=== PATIENT | female | born 1975 | race Caucasian/White ===

== ENCOUNTER 2017-10-16 12:17 | Emergency (ER) | payer OTHER, MEDICAID, SELFPAY ==
[2017-10-16 12:18] VITALS: BP 134/90; PULSE 79; RESP 18; TEMP 36.4; O2SAT 100; BMI 24.5
--- NOTE | 2017-10-16 12:29 | RAD_ITS ---
STUDY: X-RAY - RIGHT WRIST REASON FOR EXAM: Swelling and bruising, box fell on wrist today. TECHNIQUE: 3 view(s) of the wrist were obtained. COMPARISON: None. FINDINGS: Normal visualized distal radius and ulna. Normal radiocarpal articulation. Normal distal radioulnar articulation. Normal carpal bones. Normal carpal articulations. Normal carpometacarpal articulation of the thumb. Normal second through fifth carpometacarpal articulations. Normal visualized metacarpal bones. The soft tissue structures are unremarkable. RAD/Wrist min 3 Views IMPRESSION: Unremarkable x-ray examination of the right wrist without demonstrated fracture. Electronically Signed: Jim Coley MD at 13:24 EDT Tel , Service support ,
--- NOTE | 2017-10-16 12:56 | ED.VISSUMM ---
- ER Visit Summary Date of Service: 10/16/17 Chief Complaint: [Injury right wrist] History of Present Illness: The patient is a 42 F [presents the emergency department with an injury to the right wrist that occurred prior to arrival emergency department. Patient states that she try to bring down a box weighing about 90 pounds and lost control of it. The box trapped her right wrist between the wall and the box weighing about 90 pounds. Patient complaining of pain in the ulnar aspect of the right wrist. Patient is right-hand dominant. Patient denies any other injuries.] Physical Examination: [Right wrist-patient has tenderness over the ulnar aspect with minimal soft tissue swelling noted. There is no ecchymosis or bruising. No obvious deformity. She is neurovascular intact distally.] Test Results: [X-rays of the right wrist obtained showed no fractures or dislocations.] Emergency Department Course and Treatment: [Patient was given a wrist splint] Treatment Plan: [Patient will be given work restrictions and a wrist splint. Patient will be given a prescription for Naprosyn.] Disposition: [Discharged home in stable condition. Patient advised to follow-up with [employer] care within next 3-5 days.] Impression: [Contusion/sprain right wrist This note was generated with [employer] dictation software. It may contain incorrect words, spelling, and punctuation that were not noted in review of the chart prior to signing ED Disposition - Plan for ED Patient: Chief Complaint: Upper Extremity Injury Referrals: Issac Connors MD [Primary Care Provider] -
--- NOTE | 2017-10-16 12:58 | ED.RN ---
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 Inquired whether she would like a drug test due to Workman's Compensation claim and she does NOT want drug test at this time.
--- NOTE | 2017-10-16 12:59 | ED.DCSUM_ITS ---
- ER Visit Summary Date of Service: 10/16/17 Chief Complaint: [Injury right wrist] History of Present Illness: The patient is a 42 F [presents the emergency department with an injury to the right wrist that occurred prior to arrival emergency department. Patient states that she try to bring down a box weighing about 90 pounds and lost control of it. The box trapped her right wrist between the wall and the box weighing about 90 pounds. Patient complaining of pain in the ulnar aspect of the right wrist. Patient is right-hand dominant. Patient denies any other injuries.] Physical Examination: [Right wrist-patient has tenderness over the ulnar aspect with minimal soft tissue swelling noted. There is no ecchymosis or bruising. No obvious deformity. She is neurovascular intact distally.] Test Results: [X-rays of the right wrist obtained showed no fractures or dislocations.] Emergency Department Course and Treatment: [Patient was given a wrist splint] Treatment Plan: [Patient will be given work restrictions and a wrist splint. Patient will be given a prescription for Naprosyn.] Disposition: [Discharged home in stable condition. Patient advised to follow- up with corporate care within next 3-5 days.] Impression: [Contusion/sprain right wrist This note was generated with [employer] dictation software. It may contain incorrect words, spelling, and punctuation that were not noted in review of the chart prior to signing ED Disposition - Plan for ED Patient: Chief Complaint: Upper Extremity Injury Referrals: Issac Connors MD [Primary Care Provider] -
--- NOTE | 2017-10-16 13:01 | DCINST.ED_ITS ---
ED Disposition - Plan for ED Patient: Chief Complaint: Upper Extremity Injury Instructions: ED Sprain Wrist, ED Contusion Upper Ext Prescriptions: Naproxen [Naprosyn] 500 mg PO BID PRN #20 tab Referrals: Issac Connors MD [Primary Care Provider] - [facility] [facility] [GROUP OF PHYSICIANS] - 3-5 Days
--- NOTE | 2017-10-16 13:18 | ED.RN ---
Verbal and written d/c instructions given. All questions answered. Gait steady out of department.
--- NOTE | 2017-10-16 15:56 | ED.RN ---
pt's employer called in- number gave for them to followup with [employer].
== END 2017-10-16 13:15 | disposition home or self-care (01) ==
PROVIDERS: Emergency Provider Emergency Medicine; Family Provider Internal Medicine; PCP Internal Medicine
DX: S63.501A Unspecified sprain of right wrist, initial encounter (principal); S60.211A Contusion of right wrist, initial encounter; W23.0XXA Caught, crushed, jammed, or pinched between moving objects, initial encounter; Y93.89 Activity, other specified; Y92.9 Unspecified place or not applicable; Z79.899 Other long term (current) drug therapy
CPT/HCPCS: 73110; 99283

== ENCOUNTER 2018-08-24 17:06 | Emergency (ER) | payer MEDICAID, SELFPAY ==
[2018-08-24 17:07] VITALS: BP 134/79; PULSE 68; RESP 16; TEMP 36.3; O2SAT 98; BMI 22.1
[2018-08-24] MEDS: Ketorolac 60 MG/2 ML Vial IM (18:01)
[2018-08-24] MEDS: Orphenadrine 60 MG/2 ML Ampul IM (18:01)
--- NOTE | 2018-08-24 18:19 | RAD_ITS ---
STUDY: X-RAY - LUMBAR SPINE REASON FOR EXAM: Female, 43 years old. Weakness TECHNIQUE: 3 view(s) of the lumbar spine were obtained. COMPARISON: None FINDINGS: Normal lumbar lordosis. There is no substantial scoliosis. There is a normal alignment of the vertebrae. There is multilevel endplate spondylosis of the lumbar vertebrae. Mild loss of disc space at L4-L5 and L5-S1. There is no demonstrated fracture. Surgical clips project over the lower abdomen and pelvis. RAD/Lumbar Spine 2 or 3 Views IMPRESSION: No compression fracture. Mild degenerative changes. Electronically Signed: Christo Benson MD at 19:02 EST , Service support ,
--- NOTE | 2018-08-24 20:53 | ED.VISSUMM ---
- ER Visit Summary Date of Service: 08/24/18 Chief Complaint: Leg issues History of Present Illness: The patient is a 43 F with chronic back pain and leg pain. The patient takes gabapentin. Yesterday she had pain that radiated down her legs bilaterally. She said that she could not walk or stand and her legs felt numb. She tried kupu-gni-kuvonnd medicine as well as heat. This morning she felt a little better but was still having more pain than usual. She denies any recent accidents or injuries. No incontinence. No fevers or other associated symptoms. Physical Examination: Afebrile and vital signs unremarkable. Abdomen soft and nontender. Back was nontender. Straight leg raise negative. Good strength and sensation, symmetric. Normal reflexes. Pulses strong and equal. Test Results: X-ray showed no fracture she does have mild degenerative changes. Emergency Department Course and Treatment: Patient was treated with Norflex and Toradol. On reevaluation, she was able to ambulate. She had good strength and sensation. Her symptoms yesterday were concerning. MRI is not available emergently. I do not believe there is indication for admission or emergency transfer, but I do believe she needs close follow-up. I spoke with Dr. Reddy who was on-call for her PCP. He will relay the message. Patient will be treated with a short course of pain medicine. Follow-up with her doctor. Return right away for any new or worsening issues. Treatment Plan: As above Disposition: Discharge Impression: 1. Low back pain with bilateral sciatica This note was generated with [employer] dictation software. It may contain incorrect words, spelling, and punctuation that were not noted in review of the chart prior to signing ED Disposition - Plan for ED Patient: Referrals: Marisa Chew MD [Primary Care Provider] -
--- NOTE | 2018-08-24 20:55 | ED.DEP ---
ED Disposition - Plan for ED Patient: Instructions: Relieving Back Pain Prescriptions: Hydrocodone Bitart/Apap 5-325 [Buckhorn 5MG-325MG] 1 tab PO Q6H PRN PRN 3 Days #10 tab PRN Reason: Pain Referrals: Marisa Chew MD [Primary Care Provider] -
[2018-08-24 21:13] VITALS: BP 118/82; PULSE 66; RESP 16; O2SAT 98
== END 2018-08-24 21:14 | disposition home or self-care (01) ==
PROVIDERS: Emergency Provider Emergency Medicine; Family Provider Internal Medicine; PCP Internal Medicine
DX: M54.42 Lumbago with sciatica, left side (principal); M54.41 Lumbago with sciatica, right side
CPT/HCPCS: 72100; 96372; 99282

== ENCOUNTER 2020-08-11 20:13 | Emergency (ER) | payer OTHER, MEDICAID, SELFPAY ==
[2020-08-11 20:14] VITALS: BP 130/89; PULSE 110; RESP 15; TEMP 36.2; O2SAT 99; BMI 24.7
--- NOTE | 2020-08-11 21:16 | ED.VIS.GEN ---
History of Present Illness Chief Complaint: Mental Health Informant: Patient Narrative: 45-year-old female states that tonight she got an argument with her and daughter. She made the comment she wanted to end it all and by that she means the marriage and relationship with the daughter. She states that she is not suicidal or homicidal. She tells me that she wanted to be left alone to collect her thoughts in her room but they took the door handle off and came into the room. She wanted to leave and go for a walk and eventually was able to do so. The family called the police and they told her she needed to come to the hospital and speak with someone. Patient is currently on antidepressants. She needs antidepressants and has been on her new one for about a week. She has a follow-up appointment with her doctor on Sunday (in 2 days). Patient states that she wants to go stay at her mother's house and her mother is here in the parking lot if she is discharged. She denies any prior suicidal attempts. Past Medical History - Allergies and Home Meds Allergies/Adverse Reactions: Allergies morphine Allergy (Verified 08/11/20 20:17) Nausea/Vom/Diarrhea Penicillins Allergy (Verified 08/11/20 20:17) Hives tomato Allergy (Verified 08/11/20 20:17) Hives ORAL CONTRAST Allergy (Uncoded 08/11/20 20:17) Nausea/Vom/Diarrhea Primary Care Physician: Marisa Chew MD [Primary Care Provider] - Keep Mago appointment Past Medical History: - - History of depression Surgical History: noncontributory Lives: Spouse/ Significant Other, With Family Smoking Status: Current every day smoker Drugs: None Review of Systems General: Denies: Chills, Fever, Sweats Eyes: Denies: Visual changes - bilaterally, Diplopia ENT: Denies: Rhinorrhea, Sore throat Cardiovascular: Denies: Chest pain, Palpitations Respiratory: Denies: Dyspnea, Cough, Dyspnea on exertion Gastrointestinal: Denies: Abdominal pain, Nausea, Vomiting, Diarrhea, Melena, Hematochezia Genitourinary: Denies: Dysuria, Hematuria, Frequency Musculoskeletal: Denies: Back pain, Extremity Pain Skin: Denies: Rash, Wounds Neurological: Denies: Headache, Weakness, Numbness Psych: Reports: Depression. Denies: Suicidal thoughts, Suicidal ideations Physical Exam Vital Signs/Narrative: Vital Signs Temp Pulse Resp BP Pulse Ox 08/11/20 20:14 97.1 F L 110 H 15 130/89 H 99 Inital Vital Signs reviewed: Yes General: Well nourished, Well developed, No Acute Distress Head: Normocephalic, Atraumatic Eyes: Perrl, EOMI ENT: Moist mucous membranes, No rhinorrhea Neck: Supple, Nontender Cardiovascular: Regular rate, Regular rhythm, No murmurs Respiratory: No distress, CTA bilaterally, Chest nontender Abdomen: Soft, Nontender, Nondistended, Normal bowel sounds Back: Nontender, Normal Inspection Extremities: Nontender, No edema Skin: Normal color, No rash Neurological: Alert, Oriented x3, Cranial nerves II-XII grossly intact, Normal Strength, Normal Sensation Psychological: Normal affect, Normal Mood, - - Patient makes eye contact with me. She denies suicidal homicidal ideation. She answers appropriately. No pressured speech or internal stimulation noted. Diagnostic/Tx/Re-eval - Medical Decision Making Patient is not suicidal homicidal. She has a plan to stay with her mother josé antonio. This appears to be a stressful situation that perhaps got out of hand. She has early follow-up with her doctor on Sunday. I do not think she needs to be hospitalized at this time. ED Disposition - Plan for ED Patient: Disposition: Home or Assisted Living Diagnosis: Stress reaction Instructions: ED Anxiety Reaction Referrals: Marisa Chew MD [Primary Care Provider] - Keep Mago appointment
== END 2020-08-11 21:58 | disposition home or self-care (01) ==
LOC: ED 21:39
PROVIDERS: Emergency Provider Emergency Medicine; PCP Internal Medicine
DX: F43.9 Reaction to severe stress, unspecified (principal); F32.9 Major depressive disorder, single episode, unspecified; F17.200 Nicotine dependence, unspecified, uncomplicated
CPT/HCPCS: 99282

== ENCOUNTER 2021-09-04 10:43 | Emergency (ER) | payer MEDICAID, SELFPAY ==
[2021-09-04 10:44] VITALS: BP 127/82; PULSE 89; RESP 16; TEMP 35.4; O2SAT 100; BMI 23.3
--- NOTE | 2021-09-04 10:45 | RAD_ITS ---
STUDY: X-RAY - LEFT ELBOW REASON FOR EXAM: Female, 46 years old. FALL TECHNIQUE: 3 view(s) of the elbow. COMPARISON: None. FINDINGS: Normal visualized humerus, radius and ulna. Normal radiocapitellar and ulnotrochlear articulations. The soft tissue structures are unremarkable. RAD/Elbow min 3 Views IMPRESSION: Normal x-ray examination of the elbow. Electronically Signed: Ignacia Correa MD at 11:07 EST ,
--- NOTE | 2021-09-04 11:17 | EX.ED.UPPERE ---
HPI History of Present Illness Chief Complaint: Upper Extremity Injury Informant: patient Occured/Mechanism Mechanism/Context: Yes fall Onset/Context/Timing Onset: Yesterday Current Severity: Moderate Maximum Severity: Moderate Narrative Narrative: Patient presents with injury to the left elbow. Patient states that she tripped over her cat last evening falling backwards and striking her elbow against a table. Injuries to the left arm. She is right-hand dominant. Patient does report pain around the left elbow and down into the forearm. She reports intermittent tingling in her hand. She denies any pain at her neck or shoulder. No other injury from the fall. PFSH PFSH Home Medications diphenoxylate-atropine 1 tab PO 4X/DAY PRN 10/16/15 [History Last Taken 08/24/18] ropinirole [Requip] 0.25 mg PO DAILY 10/16/15 [History Last Taken 08/24/18] ascorbic acid (vitamin C) [Vitamin C] 1 tab PO DAILY 10/16/17 [History Last Taken 08/24/18] ferrous gluconate 1 tab PO DAILY 10/16/17 [History Last Taken 08/24/18] gabapentin [Neurontin] 300 mg PO BID 10/16/17 [History Last Taken 08/24/18] naproxen 500 mg PO BID PRN #20 tab 10/16/17 [Rx Last Taken 08/24/18] cholecalciferol (vitamin D3) 50,000 unit PO QWEEK 08/24/18 [History Last Taken 08/24/18] magnesium 250 mg PO DAILY 08/24/18 [History Last Taken 08/24/18] naproxen [Naprosyn] 500 mg PO BID PRN #20 tab 09/04/21 [Rx Last Taken Unknown] Allergy/AdvReac Type Severity Reaction Status Date / Time morphine Allergy Nausea/Vom/ Verified 09/04/21 10:46 Diarrhea Penicillins Allergy Hives Verified 09/04/21 10:46 tomato Allergy Hives Verified 09/04/21 10:46 ORAL CONTRAST Allergy Nausea/Vom/ Uncoded 09/04/21 10:46 Diarrhea Social History Smoking Status: Former smoker ROS ROS ED Constitutional Constitutional ED: Denies chills or fever(s) Eyes Eyes: Denies change in vision ENT ENT ED: Denies sore throat Cardiovascular Cardiovascular: Denies chest pain Respiratory/Chest Respiratory/Chest: Denies cough or dyspnea Gastrointestinal Gastrointestinal: Denies abdominal pain, nausea or vomiting Musculoskeletal Musculoskeletal: Reports other Details: Left elbow pain ; Denies back pain or neck pain Integumentary Denies rash Neurologic Neurologic: Reports paresthesias and weakness; Denies headache(s) EXAM Physical Exam Const Vital Signs: 09/04/21 10:44 Temperature 95.8 F L Temperature Source Temporal Pulse Rate 89 Respiratory Rate 16 Blood Pressure 127/82 H Blood Pressure Mean 97 Pulse Ox 100 Oxygen Delivery Method Room Air Positive well nourished and well developed General Appearance ED: well developed HEENT Reports moist mucous membranes Eyes PERRL and EOMs intact bilaterally Neck supple Neck Narrative: No C-spine tenderness. Chest Wall inspection of chest normal and palpation of chest normal Resp normal respiratory effort and clear to auscultation bilaterally Cardio regular rate and regular rhythm GI non-tender Palpation: soft Back/Spine Cervical Spine: Negative for cervical spine tenderness Extremity Extremity Narrative: Tenderness to palpation of the extensor surface of the left elbow. Small area of bruising noted. Pain with range of motion but full range of motion is noted. Strong distal pulses with strong hand grasp. No tenderness at the shoulder. Neuro oriented x3 Sensorium / Orientation: alert Psych mental status grossly normal MDM MDM MDM Narrative Medical decision making narrative: Left elbow x-rays obtained per nursing protocol. Radiography Diagnostic Testing: Clinical Impression(s) from Imaging Studies Elbow X-Ray 09/04/21 10:45 IMPRESSION: Normal x-ray examination of the elbow. Electronically Signed: Ignacia Correa MD at 11:07 [facility] , Treatment and Re-Evaluation Comments:: Elbow x-rays per my interpretation reveal no acute fracture. Radiology to rotation is reviewed and agrees. Test results discussed with the patient. She be placed in a sling but instructed to come out of the sling several times a day to work on range of motion. She will written for anti-inflammatories. Discharge Plan Triage Chief Complaint: Upper Extremity Injury ED Provider: Verónica Oliveira Dx/Rx/DC Orders Clinical Impression: Contusion of elbow, left Instructions: ED Contusion, Elbow Prescriptions: New naproxen [Naprosyn] 500 mg tablet 500 mg PO BID PRN (Reason: pain) Qty: 20 RF: 0 No Action diphenoxylate-atropine 1 TABLET tablet 1 tab PO 4X/DAY PRN (Reason: Diarrhea) RF: 0 ropinirole [Requip] 0.25 MG tablet 0.25 mg PO DAILY RF: 0 ascorbic acid (vitamin C) [Vitamin C] 1,000 MG tablet 1 tab PO DAILY RF: 0 gabapentin [Neurontin] 300 MG capsule 300 mg PO BID RF: 0 ferrous gluconate 236 MG tablet 1 tab PO DAILY RF: 0 naproxen 500 MG tablet 500 mg PO BID PRN Qty: 20 RF: 0 magnesium 250 MG tablet 250 mg PO DAILY RF: 0 cholecalciferol (vitamin D3) 50,000 UNIT capsule 50,000 unit PO QWEEK RF: 0 Primary Care Provider: Marisa Chew Referrals: Marisa Chew MD [Primary Care Provider] - 10-14 Days if not better Disposition Disposition: Home, Self Care
== END 2021-09-04 11:57 | disposition home or self-care (01) ==
PROVIDERS: Emergency Provider Emergency Medicine; PCP Internal Medicine; Visit Provider Emergency Medicine
DX: S50.02XA Contusion of left elbow, initial encounter (principal); W01.0XXA Fall on same level from slipping, tripping and stumbling without subsequent striking against object, initial encounter; Z87.891 Personal history of nicotine dependence
CPT/HCPCS: 73080; 99283

== ENCOUNTER 2024-05-06 10:46 | Inpatient (IN) | payer BC, SELFPAY ==
[2024-05-06] VITALS (14 sets, daily range): BP systolic 81–120; BP diastolic 48–91; PULSE 70–104; RESP 13–24; TEMP 35.8–36.5; O2SAT 98–100; BMI 25.4; BMI 24.5
--- NOTE | 2024-05-06 | IMM_PTH ---
PATHOLOGY RESULTS PATIENT: CHATO ALFARO LOC: MS3 U#:[id number] AGE/SX: 48/F ROOM: [facility] [place] RE05/06/[address]: Dr. Ziggy Valle MD : 1975 BED: 1 DIS: 05/13/2024 SPEC #: [id number] RECD: 05/09/24 13:58 STATUS: RODOLFO REQ #: [id number] SHANA: 05/06/24 00:[address]: Ziggy Valle DEPT: IMMUNOHISTOCHEMISTRY RECD BY: Niall Noriega ENTERED: 05/09/24 13:59 SP TYPE: IMMUNO OTHR DR: Dr. Marisa Chew MD Tissues: Rectosigmoid junction Procedures: MSH2 (add) MLH-1 (add) MSH6 (add) Anti-PMS2 (add) CK20 (add) CK5-6 (add) CK7 (add) CK8 (add) KI-67 (add) P53 (add) Pankeratin (add) P40 (add) CDX2 (add) MOC-31 (add) HER-2-JENNA (initial) PHYSICIAN & [address] [address] SPECIMEN INFORMATION: Tissue Source: B- Sigmoid rectal colon Clinical Info: Pneumoperitoneum Specimen Number: [id number] CPT code: 83966,03438z22 METHODOLOGY: Deparaffinized sections of prefer/formalin-fixed tissue or PAP/DQ stained slides are incubated with monoclonal/polyclonal antibodies/oligonucleotide probes. Localization is made via biotin free immunoperoxidase method. Appropriate controls are performed and reacted as expected. Results on target cell population are indicated in the following table: RESULTS: ANTIBODY / CLONE RESULT Block B4 Her-2neu (CB11) negative(0) AE1-3 (AE1/AE3/PCK26) positive CK7 (OV-TL12/30) negative CK8 (65mqlwW64) positive CK20 (KS20.8) positive, focal CDX2 ([id number]) positive MOC-31 (4561) negative CK5-6 (D5 & 1684) negative P40 (BC28) negative MLH-1 (M1) positive MSH2 (25D12) positive MSH6 (44) positive PMS2 (MOS2322) positive Ki-67 (30-9) positive, high P53 (DO-7) positive, indeterminate pattern Testing for Her2 by IHC if equivocal, recommend testing for Her2 by FISH(remove/not needed) These tests were developed and their performance characteristics determined by [facility]. They may not have been cleared or approved by the U.S. Food and Drug Administration. The FDA has determined that such clearance or approval is not necessary. The above immunohistochemical/dualISH markers are ordered and reviewed by the Pathologist. INTERPRETATION: B. Sigmoid rectal colon, colectomy: Invasive adenocarcinoma. Result of Microsatellite Instability Study: Negative (no loss of mismatch protein; no microsatellite instability detected). LELIA. 05/12/2024
--- NOTE | 2024-05-06 | IMM_PTH ---
PATHOLOGY RESULTS PATIENT: CHATO ALFARO LOC: MS3 U#:[id number] AGE/SX: 48/F ROOM: [facility] [place] [place] RE05/06/[address]: Dr. Ziggy Valle MD : 1975 BED: 1 DIS: 05/13/2024 SPEC #: [id number] RECD: 05/08/24 10:50 STATUS: RODOLFO REQ #: [id number] SHANA: 05/06/24 00:[address]: Ziggy Valle DEPT: IMMUNOHISTOCHEMISTRY RECD BY: Niall Noriega ENTERED: 05/08/24 10:51 SP TYPE: IMMUNO OTHR DR: Dr. Marisa Chew MD Tissues: Peritoneal fluid Procedures: Asher Ret (add) CK20 (add) CK7 (add) P53 (add) Vimentin (add) Pankeratin (initial) CDX2 (add) CD68 (ADD) PHYSICIAN & INSTITUTION [place] [address] SPECIMEN INFORMATION: Tissue Source: Peritoneal fluid Clinical Info: Possible [place] patch Specimen Number: [id number] CPT code: 14102,16390b2 METHODOLOGY: Deparaffinized sections of prefer/formalin-fixed tissue or PAP/DQ stained slides are incubated with monoclonal/polyclonal antibodies/oligonucleotide probes. Localization is made via biotin free immunoperoxidase method. Appropriate controls are performed and reacted as expected. Results on target cell population are indicated in the following table: RESULTS: ANTIBODY / CLONE RESULT AE1-3 (AE1/AE3/PCK26) positive, rare cells CALRET (polyclonal) positive, rare cells CK20 (KS20.8) negative CDX2 (IJF2941X) negative P53 (DO-7) negative, null pattern CK7 (OV-TL12/30) positive, rare cells CD68 (KP-1) positive Vimentin (V9) positive These tests were developed and their performance characteristics determined by [facility]. They may not have been cleared or approved by the U.S. Food and Drug Administration. The FDA has determined that such clearance or approval is not necessary. The above immunohistochemical/dualISH markers are ordered and reviewed by the Pathologist. INTERPRETATION: Peritoneal fluid for cytology : No evidence of malignancy. 05/12/2024
[2024-05-06 11:28] LABS: Hematocrit 36.9 % (37-47); Hemoglobin 11.6 g/dL (12.0-15.0); Mean Corp Hgb Conc 31.4 g/dL (32-36); Mean Corpuscular Hgb 24.5 pg (27.0-32.0); Mean Platelet Vol. 9.6 fl (6.2-12.0); NRBC Flagged by Analyzer 0 % (0-5); POSITIVE DIFFERENTIAL YES; POSITIVE MORPHOLOGY YES; Platelet Count 653 K/mm3 (150-450); RBC Distribution Width CV 14.4 % (11.6-14.6); RBC Distribution Width SD 40.8 fl (35.1-43.9); Red Blood Count 4.73 M/mm3 (4.2-5.4); White Blood Count 25.5 K/mm3 (4.4-11.0)
--- NOTE | 2024-05-06 11:28 | EX.ED.DYSGE1 ---
HPI History of Present Illness Chief Complaint: Abd Pain PFSH PFS Home Medications ?Medication ?Instructions ?Recorded ?Last Taken ?Type diphenoxylate-atropine 2.5 1 tab PO 4X/DAY PRN Diarrhea 10/16/15 08/24/18 History mg-0.025 mg tablet ropinirole 0.25 mg tablet (Requip) 0.25 mg PO DAILY 10/16/15 08/24/18 History ascorbic acid (vitamin C) 1,000 mg 1 tab PO DAILY 10/16/17 08/24/18 History tablet (Vitamin C) ferrous gluconate 236 mg (27 mg 1 tab PO DAILY 10/16/17 08/24/18 History iron) tablet gabapentin 300 mg capsule 300 mg PO BID 10/16/17 08/24/18 History (Neurontin) naproxen 500 mg tablet 500 mg PO BID PRN #20 tabs 10/16/17 08/24/18 Rx cholecalciferol (vitamin D3) 1,250 50,000 unit PO QWEEK 08/24/18 08/24/18 History mcg (50,000 unit) capsule magnesium 250 mg tablet 250 mg PO DAILY 08/24/18 08/24/18 History naproxen 500 mg tablet (Naprosyn) 500 mg PO BID PRN pain #20 tabs 09/04/21 Unknown Rx Allergy/AdvReac Type Severity Reaction Status Date / Time morphine Allergy Intermediate Hives Verified 05/06/24 13:21 Penicillins Allergy Hives Verified 05/06/24 10:47 tomato Allergy Hives Verified 05/06/24 10:47 Surgical History (Updated 05/06/24 @ 14:[address] Mendoza Montaño MD) History of left nephrectomy S/P cholecystectomy History of laparoscopic appendectomy H/O: hysterectomy Social History Smoking Status: Never smoker EXAM Physical Exam Const Vital Signs: 05/06/24 10:47 05/06/24 11:49 05/06/24 12:00 Temperature 96.5 F L Temperature Source Temporal Pulse Rate 104 H 92 92 Respiratory Rate 18 20 H 20 H Blood Pressure 81/70 L 112/91 H 112/91 H Blood Pressure Mean 73 98 98 Pulse Ox 100 99 99 Oxygen Delivery Method Room Air Room Air 05/06/24 13:00 05/06/24 13:15 05/06/24 14:41 Temperature 96.5 F L Temperature Source Pulse Rate 85 86 86 Respiratory Rate 20 H 24 H 24 H Blood Pressure 106/48 L 91/60 91/60 Blood Pressure Mean 67 71 Pulse Ox 99 99 Oxygen Delivery Method Room Air Room Air [facility] Narrative Medical decision making narrative: HISTORY OF PRESENT ILLNESS: 48-year-old Notes sharp stabbing pain from left hip across lower abdomen up to rib cage. Notes she has had a gallbladder surgery and appendix surgery in the past. Notes history of total hysterectomy bilateral salpingo-oophorectomy 20 years ago REVIEW OF SYSTEMS: Pertinent positives: Abdominal pain Pertinent negatives: Nausea vomiting PHYSICAL EXAM: Nursing triage notes reviewed, Vital signs reviewed Constitutional: please see mdm HENT: MMM Eyes: Pupils equal round and reactive to light, Extraocular muscles intact Neck: No stridor, no JVD, full neck ROM Lungs: Clear to auscultation, No wheezing or rales. No increased work of breathing, no conversational dyspnea, no accessory muscle use, no nasal flaring. No respiratory distress noted Heart: Regular rate and rhythm, No murmurs, No rubs and No gallops, 2+ distal pulses (radial, femoral, posterior tibial) in all extremities Abdomen: Soft, there is no tenderness, rigidity, rebound or guarding, no obvious peritoneal signs, no palpable pulsatile abdominal masses, no auscultated abdominal bruit : No CVAT Extremities: No edema Neuro: No focal neurological deficits, cranial nerves II through XII intact, 5/5 strength in all extremities. Intact sensation to light touch in all extremities, 2+ reflexes bilateral patella tendons. Normal gait. No ataxia. Skin: No rash or lesions noted MEDICAL DECISION MAKING: Chief Complaint: Abdominal pain External records reviewed: Prior vital signs reviewed. Prior imaging studies reviewed. Consults: General Surgery (Dr. Valle) who evaluated the with the patient and recommended admission to the OR for concern for abdominal perforation [facility] Narrative: 48-year-old female presents with severe abdominal pain. Initially was hypotensive and tachycardic requiring IV fluid resuscitation and multiple doses of bedside ultrasound showed no evidence of free fluid in the abdomen. IV narcotic pain medication. Obtained a stat CT scan of the abdomen pelvis which showed evidence of a the perforation per general surgery read and partial small bowel obstruction per radiology read. I gave empiric cefepime consulted surgery who recommended admission to the OR. Patient was admitted to the OR in stable but guarded condition Concern for possible dental tumor or other cancerous etiology given positive beta-hCG in a patient had a hysterectomy and bilateral salpingo-oophorectomy. The patient and/or family, caregivers express understanding. The patient and/or family, caregivers agrees with the plan. Shared decision making: I will have a discussion with the patient and or visitors regarding risk/benefits of further testing or admission. They will be made aware of of the risk/benefits inherent in this decision they will be given the opportunity to voice understanding. Total critical care time today provided was at least 60 minutes. This excludes separately billable procedures. Critical care time (if documented) is secondary to the patient having high probability of clinically significant/life threatening deterioration in the patient's condition which required my urgent intervention. Impression: 1. Hypotension 2. Elevated white blood cell count 3. Abdominal perforation 4. Positive hCG 5. History of total hysterectomy 6. History of bilateral salpingo-oophorectomy Dispo: Admit to operating This note was generated with [employer] dictation software. It may contain incorrect words, spelling, and punctuation that were not noted in review of the chart prior to signing. Lab Data Labs: Laboratory Results - last 24 hr 05/06/24 05/06/24 05/06/24 11:15 11:40 12:30 WBC 25.5 H RBC 4.73 Hgb 11.6 L Hct 36.9 L MCV 78.0 L MCH 24.5 L MCHC 31.4 L RDW Std Deviation 40.8 RDW Coeff of Nikole 14.4 Plt Count 653 H MPV 9.6 Immature Gran % (Auto) WET PAN MIXER Neut % (Auto) WET PAN MIXER Lymph % (Auto) WET PAN MIXER [place] % (Auto) WET PAN MIXER Eos % (Auto) WET PAN MIXER Baso % (Auto) WET PAN MIXER Absolute Neuts (auto) 25.0 H Absolute Lymphs (auto) 0.26 L Total Counted 100 Neutrophils % (Manual) 56 Band Neutrophils % 42 H Lymphocytes % (Manual) 1 L Monocytes % (Manual) 1 Nucleated RBC % 0 Platelet Estimate MKD DEC RBC Morphology NORM C+C Sodium 134 L Potassium 3.7 Chloride 96 L Carbon Dioxide 25.0 Anion Gap 13 BUN 24 H Creatinine 1.29 H Estim Creat Clear Calc 49.46 Est GFR (MDRD) Af Amer 57 L Est GFR (MDRD) Non-Af 47 L BUN/Creatinine Ratio 18.6 Glucose 105 Lactic Acid 2.3 H* Calcium 8.9 Total Bilirubin 2.30 H AST 35 ALT 35 Alkaline Phosphatase 271 H Troponin I High Sens 10 Total Protein 7.4 Albumin 2.2 L Globulin 5.2 H Albumin/Globulin Ratio 0.4 L Lipase 21 HCG, Quant 8 H Serum , Qual POSITIVE Urine Color Urine Clarity Urine pH Ur Specific [place] Urine Protein Urine Glucose (UA) Urine Ketones Urine Occult Blood Urine Nitrite Urine Bilirubin Urine Urobilinogen Ur Leukocyte Esterase Urine RBC Urine WBC Ur Squamous Epith Cells Urine Bacteria Urine Mucus Blood Type A POSITIVE Antibody Screen NEGATIVE 05/06/24 13:30 WBC RBC Hgb Hct MCV MCH MCHC RDW Std Deviation RDW Coeff of Nikole Plt Count MPV Immature Gran % (Auto) Neut % (Auto) Lymph % (Auto) [place] % (Auto) Eos % (Auto) Baso % (Auto) Absolute Neuts (auto) Absolute Lymphs (auto) Total Counted Neutrophils % (Manual) Band Neutrophils % Lymphocytes % (Manual) Monocytes % (Manual) Nucleated RBC % Platelet Estimate RBC Morphology Sodium Potassium Chloride Carbon Dioxide Anion Gap BUN Creatinine Estim Creat Clear Calc Est GFR (MDRD) Af Amer Est GFR (MDRD) Non-Af BUN/Creatinine Ratio Glucose Lactic Acid Calcium Total Bilirubin AST ALT Alkaline Phosphatase Troponin I High Sens Total Protein Albumin Globulin Albumin/Globulin Ratio Lipase HCG, Quant Serum , Qual Urine Color Yellow Urine Clarity Clear Urine pH 5.0 Ur Specific [place] 1.015 Urine Protein 30 H Urine Glucose (UA) Normal Urine Ketones 5 H Urine Occult Blood 150 H Urine Nitrite Negative Urine Bilirubin 1 H Urine Urobilinogen 4 H Ur Leukocyte Esterase 25 H Urine RBC 0-5 SEEN Urine WBC 0-5 SEEN Ur Squamous Epith Cells 0-5 SEEN Urine Bacteria 1+ Urine Mucus 1+ Blood Type Antibody Screen Radiography Diagnostic Testing: Clinical Impression(s) from Imaging Studies Abdomen/Pelvis CT 05/06/24 11:31 IMPRESSION: 1. Fluid-filled patient with air-fluid levels in the small bowel loops worrisome for partial distal small bowel obstruction. 2. Suspicious irregular intramural thickening of the sigmoid colon. This is a new finding. Colonoscopy will be very helpful for further evaluation. 3. Small ascites around the right lower hepatic lobe surface, overlying the sigmoid colon and overlying the empty urinary bladder. Etiology is unknown. 4. No other additional findings or changes. Electronically Signed: Refugio Schroeder MD at 12:41 EDT , Brain CT 05/06/24 11:46 IMPRESSION: 1. Normal head/brain CT without intravenous contrast. 2. No CT evidence of suspicious pituitary mass. Electronically Signed: Refugio Schroeder MD at 12:31 EDT , Chest X-Ray 05/06/24 12:10 IMPRESSION: No radiographic evidence of acute cardiopulmonary disease and unchanged. Electronically Signed: Refugio Schroeder MD at 12:51 EDT , Discharge Plan Disposition Disposition: Acute Care Hospital [facility] Discharge Date/Time: 05/06/24 14:06
[2024-05-06 11:29] LABS: Differential Indicated SCAN CRITERIA MET
--- NOTE | 2024-05-06 11:31 | CT_ITS ---
EXAM: CT ABDOMEN AND PELVIS WITH INTRAVENOUS CONTRAST CLINICAL INDICATION: Abdominal pain. TECHNIQUE: Helically acquired images were obtained of the abdomen and pelvis with intravenous contrast. This CT exam was performed using one or more of the following dose reduction techniques: automated exposure control, adjustment of the mA and/or kV according to patient size, and/or use of iterative reconstruction technique. CONTRAST: IV 75mL [id number] RADIATION DOSE: CTDIvol = 9.97 mGy, DLP = 492.95 mGy-cm COMPARISON: CT abdomen and pelvis with contrast 06/18/2011. FINDINGS: LOWER THORAX: Unremarkable. Lung bases are clear. No cardiomegaly. No significant pericardial effusion. ABDOMEN: LIVER: Unremarkable. Homogeneous. No focal mass. GALLBLADDER AND BILE DUCTS: Unremarkable. No visible gallbladder presumably from laparoscopic cholecystectomy. No intrahepatic or extrahepatic biliary ductal dilatation. PANCREAS: Unremarkable. No focal cystic or solid mass. SPLEEN: Unremarkable. Normal size without focal cystic or solid mass. ADRENALS: Unremarkable. No nodules. KIDNEYS AND URETERS: Unremarkable. Normal renal size and position. Normal right kidney. No stones or hydronephrosis. Postsurgical absence of the left kidney. STOMACH AND BOWEL: Fluid-filled dilatation of the small bowel loops worrisome for partial distal small bowel obstruction. Suspicious irregular intramural thickening of the sigmoid colon. PELVIS: APPENDIX: The appendix is not visualized. BLADDER: Unremarkable. No suspicious mass or stones inside the empty urinary bladder. REPRODUCTIVE: Unremarkable as visualized. No mass. ABDOMEN and PELVIS: INTRAPERITONEAL SPACE: Small ascites overlying the sigmoid colon around the right lower hepatic lobe surface and overlying the empty urinary bladder. No free air. BONES/JOINTS: Unremarkable. No suspicious lytic or blastic abnormality. SOFT TISSUES: Unremarkable. No discrete abdominal or pelvic wall hernia. VASCULATURE: Unremarkable. Abdominal aorta is non-dilated. LYMPH NODES: Unremarkable. No enlarged lymph nodes. CT/Abdomen/Pelvis W IV Cont ONLY IMPRESSION: 1. Fluid-filled patient with air-fluid levels in the small bowel loops worrisome for partial distal small bowel obstruction. 2. Suspicious irregular intramural thickening of the sigmoid colon. This is a new finding. Colonoscopy will be very helpful for further evaluation. 3. Small ascites around the right lower hepatic lobe surface, overlying the sigmoid colon and overlying the empty urinary bladder. Etiology is unknown. 4. No other additional findings or changes. Electronically Signed: Refugio Schroeder MD at 12:41 EDT ,
[2024-05-06 11:38] LABS: Internal QC Validated? YES +Cl - CLEAR BKGD
[2024-05-06 11:40] LABS: Pregnancy, Serum, hCG Quali. POSITIVE Negative
--- NOTE | 2024-05-06 11:44 | EKG12_ITS ---
Test Reason : CP Blood Pressure : / mmHG Vent. Rate : 080 BPM Atrial Rate : 080 BPM P-R Int : 108 ms QRS Dur : 066 ms QT Int : 378 ms P-R-T Axes : 046 046 025 degrees QTc Int : 435 ms Sinus rhythm with short AL Otherwise normal ECG Confirmed by Ziggy Cummings ([id number]), editor continuity and script BRE SINGH ([id number]) on 05/07/2024 9:22:44 AM Referred By: Confirmed By:Ziggy Cummings
[2024-05-06 11:46] LABS: ALB/GLOB Ratio 0.4 RATIO (0.9-2.4); AST(SGOT) 35 U/L (15-37); Alanine Aminotransfer ALT/SGPT 35 U/L (13-56); Albumin, Serum 2.2 g/dL (3.2-5.0); Alkaline Phosphatase 271 U/L (45-117); Anion Gap 13 (5-15); BUN 24 mg/dL (7-18); BUN/Creat Ratio 18.6 RATIO (10-20); Calcium,Total 8.9 mg/dL (8.5-10.1); Chloride 96 mmol/L (98-107); Creatinine, Serum 1.29 mg/dL (0.55-1.02); EST Glomerular Filtration Rate 47 mL/min (>60); Est Glom Filt Rate - Afr Amer 57 mL/min (>60); Estimated Creatinine Clearance 49.46 ml/min; Globulin 5.2 g/dL (2.2-4.2); Glucose 105 mg/dL (74-106); Potassium 3.7 mmol/L (3.5-5.1); Protein, Total 7.4 g/dL (6.4-8.2); Sodium Level 134 mmol/L (136-145)
--- NOTE | 2024-05-06 11:46 | CT_ITS ---
EXAM: CT HEAD WITHOUT INTRAVENOUS CONTRAST CLINICAL INDICATION: +HCG r/o pituitary mass TECHNIQUE: Multiple axial images were obtained of the head without intravenous contrast. This CT exam was performed using one or more of the following dose reduction techniques: automated exposure control, adjustment of the mA and/or kV according to patient size, and/or use of iterative reconstruction technique. RADIATION DOSE: CTDIvol = 44.99 mGy, DLP = 762.36 mGy-cm COMPARISON: No relevant prior studies available. FINDINGS: BRAIN AND EXTRA-AXIAL SPACES: Unremarkable. No intra- or extra-axial hemorrhage. No evidence of acute infarct. No intracranial mass or mass effect. There is preservation of the talbot/white matter interface. Posterior fossa structures are unremarkable. Ventricles are appropriate for age. No hydrocephalus. Basal cisterns are patent. BONES/JOINTS: Unremarkable. No discrete lytic or blastic abnormalities. SINUSES: Unremarkable as visualized. Clear. MASTOID AIR CELLS: Unremarkable. Clear. ORBITS: Visualized globes, extraocular muscles, optic nerves and retrobulbar fat appear unremarkable. CT/Brain/Head without Contrast IMPRESSION: 1. Normal head/brain CT without intravenous contrast. 2. No CT evidence of suspicious pituitary mass. Electronically Signed: Refugio Schroeder MD at 12:31 EDT ,
[2024-05-06 11:49] LABS: Scan Smear per Review Criteria MANUAL DIFF
[2024-05-06 11:51] LABS: Lymphocyte 1 % (19-41); Monocyte 1 % (0-10); Neutrophil-Band 42 % (0-5); Neutrophil-Segmented 56 % (47-70); Total Cells Counted 100 (MANUAL DIFF)
[2024-05-06 11:52] LABS: Platelet Estimate MKD DEC (ADEQ); Red Cell Morphology NORM C+C NORMAL (NORM C&C)
[2024-05-06] MEDS: Ondansetron 4 MG/2 ML Vial IV (11:52)
[2024-05-06] MEDS: fentaNYL 100 MCG/2 ML Ampul 25 MCG IV (11:52)
[2024-05-06 11:53] LABS: Absolute Lymphocyte Count 0.26 X10^3/uL (0.83-4.51)
--- NOTE | 2024-05-06 11:53 | ED.RN ---
NO OLD EKGS
[2024-05-06] MEDS: 0.9% Normal Saline (1000mL) 1,000 ML 999 ML IV (11:54)
--- NOTE | 2024-05-06 12:10 | RAD_ITS ---
EXAM: XR CHEST, 1 VIEW CLINICAL INDICATION: chest pain TECHNIQUE: Frontal view of the chest. COMPARISON: 09/12/2004. FINDINGS: LUNGS AND PLEURAL SPACES: Unremarkable. No consolidation or edema. No pneumothorax. No effusion. HEART: Unremarkable. Cardiac silhouette not enlarged. MEDIASTINUM: Central airways and mediastinal contour are unremarkable. BONES/JOINTS: Unremarkable. No acute fracture. SOFT TISSUES: Unremarkable. RAD/Chest 1 View (Portable) IMPRESSION: No radiographic evidence of acute cardiopulmonary disease and unchanged. Electronically Signed: Refugio Schroeder MD at 12:51 EDT ,
--- OUTSIDE RECORDS SUMMARY | 2024-05-06 12:32 | XMS RPT_ITS | CCD ---
Author Organization [facility] Care Team Providers Care Pie Icer Machine Name Role Phone Naina KIRK, Vicente Primary Care Provider [phone] GANTA, VICENTE Primary Care Unavailable ADRIANNA HUSAIN Referring Unavailable GANTA, VICENTE Primary Care Unavailable GANTA, VICENTE Primary Care Unavailable GANTA, VICENTE Primary Care Unavailable MATT WEEKS Referring Unavailable GANTA, VICENTE Primary Care Unavailable GANTA, VICENTE Primary Care Unavailable KENDRA CARABALLO Referring Unavailable Vicente Cuevas MD Primary Care Provider Allergies Allergy Classification Reported Allergen(s) Allergy Type Date of Onset Reaction(s) Facility (20 sources) Morphine; Translations: [MORPHINE] Drug Allergy 7 [facility] Work Phone: (5 sources) Penicillins; Translations: [PENICILLINS] Propensity to adverse reactions 7 [facility] Work Phone: (20 sources) ct contrast [Other] Propensity to adverse reactions 7 Vomiting [facility] Work Phone: (20 sources) Tomatoes; Translations: [TOMATOES] Propensity to adverse reactions 7 [facility] Work Phone: (20 sources) Penicillins Propensity to adverse reactions 7 [facility] Work Phone: (1 source) OTHER; Translations: [OTHER] Propensity to adverse reactions (disorder) 7 [facility] Medications Current Medications Medication Drug Class(es) Dates Sig (Normalized) Sig (Original) atropine sulfate 0.025 mg / diphenoxylate hydrochloride 2.5 mg oral tablet (20 sources) Anticholinergic, Cholinergic Muscarinic Antagonist, Antidiarrheal Start: 06-05-2018 take 1 tablet by mouth four times daily as needed for diarrhea diphenoxylate-atropi ne (LOMOTIL) 2.5-0.025 mg per tablet Indications: Irritable bowel syndrome with diarrhea Take 1 tablet by mouth four times daily as needed for Diarrhea for up to 90 days. 45 tablet 3 06/05/2018 Active Comment on above: Take 1 tablet by dede four times daily as needed for Diarrhea for up to 90 days. cholecalciferol 1.25 mg oral capsule (20 sources) Vitamin D Start: 04-09-2019 take 1 capsule by mouth every week cholecalciferol, Vitamin D3, (VITAMIN D3) 50,000 unit cap capsule Take 1 capsule by mouth one time a week. 12 capsule 3 04/09/2019 Active Comment on above: Take 1 capsule by mo [facility] one time a week. cyclobenzaprine hydrochloride 10 mg oral tablet (17 sources) Muscle Relaxant Start: 11-20-2022 take 1 tablet by mouth every eight hours as needed cyclobenzaprine (FLEXERIL) 10 mg tablet Take 1 tablet by mouth three times daily as needed for muscle spasm. 15 tablet 11/20/2022 Active Comment on above: Take 1 tablet by dede three times daily as needed for muscle spasm. diclofenac sodium 75 mg delayed release oral tablet (4 sources) Nonsteroidal Anti-inflammatory Drug Start: 02-26-2023 End: 05-27-2023 take 1 tablet by mouth twice daily for pain diclofenac, EC, (VOLTAREN) 75 mg EC tablet Indications: Acute pain of right shoulder Take 1 tablet by mouth twice daily. FOR PAIN 60 tablet 2 02/26/2023 05/27/2023 Active Comment on above: Take 1 tablet by dede twice daily. FOR PAIN doxycycline monohydrate 100 mg oral tablet (2 sources) Tetracycline-class Drug Start: 02-21-2023 End: 02-28-2023 take 1 tablet by mouth twice daily doxycycline monohydrate 100 mg tablet Indications: Community acquired pneumonia of right lower lobe of lung Take 1 tablet by mouth twice daily for 7 days. 14 tablet 0 02/21/2023 02/28/2023 Active Comment on above: Take 1 tablet by dede twice daily for 7 days. gabapentin 300 mg oral capsule (20 sources) Anti-epileptic Agent Start: 06-02-2020 End: 10-18-2022 take 1 capsule by mouth once daily at bedtime gabapentin (NEURONTIN) 300 mg capsule Indications: RLS (restless legs syndrome) Take 1 capsule by mouth daily at bedtime. 30 capsule 11 10/18/2021 Active Comment on above: Take 1 capsule by [facility] daily at bedtime. predniSONE 10 mg oral tablet (12 sources) Start: 02-26-2023 predniSONE (DELTASONE) 10 mg tablet Indications: Acute pain of right shoulder 6 tabs po day 1 and 2, then 5 tabs day 3 and 4, 4 tabs day 5 and 6, 3 tabs day 7 and 8, 2 tabs day 9 and 10, 1 tab day 11 and 12. 42 tablet 02/26/2023 Active Start: 11-20-2022 End: 11-25-2022 take 2 tablets by mouth once daily predniSONE (DELTASONE) 20 mg tablet Take 2 tablets by mouth once daily for 5 days. 10 tablet 11/20/2022 11/25/2022 Comment on above: Take 2 tablets by [facility] once daily for 5 days. 6 tabs po day 1 and 2, then 5 tabs day 3 and 4, 4 tabs day 5 and 6, 3 tabs day 7 and 8, 2 tabs day 9 and 10, 1 tab day 11 and 12. rizatriptan 10 mg oral tablet (20 sources) Serotonin-1b and Serotonin-1d Receptor Agonist Start: 08-15-2023 take 1 tablet by mouth every two hours as needed rizatriptan (MAXALT) 10 mg tablet Take 1 tablet (10 mg) by mouth as needed. May repeat in 2 hours if needed 10 tablet 1 08/15/2023 Active Start: 02-12-2023 take 1 tablet by dede every two hours as needed rizatriptan (MAXALT) 10 mg tablet Take 1 tablet by mouth as needed. May repeat in 2 hours if needed 10 tablet 1 02/12/2023 Active Start: 03-15-2022 End: 02-09-2023 take 1 tablet by mouth every two hours as needed rizatriptan (MAXALT) 10 mg tablet Take 1 tablet by mouth as needed. May repeat in 2 hours if needed 10 tablet 1 10/02/2022 02/09/2023 Discontinued Start: 11-11-2021 take 1 tablet by dede th every two hours as needed rizatriptan (MAXALT) 10 mg tablet Take 1 tablet by mouth as needed. May repeat in 2 hours if needed 10 tablet 1 11/11/2021 Active Comment on above: Take 1 tablet by dede th as needed. May repeat in 2 hours if needed topiramate 25 mg oral tablet (20 sources) Start: 03-15-2022 take 1 tablet by mouth once daily at bedtime topiramate (TOPAMAX) 25 mg tablet Take 1 tablet by mouth daily at bedtime. 30 tablet 1 03/15/2022 Active Comment on above: Take 1 tablet by dede th daily at bedtime. Completed/Discontinued Medications Medication Drug Class(es) Dates Sig (Normalized) Sig (Original) [id number] 200 actuat albuterol 0.09 mg/actuat metered dose inhaler (20 sources) beta2-Adrenergic Agonist Start: 02-10-2020 End: 02-21-2023 take 1-2 puff(s) by inhalation four times daily as needed for wheezing albuterol HFA (PROAIR HFA) 90 mcg/actuation inhaler Inhale 1-2 Puffs as instructed four times daily as needed for Wheezing/Shortness of Breath. 1 Inhaler 02/10/2020 02/21/2023 Discontinued Comment on above: Inhale 1-2 Puffs as instructed four times daily as needed for Wheezing/Shortness of Breath. estradiol 0.01 mg vaginal insert (5 sources) Estrogen Start: 03-14-2017 Estradiol (YUVAFEM) 10 mcg tab vaginal tablet Use 1 tablet vaginally as directed. qhs twice weekly 8 tablet 12 03/14/2017 Active Comment on above: Use 1 tablet vaginal ly as directed. qhs twice weekly ferrous gluconate 324 mg oral tablet (5 sources) Start: 12-27-2016 take 1 tablet by mouth twice daily at mealtime Ferrous Gluconate 324 mg (36 mg iron) tab Take 1 tablet by mouth twice daily with meals. 60 tablet 5 12/27/2016 Active Comment on above: Take 1 tablet by dede th twice daily with meals. 1 ml ketorolac tromethamine 30 mg/ml injection (1 source) Nonsteroidal Anti-inflammatory Drug, Cyclooxygenase Inhibitor Start: 09-29-2022 End: 09-29-2022 keTORolac 30 mg injection (TORADOL) naproxen 500 mg oral tablet (3 sources) Nonsteroidal Anti-inflammatory Drug Start: 12-11-2022 End: 02-26-2023 take 1 tablet by mouth every twelve hours as needed naproxen (NAPROSYN) 500 mg tablet Take 1 tablet by mouth twice daily as needed (for pain/inflammation). Take with food. 30 tablet 1 12/11/2022 02/26/2023 Discontinued Comment on above: Take 1 tablet by dede th twice daily as needed (for pain/inflammation). Take with food. ondansetron 4 mg disintegrating oral tablet (20 sources) Serotonin-3 Receptor Antagonist Start: 03-15-2022 End: 08-15-2023 take 1 tablet by mouth every eight hours as needed ondansetron orally disintegrating (ZOFRAN ODT) 4 mg disintegrating tablet Take 1 tablet by mouth every 8 hours as needed for nausea/vomiting. 10 tablet 1 03/15/2022 08/15/2023 Discontinued Comment on above: Take 1 tablet by dede th every 8 hours as needed for nausea/vomiting. rOPINIRole 0.5 mg oral tablet (20 sources) Nonergot Dopamine Agonist Start: 12-30-2020 End: 10-30-2022 rOPINIRole (REQUIP) 0.5 mg tablet Indications: RLS (restless legs syndrome) Take 0.5 mg (1 tab) 2 hours prior to bed. May take 0.5 mg (1 tab) at bedtime if needed. 60 tablet 5 10/18/2021 10/30/2022 Discontinued Comment on above: Take 0.5 mg (1 tab) 2 hours prior to bed. May take 0.5 mg (1 tab) at bedtime if needed. 24 hr venlafaxine 37.5 mg extended release oral capsule (20 sources) Serotonin and Norepinephrine Reuptake Inhibitor Start: 03-15-2022 End: 10-30-2022 take 1 capsule by mouth once daily venlafaxine ER (EFFEXOR XR) 37.5 mg 24 hr capsule Indications: Depression with anxiety Take 1 capsule by mouth once daily. 30 capsule 1 03/15/2022 10/30/2022 Discontinued Start: 02-15-2021 End: 12-09-2021 take 1 capsule by mouth once daily venlafaxine ER (EFFEXOR XR) 75 mg 24 hr capsule Indications: Depression with anxiety , Conjugal maladjustment involving divorce Take 1 capsule by mouth once daily. 30 capsule 5 12/09/2021 Active Comment on above: Take 1 capsule by mo [facility] once daily. Problems Active Problems Problem Classification Problem Date Documented Da te Episodic/Chronic Administrative/social admission (2 sources) Family disruption due to divorce; Translations: [Disruption of family by separation and divorce] Episodic Anxiety disorders (20 sources) Mixed anxiety and depressive disorder; Translations: [Other specified anxiety disorders] Onset: 7 Chronic Conditions associated with dizziness or vertigo (1 source) Lightheadedness; Translations: [Dizziness and giddiness] Episodic Esophageal disorders (20 sources) Gastroesophageal reflux disease; Translations: [Gastro-esophageal reflux disease without esophagitis] Onset: 6 02-10-2016 Chronic Genitourinary congenital anomalies (20 sources) Congenital anomaly of the kidney; Translations: [Other specified congenital malformations of kidney] 12-26-2016 Chronic Genitourinary symptoms and ill-defined conditions (20 sources) Incontinence; Translations: [Mixed incontinence] Onset: 5 12-26-2016 Chronic Headache; including migraine (1 source) Thunderclap headache; Translations: [Primary thunderclap headache] Episodic Malaise and fatigue (1 source) Fatigue; Translations: [Other fatigue] Episodic Nutritional deficiencies (1 source) Vitamin D deficiency; Translations: [Vitamin D deficiency, unspecified] Chronic Nutritional deficiencies (2 sources) Iron deficiency; Translations: [Iron deficiency] Episodic Other connective tissue disease (2 sources) Tendonitis of left wrist; Translations: [Other enthesopathies, not elsewhere classified] Episodic Other connective tissue disease (3 sources) Impingement syndrome of right shoulder region; Translations: [Impingement syndrome of right shoulder] 02-26-2023 Episodic Other ear and sense organ disorders (1 source) Otalgia, left ear; Translations: [Otalgia, unspecified] Episodic Other gastrointestinal disorders (20 sources) Irritable bowel syndrome; Translations: [Irritable bowel syndrome without diarrhea] Onset: 5 12-26-2016 Chronic Other gastrointestinal disorders (2 sources) Acute constipation; Translations: [Constipation, unspecified] 03-17-2024 Episodic Other gastrointestinal disorders (1 source) Constipation, unspecified; Translations: [Acute constipation] Onset: 4 Episodic Other hereditary and degenerative nervous system conditions (20 sources) Restless legs; Translations: [Restless legs syndrome] Onset: 6 Chronic Other injuries and conditions due to external causes (1 source) Injury of right foot; Translations: [Unspecified injury of right foot, subsequent encounter] 07-13-2023 Episodic Other lower respiratory disease (1 source) Cough; Translations: [Acute cough] 02-21-2023 Episodic Other lower respiratory disease (1 source) H/O: asthma; Translations: [Personal history of other diseases of the respiratory system] 02-21-2023 Episodic Other non-traumatic joint disorders (4 sources) Pain in right shoulder; Translations: [Pain in joint, shoulder region] 02-26-2023 Episodic Other non-traumatic joint disorders (1 source) Acute ankle pain; Translations: [Pain in right ankle and joints of right foot] 07-11-2023 Episodic Other nutritional; endocrine; and metabolic disorders (20 sources) Disorders of bilirubin excretion; Translations: [Other disorders of bilirubin metabolism] Onset: 8 02-16-2016 Chronic Other nutritional; endocrine; and metabolic disorders (20 sources) Obese class I; Translations: [Obesity, unspecified] Onset: 7 12-26-2016 Chronic Other skin disorders (1 source) Dry skin; Translations: [Xerosis cutis] Episodic Pneumonia (except that caused by tuberculosis or sexually transmitted disease) (1 source) Community acquired pneumonia; Translations: [Pneumonia, unspecified organism] 02-21-2023 Episodic Sprains and strains (2 sources) Strain of thoracic region; Translations: [Strain of muscle and tendon of back wall of thorax, initial encounter] Episodic Viral infection (1 source) Viral disease; Translations: [Viral infection, unspecified] Episodic Past or Other Problems Problem Classification Problem Date Documented Da te Episodic/Chronic Asthma (9 sources) Unspecified asthma, uncomplicated; Translations: [Asthma, unspecified type, unspecified] Resolved: 12-21-2014 12-21-2014 Chronic Cancer of cervix (9 sources) Malignant tumor of cervix; Translations: [Malignant neoplasm of cervix uteri, unspecified] Onset: 07-23-2004 Resolved: 12-26-2016 07-18-2021 Chronic Other connective tissue disease (20 sources) Fibromyalgia; Translations: [Fibromyalgia] Onset: 02-16-2016 12-26-2016 Episodic Other injuries and conditions due to external causes (1 source) Unspecified injury of right foot, subsequent encounter; Translations: [Right foot injury, subsequent encounter] Onset: 07-13-2023 Episodic Other liver diseases (9 sources) Jaundice; Translations: [Unspecified jaundice] Onset: 2006 Resolved: 10-24-2007 10-24-2007 Episodic Other non-traumatic joint disorders (20 sources) Joint pain; Translations: [Pain in unspecified joint] Onset: 10-28-2014 10-28-2014 Episodic Other non-traumatic joint disorders (1 source) Pain in right ankle and joints of right foot; Translations: [Acute right ankle pain] Onset: 07-11-2023 Episodic Spondylosis; intervertebral disc disorders; other back problems (20 sources) Neck pain; Translations: [Cervicalgia] Onset: 04-20-2021 04-20-2021 Episodic Results Test Name Value Interpretation Reference Range Facility [facility] 03-17-2024 CN Office Visit (UCWSTR ) CHEL SANCHEZ ([id number]) 1975 F Date Time Provider Department 03/17/24 8:30 AM MATT WEEKS [facility] During your visit today, we recorded the following information about you: Temperature Pulse Respiration Blood pressure 97.4 degrees 68/minute 18/minute 102/64 Weight 60.3 kg Matt Weeks APRN.CNP 03/17/2024 9:29 AM Signed Subjective Patient came in with complaints of possible constipation. Patient says she has not had a good bowel movement in about 4 weeks. Patient says she is able to get some small balls out. Patient says there is mucus that comes out sometimes with farts or sometimes on its own. Patient denies any abdominal pain, bloated, or nausea. Has never had this happen before. Constipation Review of Systems Gastrointestinal: Positive for constipation. Objective Physical Exam Constitutional: Appearance: Normal appearance. Pulmonary: Effort: Pulmonary effort is normal. Abdominal: General: Abdomen is flat. Palpations: Abdomen is soft. Comments: Purple area holley normal bowel sounds blue area holley slightly decreased bowel sounds Neurological: Mental Status: She is alert. 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, removed 2004 No date: Restless leg No date: Unspecified asthma(493.90) Comment: had PFT's in approx Aug 2006 PAST SURGICAL HISTORY 2000: APPENDECTOMY 02/22/16: LAPS SURG CHOLECYSTECTOMY W/CHOLANGIOGRAPHY Comment: normal IOC 2004: PAST SURGICAL HISTORY OF Comment: removal of left kidney; due to complications from the [facility] 2005: SALPINGO-OOPHORECTOMY COMPL/PRTL UNI/BI SPX Comment: Salpingo-oophorectomy- bilat 07/2003: TOTAL ABDOMINAL HYSTERECT W/WO RMVL TUBE OVARY Comment: rad hyst w/ lymph node disection ALLERGIES Ct Contrast [Other], Morphine, Penicillins, and Tomatoes MEDICATIONS rizatriptan (MAXALT) 10 mg tablet Take 1 tablet (10 mg) by mouth as needed. May repeat in 2 hours if needed albuterol HFA (PROAIR HFA) 90 mcg/actuation inhaler Inhale 1-2 Puffs as instructed four times daily as needed for wheezing/shortness of breath. ondansetron orally disintegrating (ZOFRAN ODT) 4 mg disintegrating tablet Take 1 tablet by mouth every 8 hours as needed for nausea/vomiting. (Patient not taking: Reported on 03/17/2024) predniSONE (DELTASONE) 10 mg tablet 6 tabs po day 1 and 2, then 5 tabs day 3 and 4, 4 tabs day 5 and 6, 3 tabs day 7 and 8, 2 tabs day 9 and 10, 1 tab day 11 and 12. (Patient not taking: Reported on 07/11/2023) cyclobenzaprine (FLEXERIL) 10 mg tablet Take 1 tablet by mouth three times daily as needed for muscle spasm. (Patient not taking: Reported on 07/11/2023) venlafaxine ER (EFFEXOR XR) 37.5 mg 24 hr capsule Take 1 capsule by mouth once daily. (Patient not taking: Reported on 03/17/2024) rOPINIRole (REQUIP) 0.5 mg tablet Take 0.5 mg (1 tab) 2 hours prior to bed. May take 0.5 mg (1 tab) at bedtime if needed. (Patient not taking: Reported on 03/17/2024) topiramate (TOPAMAX) 25 mg tablet Take 1 tablet by mouth daily at bedtime. gabapentin (NEURONTIN) 300 mg capsule Take 1 capsule by mouth daily at bedtime. cholecalciferol, Vitamin D3, (VITAMIN D3) 50,000 unit cap capsule Take 1 capsule by mouth one time a week. (Patient not taking: Reported on 03/17/2024) diphenoxylate-atropine (LOMOTIL) 2.5-0.025 mg per tablet Take 1 tablet by mouth four times daily as needed for Diarrhea for up to 90 days. (Patient not taking: Reported on 07/11/2023) FAMILY HISTORY Problem Relation Age of Onset Breast Cancer Mother dx approx early 40's Hypertension Father Heart Father silent SC - age 50's Stroke Father other (parkinson) Father other (hypercholesteremia) Brother Asthma Son Asthma Son Asthma Daughter other (hypoglycemia) Daughter other (hypoglycemia) Son Social History Tobacco Use Smoking status: Never Smokeless tobacco: Never Vaping Use Vaping status: Never Used Substance Use Topics Alcohol use: No Drug use: No ASSESSMENT/PLAN: 1. Acute constipation - ICD9: 564.00, ICD10: K59.00 - XR ABDOMEN 1V SUPINE * * * * Physician Interpretation * * * * Indication: Constipation Comparison: None 2 x-rays of the abdomen are obtained. There is a non-obstructed bowel gas pattern. Large amount fecal material in the colon. There is no hepatomegaly or splenomegaly. No abnormal calcifications are visualized. There are no acute osseous abnormalities. IMPRESSION IMPRESSION: NO ACUTE ABDOMINAL PATHOLOGY VISUALIZED Tra (more content not included)... Normal [facility] XR ABDOMEN 1V SUPINEon 03-17 XR ABDOMEN 1V SUPINE * * *Final Report* * * DATE OF EXAM: Mar 17 2024 8:59AM WOX [id number] - XR ABDOMEN 1V SUPINE / PROCEDURE REASON: Acute constipation * * * * Physician Interpretation * * * * Indication: Constipation Comparison: None 2 x-rays of the abdomen are obtained. There is a non-obstructed bowel gas pattern. Large amount fecal material in the colon. There is no hepatomegaly or splenomegaly. No abnormal calcifications are visualized. There are no acute osseous abnormalities. IMPRESSION: NO ACUTE ABDOMINAL PATHOLOGY VISUALIZED Mattress Filler: [facility] Transcribe Date/Time: Mar 17 2024 9:06A Dictated by : HERBERT MEZA MD This examination was interpreted and the report reviewed and electronically signed by: HERBERT MEZA MD on Mar 17 2024 9:07AM EST [id number] Normal [facility] XR Abdomen Supine and Uprigh ton 03-17-2024 IMPRESSION: NO ACUTE ABDOMINAL PATHOLOGY VISUALIZED Mattress Filler: [facility] Transcribe Date/Time: Mar 17 2024 9:06A Dictated by : HERBERT MEZA MD This examination was interpreted and the report reviewed and electronically signed by: HERBERT MEZA MD on Mar 17 2024 9:07AM EST DIVISION OF RADIOLOGY * * *Final Report* * * DATE OF EXAM: Mar 17 2024 8:59AM WOX [id number] - XR ABDOMEN 1V SUPINE / PROCEDURE REASON: Acute constipation * * * * Physician Interpretation * * * * Indication: Constipation Comparison: None 2 x-rays of the abdomen are obtained. There is a non-obstructed bowel gas pattern. Large amount fecal material in the colon. There is no hepatomegaly or splenomegaly. No abnormal calcifications are visualized. There are no acute osseous abnormalities. DIVISION OF RADIOLOGY Provider, Shikha Jhony [facility] - 03/17/2024 * * *Final Report* * * DATE OF EXAM: Mar 17 2024 8:59AM WOX [id number] - XR ABDOMEN 1V SUPINE / PROCEDURE REASON: Acute constipation * * * * Physician Interpretation * * * * Indication: Constipation Comparison: None 2 x-rays of the abdomen are obtained. There is a non-obstructed bowel gas pattern. Large amount fecal material in the colon. There is no hepatomegaly or splenomegaly. No abnormal calcifications are visualized. There are no acute osseous abnormalities. IMPRESSION IMPRESSION: NO ACUTE ABDOMINAL PATHOLOGY VISUALIZED Mattress Filler: NANCY Transcribe Date/Time: Mar 17 2024 9:06A Dictated by : HERBERT MEZA MD This examination was interpreted and the report reviewed and electronically signed by: HERBERT MEZA MD on Mar 17 2024 9:07AM EST [facility] Radiology Study observation (narrative) [facility] XR Abdomen Supine and Uprigh tOrdered By: [facility] Provider on 03-17-2024 [facility] CNOVon 07-13-2023 CNOV Office Visit (UCWSTR ) CHEL SANCHEZ ([id number]) 1975 F Date Time Provider Department 07/13/23 8:15 AM KENDRA CARABALLO [facility] During your visit today, we recorded the following information about you: Temperature Pulse Respiration Blood pressure 97.3 degrees 59/minute 16/minute 112/78 Weight 65.5 kg Kendra Caraballo APRN.[facility] 07/13/2023 9:54 AM Signed Subjective HPI Chel Sanchez is a 48 year old female who presents with right foot pain. She was seen here 2 days ago for ankle injury. She twisted her ankle walking out of her mother's house. She has been using SHY wrap, ice, elevating it and using crutches, taking ibuprofen. States pain is worse-could not sleep due to pain. Notes pain is more in the lateral foot than the ankle now. Review of Systems Constitutional: Negative for chills and fever. Musculoskeletal: Positive for joint pain. Negative for falls. See HPI Skin: Negative. BP 112/78 Pulse (!) 59 Temp 36.3 ?C (97.3 ?F) (Tympanic) Resp 16 Wt 65.5 kg (144 lb 6.4 oz) SpO2 97% BMI 26.41 kg/m? PAST MEDICAL HISTORY Diagnosis Date Biliary colic 02/10/2016 Fibromyalgia GERD (gastroesophageal reflux disease) Gilbert's syndrome Irritable bowel syndrome Lactose intolerance in adult Malignant neoplasm of cervix uteri, unspecified site 2003 s/p hysterectomy Other specified congenital anomaly of kidney 2003 left kidney ischemic as complication of hysterectomy, removed 2004 Restless leg Unspecified asthma(493.90) had PFT's in approx Aug 2006 PAST SURGICAL HISTORY Procedure Laterality Date APPENDECTOMY 2000 LAPS SURG CHOLECYSTECTOMY W/CHOLANGIOGRAPHY 02/22/16 normal IOC PAST SURGICAL HISTORY OF 2004 removal of left kidney; due to complications from the [facility] SALPINGO-OOPHORECTOMY COMPL/PRTL UNI/BI SPX 2004 Salpingo-oophorectomy- bilat TOTAL ABDOMINAL HYSTERECT W/WO RMVL TUBE OVARY 07/2003 rad hyst w/ lymph node disection ALLERGIES Ct Contrast [Other], Morphine, Penicillins, and Tomatoes MEDICATIONS albuterol HFA (PROAIR HFA) 90 mcg/actuation inhaler Inhale 1-2 Puffs as instructed four times daily as needed for wheezing/shortness of breath. rizatriptan (MAXALT) 10 mg tablet Take 1 tablet by mouth as needed. May repeat in 2 hours if needed venlafaxine ER (EFFEXOR XR) 37.5 mg 24 hr capsule Take 1 capsule by mouth once daily. rOPINIRole (REQUIP) 0.5 mg tablet Take 0.5 mg (1 tab) 2 hours prior to bed. May take 0.5 mg (1 tab) at bedtime if needed. ondansetron orally disintegrating (ZOFRAN ODT) 4 mg disintegrating tablet Take 1 tablet by mouth every 8 hours as needed for nausea/vomiting. gabapentin (NEURONTIN) 300 mg capsule Take 1 capsule by mouth daily at bedtime. cholecalciferol, Vitamin D3, (VITAMIN D3) 50,000 unit cap capsule Take 1 capsule by mouth one time a week. predniSONE (DELTASONE) 10 mg tablet 6 tabs po day 1 and 2, then 5 tabs day 3 and 4, 4 tabs day 5 and 6, 3 tabs day 7 and 8, 2 tabs day 9 and 10, 1 tab day 11 and 12. (Patient not taking: Reported on 07/11/2023) cyclobenzaprine (FLEXERIL) 10 mg tablet Take 1 tablet by mouth three times daily as needed for muscle spasm. (Patient not taking: Reported on 07/11/2023) topiramate (TOPAMAX) 25 mg tablet Take 1 tablet by mouth daily at bedtime. diphenoxylate-atropine (LOMOTIL) 2.5-0.025 mg per tablet Take 1 tablet by mouth four times daily as needed for Diarrhea for up to 90 days. (Patient not taking: Reported on 07/11/2023) FAMILY HISTORY Problem Relation Age of Onset Breast Cancer Mother dx approx early 40's Hypertension Father Heart Father silent [place] - age 50's Stroke Father other (parkinson) Father other (hypercholesteremia) Brother Asthma Son Asthma Son Asthma Daughter other (hypoglycemia) Daughter other (hypoglycemia) Son Social History Tobacco Use Smoking status: Never Smokeless tobacco: Never Vaping Use Vaping Use: Never used Substance Use Topics Alcohol use: No Drug use: No Objective Physical Exam Vitals and nursing note reviewed. Constitutional: Appearance: Normal appearance. Musculoskeletal: General: Tenderness and signs of injury present. No swelling or deformity. Right foot: Normal range of motion and normal capillary refill. Tenderness present. No swelling or crepitus. Normal pulse. Skin: General: Skin is warm and dry. Findings: No bruising, erythema or rash. Neurological: Mental Status: She is alert. ASSESSMENT/PLAN: 1. Right foot injury, subsequent encounter - ICD9: V58.89, 959.7, ICD10: S99.921D - XR FOOT GENERAL 3V AP/LAT/OBL RIGHT RESULT: Findings: No fracture or dislocation is evident. IMPRESSION: No acute bony finding. Mattress Filler: NANCY Transcribe Date/Time: Jul 13 2023 9:35A Dictated by : GREGORIO NIXON MD -continue to ice, elevate, use crutches. -walking boot placed on right foot. Patient states th (more content not included)... Normal [facility] XR FOOT 3V AP/LAT/OBL RTon 1 09-13-2022 XR FOOT 3V AP/LAT/OBL RT * * *Final Report* * * DATE OF EXAM: Jul 13 2023 9:21AM WOX [id number] - XR FOOT 3V AP/LAT/OBL RT / PROCEDURE REASON: Right foot injury, subsequent encounter * * * * Physician Interpretation * * * * Right foot HISTORY: 48 years old Clinical information: Right foot injury, subsequent encounter Right foot pain after injury 4 days ago. Pain is on dorsal to medial side of foot along 4th and 5th metatarsals. TECHNIQUE: Images: XR FOOT 3V AP/LAT/OBL RT Comparison: None. RESULT: Findings: No fracture or dislocation is evident. IMPRESSION: No acute bony finding. Mattress Filler: PSCB Transcribe Date/Time: Jul 13 2023 9:35A Dictated by : GREGORIO NIXON MD This examination was interpreted and the report reviewed and electronically signed by: GREGORIO NIXON MD on Jul 13 2023 9:36AM EST [id number] Normal [facility] XR Foot - right AP and Later al and obliqueon 07-13-2023 IMPRESSION: No acute bony finding. Mattress Filler: [employer] Transcribe Date/Time: Jul 13 2023 9:35A Dictated by : GREGORIO NIXON MD This examination was interpreted and the report reviewed and electronically signed by: GREGORIO NIXON MD on Jul 13 2023 9:36AM EST DIVISION OF RADIOLOGY * * *Final Report* * * DATE OF EXAM: Jul 13 2023 9:21AM WOX 5337 - XR FOOT 3V AP/LAT/OBL RT / PROCEDURE REASON: Right foot injury, subsequent encounter * * * * Physician Interpretation * * * * Right foot HISTORY: 48 years old Clinical information: Right foot injury, subsequent encounter Right foot pain after injury 4 days ago. Pain is on dorsal to medial side of foot along 4th and 5th metatarsals. TECHNIQUE: Images: XR FOOT 3V AP/LAT/OBL RT Comparison: None. RESULT: Findings: No fracture or dislocation is evident. DIVISION OF RADIOLOGY Provider, [facility] - 07/13/2023 * * *Final Report* * * DATE OF EXAM: Jul 13 2023 9:21AM WOX 5337 - XR FOOT 3V AP/LAT/OBL RT / PROCEDURE REASON: Right foot injury, subsequent encounter * * * * Physician Interpretation * * * * Right foot HISTORY: 48 years old Clinical information: Right foot injury, subsequent encounter Right foot pain after injury 4 days ago. Pain is on dorsal to medial side of foot along 4th and 5th metatarsals. TECHNIQUE: Images: XR FOOT 3V AP/LAT/OBL RT Comparison: None. RESULT: Findings: No fracture or dislocation is evident. IMPRESSION IMPRESSION: No acute bony finding. Mattress Filler: NANCY Transcribe Date/Time: Jul 13 2023 9:35A Dictated by : GREGORIO NIXON MD This examination was interpreted and the report reviewed and electronically signed by: GREGORIO NIXON MD on Jul 13 2023 9:36AM EST [facility] Radiology Study observation (narrative) [facility] XR Foot - right AP and Later al and obliqueOrdered By: [facility]cf Provider on 07-13-2023 [facility] CNOVon 07-11-2023 CNOV Office Visit (UCWSTR ) EMYCHEL LAMAS ([id number]) 1975 F Date Time Provider Department 07/11/23 10:15 AM ADRIANNA HUSAIN [facility] During your visit today, we recorded the following information about you: Temperature Pulse Respiration Blood pressure 96.8 degrees 74/minute 16/minute 122/80 Weight 65.8 kg Adrianna Husain APRN.CNP 07/11/2023 12:43 PM Signed Subjective HPI Chel presents with injury to right ankle x two days ago. She states she twisted it walking out of her mothers house She has been walking on it but the pain and swelling seems to be worsening. She has been elevating, icing and taking motrin which is helpful. She has no complaint with circulation. PAST MEDICAL HISTORY Diagnosis Date Biliary colic 02/10/2016 Fibromyalgia GERD (gastroesophageal reflux disease) Gilbert's syndrome Irritable bowel syndrome Lactose intolerance in adult Malignant neoplasm of cervix uteri, unspecified site 2003 s/p hysterectomy Other specified congenital anomaly of kidney 2003 left kidney ischemic as complication of hysterectomy, removed 2004 Restless leg Unspecified asthma(493.90) had PFT's in approx Aug 2006 PAST SURGICAL HISTORY Procedure Laterality Date APPENDECTOMY 2000 LAPS SURG CHOLECYSTECTOMY W/CHOLANGIOGRAPHY 02/22/16 normal IOC PAST SURGICAL HISTORY OF 2004 removal of left kidney; due to complications from the MARIUSZ SALPINGO-OOPHORECTOMY COMPL/PRTL UNI/BI SPX 2004 Salpingo-oophorectomy- bilat TOTAL ABDOMINAL HYSTERECT W/WO RMVL TUBE OVARY 07/2003 rad hyst w/ lymph node disection ALLERGIES Ct Contrast [Other], Morphine, Penicillins, and Tomatoes MEDICATIONS albuterol HFA (PROAIR HFA) 90 mcg/actuation inhaler Inhale 1-2 Puffs as instructed four times daily as needed for wheezing/shortness of breath. rizatriptan (MAXALT) 10 mg tablet Take 1 tablet by mouth as needed. May repeat in 2 hours if needed venlafaxine ER (EFFEXOR XR) 37.5 mg 24 hr capsule Take 1 capsule by mouth once daily. rOPINIRole (REQUIP) 0.5 mg tablet Take 0.5 mg (1 tab) 2 hours prior to bed. May take 0.5 mg (1 tab) at bedtime if needed. ondansetron orally disintegrating (ZOFRAN ODT) 4 mg disintegrating tablet Take 1 tablet by mouth every 8 hours as needed for nausea/vomiting. gabapentin (NEURONTIN) 300 mg capsule Take 1 capsule by mouth daily at bedtime. cholecalciferol, Vitamin D3, (VITAMIN D3) 50,000 unit cap capsule Take 1 capsule by mouth one time a week. predniSONE (DELTASONE) 10 mg tablet 6 tabs po day 1 and 2, then 5 tabs day 3 and 4, 4 tabs day 5 and 6, 3 tabs day 7 and 8, 2 tabs day 9 and 10, 1 tab day 11 and 12. (Patient not taking: Reported on 07/11/2023) cyclobenzaprine (FLEXERIL) 10 mg tablet Take 1 tablet by mouth three times daily as needed for muscle spasm. (Patient not taking: Reported on 07/11/2023) topiramate (TOPAMAX) 25 mg tablet Take 1 tablet by mouth daily at bedtime. diphenoxylate-atropine (LOMOTIL) 2.5-0.025 mg per tablet Take 1 tablet by mouth four times daily as needed for Diarrhea for up to 90 days. (Patient not taking: Reported on 07/11/2023) FAMILY HISTORY Problem Relation Age of Onset Breast Cancer Mother dx approx early 40's Hypertension Father Heart Father silent [place] - age 50's Stroke Father other (parkinson) Father other (hypercholesteremia) Brother Asthma Son Asthma Son Asthma Daughter other (hypoglycemia) Daughter other (hypoglycemia) Son Social History Tobacco Use Smoking status: Never Smokeless tobacco: Never Vaping Use Vaping Use: Never used Substance Use Topics Alcohol use: No Drug use: No Review of Systems Musculoskeletal: Ankle pain and edema right Objective Physical Exam Vitals and nursing note reviewed. Constitutional: Appearance: Normal appearance. HENT: Head: Normocephalic and atraumatic. Nose: Nose normal. Eyes: Extraocular Movements: Extraocular movements intact. Pupils: Pupils are equal, round, and reactive to light. Cardiovascular: Rate and Rhythm: Normal rate and regular rhythm. Pulses: Normal pulses. Heart sounds: Normal heart sounds. Pulmonary: Effort: Pulmonary effort is normal. Abdominal: General: Abdomen is flat. Palpations: Abdomen is soft. Musculoskeletal: Cervical back: Normal range of motion. Right lower leg: Edema present. Skin: General: Skin is warm. Capillary Refill: Capillary refill takes less than 2 seconds. Neurological: Mental Status: She is alert. Psychiatric: Mood and Affect: Mood normal. Behavior: Behavior normal. ASSESSMENT/PLAN: 1. Acute right ankle pain - ICD9: 719.47, 338.19, ICD10: M25.571 Xray negative Shy wrap applied ( crutches provided and instructed Ice Elevate Rest Motrin prn q6 as needed If not improving she is to make barber to orthopedic dept - XR ANKLE GENERAL 3V AP/LAT/OBL RIGHT - XR ANKLE GENERAL 3V AP/LAT/OBL RIGHT Adrianna James (more content not included)... Normal [facility] XR ANKLE 3V AP/LAT/OBL RTon 07-11-2023 XR ANKLE 3V AP/LAT/OBL RT * * *Final Report* * * DATE OF EXAM: Jul 11 2023 10:57AM WOX 5297 - XR ANKLE 3V AP/LAT/OBL RT / PROCEDURE REASON: Acute right ankle pain * * * * Physician Interpretation * * * * History: Acute right ankle pain. FINDINGS: AP, lateral, and oblique views of the right ankle have been obtained. The bones are well-mineralized without evidence of fracture or dislocation. Joint spaces are maintained. No gross soft tissue abnormality is seen. IMPRESSION: No acute process is seen. Mattress Filler: NANCY Transcribe Date/Time: Jul 11 2023 11:09A Dictated by : RIZWAN CASTELLANOS MD This examination was interpreted and the report reviewed and electronically signed by: RIZWAN CASTELLANOS MD on Jul 11 2023 11:09AM EST [id number] Normal [facility] XR Ankle - right AP and Late ral and obliqueon 07-11-2023 IMPRESSION: No acute process is seen. Mattress Filler: [facility] Transcribe Date/Time: Jul 11 2023 11:09A Dictated by : RIZWAN CASTELLANOS MD This examination was interpreted and the report reviewed and electronically signed by: RIZWAN CASTELLANOS MD on Jul 11 2023 11:09AM EST DIVISION OF RADIOLOGY * * *Final Report* * * DATE OF EXAM: Jul 11 2023 10:57AM WOX 5297 - XR ANKLE 3V AP/LAT/OBL RT / PROCEDURE REASON: Acute right ankle pain * * * * Physician Interpretation * * * * History: Acute right ankle pain. FINDINGS: AP, lateral, and oblique views of the right ankle have been obtained. The bones are well-mineralized without evidence of fracture or dislocation. Joint spaces are maintained. No gross soft tissue abnormality is seen. DIVISION OF RADIOLOGY Provider, [facility] - 07/11/2023 * * *Final Report* * * DATE OF EXAM: Jul 11 2023 10:57AM WOX 5297 - XR ANKLE 3V AP/LAT/OBL RT / PROCEDURE REASON: Acute right ankle pain * * * * Physician Interpretation * * * * History: Acute right ankle pain. FINDINGS: AP, lateral, and oblique views of the right ankle have been obtained. The bones are well-mineralized without evidence of fracture or dislocation. Joint spaces are maintained. No gross soft tissue abnormality is seen. IMPRESSION IMPRESSION: No acute process is seen. Mattress Filler: [facility] Transcribe Date/Time: Jul 11 2023 11:09A Dictated by : RIZWAN CASTELLANOS MD This examination was interpreted and the report reviewed and electronically signed by: RIZWAN CASTELLANOS MD on Jul 11 2023 11:09AM EST [facility] Radiology Study observation (narrative) [facility] XR Ankle - right AP and Late ral and obliqueOrdered By: [facility]cf Provider on 07-11-2023 [facility] XR CHEST 2V FRONTAL/LATon [facility] XR Chest PA and Lateralon IMPRESSION: Mild hazy opacity at the right lateral base, atelectasis versus pneumonia in the appropriate clinical setting. Mattress Filler: P[facility] Transcribe Date/Time: Feb 21 2023 1:44P Dictated by : NOELLE SEGOVIA MD This examination was interpreted and the report reviewed and electronically signed by: NOELLE SEGOVIA MD on Feb 21 2023 1:45PM EST DIVISION OF RADIOLOGY * * *Final Report* * * DATE OF EXAM: Feb 21 2023 1:43PM WOX 5291 - XR CHEST 2V FRONTAL/LAT / PROCEDURE REASON: Acute cough * * * * Physician Interpretation * * * * EXAMINATION: CHEST RADIOGRAPH (2 VIEW FRONTAL & LATERAL) CLINICAL HISTORY: Acute cough MQ: XC2_6 EXAM DATE/TIME: 02/21/2023 1:43 PM COMPARISON: Chest x-ray dated July 31, 2007 RESULT: Lines, tubes, and devices: None. Lungs and pleura: Mild hazy opacity at the right lateral base.. No pleural effusion. No pneumothorax. Cardiomediastinal silhouette: Normal cardiomediastinal silhouette. Bones and soft tissues: Surgical clips are present in the upper abdomen. DIVISION OF RADIOLOGY Provider, Zena Booker [facility] - 02/21/2023 * * *Final Report* * * DATE OF EXAM: Feb 21 2023 1:43PM WOX 5291 - XR CHEST 2V FRONTAL/LAT / PROCEDURE REASON: Acute cough * * * * Physician Interpretation * * * * EXAMINATION: CHEST RADIOGRAPH (2 VIEW FRONTAL & LATERAL) CLINICAL HISTORY: Acute cough MQ: XC2_6 EXAM DATE/TIME: 02/21/2023 1:43 PM COMPARISON: Chest x-ray dated July 31, 2007 RESULT: Lines, tubes, and devices: None. Lungs and pleura: Mild hazy opacity at the right lateral base.. No pleural effusion. No pneumothorax. Cardiomediastinal silhouette: Normal cardiomediastinal silhouette. Bones and soft tissues: Surgical clips are present in the upper abdomen. IMPRESSION IMPRESSION: Mild hazy opacity at the right lateral base, atelectasis versus pneumonia in the appropriate clinical setting. Mattress Filler: NANCY Transcribe Date/Time: Feb 21 2023 1:44P Dictated by : NOELLE SEGOVIA MD This examination was interpreted and the report reviewed and electronically signed by: NOELLE SEGOVIA MD on Feb 21 2023 1:45PM EST [facility] Radiology Study observation (narrative) [facility] XR Chest PA and LateralOrder ed By: [facility]cf Provider on 02-21-2023 [facility] XR Shoulder - right 3 Viewso n 11-30-2022 IMPRESSION: NO ACUTE BONY Mattress Filler: NANCY Transcribe Date/Time: Nov 30 2022 3:48P Dictated by : JOHANNY BARROW MD This examination was interpreted and the report reviewed and electronically signed by: JOHANNY BARROW MD on Nov 30 2022 3:51PM EST DIVISION OF RADIOLOGY * * *Final Report* * * DATE OF EXAM: Nov 28 2022 3:25PM WOX 5253 - XR SHLDR >/=3V AP/CHEYENNE AP/OTHR RT / PROCEDURE REASON: Acute pain of right shoulder * * * * Physician Interpretation * * * * HISTORY: 47-YEAR-OLD FEMALE WITH Acute pain of right shoulder . injured at work a week ago lifting, pain is in right right posterior shoulder/scapular area TECHNIQUE: XR SHLDR >/=3V AP/CHEYENNE AP/OTHR RT Laterality: RIGHT Number of different views (projections): 3 COMPARISON: None RESULT: Right shoulder: Clinical humeral joint space is maintained. Acromiohumeral interval is maintained. Minimal asymmetry of the acromion and clavicular alignment of less than 2 mm. No fracture or dislocation. [facility] * * *Final Report* * * DATE OF EXAM: Nov 28 2022 3:25PM WOX 5253 - XR SHLDR >/=3V AP/CHEYENNE AP/OTHR RT / PROCEDURE REASON: Acute pain of right shoulder * * * * Physician Interpretation * * * * HISTORY: 47-YEAR-OLD FEMALE WITH Acute pain of right shoulder . injured at work a week ago lifting, pain is in right right posterior shoulder/scapular area TECHNIQUE: XR SHLDR >/=3V AP/CHEYENNE AP/OTHR RT Laterality: RIGHT Number of different views (projections): 3 COMPARISON: None RESULT: Right shoulder: Clinical humeral joint space is maintained. Acromiohumeral interval is maintained. Minimal asymmetry of the acromion and clavicular alignment of less than 2 mm. No fracture or dislocation. IMPRESSION IMPRESSION: NO ACUTE BONY Mattress Filler: [facility] Transcribe Date/Time: Nov 30 2022 3:48P Dictated by : JOHANNY BARROW MD This examination was interpreted and the report reviewed and electronically signed by: JOHANNY BARROW MD on Nov 30 2022 3:51PM EST [facility] XR Shoulder - right 3 ViewsO rdered By: [facility]cf Provider on 11-30-2022 [facility] XR Shoulder - right 3 Viewso n 11-28-2022 Radiology Study observation (narrative) [facility] XR THORACIC GENERAL 3V AP/LA T/SWIMMERSon 11-20-2022 [facility] XR Thoracic spine AP and Lat eral and Swimmerson 11-20-2022 IMPRESSION: Negative thoracic spine X-ray. Mattress Filler[facility] Transcribe Date/Time: Nov 20 2022 2:20P Dictated by : EDMUNDO VELARDE MD This examination was interpreted and the report reviewed and electronically signed by: EDMUNDO VELARDE MD on Nov 20 2022 2:21PM [facility] DIVISION OF RADIOLOGY * * *Final Report* * * DATE OF EXAM: Nov 20 2022 1:55PM WOX 5261 - XR THORACIC 3V AP/LAT/SWIMMERS / PROCEDURE REASON: Strain of thoracic back region * * * * Physician Interpretation * * * * EXAM TITLE: XR THORACIC 3V AP/LAT/SWIMMERS EXAM DATE/TIME: 11/20/2022 1:55 PM COMPARISON: None. CLINICAL INDICATION/HISTORY: Back pain TECHNIQUE: AP, swimmer's and lateral views of the thoracic spine are presented FINDINGS: No fractures or subluxations are noted. The disc spaces are maintained, without obvious osteophyte formation. There is no paraspinal mass or bony destructive process. Others: Degenerative change seen in the cervical spine. DIVISION OF RADIOLOGY Provider, Zena Ridley - 11/20/2022 * * *Final Report* * * DATE OF EXAM: Nov 20 2022 1:55PM WOX 5261 - XR THORACIC 3V AP/LAT/SWIMMERS / PROCEDURE REASON: Strain of thoracic back region * * * * Physician Interpretation * * * * EXAM TITLE: XR THORACIC 3V AP/LAT/SWIMMERS EXAM DATE/TIME: 11/20/2022 1:55 PM COMPARISON: None. CLINICAL INDICATION/HISTORY: Back pain TECHNIQUE: AP, swimmer's and lateral views of the thoracic spine are presented FINDINGS: No fractures or subluxations are noted. The disc spaces are maintained, without obvious osteophyte formation. There is no paraspinal mass or bony destructive process. Others: Degenerative change seen in the cervical spine. IMPRESSION IMPRESSION: Negative thoracic spine X-ray. Mattress Filler: NANCY Transcribe Date/Time: Nov 20 2022 2:20P Dictated by : EDMUNDO VELARDE MD This examination was interpreted and the report reviewed and electronically signed by: EDMUNDO VELARDE MD on Nov 20 2022 2:21PM EST [facility] Radiology Study observation (narrative) [facility] XR Thoracic spine AP and Lat eral and SwimmersOrdered By: Ccf Provider on 11-20-[address] [facility] [address] BRAIN WO IVCONon 09-30-19 [facility] XR WRIST INJURY 4V PA/LAT/OB L/SCAPH LEFTon 05-19-2022 [facility] XR Wrist - left 4 Viewson IMPRESSION: No acute radiographic abnormalities seen in the left wrist. Mattress Filler: [facility] Transcribe Date/Time: May 19 2022 2:00P Dictated by : EDMUNDO VELARDE MD This examination was interpreted and the report reviewed and electronically signed by: EDMUNDO VELARDE MD on May 19 2022 2:06PM EST DIVISION OF RADIOLOGY * * *Final Report* * * DATE OF EXAM: May 19 2022 1:58PM WOX 5272 - XR WRIST 4V PA/LAT/OBL/SCAPH LT / PROCEDURE REASON: Left wrist tendonitis * * * * Physician Interpretation * * * * EXAM TITLE: XR WRIST 4V PA/LAT/OBL/SCAPH LT EXAM DATE/TIME: 05/19/2022 1:58 PM COMPARISON: None. CLINICAL INDICATION/HISTORY: Left wrist tendinitis. TECHNIQUE: PA, lateral, oblique and scaphoid views of the left wrist are presented. FINDINGS: No acute fractures or subluxations are noted. No bony erosions are seen. The joint spaces are well preserved. The mineralization of the bones is normal. There is no significant soft tissue swelling. DIVISION OF RADIOLOGY Provider, [facility] - 05/19/2022 * * *Final Report* * * DATE OF EXAM: May 19 2022 1:58PM WOX 5272 - XR WRIST 4V PA/LAT/OBL/SCAPH LT / PROCEDURE REASON: Left wrist tendonitis * * * * Physician Interpretation * * * * EXAM TITLE: XR WRIST 4V PA/LAT/OBL/SCAPH LT EXAM DATE/TIME: 05/19/2022 1:58 PM COMPARISON: None. CLINICAL INDICATION/HISTORY: Left wrist tendinitis. TECHNIQUE: PA, lateral, oblique and scaphoid views of the left wrist are presented. FINDINGS: No acute fractures or subluxations are noted. No bony erosions are seen. The joint spaces are well preserved. The mineralization of the bones is normal. There is no significant soft tissue swelling. IMPRESSION IMPRESSION: No acute radiographic abnormalities seen in the left wrist. Mattress Filler: [facility] Transcribe Date/Time: May 19 2022 2:00P Dictated by : EDMUNDO VELARDE MD This examination was interpreted and the report reviewed and electronically signed by: EDMUNDO VELARDE MD on May 19 2022 2:06PM EST [facility] Radiology Study observation (narrative) [facility] XR Wrist - left 4 ViewsOrder ed By: [facility] Provider on 05-19-2022 [facility] Vital Signs Date Time Vital Sign Value Performing Clinician Hayley solis 03-17-2024 08:39-0400 Body mass index (BMI) [Ratio] 24.31 kg/m2 Matt Weeks APRN.SHOER Work Phone: [facility] 08-26-2024 08:39-0400 Body temperature 97.39 [degF] Matt Hadley MELT SUPERINTENDANT.SHOER Work Phone: [facility] 03-17-2024 08:39-0400 Body weight 60.3 kg Mattjolanta Weeks APRN.SHOER Work Phone: [facility] 03-17-2024 08:39-0400 Diastolic blood pressure 64 mm[Hg] Mattheidi Weeks MELT SUPERINTENDANT.SHOER Work Phone: [facility] 03-17-2024 08:39-0400 Heart rate 68 /min Matt Weeks APRN.SHOER Work Phone: [facility] 03-17-2024 08:39-0400 Respiratory rate 18 /min Mattheidi Weeks MELT SUPERINTENDANT.SHOER Work Phone: [facility] 03-17-2024 08:39-0400 SaO2% (BldA) [Mass fraction] 98 % Matt Weeks APRN.SHOER Work Phone: [facility] 03-17-2024 08:39-0400 Systolic blood pressure 102 mm[Hg] Matt Hadley MELT SUPERINTENDANT.SHOER Work Phone: [facility] 02-21-2023 13:18-0400 Body temperature 97.59 [degF] Dwayne Simmons MELT SUPERINTENDANT.SHOER Work Phone: [facility] 02-21-2023 13:18-0400 Body weight 64.59 kg Dwayne Simmons MELT SUPERINTENDANT.SHOER Work Phone: [facility] 02-21-2023 13:18-0400 Diastolic blood pressure 80 mm[Hg] Dwayne Simmons MELT SUPERINTENDANT.SHOER Work Phone: [facility] 02-21-2023 13:18-0400 Heart rate 71 /min Dwayne Simmons MELT SUPERINTENDANT.SHOER Work Phone: [facility] 02-21-2023 13:18-0400 Respiratory rate 20 /min Dwayne Simmons MELT SUPERINTENDANT.SHOER Work Phone: [facility] 02-21-2023 13:18-0400 SaO2% (BldA) [Mass fraction] 93 % Dwayne Simmons MELT SUPERINTENDANT.SHOER Work Phone: [facility] 02-21-2023 13:18-0400 Systolic blood pressure 118 mm[Hg] Dwayne Simmons MELT SUPERINTENDANT.SHOER Work Phone: [facility] 11-20-2022 13:29-0400 Body temperature 97.11 [degF] Jasmin Athy PA-C Work Phone: [facility] 11-20-2022 13:29-0400 Body weight 64.86 kg Jasmin Athy PA-C Work Phone: [facility] 11-20-2022 13:29-0400 Diastolic blood pressure 64 mm[Hg] Jasmin Athy PA-C Work Phone: [facility] 11-20-2022 13:29-0400 Heart rate 72 /min Jasmin Athy PA-C Work Phone: [facility] 11-20-2022 13:29-0400 Respiratory rate 16 /min Jasmin Athy PA-C Work Phone: [facility] 11-20-2022 13:29-0400 SaO2% (BldA) [Mass fraction] 99 % Jasmin Athy PA-C Work Phone: [facility] 11-20-2022 13:29-0400 Systolic blood pressure 102 mm[Hg] Jasmin Athy PA-C Work Phone: [facility] 09-29-2022 11:06-0500 Body height 157.5 cm Vicente Cuevas MD Work Phone: [facility] 09-29-2022 11:06-0500 Body temperature 98.8 [degF] Vicente Cuevas MD Work Phone: [facility] 09-29-2022 11:06-0500 Body weight 65.32 kg Vicente Cuevas MD Work Phone: [facility] 09-29-2022 11:06-0500 Diastolic blood pressure 58 mm[Hg] Vicente Cuevas MD Work Phone: [facility] 09-29-2022 11:06-0500 Heart rate 59 /min Vicente Cuevas MD Work Phone: [facility] 09-29-2022 11:06-0500 Respiratory rate 12 /min Vicente Cuevas MD Work Phone: [facility] 09-29-2022 11:06-0500 SaO2% (BldA) [Mass fraction] 100 % Vicente Cuevas MD Work Phone: [facility] 09-29-2022 11:06-0500 Systolic blood pressure 106 mm[Hg] Vicente Cuevas MD Work Phone: [facility] 05-19-2022 13:30-0400 Body temperature 97.9 [degF] Jasmin Athy PA-C Work Phone: [facility] 05-19-2022 13:30-0400 Body weight 64.59 kg Jasmin Athy PA-C Work Phone: [facility] 05-19-2022 13:30-0400 Diastolic blood pressure 82 mm[Hg] Jasmin Athy PA-C Work Phone: [facility] 05-19-2022 13:30-0400 Heart rate 67 /min Jasmin Athy PA-C Work Phone: [facility] 05-19-2022 13:30-0400 Respiratory rate 18 /min Jasmin Athy PA-C Work Phone: [facility] 05-19-2022 13:30-0400 SaO2% (BldA) [Mass fraction] 98 % Jasmin Athy PA-C Work Phone: [facility] 05-19-2022 13:30-0400 Systolic blood pressure 128 mm[Hg] Jasmin Athy PA-C Work Phone: [facility] 04-14-2022 14:59-0400 Body height 157.5 cm Vicente Cuevas MD Work Phone: [facility] 04-14-2022 14:59-0400 Body temperature 99 [degF] Vicente Cuevas MD Work Phone: [facility] 04-14-2022 14:59-0400 Body weight 62.6 kg Vicente Cuevas MD Work Phone: [facility] 04-14-2022 14:59-0400 Diastolic blood pressure 60 mm[Hg] Vicente Cuevas MD Work Phone: [facility] 04-14-2022 14:59-0400 Heart rate 68 /min Vicente Cuevas MD Work Phone: [facility] 04-14-2022 14:59-0400 Respiratory rate 12 /min Vicente Cuevas MD Work Phone: [facility] 04-14-2022 14:59-0400 SaO2% (BldA) [Mass fraction] 99 % Vicente Cuevas MD Work Phone: [facility] 04-14-2022 14:59-0400 Systolic blood pressure 114 mm[Hg] Vicente Cuevas MD Work Phone: [facility] 10-18-2021 14:08-0400 Body height 157.5 cm Vicente Cuevas MD Work Phone: [facility] 10-18-2021 14:08-0400 Body temperature 98.01 [degF] Vicente Cuevas MD Work Phone: [facility] 10-18-2021 14:08-0400 Body weight 61.24 kg Vicente Cuevas MD Work Phone: [facility] 10-18-2021 14:08-0400 Diastolic blood pressure 70 mm[Hg] Vicente Cuevas MD Work Phone: [facility] 10-18-2021 14:08-0400 Heart rate 63 /min Vicente Cuevas MD Work Phone: [facility] 10-18-2021 14:08-0400 Respiratory rate 14 /min Vicente Cuevas MD Work Phone: [facility] 10-18-2021 14:08-0400 SaO2% (BldA) [Mass fraction] 100 % Vicente Cuevas MD Work Phone: [facility] 10-18-2021 14:08040 Systolic blood pressure 128 mm[Hg] Vicente Cuevas MD Work Phone: [facility] Encounters Encounter Date Encounter Type Care Provider Facility Start: 03-17-2024 End: 03-17-2024 Subsequent hospital visit by physician Xr [facility] Work Phone: Radiology Comment on above: Acute constipation [ K59.00] Start: 03-17-2024 End: 03-17-2024 ambulatory [facility] Facility:[facility] Start: 03-17-2024 End: 03-17-2024 Patient encounter procedure Matt Weeks APRN.CNP Work Phone: [facility] Comment on above: Acute constipation ( Primary Dx) Start: 12-05-2023 ambulatory Vicente Gaviria Work Phone: Internal Medicine [facility] Start: 07-13-2023 End: 07-13-2023 Subsequent hospital visit by physician Xr [facility] Work Phone: Radiology Comment on above: Right foot injury, s ubsequent encounter [S59.925T] Start: 07-13-2023 End: 07-13-2023 [facility] Facility:[facility] Start: 07-11-2023 End: 07-11-2023 Subsequent hospital visit by physician Xr [facility] Work Phone: Radiology Comment on above: Acute right ankle pa in [M25.571] Start: 07-11-2023 End: 07-11-2023 [facility] Facility:[facility] Start: 03-23-2023 ambulatory Gladys Vetovit z PA-C Work Phone: Orthopaedics Comment on above: Note Start: 03-10-2023 ambulatory Gladys Vetovit z PA-C Work Phone: Orthopaedics Comment on above: Shoulder pain Start: 02-27-2023 ambulatory Gladys Vetovit z PA-C Work Phone: Orthopaedics Comment on above: Note Start: 02-26-2023 End: 02-26-2023 Patient encounter procedure Gladys Chris PA-C Work Phone: Orthopaedics Comment on above: Impingement syndrome of right shoulder (Primary Dx); Acute pain of right shoulder Start: 02-21-2023 End: 02-21-2023 Subsequent hospital visit by physician Xr [facility] Work Phone: Radiology Comment on above: Acute cough [R05.1] Start: 02-21-2023 End: 02-21-2023 Patient encounter procedure Dwayne Simmons APRN.SHOER Work Phone: [facility] Comment on above: 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 Start: 11-28-2022 End: 11-28-2022 Subsequent hospital visit by physician Xr [facility] Work Phone: Radiology Comment on above: Acute pain of right shoulder [M25.511] Start: 11-20-2022 Telephone encounter Jasmin mccall PA-C Work Phone: [facility] Comment on above: Results Start: 11-20-2022 End: 11-20-2022 Subsequent hospital visit by physician Xr [facility] Work Phone: Radiology Comment on above: Strain of thoracic b ack region [S29.012A] Start: 11-20-2022 End: 11-20-2022 Patient encounter procedure Jasmin HUBBARDC Work Phone: [facility] Comment on above: Strain of thoracic b ack region (Primary Dx) Start: 10-30-2022 Refill Vicente Gaviria Work Phone: Internal Medicine [facility] Comment on above: Refill Request Start: 09-29-2022 End: 09-29-2022 Patient encounter procedure Vicente Cuevas MD Work Phone: [facility] Comment on above: Thunderclap headache (Primary Dx); Light headed; Left ear pain Start: 09-27-2022 ambulatory Vicente Gaviria Work Phone: [facility] Comment on above: Headache Start: 05-19-2022 End: 05-19-2022 Subsequent hospital visit by physician Kyra [facility] Work Phone: Radiology Comment on above: Left wrist tendoniti s [M77.8] Start: 05-19-2022 End: 05-19-2022 Patient encounter procedure Jasmin Blue PA-C Work Phone: [facility] Comment on above: Left wrist tendoniti s (Primary Dx) Start: 04-14-2022 End: 04-14-2022 Patient encounter procedure Vicente Cuevas MD Work Phone: [facility] Comment on above: Viral syndrome (Prim yuridia Dx) Start: 01-31-2022 ambulatory Vicente Gaviria Work Phone: [facility] Comment on above: Work note Start: 12-09-2021 Refill Vicente Gaviria Work Phone: [facility] Comment on above: Refill Request Start: 11-11-2021 ambulatory Vicente Gaviria Work Phone: [facility] Comment on above: Migraine Start: 10-26-2021 Telephone encounter Vicente mcdonnell MD Work Phone: [facility] Comment on above: Results Start: 10-18-2021 End: 10-18-2021 Patient encounter procedure Vicente Cuevas MD Work Phone: [facility] Comment on above: Dry skin (Primary Dx ); Depression with anxiety; Conjugal maladjustment involving divorce; RLS (restless legs syndrome); Other fatigue; Iron deficiency; Vitamin B12 deficiency; Vitamin D deficiency Procedures Date Procedure Procedure Detail Performing Clinician Start: 03-17-2024 Radiologic exam abdo men 1 view Matt Weeks MELT SUPERINTENDANT.SHOER Work Phone: Start: 07-13-2023 Radex foot complete minimum 3 views Kendraangelika Caraballo MELT SUPERINTENDANT.SHOER Work Phone: Start: 07-11-2023 Radex ankle complete minimum 3 views Adrianna Husain MELT SUPERINTENDANT.SHOER Work Phone: Start: 02-21-2023 Radiologic exam ches t 2 views Dwayne Troy MELT SUPERINTENDANT.SHOER Work Phone: Start: 11-28-2022 Radex shoulder compl ete minimum 2 views Vicente Cuevas MD Work Phone: Start: 11-20-2022 Radex spine thoracic 3 views Jasmin Blue PA-C Work Phone: Start: 10-26-2022 Mammography Candace Older MELT SUPERINTENDANT.SHOER Work Phone: Start: 09-12-2022 Lipid 1996 panel - S jared or Plasma Gladys Chris PA-C Work Phone: Start: 05-19-2022 Radex wrist complete minimum 3 views Jasmin Blue PA-C Work Phone: Start: 08-23-2021 Mammography Vicente mcdonnell MD Work Phone: Plan of Treatment Date Care Activity Detail Author Start: 09-12-2027 Lipid 1996 panel - S jared or Plasma Lipid Screening [facility] Start: 09-12-2027 Lipid panel Lipid Screening [facility] Start: 09-12-2027 LIPID SCREEN LIPID SCREEN [facility] Start: 09-12-2025 DIABETES SCREEN [facility]ES [facility]CREEN [facility] Start: 09-12-2025 Diabetes Screening Diabetes Screenin g [facility] Start: 10-28-2024 Urine microalbumin profile [facility] Start: 03-23-2024 Covid-19 Vaccine () Covid-19 Vaccine () [facility] Start: 03-23-2024 Covid-19 Vaccine () Covid-19 Vaccine () [facility] Start: 03-23-2024 Influenza vaccination C [facility] Start: 12-12-2023 End: 12-12-2023 Patient encounter procedure 12/12/2023 8:50 AM EDT Appointment Mammogram [address] [place] [address] Mammogram Start: 10-27-2023 Mammography [facility] Start: 10-27-2023 Screening for malign ant neoplasm of breast Mammogram Screening [facility] Start: 03-23-2023 Covid-19 Vaccine ( season) Covid-19 Vaccine () [facility] Start: 03-23-2023 Influenza vaccination C [facility] Start: 08-23-2022 Mammography MAMMOGRAM [facility] Start: 2022 COLOGUARD (FIT-DNA) COLOGUARD (FIT-D NA) [facility] Start: 2022 Colonoscopy COLONOSCOPY [facility] Start: 2022 COLORECTAL CANCER SCREENING COLORECTAL CANCER SCREENING [facility] Start: [address] COLONOGRAPHY [facility] Start: 2022 FECAL OCCULT BLOOD FECAL OCCULT BLOO D [facility] Start: 2022 Screening for malign ant neoplasm of colon [facility] Start: 2022 SIGMOIDOSCOPY SIGMOIDOSCOPY [facility] Start: 03-23-2022 Influenza vaccination INFLUENZA (#1) [facility] Start: 10-18-2021 End: 12-18-2021 FERRITIN BLD [facility] Work Phone: Comment on above: Expected: 10/18/2021 , Expires: 12/18/2021 Start: 10-18-2021 End: 12-18-2021 IRON + TIBC [facility] Work Phone: Comment on above: Expected: 10/18/2021 , Expires: 12/18/2021 Start: 10-18-2021 End: 12-18-2021 Thyrotropin [Units/volume] in Serum or Plasma [facility] Work Phone: Comment on above: Expected: 10/18/2021 , Expires: 12/18/2021 Start: 10-18-2021 End: 12-18-2021 VITAMIN B12 BLOOD [facility] Work Phone: Comment on above: Expected: 10/18/2021 , Expires: 12/18/2021 Start: 10-18-2021 End: 12-18-2021 VITAMIN D 25 HYDROXY [facility] Work Phone: Comment on above: Expected: 10/18/2021 , Expires: 12/18/2021 Start: 10-17-2021 COVID-19 VACCINE (4 - Booster for Pfizer series) COVID-19 VACCINE (4 - Booster for Pfizer series) [facility] Start: 10-17-2021 COVID-19 VACCINE (4 - Pfizer series) COVID-19 VACCINE (4 - Pfizer series) [facility] Start: 1996 Hepatitis B Vaccine (1 of 3 - 19+ 3-dose series) Hepatitis B Vaccine (1 of 3 - 19+ 3-dose series) [facility] Start: 1977 HEPATITIS B (1 of 3 - 3-dose series) HEPATITIS B (1 of 3 - 3-dose series) [facility] Start: 1977 Hepatitis B Vaccine (1 of 3 - 3-dose series) Hepatitis B Vaccine (1 of 3 - 3-dose series) [facility] End: 01-03-2025 DBT Breast - bilateral screening DARIO SCREENING W ANGELA Radiology Routine 1 Occurrences starting 12/05/2023 until 01/03/2025 [facility] Work Phone: Comment on above: 1 Occurrences starti ng 12/05/2023 until 01/03/2025 Influenza virus A an d B RNA and SARS-CoV-2 (COVID-19) N gene panel - Respiratory specimen by AUDREY with probe detection COVID WITH FLUA+B, ROUTINE Microbiology Routine Viral syndrome Ordered: 04/14/2022 [facility] Work Phone: Comment on above: Ordered: 04/14/2022 End: 03-27-2024 US SHOULDER RIGHT US SHOULDER RIGHT Radiology Routine Acute pain of right shoulder Impingement syndrome of right shoulder 1 Occurrences starting 02/26/2023 until 03/27/2024 [facility] Work Phone: Comment on above: 1 Occurrences starti ng 02/26/2023 until 03/27/2024 [facility] Immunizations Immunization Date Immunization Notes Care Provider Trena keyonawenceslao 04-19-2021 influenza, injectabl e, quadrivalent, contains preservative Vicente Cuevas MD Work Phone: [facility] Work Phone: 04-19-2021 influenza virus vaccine, unspecified formulation Gladys Chris PA-C Work Phone: [facility] 01-02-2021 COVID-19 vaccine, ag e 12+ yr (PFIZER-BIONTECH - PURPLE TOP) Vicente Cuevas MD Work Phone: [facility] 12-11-2020 COVID-19 vaccine, ag e 12+ yr (PFIZER-BIONTECH - PURPLE TOP) Vicente Cuevas MD Work Phone: [facility] 08-12-2019 influenza, injectabl e, quadrivalent, contains preservative Vicente Cuevas MD Work Phone: [facility] 05-04-2016 influenza, injectabl e, quadrivalent, contains preservative Vicente Cuevas MD Work Phone: [facility] 05-28-2015 influenza, injectabl e, quadrivalent, contains preservative Vicente Cuevas MD Work Phone: [facility] 10-28-2014 tetanus toxoid, reduced diphtheria toxoid, and acellular pertussis vaccine, adsorbed Vicente Cuevas MD Work Phone: [facility] NEGATED: Highlighted row has not occurred!09-01-2022 COVID-19 booster vaccine, age 12+ yr, bivalent (PFIZER-BIONTECH) Vicente Cuevas MD Work Phone: [facility] Work Phone: Comment on above: Deferred: OTHER Payers Date Payer Category Payer Medicaid [id number] 2022 Unknown [id number] 2022 Unknown [id number] 2016 Medicaid [facility] [employer] MEDICAID [id number] 2016-Present [phone] [address] [place] [address] Medicaid [id number] 2016 Medicaid [id number] Social History Date Type Detail Facility Start: 03-15-2022 Tobacco smoking stat [facility] Never smoked tobacco [facility] Work Phone: Start: 10-18-2021 End: 05-19-2022 Alcohol intake Current non-drinker of alcohol (finding) [facility] Start: 10-18-2021 End: 08-25-2022 History SDOH Alcohol Frequency 1 [facility] Start: 10-18-2021 End: 08-25-2022 History SDOH Alcohol Std Drinks 98 [facility] Start: 10-18-2021 End: 08-25-2022 History SDOH Social Connections Phone 5 [facility] Start: 10-18-2021 End: 08-25-2022 History SDOH Social Connections Get Together 3 [facility] Start: 10-18-2021 End: 08-25-2022 History SDOH Social Connections Membership 2 [facility] Start: 02-10-2020 Education 16 [facility] Start: 1975 Sex Assigned At Not on file C [facility] Start: 10-08-2021 End: 05-19-2022 Exposure to SARS-CoV-2 (event) Not sure [facility] Work Phone: Start: 03-15-2022 Tobacco use and exposure Smoke less tobacco non-user [facility] Start: 08-25-2022 History SDOH Social Connections Living 8 [facility] Start: 08-25-2022 History SDOH Physica l Activity MPS 15 [facility] Start: 1975 Sex Assigned At Female C [facility] Start: 06-28-2020 End: 08-25-2022 History of Social function [facility] Start: 06-28-2020 End: 08-25-2022 Social connection and isolation panel [facility] How often do you att end restorationist or gnosticist services? Patient refused [facility] Do you belong to any clubs or organizations such as restorationist groups, unions, fraternal or athletic groups, or school groups? No [facility] Are you now , , , , never or living with a partner? Living with partner [facility] How often to you hav e a drink containing alcohol? Monthly or less [facility] How many standard dr inks containing alcohol do you have on a typical day? 1 or 2 [facility] How often do you hav e 6 or more drinks on 1 occasion? Never [facility] Do you feel stress - tense, restless, nervous, or anxious, or unable to sleep at night because your mind is troubled all the time - these days [OSQ] Not at all [facility] (I/We) worried wheth er (my/our) food would run out before (I/we) got money to buy more. Never true [facility] Start: 09-28-2022 Gender identity Identifies as female gender (finding) [facility] Are you now , , , , never or living with a partner? [facility] Do you feel stress - tense, restless, nervous, or anxious, or unable to sleep at night because your mind is troubled all the time - these days [OSQ] Only a little [facility] Clinical Notes 2006 to 03-17-2024 Mychal Fernandez, RT(R) - 03/17/2024 8:50 AM Matt Workman APRN.SHOER - 03/17/2024 8:46 AM Leeanna Nixon, RT(R) - 07/11/2023 10:30 AM Gladys Zhong PA-C - 02/26/2023 10:59 AM EDT Note Date & Type Note Facility 03-17-2024 History of Presen t illness Narrative Radiology Service Progress Note PATIENT NAME: Chel Sanchez DATE OF SERVICE: March 17, 2024 TIME: 8:53 AM PATIENT IDENTITY VERIFICATION COMPLETED USING TWO (2) IDENTIFIERS: Name and Date of confirmed by patient verbally. FALL SCREENING: Has the patient had 2 falls in the last year or 1 fall with injury or currently using an Ambulatory Assistive Device (Walker, Cane, Wheelchair, Crutches, etc.)? No PATIENT GENDER DATA: Female. status: : No status: NO. PATIENT RELEVANT IMPLANT DATA REVIEWED: Not Applicable PATIENT PRESENTS WITH AN IMPLANTABLE OR ATTACHED CERAMIC MAKER DEMONSTRATOR: No RADIOLOGY DEPARTMENT: General X-ray: Exam(s) Completed: Abdomen X-Ray: Abdomen PERIPHERAL IV DATA: Not applicable SIGNED BY: RT Luz(Sebastián) March 17, 2024 8:53 AM documented in this encounter [facility] 03-17-2024 Note HNO ID: [id number] Author: MYCHAL FERNANDEZ RT(R) Service: ? Author Type: Technologist Type: Progress Notes Filed: 03/17/2024 09:00 Note Text: Radiology Service Progress Note PATIENT NAME: Chel Sanchez DATE OF SERVICE: March 17, 2024 TIME: 8:53 AM PATIENT IDENTITY VERIFICATION COMPLETED USING TWO (2) IDENTIFIERS: Name and Date of confirmed by patient verbally. FALL SCREENING: Has the patient had 2 falls in the last year or 1 fall with injury or currently using an Ambulatory Assistive Device (Walker, Cane, Wheelchair, Crutches, etc.)? No PATIENT GENDER DATA: Female. status: : No status: NO. PATIENT RELEVANT IMPLANT DATA REVIEWED: Not Applicable PATIENT PRESENTS WITH AN IMPLANTABLE OR ATTACHED CERAMIC MAKER DEMONSTRATOR: No RADIOLOGY DEPARTMENT: General X-ray: Exam(s) Completed: Abdomen X-Ray: Abdomen PERIPHERAL IV DATA: Not applicable SIGNED BY: RT Luz(Sebastián) March 17, 2024 8:53 AM [facility] 03-17-2024 Note HNO ID: [id number] Author: MATT WEEKS APRN.SHOER Service: ? Author Type: Nurse Practitioner Type: Progress Notes Filed: 03/17/2024 09:29 Note Text: Subjective Patient came in with complaints of possible constipation. Patient says she has not had a good bowel movement in about 4 weeks. Patient says she is able to get some small balls out. Patient says there is mucus that comes out sometimes with farts or sometimes on its own. Patient denies any abdominal pain, bloated, or nausea. Has never had this happen before. Constipation Review of Systems Gastrointestinal: Positive for constipation. Objective Physical Exam Constitutional: Appearance: Normal appearance. Pulmonary: Effort: Pulmonary effort is normal. Abdominal: General: Abdomen is flat. Palpations: Abdomen is soft. Comments: Purple area holley normal bowel sounds blue area holley slightly decreased bowel sounds Neurological: Mental Status: She is alert. 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, removed 2004 No date: Restless leg No date: Unspecified asthma(493.90) Comment: had PFT's in approx Aug 2006 PAST SURGICAL HISTORY 2000: APPENDECTOMY 02/22/16: LAPS SURG CHOLECYSTECTOMY W/CHOLANGIOGRAPHY Comment: normal IOC 2004: PAST SURGICAL HISTORY OF Comment: removal of left kidney; due to complications from the [facility] 2005: SALPINGO-OOPHORECTOMY COMPL/PRTL UNI/BI SPX Comment: Salpingo-oophorectomy- bilat 07/2003: TOTAL ABDOMINAL HYSTERECT W/WO RMVL TUBE OVARY Comment: rad hyst w/ lymph node disection ALLERGIES Ct Contrast [Other], Morphine, Penicillins, and Tomatoes MEDICATIONS rizatriptan (MAXALT) 10 mg tablet Take 1 tablet (10 mg) by mouth as needed. May repeat in 2 hours if needed albuterol HFA (PROAIR HFA) 90 mcg/actuation inhaler Inhale 1-2 Puffs as instructed four times daily as needed for wheezing/shortness of breath. ondansetron orally disintegrating (ZOFRAN ODT) 4 mg disintegrating tablet Take 1 tablet by mouth every 8 hours as needed for nausea/vomiting. (Patient not taking: Reported on 03/17/2024) predniSONE (DELTASONE) 10 mg tablet 6 tabs po day 1 and 2, then 5 tabs day 3 and 4, 4 tabs day 5 and 6, 3 tabs day 7 and 8, 2 tabs day 9 and 10, 1 tab day 11 and 12. (Patient not taking: Reported on 07/11/2023) cyclobenzaprine (FLEXERIL) 10 mg tablet Take 1 tablet by mouth three times daily as needed for muscle spasm. (Patient not taking: Reported on 07/11/2023) venlafaxine ER (EFFEXOR XR) 37.5 mg 24 hr capsule Take 1 capsule by mouth once daily. (Patient not taking: Reported on 03/17/2024) rOPINIRole (REQUIP) 0.5 mg tablet Take 0.5 mg (1 tab) 2 hours prior to bed. May take 0.5 mg (1 tab) at bedtime if needed. (Patient not taking: Reported on 03/17/2024) topiramate (TOPAMAX) 25 mg tablet Take 1 tablet by mouth daily at bedtime. gabapentin (NEURONTIN) 300 mg capsule Take 1 capsule by mouth daily at bedtime. cholecalciferol, Vitamin D3, (VITAMIN D3) 50,000 unit cap capsule Take 1 capsule by mouth one time a week. (Patient not taking: Reported on 03/17/2024) diphenoxylate-atropine (LOMOTIL) 2.5-0.025 mg per tablet Take 1 tablet by mouth four times daily as needed for Diarrhea for up to 90 days. (Patient not taking: Reported on 07/11/2023) FAMILY HISTORY Problem Relation Age of Onset Breast Cancer Mother dx approx early 40's Hypertension Father Heart Father silent [place] - age 50's Stroke Father other (parkinson) Father other (hypercholesteremia) Brother Asthma Son Asthma Son Asthma Daughter other (hypoglycemia) Daughter other (hypoglycemia) Son Social History Tobacco Use Smoking status: Never Smokeless tobacco: Never Vaping Use Vaping status: Never Used Substance Use Topics Alcohol use: No Drug use: No ASSESSMENT/PLAN: 1. Acute constipation - ICD9: 564.00, ICD10: K59.00 - XR ABDOMEN 1V SUPINE * * * * Physician Interpretation * * * * Indication: Constipation Comparison: None 2 x-rays of the abdomen are obtained. There is a non-obstructed bowel gas pattern. Large amount fecal material in the colon. There is no hepatomegaly or splenomegaly. No abnormal calcifications are visualized. There are no acute osseous abnormalities. IMPRESSION IMPRESSION: NO ACUTE ABDOMINAL PATHOLOGY VISUALIZED Mattress Filler: NANCY Transcribe Date/Time: Mar 17 2024 9:06A Dictated by : HERBERT MEZA MD Patient was given the constipation MiraLAX chart and instructed to take it twice a day until cleared out. Patient was instructed to increase her water intake. Patient was okay with this care (more content not included)... [facility] 03-17-2024 History of Presen t illness Narrative Images from the original note were not included. Subjective Patient came in with complaints of possible constipation. Patient says she has not had a good bowel movement in about 4 weeks. Patient says she is able to get some small balls out. Patient says there is mucus that comes out sometimes with farts or sometimes on its own. Patient denies any abdominal pain, bloated, or nausea. Has never had this happen before. Constipation Review of Systems Gastrointestinal: Positive for constipation. Objective Physical Exam Constitutional: Appearance: Normal appearance. Pulmonary: Effort: Pulmonary effort is normal. Abdominal: General: Abdomen is flat. Palpations: Abdomen is soft. Comments: Purple area holley normal bowel sounds blue area holley slightly decreased bowel sounds Neurological: Mental Status: She is alert. 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, removed 2004 No date: Restless leg No date: Unspecified asthma(493.90) Comment: had PFT's in approx Aug 2006 PAST SURGICAL HISTORY 2001: APPENDECTOMY 02/22/16: LAPS SURG CHOLECYSTECTOMY W/CHOLANGIOGRAPHY Comment: normal IOC 2005: PAST SURGICAL HISTORY OF Comment: removal of left kidney; due to complications from the [facility] 2005: SALPINGO-OOPHORECTOMY COMPL/PRTL UNI/BI SPX Comment: Salpingo-oophorectomy- bilat 07/2003: TOTAL ABDOMINAL HYSTERECT W/WO RMVL TUBE OVARY Comment: rad hyst w/ lymph node disection ALLERGIES Ct Contrast [Other], Morphine, Penicillins, and Tomatoes MEDICATIONS rizatriptan (MAXALT) 10 mg tablet Take 1 tablet (10 mg) by mouth as needed. May repeat in 2 hours if needed albuterol HFA (PROAIR HFA) 90 mcg/actuation inhaler Inhale 1-2 Puffs as instructed four times daily as needed for wheezing/shortness of breath. ondansetron orally disintegrating (ZOFRAN ODT) 4 mg disintegrating tablet Take 1 tablet by mouth every 8 hours as needed for nausea/vomiting. (Patient not taking: Reported on 03/17/2024) predniSONE (DELTASONE) 10 mg tablet 6 tabs po day 1 and 2, then 5 tabs day 3 and 4, 4 tabs day 5 and 6, 3 tabs day 7 and 8, 2 tabs day 9 and 10, 1 tab day 11 and 12. (Patient not taking: Reported on 07/11/2023) cyclobenzaprine (FLEXERIL) 10 mg tablet Take 1 tablet by mouth three times daily as needed for muscle spasm. (Patient not taking: Reported on 07/11/2023) venlafaxine ER (EFFEXOR XR) 37.5 mg 24 hr capsule Take 1 capsule by mouth once daily. (Patient not taking: Reported on 03/17/2024) rOPINIRole (REQUIP) 0.5 mg tablet Take 0.5 mg (1 tab) 2 hours prior to bed. May take 0.5 mg (1 tab) at bedtime if needed. (Patient not taking: Reported on 03/17/2024) topiramate (TOPAMAX) 25 mg tablet Take 1 tablet by mouth daily at bedtime. gabapentin (NEURONTIN) 300 mg capsule Take 1 capsule by mouth daily at bedtime. cholecalciferol, Vitamin D3, (VITAMIN D3) 50,000 unit cap capsule Take 1 capsule by mouth one time a week. (Patient not taking: Reported on 03/17/2024) diphenoxylate-atropine (LOMOTIL) 2.5-0.025 mg per tablet Take 1 tablet by mouth four times daily as needed for Diarrhea for up to 90 days. (Patient not taking: Reported on 07/11/2023) FAMILY HISTORY Problem Relation Age of Onset Breast Cancer Mother dx approx early 40's Hypertension Father Heart Father silent [place] - age 50's Stroke Father other (parkinson) Father other (hypercholesteremia) Brother Asthma Son Asthma Son Asthma Daughter other (hypoglycemia) Daughter other (hypoglycemia) Son Social History Tobacco Use Smoking status: Never Smokeless tobacco: Never Vaping Use Vaping status: Never Used Substance Use Topics Alcohol use: No Drug use: No ASSESSMENT/PLAN: 1. Acute constipation - ICD9: 564.00, ICD10: K59.00 - XR ABDOMEN 1V SUPINE * * * * Physician Interpretation * * * * Indication: Constipation Comparison: None 2 x-rays of the abdomen are obtained. There is a non-obstructed bowel gas pattern. Large amount fecal material in the colon. There is no hepatomegaly or splenomegaly. No abnormal calcifications are visualized. There are no acute osseous abnormalities. IMPRESSION IMPRESSION: NO ACUTE ABDOMINAL PATHOLOGY VISUALIZED Mattress Filler: NANCY Transcribe Date/Time: Mar 17 2024 9:06A Dictated by : HERBERT MEZA MD Patient was given the constipation MiraLAX chart and instructed to take it twice a day until cleared out. Patient was instructed to increase her water intake. Patient was okay with this care plan. Patient was instructed about red flag symptoms and if any of these occur she will follow-up. Matt Weeks APRN.SHOER documented in this encounter [facility] 12-05-2023 Note Patient Outreach (IN [facility]) CHEL SANCHEZ ([id number]) 1975 F Date Time Provider Department 12/05/23 VICENTE CUEVAS During your visit today, we recorded the following information about you: Allergies As of Date: 12/05/[address] contrast [Other] 07/18/2007 11 - Vomiting Comments: vomited oral contrast, no reactions to IV contrast MORPHINE 07/18/2007 11 - Vomiting PENICILLINS 07/18/2007 4 - Hives TOMATOES 07/18/2007 4 - Hives Date Reviewed: 07/13/2023 Reviewed by: Denise Casillas LPN - Fully Assessed Order(s):DARIO Topete ANGELA [[id number]] Order #: [id number] FUTURE Prescriptions as of 12/10/2023 - ondansetron orally disintegrating (ZOFRAN ODT) 4 mg disintegrating tablet Take 1 tablet by mouth every 8 hours as needed for nausea/vomiting. - rizatriptan (MAXALT) 10 mg tablet Take 1 tablet (10 mg) by mouth as needed. May repeat in 2 hours if needed - predniSONE (DELTASONE) 10 mg tablet 6 tabs po day 1 and 2, then 5 tabs day 3 and 4, 4 tabs day 5 and 6, 3 tabs day 7 and 8, 2 tabs day 9 and 10, 1 tab day 11 and 12. - albuterol HFA (PROAIR HFA) 90 mcg/actuation inhaler Inhale 1-2 Puffs as instructed four times daily as needed for wheezing/shortness of breath. - cyclobenzaprine (FLEXERIL) 10 mg tablet Take 1 tablet by mouth three times daily as needed for muscle spasm. - venlafaxine ER (EFFEXOR XR) 37.5 mg 24 hr capsule Take 1 capsule by mouth once daily. - rOPINIRole (REQUIP) 0.5 mg tablet Take 0.5 mg (1 tab) 2 hours prior to bed. May take 0.5 mg (1 tab) at bedtime if needed. - topiramate (TOPAMAX) 25 mg tablet Take 1 tablet by mouth daily at bedtime. - gabapentin (NEURONTIN) 300 mg capsule Take 1 capsule by mouth daily at bedtime. - cholecalciferol, Vitamin D3, (VITAMIN D3) 50,000 unit cap capsule Take 1 capsule by mouth one time a week. - diphenoxylate-atropine (LOMOTIL) 2.5-0.025 mg per tablet Take 1 tablet by mouth four times daily as needed for Diarrhea for up to 90 days. 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 Author Type: Slate Trimmer Type: Progress Notes Filed: 07/13/2023 9:19 AM Note Text: Radiology Service Progress Note PATIENT NAME: Chel Sanchez DATE OF SERVICE: July 13, 2023 TIME: 9:09 AM PATIENT IDENTITY VERIFICATION COMPLETED USING TWO (2) IDENTIFIERS: Name and Date of confirmed by patient verbally. FALL SCREENING: Has the patient had 2 falls in the last year or 1 fall with injury or currently using an Ambulatory Assistive Device (Walker, Cane, Wheelchair, Crutches, etc.)? No PATIENT GENDER DATA: Female. status: : No status: NO. PATIENT RELEVANT IMPLANT DATA REVIEWED: Yes RADIOLOGY DEPARTMENT: General X-ray: Exam(s) Completed: Lower Extremity X-Ray(s): Foot, Right PERIPHERAL IV DATA: Not applicable SIGNED BY: RT Luisa(R) July 13, 2023 9:09 AM [facility] 12-22-2023 Note HNO ID: [id number] Author: Kendra Caraballo APRN.SHOER Service: ? Author Type: Nurse Practitioner Type: Progress Notes Filed: 07/13/2023 9:54 AM Note Text: Subjective HPI Chel Sanchez is a 48 year old female who presents with right foot pain. She was seen here 2 days ago for ankle injury. She twisted her ankle walking out of her mother's house. She has been using SHY wrap, ice, elevating it and using crutches, taking ibuprofen. States pain is worse-could not sleep due to pain. Notes pain is more in the lateral foot than the ankle now. Review of Systems Constitutional: Negative for chills and fever. Musculoskeletal: Positive for joint pain. Negative for falls. See HPI Skin: Negative. BP 112/78 Pulse (!) 59 Temp 36.3 ?C (97.3 ?F) (Tympanic) Resp 16 Wt 65.5 kg (144 lb 6.4 oz) SpO2 97% BMI 26.41 kg/m? PAST MEDICAL HISTORY Diagnosis Date Biliary colic 02/10/2016 Fibromyalgia GERD (gastroesophageal reflux disease) Gilbert's syndrome Irritable bowel syndrome Lactose intolerance in adult Malignant neoplasm of cervix uteri, unspecified site 2003 s/p hysterectomy Other specified congenital anomaly of kidney 2003 left kidney ischemic as complication of hysterectomy, removed 2004 Restless leg Unspecified asthma(493.90) had PFT's in approx Aug 2006 PAST SURGICAL HISTORY Procedure Laterality Date APPENDECTOMY 2000 LAPS SURG CHOLECYSTECTOMY W/CHOLANGIOGRAPHY 02/22/16 normal IOC PAST SURGICAL HISTORY OF 2004 removal of left kidney; due to complications from the [facility] SALPINGO-OOPHORECTOMY COMPL/PRTL UNI/BI SPX 2004 Salpingo-oophorectomy- bilat TOTAL ABDOMINAL HYSTERECT W/WO RMVL TUBE OVARY 07/2003 rad hyst w/ lymph node disection ALLERGIES Ct Contrast [Other], Morphine, Penicillins, and Tomatoes MEDICATIONS albuterol HFA (PROAIR HFA) 90 mcg/actuation inhaler Inhale 1-2 Puffs as instructed four times daily as needed for wheezing/shortness of breath. rizatriptan (MAXALT) 10 mg tablet Take 1 tablet by mouth as needed. May repeat in 2 hours if needed venlafaxine ER (EFFEXOR XR) 37.5 mg 24 hr capsule Take 1 capsule by mouth once daily. rOPINIRole (REQUIP) 0.5 mg tablet Take 0.5 mg (1 tab) 2 hours prior to bed. May take 0.5 mg (1 tab) at bedtime if needed. ondansetron orally disintegrating (ZOFRAN ODT) 4 mg disintegrating tablet Take 1 tablet by mouth every 8 hours as needed for nausea/vomiting. gabapentin (NEURONTIN) 300 mg capsule Take 1 capsule by mouth daily at bedtime. cholecalciferol, Vitamin D3, (VITAMIN D3) 50,000 unit cap capsule Take 1 capsule by mouth one time a week. predniSONE (DELTASONE) 10 mg tablet 6 tabs po day 1 and 2, then 5 tabs day 3 and 4, 4 tabs day 5 and 6, 3 tabs day 7 and 8, 2 tabs day 9 and 10, 1 tab day 11 and 12. (Patient not taking: Reported on 07/11/2023) cyclobenzaprine (FLEXERIL) 10 mg tablet Take 1 tablet by mouth three times daily as needed for muscle spasm. (Patient not taking: Reported on 07/11/2023) topiramate (TOPAMAX) 25 mg tablet Take 1 tablet by mouth daily at bedtime. diphenoxylate-atropine (LOMOTIL) 2.5-0.025 mg per tablet Take 1 tablet by mouth four times daily as needed for Diarrhea for up to 90 days. (Patient not taking: Reported on 07/11/2023) FAMILY HISTORY Problem Relation Age of Onset Breast Cancer Mother dx approx early 40's Hypertension Father Heart Father silent [place] - age 50's Stroke Father other (parkinson) Father other (hypercholesteremia) Brother Asthma Son Asthma Son Asthma Daughter other (hypoglycemia) Daughter other (hypoglycemia) Son Social History Tobacco Use Smoking status: Never Smokeless tobacco: Never Vaping Use Vaping Use: Never used Substance Use Topics Alcohol use: No Drug use: No Objective Physical Exam Vitals and nursing note reviewed. Constitutional: Appearance: Normal appearance. Musculoskeletal: General: Tenderness and signs of injury present. No swelling or deformity. Right foot: Normal range of motion and normal capillary refill. Tenderness present. No swelling or crepitus. Normal pulse. Skin: General: Skin is warm and dry. Findings: No bruising, erythema or rash. Neurological: Mental Status: She is alert. ASSESSMENT/PLAN: 1. Right foot injury, subsequent encounter - ICD9: V58.89, 959.7, ICD10: S99.921D - XR FOOT GENERAL 3V AP/LAT/OBL RIGHT RESULT: Findings: No fracture or dislocation is evident. IMPRESSION: No acute bony finding. Mattress Filler: NANCY Transcribe Date/Time: Jul 13 2023 9:35A Dictated by : GREGORIO NIXON MD -continue to ice, elevate, use crutches. -walking boot placed on right foot. Patient states this is comfortable after placement. - Follow-up with ORTHOPEDICS in 3-5 days if symptoms have not improved or sooner if symptoms worsen - Discussed red flags and need for immediate medical evaluation if any occur. - Discussed supportive care treatment with fluids, rest and an (more content not included)... [facility] 07-11-2023 Note HNO ID: [id number] Author: Adrianna Husain APRN.SHOER Service: ? Author Type: Nurse Practitioner Type: Progress Notes Filed: 07/11/2023 12:43 PM Note Text: Subjective HPI Chel presents with injury to right ankle x two days ago. She states she twisted it walking out of her mothers house She has been walking on it but the pain and swelling seems to be worsening. She has been elevating, icing and taking motrin which is helpful. She has no complaint with circulation. PAST MEDICAL HISTORY Diagnosis Date Biliary colic 02/10/2016 Fibromyalgia GERD (gastroesophageal reflux disease) Gilbert's syndrome Irritable bowel syndrome Lactose intolerance in adult Malignant neoplasm of cervix uteri, unspecified site 2003 s/p hysterectomy Other specified congenital anomaly of kidney 2003 left kidney ischemic as complication of hysterectomy, removed 2004 Restless leg Unspecified asthma(493.90) had PFT's in approx Aug 2006 PAST SURGICAL HISTORY Procedure Laterality Date APPENDECTOMY 2000 LAPS SURG CHOLECYSTECTOMY W/CHOLANGIOGRAPHY 02/22/16 normal IOC PAST SURGICAL HISTORY OF 2004 removal of left kidney; due to complications from the [facility] SALPINGO-OOPHORECTOMY COMPL/PRTL UNI/BI SPX 2004 Salpingo-oophorectomy- bilat TOTAL ABDOMINAL HYSTERECT W/WO RMVL TUBE OVARY 07/2003 rad hyst w/ lymph node disection ALLERGIES Ct Contrast [Other], Morphine, Penicillins, and Tomatoes MEDICATIONS albuterol HFA (PROAIR HFA) 90 mcg/actuation inhaler Inhale 1-2 Puffs as instructed four times daily as needed for wheezing/shortness of breath. rizatriptan (MAXALT) 10 mg tablet Take 1 tablet by mouth as needed. May repeat in 2 hours if needed venlafaxine ER (EFFEXOR XR) 37.5 mg 24 hr capsule Take 1 capsule by mouth once daily. rOPINIRole (REQUIP) 0.5 mg tablet Take 0.5 mg (1 tab) 2 hours prior to bed. May take 0.5 mg (1 tab) at bedtime if needed. ondansetron orally disintegrating (ZOFRAN ODT) 4 mg disintegrating tablet Take 1 tablet by mouth every 8 hours as needed for nausea/vomiting. gabapentin (NEURONTIN) 300 mg capsule Take 1 capsule by mouth daily at bedtime. cholecalciferol, Vitamin D3, (VITAMIN D3) 50,000 unit cap capsule Take 1 capsule by mouth one time a week. predniSONE (DELTASONE) 10 mg tablet 6 tabs po day 1 and 2, then 5 tabs day 3 and 4, 4 tabs day 5 and 6, 3 tabs day 7 and 8, 2 tabs day 9 and 10, 1 tab day 11 and 12. (Patient not taking: Reported on 07/11/2023) cyclobenzaprine (FLEXERIL) 10 mg tablet Take 1 tablet by mouth three times daily as needed for muscle spasm. (Patient not taking: Reported on 07/11/2023) topiramate (TOPAMAX) 25 mg tablet Take 1 tablet by mouth daily at bedtime. diphenoxylate-atropine (LOMOTIL) 2.5-0.025 mg per tablet Take 1 tablet by mouth four times daily as needed for Diarrhea for up to 90 days. (Patient not taking: Reported on 07/11/2023) FAMILY HISTORY Problem Relation Age of Onset Breast Cancer Mother dx approx early 40's Hypertension Father Heart Father silent [place] - age 50's Stroke Father other (parkinson) Father other (hypercholesteremia) Brother Asthma Son Asthma Son Asthma Daughter other (hypoglycemia) Daughter other (hypoglycemia) Son Social History Tobacco Use Smoking status: Never Smokeless tobacco: Never Vaping Use Vaping Use: Never used Substance Use Topics Alcohol use: No Drug use: No Review of Systems Musculoskeletal: Ankle pain and edema right Objective Physical Exam Vitals and nursing note reviewed. Constitutional: Appearance: Normal appearance. HENT: Head: Normocephalic and atraumatic. Nose: Nose normal. Eyes: Extraocular Movements: Extraocular movements intact. Pupils: Pupils are equal, round, and reactive to light. Cardiovascular: Rate and Rhythm: Normal rate and regular rhythm. Pulses: Normal pulses. Heart sounds: Normal heart sounds. Pulmonary: Effort: Pulmonary effort is normal. Abdominal: General: Abdomen is flat. Palpations: Abdomen is soft. Musculoskeletal: Cervical back: Normal range of motion. Right lower leg: Edema present. Skin: General: Skin is warm. Capillary Refill: Capillary refill takes less than 2 seconds. Neurological: Mental Status: She is alert. Psychiatric: Mood and Affect: Mood normal. Behavior: Behavior normal. ASSESSMENT/PLAN: 1. Acute right ankle pain - ICD9: 719.47, 338.19, ICD10: M25.571 Xray negative Shy wrap applied ( crutches provided and instructed Ice Elevate Rest Motrin prn q6 as needed If not improving she is to make barber to orthopedic dept - XR ANKLE GENERAL 3V AP/LAT/OBL RIGHT - XR ANKLE GENERAL 3V AP/LAT/OBL RIGHT Adrianna Husain APRN.[facility] 07-11-2023 History of Presen t illness Narrative Radiology Service Progress Note PATIENT NAME: Chel Sanchez DATE OF SERVICE: July 11, 2023 TIME: 10:51 AM PATIENT IDENTITY VERIFICATION COMPLETED USING TWO (2) IDENTIFIERS: Name and Date of confirmed by patient verbally. FALL SCREENING: Has the patient had 2 falls in the last year or 1 fall with injury or currently using an Ambulatory Assistive Device (Walker, Cane, Wheelchair, Crutches, etc.)? No PATIENT GENDER DATA: Female. status: : No status: NO. PATIENT RELEVANT IMPLANT DATA REVIEWED: Yes RADIOLOGY DEPARTMENT: General X-ray: Exam(s) Completed: Lower Extremity X-Ray(s): Ankle, Right PERIPHERAL IV DATA: Not applicable SIGNED BY: RT Alissa(R) July 11, 2023 10:51 AM documented in this encounter [facility] 07-11-2023 Note HNO ID: [id number] Author: Leeanna Irby RT(R) Service: Radiology Author Type: Technologist Type: Progress Notes Filed: 07/11/2023 10:57 AM Note Text: Radiology Service Progress Note PATIENT NAME: Chel Sanchez DATE OF SERVICE: July 11, 2023 TIME: 10:51 AM PATIENT IDENTITY VERIFICATION COMPLETED USING TWO (2) IDENTIFIERS: Name and Date of confirmed by patient verbally. FALL SCREENING: Has the patient had 2 falls in the last year or 1 fall with injury or currently using an Ambulatory Assistive Device (Walker, Cane, Wheelchair, Crutches, etc.)? No PATIENT GENDER DATA: Female. status: : No status: NO. PATIENT RELEVANT IMPLANT DATA REVIEWED: Yes RADIOLOGY DEPARTMENT: General X-ray: Exam(s) Completed: Lower Extremity X-Ray(s): Ankle, Right PERIPHERAL IV DATA: Not applicable SIGNED BY: OLEG Maxwell) July 11, 2023 10:51 AM [facility] 04-17-2023 Miscellaneous Notes Any updates for this patient? Any updates on an approval for PT and Ultrasound? Signed Paperwork was scanned into the patient chart on 03/09/2023. Please advise. Any updates on an approval for PT and Ultrasound? documented in this encounter [facility] 02-26-2023 Miscellaneous Notes Addended by: GLADYS CHRIS on: 02/26/2023 12:17 PM Modules accepted: Orders documented in this encounter [facility] 02-26-2023 History of Presen t illness Narrative Gladys Chris PA-C Department of Orthopaedics [facility] [address] [place] [address] Dept: [phone] Dept February 26, [address] Vicente Cuevas for an opinion regarding right shoulder pain. My final recommendations will be communicated back to the requesting physician by way of shared Medical record or letter to requesting physician via [place] mail. CHIEF COMPLAINT: New and Pain of the Right Shoulder ( WC pain while lifting heavy buckets.Referred by Vicente Cuevas MD. Xrays 11/28/22) Ms. Chel Sanchez is a 47 year old female who presents with pain in her right shoulder after doing some extensive cleaning at work and this past October. Patient works in the [employer] at [employer], she reports that she did 2 days of extensive cleaning at the [employer], after the 2 days of work she started having posterior lateral right shoulder pain that is worse when lifting her arm or doing any type of movement involving the right shoulder. She has tried multiple oral anti-inflammatories including naproxen and ibuprofen with little to no relief in her symptoms. She also tried a muscle relaxer ice and heat. She is right-hand dominant denies any previous right shoulder injuries. She did have a remote neck injury. This is [facility]. ASSESSMENT: M75.41 Impingement syndrome of right shoulder (primary encounter diagnosis) M25.511 Acute pain of right shoulder PLAN: She certainly has some positive impingement signs. We discussed trying an oral steroid. With a different anti-inflammatory in the meantime. We will put in a request with Worker's [employer]. for a subacromial corticosteroid injection for the shoulder. I would also like to get her into some physical therapy. We discussed getting an ultrasound of the shoulder for further evaluation of the rotator cuff as well. Ms. Chel Sanchez was advised as to contrast therapies and/or to take analgesics/anti-inflammatories as needed and all contraindications were reviewed. OBJECTIVE: Ms. Chel Sanchez is a pleasant 47 year old in no apparent distress. Gen:There were no vitals taken for this visit. nl development, non obese, no deformities ENT: Normocephalic, normal hearing, moist mucosa CV: Pulses:Radial= 2+ and symmetric, capillary refill < 2 secs, no peripheral edema/varicosities Skin: no rash, bruising or lesions. Good turgor. Psych: cooperative and appropriate, alert and oriented x 3, good mood and affect. Musculoskeletal: Supple range of motion of the cervical spine without pain. Spurling signs are negative. No atrophy of the deltoid and shoulder musculature. right shoulder is nontender to palpation over the SC joint, clavicle and AC joint. Mild tenderness to palpation over the posterior shoulder, nontender at the anterior lateral corner of the shoulder and greater tuberosity. Nontender at the bicipital groove and coracoid. Active range of motion is 140 degrees of forward elevation, 65 degrees external rotation, and internal rotation to the low lumbar spine. Passive range of motion is 155 degrees, 65 degrees, respectively. No laxity with anterior and posterior stress. Negative Neer and positive Villagomez impingement signs. 4+/5 strength with supraspinatus, infraspinatus and 5/5 strength testing with subscapularis. Sensation is intact in the axillary, radial, median and ulnar nerve distribution Imaging: IMPRESSION: NO ACUTE BONY Mattress Filler: PSCB Transcribe Date/Time: Nov 30 2022 3:48P Dictated by : JOHANNY BARROW MD This examination was interpreted and the report reviewed and electronically signed by: JOHANNY BARROW MD on Nov 30 2022 3:51PM EST Results-Findings * * *Final Report* * * DATE OF EXAM: Nov 28 2022 3:25PM WOX [id number] - XR SHLDR >/=3V AP/CHEYENNE AP/OTHR RT / PROCEDURE REASON: Acute pain of right shoulder * * * * Physician Interpretation * * * * HISTORY: 47-YEAR-OLD FEMALE WITH Acute pain of right shoulder . injured at work a week ago lifting, pain is in right right posterior shoulder/scapular area TECHNIQUE: XR SHLDR >/=3V AP/CHEYENNE AP/OTHR RT Laterality: RIGHT Number of different views (projections): 3 COMPARISON: None RESULT: Right shoulder: Clinical humeral joint space is maintained. Acromiohumeral interval is maintained. Minimal asymmetry of the acromion and clavicular alignment of less than 2 mm. No fracture or dislocation. Supporting Subjective Information Below: Past Surgical History: PAST SURGICAL HISTORY Procedure Laterality Date APPENDECTOMY 2000 LAPS SURG CHOLECYSTECTOMY W/CHOLANGIOGRAPHY 02/22/16 normal IOC PAST SURGICAL HISTORY OF 2004 removal of left kidney; due to complications from the [facility] SALPINGO-OOPHORECTOMY COMPL/PRTL UNI/BI SPX 2004 Salpingo-oophorectomy- bilat TOTAL ABDOMINAL HYSTERECT W/WO RMVL TUBE OVARY 07/2003 rad hyst w/ lymph node disection Medications: Current Outpatient Medications Medication Sig doxycycline monohydrate 100 mg tablet Take 1 tablet by mouth twice daily for 7 days. albuterol HFA (PROAIR HFA) 90 mcg/actuation inhaler Inhale 1-2 Puffs as instructed four times daily as needed for wheezing/shortness of breath. rizatriptan (MAXALT) 10 mg tablet Take 1 tablet by mouth as needed. May repeat in 2 hours if needed cyclobenzaprine (FLEXERIL) 10 mg tablet Take 1 tablet by mouth three times daily as needed for muscle spasm. venlafaxine ER (EFFEXOR XR) 37.5 mg 24 hr capsule Take 1 capsule by mouth once daily. rOPINIRole (REQUIP) 0.5 mg tablet Take 0.5 mg (1 tab) 2 hours prior to bed. May take 0.5 mg (1 tab) at bedtime if needed. ondansetron orally disintegrating (ZOFRAN ODT) 4 mg disintegrating tablet Take 1 tablet by mouth every 8 hours as needed for nausea/vomiting. cholecalciferol, Vitamin D3, (VITAMIN D3) 50,000 unit cap capsule Take 1 capsule by mouth one time a week. predniSONE (DELTASONE) 10 mg tablet 6 tabs po day 1 and 2, then 5 tabs day 3 and 4, 4 tabs day 5 and 6, 3 tabs day 7 and 8, 2 tabs day 9 and 10, 1 tab day 11 and 12. diclofenac, EC, (VOLTAREN) 75 mg EC tablet Take 1 tablet by mouth twice daily. FOR PAIN topiramate (TOPAMAX) 25 mg tablet Take 1 tablet by mouth daily at bedtime. gabapentin (NEURONTIN) 300 mg capsule Take 1 capsule by mouth daily at bedtime. diphenoxylate-atropine (LOMOTIL) 2.5-0.025 mg per tablet Take 1 tablet by mouth four times daily as needed for Diarrhea for up to 90 days. No current facility-administered medications for this visit. Allergies: Ct Contrast [Other], Morphine, Penicillins, and Tomatoes ROS: General (negative for fatigue, malaise, weight loss/gain) HEENT (negative for headache, earache, recent vision changes, sinus pain, sore throat) Respiratory (no recent shortness of breath, hemoptysis) CV (negative for chest tightness, palpitations) Musculoskeletal (see HPI) Psych (no depression, anxiety) This note was partially generated using [employer] voice recognition system, and there may be some incorrect words, spellings, and punctuation that were not noted in checking the note before saving. Gladys Chris PA-C Patient presents with: Right Shoulder - New, Pain: WC pain while lifting heavy buckets.Referred by Vicente Cuevas MD. Xrays 11/28/22 Patient reports constant pain that radiates around the shoulder. She takes naproxen for pain. AMB ROOMING INTAKE FLOWSHEET DATA Pain Pain Level: 8 Pain Location: Shoulder-Right Description: Radiating, Sharp, Throbbing Duration Amount of Time: 3 Duration Units: Months Frequency: Continuous Intervention/Comfort measure: Medication, Cold, Heat documented in this encounter [facility] 02-21-2023 Instructions Dwayne Simmons APRN.[facility] - 02/21/2023 1:58 PM EDT GENERAL INFORMATION: Pneumonia is a lung infection caused by bacteria, viruses, or bacteria-like germs. It usually cannot be spread to other people. INSTRUCTIONS: 1. If you are given a prescription for antibiotics, take them as ordered by your doctor until they are all gone. 2. Use a cool-mist humidifier or vaporizer to increase air moisture. This will make it easier for you to breathe. Do not use hot steam. 3. Rest in until your temperature is normal (98.6 F or 37 C) and your chest pain and shortness of breath are gone. 4. Slowly restart your normal activities. You may feel weak and tired for up to six weeks. 5. Drink at least one glass of water or other liquid every hour. This will help thin sputum and make it easier to cough up. 6. If you have chest pain, applying a heating pad or warm compresses for 10 to 20 minutes several times a day to the painful area may lessen the pain. 7. Take several deep breaths and then cough frequently during the day. This will help get rid of the infection. 8. You may take medicines that you can buy without a prescription to treat pain and fever. Use cough medicine only if absolutely necessary as coughing helps clear the infection. CONTACT YOUR DOCTOR IF: 1. Your temperature is over 102 F (39 C). 2. Your chest pain, fever or chills do not get better with medicine in 2-3 days. 3. You develop nausea, vomiting or diarrhea. 4. You are coughing up large amounts of bloody sputum. 5. You have any problems that may be related to the medicine that you are taking (such as rash, itching, swelling, or stomach pain). RETURN TO THE EMERGENCY DEPARTMENT IF: 1. You have a lot of trouble breathing or you have dark or bluish fingernails, toenails, or skin. 2. You have a severe headache, neck stiffness, or feel confused. documented in this encounter [facility] 02-21-2023 History of Presen t illness Narrative Subjective HPI HPI Chel Sanchez is a 47 year old female who presents today for CC of cough, sob, wheeze, congestion. This started 2 weeks ago. Has tried otc medication for relief. Symptoms are worsened by nothing. Risk factors hx of asthma, sick exposures at home. .Patient presents with: Cough: X 2 weeks PAST MEDICAL HISTORY Diagnosis Date Biliary colic 02/10/2016 Fibromyalgia GERD (gastroesophageal reflux disease) Gilbert's syndrome Irritable bowel syndrome Lactose intolerance in adult Malignant neoplasm of cervix uteri, unspecified site 2003 s/p hysterectomy Other specified congenital anomaly of kidney 2003 left kidney ischemic as complication of hysterectomy, removed 2004 Restless leg Unspecified asthma(493.90) had PFT's in approx Aug 2006 PAST SURGICAL HISTORY Procedure Laterality Date APPENDECTOMY 2000 LAPS SURG CHOLECYSTECTOMY W/CHOLANGIOGRAPHY 02/22/16 normal IOC PAST SURGICAL HISTORY OF 2004 removal of left kidney; due to complications from the [facility] SALPINGO-OOPHORECTOMY COMPL/PRTL UNI/BI SPX 2004 Salpingo-oophorectomy- bilat TOTAL ABDOMINAL HYSTERECT W/WO RMVL TUBE OVARY 07/2003 rad hyst w/ lymph node disection ALLERGIES Ct Contrast [Other], Morphine, Penicillins, and Tomatoes MEDICATIONS rizatriptan (MAXALT) 10 mg tablet Take 1 tablet by mouth as needed. May repeat in 2 hours if needed naproxen (NAPROSYN) 500 mg tablet Take 1 tablet by mouth twice daily as needed (for pain/inflammation). Take with food. cyclobenzaprine (FLEXERIL) 10 mg tablet Take 1 tablet by mouth three times daily as needed for muscle spasm. venlafaxine ER (EFFEXOR XR) 37.5 mg 24 hr capsule Take 1 capsule by mouth once daily. rOPINIRole (REQUIP) 0.5 mg tablet Take 0.5 mg (1 tab) 2 hours prior to bed. May take 0.5 mg (1 tab) at bedtime if needed. ondansetron orally disintegrating (ZOFRAN ODT) 4 mg disintegrating tablet Take 1 tablet by mouth every 8 hours as needed for nausea/vomiting. albuterol HFA (PROAIR HFA) 90 mcg/actuation inhaler Inhale 1-2 Puffs as instructed four times daily as needed for Wheezing/Shortness of Breath. cholecalciferol, Vitamin D3, (VITAMIN D3) 50,000 unit cap capsule Take 1 capsule by mouth one time a week. topiramate (TOPAMAX) 25 mg tablet Take 1 tablet by mouth daily at bedtime. gabapentin (NEURONTIN) 300 mg capsule Take 1 capsule by mouth daily at bedtime. diphenoxylate-atropine (LOMOTIL) 2.5-0.025 mg per tablet Take 1 tablet by mouth four times daily as needed for Diarrhea for up to 90 days. FAMILY HISTORY Problem Relation Age of Onset Breast Cancer Mother dx approx early 40's Hypertension Father Heart Father silent SC - age 50's Stroke Father other (parkinson) Father other (hypercholesteremia) Brother Asthma Son Asthma Son Asthma Daughter other (hypoglycemia) Daughter other (hypoglycemia) Son Social History Tobacco Use Smoking status: Never Smokeless tobacco: Never Substance Use Topics Alcohol use: No Drug use: No Review of Systems Constitutional: Negative for fever. HENT: Positive for congestion and ear pain. Negative for ear discharge, nosebleeds and sore throat. Respiratory: Positive for cough, shortness of breath and wheezing. Cardiovascular: Negative for chest pain. Musculoskeletal: Negative for neck pain. Objective Blood pressure 118/80, pulse 71, temperature 36.4 C (97.6 F), resp. rate 20, weight 64.6 kg (142 lb 6.4 oz), SpO2 93 %. Physical Exam Constitutional: General: She is not in acute distress. Appearance: She is not toxic-appearing or diaphoretic. HENT: Head: Normocephalic and atraumatic. Right Ear: Hearing, tympanic membrane, ear canal and external ear normal. Left Ear: Hearing, tympanic membrane, ear canal and external ear normal. Nose: Nose normal. Mouth/Throat: Pharynx: Uvula midline. No pharyngeal swelling, oropharyngeal exudate, posterior oropharyngeal erythema or uvula swelling. Eyes: General: Lids are normal. No scleral icterus. Right eye: No discharge. Left eye: No discharge. Conjunctiva/sclera: Conjunctivae normal. Pupils: Pupils are equal, round, and reactive to light. Neck: Trachea: Trachea normal. Cardiovascular: Rate and Rhythm: Normal rate and regular rhythm. Heart sounds: Normal heart sounds. Pulmonary: Effort: Pulmonary effort is normal. Breath sounds: Examination of the right-lower field reveals decreased breath sounds. Examination of the left-lower field reveals decreased breath sounds. Decreased breath sounds present. No wheezing, rhonchi or rales. Musculoskeletal: Cervical back: Normal range of motion and neck supple. Lymphadenopathy: Cervical: No cervical adenopathy. Right cervical: No superficial cervical adenopathy. Left cervical: No superficial cervical adenopathy. Skin: Findings: No rash. Neurological: Mental Status: She is alert and oriented to person, place, and time. ASSESSMENT/PLAN: 1. Community acquired pneumonia of right lower lobe of lung - ICD9: 486, ICD10: J18.9 (primary diagnosis) - Discussed supportive care - Limit exposure to smoke and other inhaled irritants - Discussed possible red flags and when to seek medical attention - Follow up in 3-5 days or sooner if no better or worse -If you experience chest pain/shortness of breath go to ER - DOXYCYCLINE MONOHYDRATE 100 MG TABLET 2. Acute cough - ICD9: 786.2, ICD10: R05.1 - XR CHEST 2V FRONTAL/LAT IMPRESSION: Mild hazy opacity at the right lateral base, atelectasis versus pneumonia in the appropriate clinical setting. Dictated by : NOELLE SEGOVIA MD 3. History of asthma - ICD9: V12.69, ICD10: Z87.09 Inhaler refilled - ALBUTEROL SULFATE HFA 90 MCG/ACTUATION AEROSOL INHALER Dwayne Simmons APRN.[facility] documented in this encounter [facility] 02-12-2023 Miscellaneous Notes Patient has been identified by name and date of : No Patient phones for refill(s): Requested Prescriptions Pending Prescriptions Disp Refills rizatriptan (MAXALT) 10 mg tablet 10 tablet 1 Sig: Take 1 tablet by mouth as needed. May repeat in 2 hours if needed Date of last office visit in primary care: 11/28/22 Last 2 Encounter Wt Readings: Date: Wt: 11/28/2022 64.9 kg (143 lb) 11/20/2022 64.9 kg (143 lb) Previous labs/tests for medication: Not applicable Please advise. Thank you. Steph Lala LPN documented in this encounter [facility] 11-29-2022 History of Presen t illness Narrative POPULATION HEALTH NAVIGATION OUTREACH Action/FYI Left vm Patient Identified by Name and : NO Outreach Outcome/Action Unable to reach patient: Left message MyChart message sent Did you use a PCP flex slot to schedule this appointment? No Reason for Outreach Care Gap or Scheduling/Wellness visits Payer: Payor: [facility] MEDICAID / Plan: [facility] [employer] MEDICAID OF [place] / Product Type: Medicaid / Care Gap Reviewed:: Specialty Scheduling Reminder: Reminder note to check Health Maintenance for items below Health Maintenance items due: HEPATITIS B(1 of 3 - 3-dose series) Never done COVID-19 VACCINE(4 - Booster for Pfizer series) due on 10/17/2021 COLORECTAL CANCER SCREENING Never done Navigation Signature: Nataliia David November 29, 2022 1:25 PM documented in this encounter [facility] 11-28-2022 History of Presen t illness Narrative Radiology Service Progress Note PATIENT NAME: Chel Sanchez DATE OF SERVICE: November 28, 2022 TIME: 3:04 PM PATIENT IDENTITY VERIFICATION COMPLETED USING TWO (2) IDENTIFIERS: Name and Date of confirmed by patient verbally. FALL SCREENING: Has the patient had 2 falls in the last year or 1 fall with injury or currently using an Ambulatory Assistive Device (Walker, Cane, Wheelchair, Crutches, etc.)? No PATIENT GENDER DATA: Female. status: : No status: NO. PATIENT RELEVANT IMPLANT DATA REVIEWED: Not Applicable RADIOLOGY DEPARTMENT: General X-ray: Exam(s) Completed: Upper Extremity X-Ray(s): Shoulder, AP / TRUE AP / AXILLARY right PERIPHERAL IV DATA: Not applicable SIGNED BY: RT Francisco(R) November 28, 2022 3:04 PM documented in this encounter [facility] 11-20-2022 History of Presen t illness Narrative Images from the original note were not included. This note was created using [employer]. Subjective Chel Sanchez is a 47 year old female. HPI Presents with right shoulder blade and back pain over the past 4 days. Painful when she moves her arm or twists her back. She states she has been doing a lot of cleaning and twisting at work. She states her boyfriend had looked at her back and thought her muscle was swollen. No rash. No fever or chills. She has been trying ibuprofen [id number]. Review of Systems Constitutional: Negative. HENT: Negative. Eyes: Negative. Respiratory: Negative. Cardiovascular: Negative. Gastrointestinal: Negative. Genitourinary: Negative. Musculoskeletal: Positive for back pain. All other systems reviewed and are negative. PAST MEDICAL HISTORY Diagnosis Date Biliary colic 02/10/2016 Fibromyalgia GERD (gastroesophageal reflux disease) Gilbert's syndrome Irritable bowel syndrome Lactose intolerance in adult Malignant neoplasm of cervix uteri, unspecified site 2003 s/p hysterectomy Other specified congenital anomaly of kidney 2003 left kidney ischemic as complication of hysterectomy, removed 2004 Restless leg Unspecified asthma(493.90) had PFT's in approx Aug 2006 Current Outpatient Medications Medication Sig Dispense Refill venlafaxine ER (EFFEXOR XR) 37.5 mg 24 hr capsule Take 1 capsule by mouth once daily. 30 capsule 1 rOPINIRole (REQUIP) 0.5 mg tablet Take 0.5 mg (1 tab) 2 hours prior to bed. May take 0.5 mg (1 tab) at bedtime if needed. 60 tablet 5 rizatriptan (MAXALT) 10 mg tablet Take 1 tablet by mouth as needed. May repeat in 2 hours if needed 10 tablet 1 ondansetron orally disintegrating (ZOFRAN ODT) 4 mg disintegrating tablet Take 1 tablet by mouth every 8 hours as needed for nausea/vomiting. 10 tablet 1 topiramate (TOPAMAX) 25 mg tablet Take 1 tablet by mouth daily at bedtime. 30 tablet 1 gabapentin (NEURONTIN) 300 mg capsule Take 1 capsule by mouth daily at bedtime. 30 capsule 11 albuterol HFA (PROAIR HFA) 90 mcg/actuation inhaler Inhale 1-2 Puffs as instructed four times daily as needed for Wheezing/Shortness of Breath. 1 Inhaler 0 cholecalciferol, Vitamin D3, (VITAMIN D3) 50,000 unit cap capsule Take 1 capsule by mouth one time a week. 12 capsule 3 diphenoxylate-atropine (LOMOTIL) 2.5-0.025 mg per tablet Take 1 tablet by mouth four times daily as needed for Diarrhea for up to 90 days. 45 tablet 3 predniSONE (DELTASONE) 20 mg tablet Take 2 tablets by mouth once daily for 5 days. 10 tablet 0 cyclobenzaprine (FLEXERIL) 10 mg tablet Take 1 tablet by mouth three times daily as needed for muscle spasm. 15 tablet 0 No current facility-administered medications for this visit. PAST SURGICAL HISTORY Procedure Laterality Date APPENDECTOMY 2000 LAPS SURG CHOLECYSTECTOMY W/CHOLANGIOGRAPHY 02/22/16 normal IOC PAST SURGICAL HISTORY OF 2004 removal of left kidney; due to complications from the [facility] SALPINGO-OOPHORECTOMY COMPL/PRTL UNI/BI SPX 2004 Salpingo-oophorectomy- bilat TOTAL ABDOMINAL HYSTERECT W/WO RMVL TUBE OVARY 07/2003 rad hyst w/ lymph node disection FAMILY HISTORY Problem Relation Age of Onset Breast Cancer Mother dx approx early 40's Hypertension Father Heart Father silent SC - age 50's Stroke Father other (parkinson) Father other (hypercholesteremia) Brother Asthma Son Asthma Son Asthma Daughter other (hypoglycemia) Daughter other (hypoglycemia) Son Social History Tobacco Use Smoking status: Never Smokeless tobacco: Never Substance Use Topics Alcohol use: No Drug use: No Objective BP 102/64 Pulse 72 Temp 36.2 C (97.1 F) Resp 16 Wt 64.9 kg (143 lb) SpO2 99% BMI 26.16 kg/m Physical Exam Vitals reviewed. Constitutional: Appearance: Normal appearance. HENT: Head: Normocephalic and atraumatic. Musculoskeletal: Arms: Comments: Patient tender diffusely along the right thoracic paraspinal and scapular area of the back. No rash. No bruising or swelling. No erythema. Increased pain with twisting and with range of motion of the shoulder. Normal strength and sensation in upper extremities. Able to ambulate normally. Skin: General: Skin is warm and dry. Neurological: Mental Status: She is alert. Assessment and Plan ASSESSMENT/PLAN: 1. Strain of thoracic back region - ICD9: 847.1, ICD10: S29.012A Likely muscle strain. X-rays are unremarkable. Given Flexeril and prednisone. Discussed not taking NSAIDs with the prednisone. Recommended ice, rest, given work note for light duty for a week. Patient agreeable with plan. - XR THORACIC GENERAL 3V AP/LAT/SWIMMERS Jasmin Blue PA-C documented in this encounter [facility] 11-20-2022 Miscellaneous Notes Pt was notified of the results. Pt verbalized understanding. Bianca Baker MA Please let patient know her thoracic back x-rays were normal. Continue medications and plan of care as discussed at visit. documented in this encounter [facility] 11-20-2022 History of Presen t illness Narrative Radiology Service Progress Note PATIENT NAME: Chel Sanchez DATE OF SERVICE: November 20, 2022 TIME: 1:47 PM PATIENT IDENTITY VERIFICATION COMPLETED USING TWO (2) IDENTIFIERS: Name and Date of confirmed by patient verbally. FALL SCREENING: Has the patient had 2 falls in the last year or 1 fall with injury or currently using an Ambulatory Assistive Device (Walker, Cane, Wheelchair, Crutches, etc.)? No PATIENT GENDER DATA: Female. status: : No status: NO. PATIENT RELEVANT IMPLANT DATA REVIEWED: Not Applicable RADIOLOGY DEPARTMENT: General X-ray: Exam(s) Completed: Spine X-Ray(s): Thoracic PERIPHERAL IV DATA: Not applicable SIGNED BY: RT Francisco(R) November 20, 2022 1:47 PM documented in this encounter [facility] 10-30-2022 Miscellaneous Notes Patient has been identified by name and date of : No Patient phones for refill(s): Requested Prescriptions Pending Prescriptions Disp Refills venlafaxine ER (EFFEXOR XR) 37.5 mg 24 hr capsule 30 capsule 1 Sig: Take 1 capsule by mouth once daily. Date of last office visit in primary care: 09/29/22 Last 2 Encounter Wt Readings: Date: Wt: 09/29/2022 65.3 kg (144 lb) 09/01/2022 65.8 kg (145 lb) Previous labs/tests for medication: Not applicable Please advise. Thank you. Steph Lala LPN documented in this encounter [facility] 10-30-2022 Miscellaneous Notes Patient has been identified by name and date of : No Patient phones for refill(s): Requested Prescriptions Pending Prescriptions Disp Refills rOPINIRole (REQUIP) 0.5 mg tablet 60 tablet 5 Sig: Take 0.5 mg (1 tab) 2 hours prior to bed. May take 0.5 mg (1 tab) at bedtime if needed. Date of last office visit in primary care: 09/29/22 Last 2 Encounter Wt Readings: Date: Wt: 09/29/2022 65.3 kg (144 lb) 09/01/2022 65.8 kg (145 lb) Previous labs/tests for medication: Not applicable Please advise. Thank you. Steph Lala LPN documented in this encounter [facility] 09-29-2022 History of Presen t illness Narrative Reason for Visit Patient presents with: Same Day Appointment: x 1 week Chel Sanchez is a 47 year old female who presents here today for Above Complaints.. Health Maintenance HEPATITIS B(1 of 3 - 3-dose series) COVID-19 VACCINE(4 - Booster for Pfizer series) INFLUENZA(1) COLORECTAL CANCER SCREENING MAMMOGRAM HPI Has a h/o migraines, patient she started with a headaches a week ago in the back of her head. No triggers she knows of except that she is a lot in the freezer and thinks that it could be one of the reasons she has it. Not much visual changes. It is just in the back of the head and moves to the left ear, and the ear starts throbbing and hurting her. 7/10 pain which is constant. She goes to bed with it and wakes up with it. No injuries or falls. This is not the place she gets her migraines. Feels a little imbalance but tolerant to light and sound . Headhache went she wakes up and when she goes to bed, milder when she wakes up than when she tries to go to bed. This is the worst headache of her life No problem-specific Assessment & Plan notes found for this encounter. PAST MEDICAL HISTORY Diagnosis Date Biliary colic 02/10/2016 Fibromyalgia GERD (gastroesophageal reflux disease) Gilbert's syndrome Irritable bowel syndrome Lactose intolerance in adult Malignant neoplasm of cervix uteri, unspecified site 2003 s/p hysterectomy Other specified congenital anomaly of kidney 2003 left kidney ischemic as complication of hysterectomy, removed 2004 Restless leg Unspecified asthma(493.90) had PFT's in approx Aug 2006 PAST SURGICAL HISTORY Procedure Laterality Date APPENDECTOMY 2000 LAPS SURG CHOLECYSTECTOMY W/CHOLANGIOGRAPHY 02/22/16 normal IOC PAST SURGICAL HISTORY OF 2004 removal of left kidney; due to complications from the [facility] SALPINGO-OOPHORECTOMY COMPL/PRTL UNI/BI SPX 2004 Salpingo-oophorectomy- bilat TOTAL ABDOMINAL HYSTERECT W/WO RMVL TUBE OVARY 07/2003 rad hyst w/ lymph node disection FAMILY HISTORY Problem Relation Age of Onset Breast Cancer Mother dx approx early 40's Hypertension Father Heart Father silent SC - age 50's Stroke Father other (parkinson) Father other (hypercholesteremia) Brother Asthma Son Asthma Son Asthma Daughter other (hypoglycemia) Daughter other (hypoglycemia) Son Social History Tobacco Use Smoking status: Never Smokeless tobacco: Never Substance Use Topics Alcohol use: No Drug use: No Past medical history, appointments, medications, allergies reviewed. Pertinent Lab/Diagnostic Studies are reviewed and discussed today Current Outpatient Medications: rizatriptan (MAXALT) 10 mg tablet ondansetron orally disintegrating (ZOFRAN ODT) 4 mg disintegrating tablet topiramate (TOPAMAX) 25 mg tablet venlafaxine ER (EFFEXOR XR) 37.5 mg 24 hr capsule rOPINIRole (REQUIP) 0.5 mg tablet gabapentin (NEURONTIN) 300 mg capsule albuterol HFA (PROAIR HFA) 90 mcg/actuation inhaler cholecalciferol, Vitamin D3, (VITAMIN D3) 50,000 unit cap capsule diphenoxylate-atropine (LOMOTIL) 2.5-0.025 mg per tablet Review of Systems CONSTITUTIONAL: No fevers, chills night sweats, unintended weight loss CARDIOVASCULAR: No chest pain, dyspnea, palpitations, orthopnea, PND, ankle edema. PULM: No dyspnea, unexplained cough. GI: No dysphagia/odynophagia, problematic reflux, constipation, diarrhea, changes in stool habits, hematochezia, melena. : No new urinary complaints, including dysuria, gross hematuria or pyuria. NEURO: No new balance problems, peripheral weakness/paresthesias or numbness of concern. Physical Exam BP 106/58 (BP Site: Left Arm, BP Position: Sitting, BP Cuff Size: Large Adult) Pulse (!) 59 Temp 37.1 C (98.8 F) Resp 12 Ht 157.5 cm (5' 2 ) Wt 65.3 kg (144 lb) SpO2 100% BMI 26.34 kg/m General appearance: Well appearing, alert, in no acute distress, well nourished. Skin: Skin color, texture, turgor normal, no suspicious rashes or lesions Head: Normocephalic, no masses, lesions, tenderness or abnormalities Eyes: Anicteric sclera. Pupils are equally round and reactive to light. Extraocular movements are intact. Lungs: Lungs clear to auscultation. No wheezing, rhonchi, rales Heart: RRR without murmur, gallop, or rubs. ASSESSMENT/PLAN: 1. [place] headache - ICD9: 784.0, ICD10: G44.53 (primary diagnosis) We ordered toradol for the patient - CT BRAIN WO IVCON 2. Light headed - ICD9: 780.4, ICD10: R42 - CT BRAIN WO IVCON 3. Left ear pain - ICD9: 388.70, ICD10: H92.02 - CT BRAIN WO IVCON Vicente Cuevas MD documented in this encounter [facility] 05-19-2022 History of Presen t illness Narrative This note was created using [employer]. Subjective Chel Sanchez is a 46 year old female. HPI Patient presents with left wrist pain. She states yesterday she was lifting boxes and afterwards her wrist started to hurt. She denies any trauma to the wrist. Denies any problems with it previously. She is right-handed. She did take ibuprofen [id number]. No numbness. Pain radiating into the left thumb. Review of Systems Constitutional: Negative. HENT: Negative. Respiratory: Negative. Cardiovascular: Negative. Gastrointestinal: Negative. Musculoskeletal: Left wrist pain All other systems reviewed and are negative. PAST MEDICAL HISTORY Diagnosis Date Biliary colic 02/10/2016 Fibromyalgia GERD (gastroesophageal reflux disease) Gilbert's syndrome Irritable bowel syndrome Lactose intolerance in adult Malignant neoplasm of cervix uteri, unspecified site 2003 s/p hysterectomy Other specified congenital anomaly of kidney 2003 left kidney ischemic as complication of hysterectomy, removed 2004 Restless leg Unspecified asthma(493.90) had PFT's in approx Aug 2006 Current Outpatient Medications Medication Sig Dispense Refill rizatriptan (MAXALT) 10 mg tablet Take 1 tablet by mouth as needed. May repeat in 2 hours if needed 10 tablet 1 ondansetron orally disintegrating (ZOFRAN ODT) 4 mg disintegrating tablet Take 1 tablet by mouth every 8 hours as needed for nausea/vomiting. 10 tablet 1 topiramate (TOPAMAX) 25 mg tablet Take 1 tablet by mouth daily at bedtime. 30 tablet 1 venlafaxine ER (EFFEXOR XR) 37.5 mg 24 hr capsule Take 1 capsule by mouth once daily. 30 capsule 1 rOPINIRole (REQUIP) 0.5 mg tablet Take 0.5 mg (1 tab) 2 hours prior to bed. May take 0.5 mg (1 tab) at bedtime if needed. 60 tablet 5 gabapentin (NEURONTIN) 300 mg capsule Take 1 capsule by mouth daily at bedtime. 30 capsule 11 albuterol HFA (PROAIR HFA) 90 mcg/actuation inhaler Inhale 1-2 Puffs as instructed four times daily as needed for Wheezing/Shortness of Breath. 1 Inhaler 0 cholecalciferol, Vitamin D3, (VITAMIN D3) 50,000 unit cap capsule Take 1 capsule by mouth one time a week. 12 capsule 3 diphenoxylate-atropine (LOMOTIL) 2.5-0.025 mg per tablet Take 1 tablet by mouth four times daily as needed for Diarrhea for up to 90 days. 45 tablet 3 No current facility-administered medications for this visit. PAST SURGICAL HISTORY Procedure Laterality Date APPENDECTOMY 2000 LAPS SURG CHOLECYSTECTOMY W/CHOLANGIOGRAPHY 02/22/16 normal IOC PAST SURGICAL HISTORY OF 2004 removal of left kidney; due to complications from the [facility] SALPINGO-OOPHORECTOMY COMPL/PRTL UNI/BI SPX 2004 Salpingo-oophorectomy- bilat TOTAL ABDOMINAL HYSTERECT W/WO RMVL TUBE OVARY 07/2003 rad hyst w/ lymph node disection FAMILY HISTORY Problem Relation Age of Onset Breast Cancer Mother dx approx early 40's Hypertension Father Heart Father silent [place] - age 50's Stroke Father other (parkinson) Father other (hypercholesteremia) Brother Asthma Son Asthma Son Asthma Daughter other (hypoglycemia) Daughter other (hypoglycemia) Son Social History Tobacco Use Smoking status: Never Smokeless tobacco: Never Substance Use Topics Alcohol use: No Drug use: No Objective BP 128/82 Pulse 67 Temp 36.6 C (97.9 F) (Tympanic) Resp 18 Wt 64.6 kg (142 lb 6.4 oz) SpO2 98% BMI 26.05 kg/m Physical Exam Vitals reviewed. Constitutional: Appearance: Normal appearance. HENT: Head: Normocephalic and atraumatic. Musculoskeletal: Comments: Patient tender along the radial aspect of the distal wrist. Some pain with flexion and extension. No pain with pronation and supination. Some pain with range of motion of the thumb at the base of the thumb. Skin: General: Skin is warm and dry. Neurological: Mental Status: She is alert. Assessment and Plan ASSESSMENT/PLAN: 1. Left wrist tendonitis - ICD9: 727.05, ICD10: M77.8 Strays are negative for fracture. I feel she does have tendinitis. Placed in a thumb spica wrist splint from [employer] stock. Recommended rest, ice, patient will continue Tylenol and ibuprofen. If not improving will follow-up with PCP. - XR WRIST INJURY 4V PA/LAT/OBL/SCAPH LEFT Jasmin Blue PA-C documented in this encounter [facility] 05-19-2022 History of Presen t illness Narrative Radiology Service Progress Note PATIENT NAME: Chel Sanchez DATE OF SERVICE: May 19, 2022 TIME: 1:51 PM PATIENT IDENTITY VERIFICATION COMPLETED USING TWO (2) IDENTIFIERS: Name and Date of confirmed by patient verbally. FALL SCREENING: Has the patient had 2 falls in the last year or 1 fall with injury or currently using an Ambulatory Assistive Device (Walker, Cane, Wheelchair, Crutches, etc.)? No PATIENT GENDER DATA: Female. status: : No status: NO. PATIENT RELEVANT IMPLANT DATA REVIEWED: Not Applicable RADIOLOGY DEPARTMENT: General X-ray: Exam(s) Completed: Upper Extremity X-Ray(s): Wrist, left PERIPHERAL IV DATA: Not applicable SIGNED BY: RT Francisco(R) May 19, 2022 1:51 PM documented in this encounter [facility] 04-14-2022 History of Presen t illness Narrative Reason for Visit Patient presents with: Recheck: sinus issues: sneezing,nasal drainage,ear pain Chel Sanchez is a 46 year old female who presents here today for Above Complaints.. Health Maintenance HEPATITIS B(1 of 3 - 3-dose series) COVID-19 VACCINE(4 - Booster for Pfizer series) INFLUENZA(1) HPI Patient is here will acute illness , for the past 5 days, every one in the family Is ill. On Sunday started with Vomiting and light headedness, along with that she had diarrhea. She also has a sore throat and has drainage, she has a headache, and her ears are hurts. Did a home covid test yesterday and it was negative . No problem-specific Assessment & Plan notes found for this encounter. PAST MEDICAL HISTORY Diagnosis Date Biliary colic 02/10/2016 Fibromyalgia GERD (gastroesophageal reflux disease) Gilbert's syndrome Irritable bowel syndrome Lactose intolerance in adult Malignant neoplasm of cervix uteri, unspecified site 2003 s/p hysterectomy Other specified congenital anomaly of kidney 2003 left kidney ischemic as complication of hysterectomy, removed 2004 Restless leg Unspecified asthma(493.90) had PFT's in approx Aug 2006 PAST SURGICAL HISTORY Procedure Laterality Date APPENDECTOMY 2000 LAPS SURG CHOLECYSTECTOMY W/CHOLANGIOGRAPHY 02/22/16 normal IOC PAST SURGICAL HISTORY OF 2004 removal of left kidney; due to complications from the [facility] SALPINGO-OOPHORECTOMY COMPL/PRTL UNI/BI SPX 2004 Salpingo-oophorectomy- bilat TOTAL ABDOMINAL HYSTERECT W/WO RMVL TUBE OVARY 07/2003 rad hyst w/ lymph node disection FAMILY HISTORY Problem Relation Age of Onset Breast Cancer Mother dx approx early 40's Hypertension Father Heart Father silent SC - age 50's Stroke Father other (parkinson) Father other (hypercholesteremia) Brother Asthma Son Asthma Son Asthma Daughter other (hypoglycemia) Daughter other (hypoglycemia) Son Social History Tobacco Use Smoking status: Never Smokeless tobacco: Never Substance Use Topics Alcohol use: No Drug use: No Past medical history, appointments, medications, allergies reviewed. Pertinent Lab/Diagnostic Studies are reviewed and discussed today Current Outpatient Medications: rizatriptan (MAXALT) 10 mg tablet ondansetron orally disintegrating (ZOFRAN ODT) 4 mg disintegrating tablet topiramate (TOPAMAX) 25 mg tablet venlafaxine ER (EFFEXOR XR) 37.5 mg 24 hr capsule rOPINIRole (REQUIP) 0.5 mg tablet gabapentin (NEURONTIN) 300 mg capsule albuterol HFA (PROAIR HFA) 90 mcg/actuation inhaler cholecalciferol, Vitamin D3, (VITAMIN D3) 50,000 unit cap capsule diphenoxylate-atropine (LOMOTIL) 2.5-0.025 mg per tablet Review of Systems CONSTITUTIONAL: No fevers, chills night sweats, unintended weight loss CARDIOVASCULAR: No chest pain, dyspnea, palpitations, orthopnea, PND, ankle edema. PULM: No dyspnea, unexplained cough. GI: No dysphagia/odynophagia, problematic reflux, constipation, diarrhea, changes in stool habits, hematochezia, melena. : No new urinary complaints, including dysuria, gross hematuria or pyuria. NEURO: No new balance problems, peripheral weakness/paresthesias or numbness of concern. Physical Exam BP 114/60 (BP Site: Left Arm, BP Position: Sitting, BP Cuff Size: Regular Adult) Pulse 68 Temp 37.2 C (99 F) Resp 12 Ht 157.5 cm (5' 2 ) Wt 62.6 kg (138 lb) SpO2 99% BMI 25.24 kg/m General appearance: Well appearing, alert, in no acute distress, well nourished. Skin: Skin color, texture, turgor normal, no suspicious rashes or lesions Head: Normocephalic, no masses, lesions, tenderness or abnormalities Ears: R TM - clear with good landmarks, nl light reflex, L TM - clear with good landmarks, nl light reflex Lungs: Lungs clear to auscultation. No wheezing, rhonchi, rales Heart: RRR without murmur, gallop, or rubs. Extremities: No deformities, edema, skin discoloration, clubbing or cyanosis. Good capillary refill. ASSESSMENT/PLAN: 1. Viral syndrome - ICD9: 079.99, ICD10: B34.9 - Discussed viral etiology and rationale for treatment. - Symptomatic treatment with prn analgesia - Supportive care with fluids and rest - COVID WITH FLUA+B, ROUTINE She needs a letter to for sick leave Covid test performed Went over the side effect profile for the drug with the patient, mentioned every one of it , discussed appropriate concerns , alternatives and benefits of the drug, Vicente Cuevas MD documented in this encounter [facility] 02-03-2022 Miscellaneous Notes sent to medical records to be picked up documented in this encounter [facility] 12-09-2021 Miscellaneous Notes Patient has been identified by name and date of : Yes Patient phones for refill(s): Pending Prescriptions Disp Refills VENLAFAXINE ER 75 MG CAPSULE,EXTENDED RELEASE 24 HR 30 capsule 5 Sig: Take 1 capsule by mouth once daily. BHAVANA: No Date of last office visit in primary care: 10/18/2021 Last 2 Encounter Wt Readings: Date: Wt: 10/18/2021 61.2 kg (135 lb) 04/19/2021 63 kg (139 lb) Previous labs/tests for medication: Not applicable Please advise. Thank you. Steph Lala LPN documented in this encounter [facility] 11-14-2021 Miscellaneous Notes Letter ready for picking supervisor in Medical Record. documented in this encounter [facility] 10-26-2021 Miscellaneous Notes Patient notified of results and provider's instructions. Patient verbalizes understanding. Christiana Jimenez RN Images from the original note were not included. Left a message for pt to call the office and ask to speak to a nurse for results below. Vicente Cuevas MD [facility] Vit d levels are mildly low Please take OT vit d3 5000 IU daily with food. Patricia Addison LPN documented in this encounter [facility] 10-18-2021 History of Presen t illness Narrative Reason for Visit Patient presents with: Established Patient: 6 month follow up -meds Chel Sanchez is a 46 year old female who presents here today for Above Complaints. Health Maintenance There are no preventive care reminders to display for this patient. HPI Patient notes, for the past couple weeks no matter how may hours of sleep she gets she is tired. She is exercising by walking And does sit ups and push ups at home. Her emotional health is good with the effexor, her symptoms are mostly well controlled. She is dating a new person, bought a house. The neurontin helps her with the rest less legs along with the requip No problem-specific Assessment & Plan notes found for this encounter. PAST MEDICAL HISTORY Diagnosis Date Biliary colic 02/10/2016 Fibromyalgia GERD (gastroesophageal reflux disease) Gilbert's syndrome Irritable bowel syndrome Lactose intolerance in adult Malignant neoplasm of cervix uteri, unspecified site 2003 s/p hysterectomy Other specified congenital anomaly of kidney 2003 left kidney ischemic as complication of hysterectomy, removed 2004 Restless leg Unspecified asthma(493.90) had PFT's in approx Aug 2006 PAST SURGICAL HISTORY Procedure Laterality Date APPENDECTOMY 2000 LAPS SURG CHOLECYSTECTOMY W/CHOLANGIOGRAPHY 02/22/16 normal IOC PAST SURGICAL HISTORY OF 2004 removal of left kidney; due to complications from the [facility] SALPINGO-OOPHORECTOMY COMPL/PRTL UNI/BI SPX 2004 Salpingo-oophorectomy- bilat TOTAL ABDOMINAL HYSTERECT W/WO RMVL TUBE OVARY 07/2003 rad hyst w/ lymph node disection FAMILY HISTORY Problem Relation Age of Onset Breast Cancer Mother dx approx early 40's Hypertension Father Heart Father silent [place] - age 50's Stroke Father other (parkinson) Father other (hypercholesteremia) Brother Asthma Son Asthma Son Asthma Daughter other (hypoglycemia) Daughter other (hypoglycemia) Son Social History Tobacco Use Smoking status: Never Smoker Smokeless tobacco: Never Used Substance Use Topics Alcohol use: No Drug use: No Past medical history, appointments, medications, allergies reviewed. Pertinent Lab/Diagnostic Studies are reviewed and discussed today Current Outpatient Medications: venlafaxine ER (EFFEXOR XR) 75 mg 24 hr capsule rOPINIRole (REQUIP) 0.5 mg tablet gabapentin (NEURONTIN) 300 mg capsule albuterol HFA (PROAIR HFA) 90 mcg/actuation inhaler cholecalciferol, Vitamin D3, (VITAMIN D3) 50,000 unit cap capsule diphenoxylate-atropine (LOMOTIL) 2.5-0.025 mg per tablet Estradiol (YUVAFEM) 10 mcg tab vaginal tablet Ferrous Gluconate 324 mg (36 mg iron) tab Review of Systems CONSTITUTIONAL: No fevers, chills night sweats, unintended weight loss CARDIOVASCULAR: No chest pain, dyspnea, palpitations, orthopnea, PND, ankle edema. PULM: No dyspnea, unexplained cough. GI: No dysphagia/odynophagia, problematic reflux, constipation, diarrhea, changes in stool habits, hematochezia, melena. : No new urinary complaints, including dysuria, gross hematuria or pyuria. NEURO: No new balance problems, peripheral weakness/paresthesias or numbness of concern. Physical Exam BP 128/70 (BP Site: Left Arm, BP Position: Sitting, BP Cuff Size: Large Adult) Pulse 63 Temp 36.7 C (98 F) Resp 14 Ht 157.5 cm (5' 2 ) Wt 61.2 kg (135 lb) SpO2 100% BMI 24.69 kg/m General appearance: Well appearing, alert, in no acute distress, well nourished. Skin: Skin color, texture, turgor normal, no suspicious rashes or lesions Head: Normocephalic, no masses, lesions, tenderness or abnormalities Eyes: Anicteric sclera. Pupils are equally round and reactive to light. Extraocular movements are intact. Lungs: Lungs clear to auscultation. No wheezing, rhonchi, rales Heart: RRR without murmur, gallop, or rubs. Extremities: No deformities, edema, skin discoloration, clubbing or cyanosis. Good capillary refill. ASSESSMENT/PLAN: 1. Dry skin - ICD9: 701.1, ICD10: L85.3 (primary diagnosis) - TSH BLD 2. Depression with anxiety - ICD9: 300.4, ICD10: F41.8 - VENLAFAXINE ER 75 MG CAPSULE,EXTENDED RELEASE 24 HR 3. 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 RLS (restless legs syndrome) - ICD9: 333.94, ICD10: G25.81 - ROPINIROLE 0.5 MG TABLET - GABAPENTIN 300 MG CAPSULE 5. Other fatigue - ICD9: 780.79, ICD10: R53.83 - TSH BLD 6. Iron deficiency - ICD9: 280.9, ICD10: E61.1 - IRON + TIBC - FERRITIN BLD 7. Vitamin B12 deficiency - ICD9: 266.2, ICD10: E53.8 - VITAMIN B12 BLOOD 8. Vitamin D deficiency - ICD9: 268.9, ICD10: E55.9 - VITAMIN D 25 HYDROXY Vicente Cuevas MD documented in this encounter [facility] 2006 History of Past i llness Narrative Problem Noted Date Resolved Date Increased total bili 2006 10/24/2007 Overview: total bili 1.94, direct normal (06/27) - repeat similar, past CBC same - dx = Gilbert's CERVICAL CANCER, s/p hysterectomy 07/23/2004 12/26/2016 Overview: [place] [employer] recommends annual pap smears x 10 yrs after hysterectomy for cancer, and until the most recent 3 pap smears are all normal. (these guidelines as of December 2007) May 02, 2016 My office has made 2 attempts to get records from previous surgery at [facility] in 2003, had radical hyst w/ plevic lymph node dissection in 07/2003. No op report or path report available. Got consult note and H&P done after the surgery that don't mention stage. Karen Mckee MD Unspecified asthma(493.90) 12/21 Overview: had PFT's in approx Aug 2006 documented as of this encounter (statuses as of 10/18/2021) [facility] History of Past illness Narrative* Problem Noted Date Resolved Date Increased total bili 2006 10/24/2007 Overview: total bili 1.94, direct normal (06/27) - repeat similar, past CBC same - dx = Gilbert's CERVICAL CANCER, s/p hysterectomy 07/23/2004 12/26/2016 Overview: [place] [employer] recommends annual pap smears x 10 yrs after hysterectomy for cancer, and until the most recent 3 pap smears are all normal. (these guidelines as of December 2007) May 02, 2016 My office has made 2 attempts to get records from previous surgery at [facility] in 2003, had radical hyst w/ plevic lymph node dissection in 07/2003. No op report or path report available. Got consult note and H&P done after the surgery that don't mention stage. Karen Mckee MD Unspecified asthma(493.90) 12/21 Overview: had PFT's in approx Aug 2006 documented as of this encounter (statuses as of 10/26/2021) [facility] History of Past illness Narrative* Problem Noted Date Resolved Date Increased total bili 2006 10/24/2007 Overview: total bili 1.94, direct normal (06/27) - repeat similar, past CBC same - dx = Gilbert's CERVICAL CANCER, s/p hysterectomy 07/23/2004 12/26/2016 Overview: [place] [employer] recommends annual pap smears x 10 yrs after hysterectomy for cancer, and until the most recent 3 pap smears are all normal. (these guidelines as of December 2007) May 02, 2016 My office has made 2 attempts to get records from previous surgery at [facility] in 2003, had radical hyst w/ plevic lymph node dissection in 07/2003. No op report or path report available. Got consult note and H&P done after the surgery that don't mention stage. Karen Mckee MD Unspecified asthma(493.90) 12/21 Overview: had PFT's in approx Aug 2006 documented as of this encounter (statuses as of 11/14/2021) [facility] History of Past illness Narrative* Problem Noted Date Resolved Date Increased total bili 2006 10/24/2007 Overview: total bili 1.94, direct normal (06/27) - repeat similar, past CBC same - dx = Gilbert's CERVICAL CANCER, s/p hysterectomy 07/23/2004 12/26/2016 Overview: [place] [employer] recommends annual pap smears x 10 yrs after hysterectomy for cancer, and until the most recent 3 pap smears are all normal. (these guidelines as of December 2007) May 02, 2016 My office has made 2 attempts to get records from previous surgery at [facility] in 2003, had radical hyst w/ plevic lymph node dissection in 07/2003. No op report or path report available. Got consult note and H&P done after the surgery that don't mention stage. Karen Mckee MD Unspecified asthma(493.90) 12/21 Overview: had PFT's in approx Aug 2006 documented as of this encounter (statuses as of 12/09/2021) [facility] History of Past illness Narrative* Problem Noted Date Resolved Date Increased total bili 2006 10/24/2007 Overview: total bili 1.94, direct normal (06/27) - repeat similar, past CBC same - dx = Gilbert's CERVICAL CANCER, s/p hysterectomy 07/23/2004 12/26/2016 Overview: [place] [employer] recommends annual pap smears x 10 yrs after hysterectomy for cancer, and until the most recent 3 pap smears are all normal. (these guidelines as of December 2007) May 02, 2016 My office has made 2 attempts to get records from previous surgery at [facility] in 2003, had radical hyst w/ plevic lymph node dissection in 07/2003. No op report or path report available. Got consult note and H&P done after the surgery that don't mention stage. Karen Mckee MD Unspecified asthma(493.90) 12/21 Overview: had PFT's in approx Aug 2006 documented as of this encounter (statuses as of 02/03/2022) [facility] History of Past illness Narrative* Problem Noted Date Resolved Date Increased total bili 2006 10/24/2007 Overview: total bili 1.94, direct normal (06/27) - repeat similar, past CBC same - dx = Gilbert's CERVICAL CANCER, s/p hysterectomy 07/23/2004 12/26/2016 Overview: [place] [employer] recommends annual pap smears x 10 yrs after hysterectomy for cancer, and until the most recent 3 pap smears are all normal. (these guidelines as of December 2007) May 02, 2016 My office has made 2 attempts to get records from previous surgery at [facility] in 2003, had radical hyst w/ plevic lymph node dissection in 07/2003. No op report or path report available. Got consult note and H&P done after the surgery that don't mention stage. Karen Mckee MD Unspecified asthma(493.90) 12/21 Overview: had PFT's in approx Aug 2006 documented as of this encounter (statuses as of 04/14/2022) [facility]12-08-2006 History of Past illness Narrative* Problem Noted Date Resolved Date Increased total bili 2006 10/24/2007 Overview: total bili 1.94, direct normal (06/27) - repeat similar, past CBC same - dx = Gilbert's CERVICAL CANCER, s/p hysterectomy 07/23/2004 12/26/2016 Overview: [place] [employer] recommends annual pap smears x 10 yrs after hysterectomy for cancer, and until the most recent 3 pap smears are all normal. (these guidelines as of December 2007) May 02, 2016 My office has made 2 attempts to get records from previous surgery at [facility] in 2003, had radical hyst w/ plevic lymph node dissection in 07/2003. No op report or path report available. Got consult note and H&P done after the surgery that don't mention stage. Karen Mckee MD Unspecified asthma(493.90) 12/21 Overview: had PFT's in approx Aug 2006 documented as of this encounter (statuses as of 05/19/2022) [facility]12-08-2006 History of Past illness Narrative* Problem Noted Date Resolved Date Increased total bili 2006 10/24/2007 Overview: total bili 1.94, direct normal (06/27) - repeat similar, past CBC same - dx = Gilbert's CERVICAL CANCER, s/p hysterectomy 07/23/2004 12/26/2016 Overview: [place] [employer] recommends annual pap smears x 10 yrs after hysterectomy for cancer, and until the most recent 3 pap smears are all normal. (these guidelines as of December 2007) May 02, 2016 My office has made 2 attempts to get records from previous surgery at [facility] in 2003, had radical hyst w/ plevic lymph node dissection in 07/2003. No op report or path report available. Got consult note and H&P done after the surgery that don't mention stage. Karen Mckee MD Unspecified asthma(493.90) 12/21 Overview: had PFT's in approx Aug 2006 documented as of this encounter (statuses as of 09/27/2022) [facility]12-08-2006 History of Past illness Narrative* Problem Noted Date Resolved Date Increased total bili 2006 10/24/2007 Overview: total bili 1.94, direct normal (06/27) - repeat similar, past CBC same - dx = Gilbert's CERVICAL CANCER, s/p hysterectomy 07/23/2004 12/26/2016 Overview: [place] [employer] recommends annual pap smears x 10 yrs after hysterectomy for cancer, and until the most recent 3 pap smears are all normal. (these guidelines as of December 2007) May 02, 2016 My office has made 2 attempts to get records from previous surgery at [facility] in 2003, had radical hyst w/ plevic lymph node dissection in 07/2003. No op report or path report available. Got consult note and H&P done after the surgery that don't mention stage. Karen Mckee MD Unspecified asthma(493.90) 12/21 Overview: had PFT's in approx Aug 2006 documented as of this encounter (statuses as of 09/29/2022) [facility]12-08-2006 History of Past illness Narrative* Problem Noted Date Resolved Date Increased total bili 2006 10/24/2007 Overview: total bili 1.94, direct normal (06/27) - repeat similar, past CBC same - dx = Gilbert's CERVICAL CANCER, s/p hysterectomy 07/23/2004 12/26/2016 Overview: [place] [employer] recommends annual pap smears x 10 yrs after hysterectomy for cancer, and until the most recent 3 pap smears are all normal. (these guidelines as of December 2007) May 02, 2016 My office has made 2 attempts to get records from previous surgery at [facility] in 2003, had radical hyst w/ plevic lymph node dissection in 07/2003. No op report or path report available. Got consult note and H&P done after the surgery that don't mention stage. Karne Mckee MD Unspecified asthma(493.90) 12/21 Overview: had PFT's in approx Aug 2006 documented as of this encounter (statuses as of 10/31/2022) [facility]12[facility]2006 History of Past illness Narrative* Problem Noted Date Resolved Date Increased total bili 2006 10/24/2007 Overview: total bili 1.94, direct normal (06/27) - repeat similar, past CBC same - dx = Gilbert's CERVICAL CANCER, s/p hysterectomy 07/23/2004 12/26/2016 Overview: [place] [employer] recommends annual pap smears x 10 yrs after hysterectomy for cancer, and until the most recent 3 pap smears are all normal. (these guidelines as of December 2007) May 02, 2016 My office has made 2 attempts to get records from previous surgery at [facility] in 2003, had radical hyst w/ plevic lymph node dissection in 07/2003. No op report or path report available. Got consult note and H&P done after the surgery that don't mention stage. Karen Mckee MD Unspecified asthma(493.90) 12/21 Overview: had PFT's in approx Aug 2006 documented as of this encounter (statuses as of 10/31/2022) [facility]12[facility]2006 History of Past illness Narrative* Problem Noted Date Resolved Date Increased total bili 2006 10/24/2007 Overview: total bili 1.94, direct normal (06/27) - repeat similar, past CBC same - dx = Gilbert's CERVICAL CANCER, s/p hysterectomy 07/23/2004 12/26/2016 Overview: [place] [employer] recommends annual pap smears x 10 yrs after hysterectomy for cancer, and until the most recent 3 pap smears are all normal. (these guidelines as of December 2007) May 02, 2016 My office has made 2 attempts to get records from previous surgery at [facility] in 2003, had radical hyst w/ plevic lymph node dissection in 07/2003. No op report or path report available. Got consult note and H&P done after the surgery that don't mention stage. Karen Mckee MD Unspecified asthma(493.90) 12/21 Overview: had PFT's in approx Aug 2006 documented as of this encounter (statuses as of 11/21/2022) [facility]12-[facility]-2006 History of Past illness Narrative* Problem Noted Date Resolved Date Increased total bili 2006 10/24/2007 Overview: total bili 1.94, direct normal (06/27) - repeat similar, past CBC same - dx = Gilbert's CERVICAL CANCER, s/p hysterectomy 07/23/2004 12/26/2016 Overview: [place] [employer] recommends annual pap smears x 10 yrs after hysterectomy for cancer, and until the most recent 3 pap smears are all normal. (these guidelines as of December 2007) May 02, 2016 My office has made 2 attempts to get records from previous surgery at [facility] in 2003, had radical hyst w/ plevic lymph node dissection in 07/2003. No op report or path report available. Got consult note and H&P done after the surgery that don't mention stage. Karen Mckee MD Unspecified asthma(493.90) 12/21 Overview: had PFT's in approx Aug 2006 documented as of this encounter (statuses as of 11/21/2022) [facility]12-[facility]-2006 History of Past illness Narrative* Problem Noted Date Resolved Date Increased total bili 2006 10/24/2007 Overview: total bili 1.94, direct normal (06/27) - repeat similar, past CBC same - dx = Gilbert's CERVICAL CANCER, s/p hysterectomy 07/23/2004 12/26/2016 Overview: [place] [employer] recommends annual pap smears x 10 yrs after hysterectomy for cancer, and until the most recent 3 pap smears are all normal. (these guidelines as of December 2007) May 02, 2016 My office has made 2 attempts to get records from previous surgery at [facility] in 2003, had radical hyst w/ plevic lymph node dissection in 07/2003. No op report or path report available. Got consult note and H&P done after the surgery that don't mention stage. Karen Mckee MD Unspecified asthma(493.90) 12/21 Overview: had PFT's in approx Aug 2006 documented as of this encounter (statuses as of 11/29/2022) [facility]12-08-2006 History of Past illness Narrative* Problem Noted Date Diagnosed Date Resolved Date Increased total bili 2006 008 Overview: total bili 1.94, direct normal (06/27) - repeat similar, past CBC same - dx = Gilbert's CERVICAL CANCER, s/p hysterectomy 07/23/2004 12/26/2016 Overview: [place] [employer] recommends annual pap smears x 10 yrs after hysterectomy for cancer, and until the most recent 3 pap smears are all normal. (these guidelines as of December 2007) May 02, 2016 My office has made 2 attempts to get records from previous surgery at [facility] in 2003, had radical hyst w/ plevic lymph node dissection in 07/2003. No op report or path report available. Got consult note and H&P done after the surgery that don't mention stage. Karen Mckee MD Unspecified asthma(493.90) 0 12/21/2014 Overview: had PFT's in approx Aug 2006 documented as of this encounter (statuses as of 02/12/2023) [facility]12-[facility]-2006 History of Past illness Narrative* Problem Noted Date Diagnosed Date Resolved Date Increased total bili 2006 008 Overview: total bili 1.94, direct normal (06/27) - repeat similar, past CBC same - dx = Gilbert's CERVICAL CANCER, s/p hysterectomy 07/23/2004 12/26/2016 Overview: [place] [employer] recommends annual pap smears x 10 yrs after hysterectomy for cancer, and until the most recent 3 pap smears are all normal. (these guidelines as of December 2007) May 02, 2016 My office has made 2 attempts to get records from previous surgery at [facility] in 2003, had radical hyst w/ plevic lymph node dissection in 07/2003. No op report or path report available. Got consult note and H&P done after the surgery that don't mention stage. Karen Mckee MD Unspecified asthma(493.90) 0 12/21/2014 Overview: had PFT's in approx Aug 2006 documented as of this encounter (statuses as of 02/21/2023) [facility]12-[facility]-2006 History of Past illness Narrative* Problem Noted Date Diagnosed Date Resolved Date Increased total bili 2006 008 Overview: total bili 1.94, direct normal (06/27) - repeat similar, past CBC same - dx = Gilbert's CERVICAL CANCER, s/p hysterectomy 07/23/2004 12/26/2016 Overview: [place] [employer] recommends annual pap smears x 10 yrs after hysterectomy for cancer, and until the most recent 3 pap smears are all normal. (these guidelines as of December 2007) May 02, 2016 My office has made 2 attempts to get records from previous surgery at [facility] in 2003, had radical hyst w/ plevic lymph node dissection in 07/2003. No op report or path report available. Got consult note and H&P done after the surgery that don't mention stage. Karen Mckee MD Unspecified asthma(493.90) 0 12/21/2014 Overview: had PFT's in approx Aug 2006 documented as of this encounter (statuses as of 02/26/2023) [facility]12-08-2006 History of Past illness Narrative* Problem Noted Date Diagnosed Date Resolved Date Increased total bili 2006 008 Overview: total bili 1.94, direct normal (06/27) - repeat similar, past CBC same - dx = Gilbert's CERVICAL CANCER, s/p hysterectomy 07/23/2004 12/26/2016 Overview: [place] [employer] recommends annual pap smears x 10 yrs after hysterectomy for cancer, and until the most recent 3 pap smears are all normal. (these guidelines as of December 2007) May 02, 2016 My office has made 2 attempts to get records from previous surgery at [facility] in 2003, had radical hyst w/ plevic lymph node dissection in 07/2003. No op report or path report available. Got consult note and H&P done after the surgery that don't mention stage. Karen Mckee MD Unspecified asthma(493.90) 0 12/21/2014 Overview: had PFT's in approx Aug 2006 documented as of this encounter (statuses as of 03/01/2023) [facility]12-08-2006 History of Past illness Narrative* Problem Noted Date Diagnosed Date Resolved Date Increased total bili 2006 008 Overview: total bili 1.94, direct normal (06/27) - repeat similar, past CBC same - dx = Gilbert's CERVICAL CANCER, s/p hysterectomy 07/23/2004 12/26/2016 Overview: [place] [employer] recommends annual pap smears x 10 yrs after hysterectomy for cancer, and until the most recent 3 pap smears are all normal. (these guidelines as of December 2007) May 02, 2016 My office has made 2 attempts to get records from previous surgery at [facility] in 2003, had radical hyst w/ plevic lymph node dissection in 07/2003. No op report or path report available. Got consult note and H&P done after the surgery that don't mention stage. Karen Mckee MD Unspecified asthma(493.90) 0 12/21/2014 Overview: had PFT's in approx Aug 2006 documented as of this encounter (statuses as of 03/14/2023) [facility]12-[facility]-2006 History of Past illness Narrative* Problem Noted Date Diagnosed Date Resolved Date Increased total bili 2006 008 Overview: total bili 1.94, direct normal (06/27) - repeat similar, past CBC same - dx = Gilabbi's CERVICAL CANCER, s/p hysterectomy 07/23/2004 12/26/2016 Overview: [place] [employer] recommends annual pap smears x 10 yrs after hysterectomy for cancer, and until the most recent 3 pap smears are all normal. (these guidelines as of December 2007) May 02, 2016 My office has made 2 attempts to get records from previous surgery at [facility] in 2003, had radical hyst w/ plevic lymph node dissection in 07/2003. No op report or path report available. Got consult note and H&P done after the surgery that don't mention stage. Karen Mckee MD Unspecified asthma(493.90) 0 12/21/2014 Overview: had PFT's in approx Aug 2006 documented as of this encounter (statuses as of 05/14/2023) [facility] Dry skin- Primary Other specified disease of sebaceous glands Depression with anxiety Dysthymic disorder Conjugal maladjustment involving divorce Family disruption due to divorce or legal separation RLS (restless legs syndrome) Restless legs syndrome (RLS) Other fatigue Iron deficiency Iron deficiency anemia, unspecified Vitamin B12 deficiency Other B-complex deficiencies Vitamin D deficiency Unspecified vitamin D deficiency [facility] Depression with anxiety Dysthymic disorder Conjugal maladjustment involving divorce Family disruption due to divorce or legal separation [facility] Diagnosis Viral syndrome- Primary Unspecified viral infection, in conditions classified elsewhere and of unspecified site [facility] Diagnosis [facility]itis- [facility] Diagnosis [place] headache- Primary Headache Light headed Dizziness and giddiness Left ear pain Otalgia, unspecified [facility] Diagnosis RLS (restless legs syndrome) Restless legs syndrome (RLS) [facility] Diagnosis Depression with anxiety Dysthymic disorder [facility] Diagnosis Strain of thoracic back region- Primary [facility] Diagnosis Community acquired pneumonia of right lower lobe of lung- Primary Acute cough History of asthma Personal history of other diseases of respiratory system [facility] Diagnosis Impingement syndrome of right shoulder- Primary Other affections of shoulder region, not elsewhere classified Acute pain of right shoulder [facility] Diagnosis Acute pain of right shoulder- Primary Impingement syndrome of right shoulder Other affections of shoulder region, not elsewhere classified [facility] Diagnosis Acute pain of right shoulder- Primary Impingement syndrome of right shoulder Other affections of shoulder region, not elsewhere classified [facility] Diagnosis Irritable bowel syndrome with diarrhea- Primary Irritable bowel syndrome RLS (restless legs syndrome) Restless legs syndrome (RLS) Fibromyalgia Mylagia and myositis, unspecified 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0-34.9) Obesity, unspecified Mixed incontinence Mixed incontinence urge and stress (male)(female) Depression with anxiety Dysthymic disorder Acute constipation Unspecified constipation [facility] Diagnosis Irritable bowel syndrome with diarrhea- Primary Irritable bowel syndrome RLS (restless legs syndrome) Restless legs syndrome (RLS) Fibromyalgia Mylagia and myositis, unspecified 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 Obesity (BMI 30.0-34.9) Obesity, unspecified Mixed incontinence Mixed incontinence urge and stress (male)(female) Depression with anxiety Dysthymic disorder Right foot injury, subsequent encounter [facility] Diagnosis Irritable bowel syndrome with diarrhea- Primary Irritable bowel syndrome RLS (restless legs syndrome) Restless legs syndrome (RLS) Fibromyalgia Mylagia and myositis, unspecified 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 Obesity (BMI 30.0-34.9) Obesity, unspecified Mixed incontinence Mixed incontinence urge and stress (male)(female) Depression with anxiety Dysthymic disorder Acute right ankle pain [facility] Diagnosis Irritable bowel syndrome with diarrhea- Primary Irritable bowel syndrome RLS (restless legs syndrome) Restless legs syndrome (RLS) Fibromyalgia Mylagia and myositis, unspecified 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 Obesity (BMI 30.0-34.9) Obesity, unspecified Mixed incontinence Mixed incontinence urge and stress (male)(female) Depression with anxiety Dysthymic disorder Strain of thoracic back region [facility] Diagnosis Irritable bowel syndrome with diarrhea- Primary Irritable bowel syndrome RLS (restless legs syndrome) Restless legs syndrome (RLS) Fibromyalgia Mylagia and myositis, unspecified 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 Obesity (BMI 30.0-34.9) Obesity, unspecified Mixed incontinence Mixed incontinence urge and stress (male)(female) Depression with anxiety Dysthymic disorder Acute pain of right shoulder [facility] Diagnosis Irritable bowel syndrome with diarrhea- Primary Irritable bowel syndrome RLS (restless legs syndrome) Restless legs syndrome (RLS) Fibromyalgia Mylagia and myositis, unspecified 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 Obesity (BMI 30.0-34.9) Obesity, unspecified Mixed incontinence Mixed incontinence urge and stress (male)(female) Depression with anxiety Dysthymic disorder Left wrist tendonitis documented in this encounter [facility] for referral (narrative)* Diagnostic Procedure Only (Urgent) - Closed Specialty Diagnoses / Procedures Referred By Jordan mills Referred To Contact XR IMAGING Diagnoses Left wrist tendonitis Procedures XR WRIST INJURY 4V PA/LAT/OBL/SCAPH LEFT RADEX WRIST COMPLETE MINIMUM 3 VIEWS Jasmin Blue PA-C [address] [place] [address] Xr Imaging Referral ID Status Reason Start Date Expiration Date V isits Requested Visits Authorized [id number] Closed Auto-Generate d Referral 05/19/2022 06/18/2023 1 1 [facility] for referral (narrative)* Diagnostic Procedure Only (Urgent) - Closed Specialty Diagnoses / Procedures Referred By Contac t Referred To Contact XR IMAGING Diagnoses Strain of thoracic back region Procedures XR THORACIC GENERAL 3V AP/LAT/SWIMMERS RADEX SPINE THORACIC 3 VIEWS Jasmin Blue PA-C [address] [place] [address] Xr Imaging Referral ID Status Reason Start Date Expiration Date V isits Requested Visits Authorized [id number] Closed Auto-Generate d Referral 11/20/2022 12/20/2023 1 1 [facility] for referral (narrative)* Diagnostic Procedure Only (Routine) - Pending Review Specialty Diagnoses / Procedures Referred By Contac t Referred To Contact US IMAGING Diagnoses Acute pain of right shoulder Impingement syndrome of right shoulder Procedures US SHOULDER RIGHT US COMPL JOINT R-T W/IMAGE DOCUMENTATION Gladys Chris PA-C [address] [place] [address] Us Imaging Referral ID Status Reason Start Date Expiration Date Visits Requested Visits Authorized [id number] Pending Review Auto-Generat ed Referral 02/26/2023 03/27/2024 1 1 * - Pending Review Specialty Diagnoses / Procedures Referred By Contac t Referred To Contact Physical Therapy Diagnoses Acute pain of right shoulder Impingement syndrome of right shoulder Procedures CONSULT TO PHYSICAL THERAPY Gladys Chris PA-C [address] [place] [address] Referral ID Status Reason Start Date Expiration Date V isits Requested Visits Authorized [id number] Pending Review 02/26/2023 05/27/2023 1 1 [facility] for referral (narrative)* Diagnostic Procedure Only (Routine) - Authorized Specialty Diagnoses / Procedures Referred By Contac t Referred To Contact BR IMAGING Procedures DARIO SCREENING W ANGELA SCREENING DIGITAL BREAST TOMOSYNTHESIS BI SCREENING MAMMOGRAPHY BI 2-VIEW BREAST INC Vicente Corley MD [address] [place] [address] Br Imaging [address] [place] [address] Referral ID Status Reason Start Date Expiration Date Visits Requested Visits Authorized [id number] Authorized Auto-Generat ed Referral 12/05/2023 01/03/2025 1 1 [facility] for referral (narrative)* Diagnostic Procedure Only (Urgent) - Closed Specialty Diagnoses / Procedures Referred By Contac t Referred To Contact XR IMAGING Diagnoses Acute constipation Procedures XR ABDOMEN 1V SUPINE RADIOLOGIC EXAM ABDOMEN 1 VIEW Matt Weeks APRN.SHOER [address] [place] [address] [place] [id number] Referral ID Status Reason Start Date Expiration Date V isits Requested Visits Authorized [id number] Closed Auto-Generate d Referral 03/17/2024 04/16/2025 1 1 [facility] for referral (narrative)* Diagnostic Procedure Only (Urgent) - Closed Specialty Diagnoses / Procedures Referred By Contac t Referred To Contact XR IMAGING Diagnoses Acute constipation Procedures XR ABDOMEN 1V SUPINE RADIOLOGIC EXAM ABDOMEN 1 VIEW Matt Weeks APRN.CNP [address] [place] [address] [place] [address] Referral ID Status Reason Start Date Expiration Date V isits Requested Visits Authorized [id number] Closed Auto-Generate d Referral 03/17/2024 04/16/2025 1 1 [facility] for referral (narrative)* Diagnostic Procedure Only (Urgent) - Closed Specialty Diagnoses / Procedures Referred By Contac t Referred To Contact XR IMAGING Diagnoses Right foot injury, subsequent encounter Procedures XR FOOT GENERAL 3V AP/LAT/OBL RIGHT RADEX FOOT COMPLETE MINIMUM 3 VIEWS Kendra Caraballo, MELT SUPERINTENDANT.SHOER [address] [place] [address] [place] [address] Referral ID Status Reason Start Date Expiration Date V isits Requested Visits Authorized [id number] Closed Auto-Generate d Referral 07/13/2023 08/11/2024 1 1 [facility] for referral (narrative)* Diagnostic Procedure Only (Urgent) - Closed Specialty Diagnoses / Procedures Referred By Contac t Referred To Contact XR IMAGING Diagnoses Acute right ankle pain Procedures XR ANKLE GENERAL 3V AP/LAT/OBL RIGHT RADEX ANKLE COMPLETE MINIMUM 3 VIEWS Adrianna Husain APRN.SHOER [address] [place] [address] [place] [address] Referral ID Status Reason Start Date Expiration Date V isits Requested Visits Authorized [id number] Closed Auto-Generate d Referral 07/11/2023 08/09/2024 1 1 [facility] for referral (narrative)* Diagnostic Procedure Only (Urgent) - Closed Specialty Diagnoses / Procedures Referred By Contac t Referred To Contact XR IMAGING Diagnoses Strain of thoracic back region Procedures XR THORACIC GENERAL 3V AP/LAT/SWIMMERS RADEX SPINE THORACIC 3 VIEWS Jasmin Blue PA-C [address] [place] [address] [place] [address] Referral ID Status Reason Start Date Expiration Date V isits Requested Visits Authorized [id number] Closed Auto-Generate d Referral 11/20/2022 12/20/2023 1 1 [facility] for referral (narrative)* Diagnostic Procedure Only (Routine) - Closed Specialty Diagnoses / Procedures Referred By Contac t Referred To Contact XR IMAGING Diagnoses Acute pain of right shoulder Procedures XR SHOULDER GENERAL 3V OR MORE AP/TRUE AP/OTHER RIGHT RADEX SHOULDER COMPLETE MINIMUM 2 VIEWS Vicente Cuevas MD [address] [place] [address] [place] [address] Referral ID Status Reason Start Date Expiration Date V isits Requested Visits Authorized [id number] Closed Auto-Generate d Referral 11/28/2022 12/28/2023 1 1 [facility] for referral (narrative)* Diagnostic Procedure Only (Urgent) - Closed Specialty Diagnoses / Procedures Referred By Contac t Referred To Contact XR IMAGING Diagnoses Left wrist tendonitis Procedures XR WRIST INJURY 4V PA/LAT/OBL/SCAPH LEFT RADEX WRIST COMPLETE MINIMUM 3 VIEWS Jasmin Blue PA-C [address] [place] [address] [place] [address] Referral ID Status Reason Start Date Expiration Date V isits Requested Visits Authorized [id number] Closed Auto-Generate d Referral 05/19/2022 06/18/2023 1 1 [facility] for visit Narrative* Diagnostic Procedure Only (Urgent) - Closed Specialty Diagnoses / Procedures Referred By Contac t Referred To Contact XR IMAGING Diagnoses Acute constipation Procedures XR ABDOMEN 1V SUPINE RADIOLOGIC EXAM ABDOMEN 1 VIEW Matt Weeks APRN.SHOER [address] [place] [address] [place] [address] Referral ID Status Reason Start Date Expiration Date V isits Requested Visits Authorized [id number] Closed Auto-Generate d Referral 03/17/2024 04/16/2025 1 1 [facility] for visit Narrative* Diagnostic Procedure Only (Urgent) - Closed Specialty Diagnoses / Procedures Referred By Contac t Referred To Contact XR IMAGING Diagnoses Right foot injury, subsequent encounter Procedures XR FOOT GENERAL 3V AP/LAT/OBL RIGHT RADEX FOOT COMPLETE MINIMUM 3 VIEWS Kendra Caraballo APRN.SHOER [address] [place] [address] [place] [address] Referral ID Status Reason Start Date Expiration Date V isits Requested Visits Authorized [id number] Closed Auto-Generate d Referral 07/13/2023 08/11/2024 1 1 [facility] for visit Narrative* Diagnostic Procedure Only (Urgent) - Closed Specialty Diagnoses / Procedures Referred By Contac t Referred To Contact XR IMAGING Diagnoses Acute right ankle pain Procedures XR ANKLE GENERAL 3V AP/LAT/OBL RIGHT RADEX ANKLE COMPLETE MINIMUM 3 VIEWS Adrianna Husain APRN.SHOER [address] [place] [address] [place] [address] Referral ID Status Reason Start Date Expiration Date V isits Requested Visits Authorized [id number] Closed Auto-Generate d Referral 07/11/2023 08/09/2024 1 1 [facility] for visit Narrative* Diagnostic Procedure Only (Urgent) - Closed Specialty Diagnoses / Procedures Referred By Contac t Referred To Contact XR IMAGING Diagnoses Strain of thoracic back region Procedures XR THORACIC GENERAL 3V AP/LAT/SWIMMERS RADEX SPINE THORACIC 3 VIEWS Jasmin Blue PA-C [address] [place] [address] [place] [address] Referral ID Status Reason Start Date Expiration Date V isits Requested Visits Authorized [id number] Closed Auto-Generate d Referral 11/20/2022 12/20/2023 1 1 [facility] for visit Narrative* Diagnostic Procedure Only (Routine) - Closed Specialty Diagnoses / Procedures Referred By Contac t Referred To Contact XR IMAGING Diagnoses Acute pain of right shoulder Procedures XR SHOULDER GENERAL 3V OR MORE AP/TRUE AP/OTHER RIGHT RADEX SHOULDER COMPLETE MINIMUM 2 VIEWS Vicente Cuevas MD [address] [place] [address] [place] [address] Referral ID Status Reason Start Date Expiration Date V isits Requested Visits Authorized [id number] Closed Auto-Generate d Referral 11/28/2022 12/28/2023 1 1 [facility] for visit Narrative* Diagnostic Procedure Only (Urgent) - Closed Specialty Diagnoses / Procedures Referred By Contac t Referred To Contact XR IMAGING Diagnoses Left wrist tendonitis Procedures XR WRIST INJURY 4V PA/LAT/OBL/SCAPH LEFT RADEX WRIST COMPLETE MINIMUM 3 VIEWS Jasmin Blue, PAShayC [address] [place] [address] [place] [address] Referral ID Status Reason Start Date Expiration Date V isits Requested Visits Authorized [id number] Closed Auto-Generate d Referral 05/19/2022 06/18/2023 1 1 [facility] Advance Directives Documents on File Type Date Recorded Patient [employer] Expl anation Advance Directive(s) 02/22/2016 9:08 AM Reason for Referral Specialty Diagnoses / Procedures Referred By Contac t Referred To Contact CT IMAGING Diagnoses Thunderclap headache Light headed Left ear pain Procedures CT BRAIN WO IVCON CT HEAD/BRAIN W/O CONTRAST MATERIAL Vicente Cuevas MD [address] [place] [address] Ct Imaging Referral ID Status Reason Start Date Expiration Date V isits Requested Visits Authorized [id number] Closed Auto-Generate d Referral 09/29/2022 10/29/2023 1 1 Medications Administered Section Inactive Administered Medications - up to 3 most recent administrations Medication Order MAR Action Action Date Dose Rate Site keTORolac 30 mg injection (TORADOL) 30 mg, INTRAMUSCULAR, ONCE, 1 dose, On Sun09/29/22 at 1200, Ketorolac (Toradol) is indicated for the short-term (up to 5 days) management of moderately severe acute pain. Continuation of ketorolac (Toradol) beyond 5 days increases the risk of developing serious adverse events. Please verify the duration of therapy for ketorolac (Toradol), If ordered PRN for pain, patient/guardian may elect to receive this medication for higher pain levels INSTEAD of the opioid, if preferred: Yes Given 09/29/2022 12:27 PM EST 30 mg Arm, Right Summary Purpose Family History No Family History Records Found Additional Source Comments Source Comments (unrecognize d section and content) In the event this informatio n is protected by the Federal Confidentiality of Alcohol and Drug Abuse Patient Records regulations: The Federal rules restrict any use of the information to criminally investigate or prosecute any alcohol or drug abuse patient.[facility] the event this information is protected by the Federal Confidentiality of Alcohol and Drug Abuse Patient Records regulations: The Federal rules restrict any use of the information to criminally investigate or prosecute any alcohol or drug abuse patient.[facility] the event this information is protected by the Federal Confidentiality of Alcohol and Drug Abuse Patient Records regulations: The Federal rules restrict any use of the information to criminally investigate or prosecute any alcohol or drug abuse patient.[facility] the event this information is protected by the Federal Confidentiality of Alcohol and Drug Abuse Patient Records regulations: The Federal rules restrict any use of the information to criminally investigate or prosecute any alcohol or drug abuse patient.[facility] the event this information is protected by the Federal Confidentiality of Alcohol and Drug Abuse Patient Records regulations: The Federal rules restrict any use of the information to criminally investigate or prosecute any alcohol or drug abuse patient.[facility] the event this information is protected by the Federal Confidentiality of Alcohol and Drug Abuse Patient Records regulations: The Federal rules restrict any use of the information to criminally investigate or prosecute any alcohol or drug abuse patient.[facility] Center[facility] the event this information is protected by the Federal Confidentiality of Alcohol and Drug Abuse Patient Records regulations: The Federal rules restrict any use of the information to criminally investigate or prosecute any alcohol or drug abuse patient.[facility] Center[facility] the event this information is protected by the Federal Confidentiality of Alcohol and Drug Abuse Patient Records regulations: The Federal rules restrict any use of the information to criminally investigate or prosecute any alcohol or drug abuse patient.[facility] Center[facility] the event this information is protected by the Federal Confidentiality of Alcohol and Drug Abuse Patient Records regulations: The Federal rules restrict any use of the information to criminally investigate or prosecute any alcohol or drug abuse patient.[facility] Center[facility] the event this information is protected by the Federal Confidentiality of Alcohol and Drug Abuse Patient Records regulations: The Federal rules restrict any use of the information to criminally investigate or prosecute any alcohol or drug abuse patient.[facility] Center[facility] the event this information is protected by the Federal Confidentiality of Alcohol and Drug Abuse Patient Records regulations: The Federal rules restrict any use of the information to criminally investigate or prosecute any alcohol or drug abuse patient.[facility] Center[facility] the event this information is protected by the Federal Confidentiality of Alcohol and Drug Abuse Patient Records regulations: The Federal rules restrict any use of the information to criminally investigate or prosecute any alcohol or drug abuse patient.[facility] CenterIn the event this information is protected by the Federal Confidentiality of Alcohol and Drug Abuse Patient Records regulations: The Federal rules restrict any use of the information to criminally investigate or prosecute any alcohol or drug abuse patient.[facility] Center[facility] the event this information is protected by the Federal Confidentiality of Alcohol and Drug Abuse Patient Records regulations: The Federal rules restrict any use of the information to criminally investigate or prosecute any alcohol or drug abuse patient.[facility] Center[facility] the event this information is protected by the Federal Confidentiality of Alcohol and Drug Abuse Patient Records regulations: The Federal rules restrict any use of the information to criminally investigate or prosecute any alcohol or drug abuse patient.[facility] Center[facility] the event this information is protected by the Federal Confidentiality of Alcohol and Drug Abuse Patient Records regulations: The Federal rules restrict any use of the information to criminally investigate or prosecute any alcohol or drug abuse patient.[facility] CenterIn the event this information is protected by the Federal Confidentiality of Alcohol and Drug Abuse Patient Records regulations: The Federal rules restrict any use of the information to criminally investigate or prosecute any alcohol or drug abuse patient.[facility] CenterIn the event this information is protected by the Federal Confidentiality of Alcohol and Drug Abuse Patient Records regulations: The Federal rules restrict any use of the information to criminally investigate or prosecute any alcohol or drug abuse patient.[facility] CenterIn the event this information is protected by the Federal Confidentiality of Alcohol and Drug Abuse Patient Records regulations: The Federal rules restrict any use of the information to criminally investigate or prosecute any alcohol or drug abuse patient.[facility] CenterIn the event this information is protected by the Federal Confidentiality of Alcohol and Drug Abuse Patient Records regulations: The Federal rules restrict any use of the information to criminally investigate or prosecute any alcohol or drug abuse patient.[facility] CenterIn the event this information is protected by the Federal Confidentiality of Alcohol and Drug Abuse Patient Records regulations: The Federal rules restrict any use of the information to criminally investigate or prosecute any alcohol or drug abuse patient.[facility] CenterIn the event this information is protected by the Federal Confidentiality of Alcohol and Drug Abuse Patient Records regulations: The Federal rules restrict any use of the information to criminally investigate or prosecute any alcohol or drug abuse patient.[facility] CenterIn the event this information is protected by the Federal Confidentiality of Alcohol and Drug Abuse Patient Records regulations: The Federal rules restrict any use of the information to criminally investigate or prosecute any alcohol or drug abuse patient.[facility] CenterIn the event this information is protected by the Federal Confidentiality of Alcohol and Drug Abuse Patient Records regulations: The Federal rules restrict any use of the information to criminally investigate or prosecute any alcohol or drug abuse patient.[facility] CenterIn the event this information is protected by the Federal Confidentiality of Alcohol and Drug Abuse Patient Records regulations: The Federal rules restrict any use of the information to criminally investigate or prosecute any alcohol or drug abuse patient.[facility] CenterIn the event this information is protected by the Federal Confidentiality of Alcohol and Drug Abuse Patient Records regulations: The Federal rules restrict any use of the information to criminally investigate or prosecute any alcohol or drug abuse patient.[facility] CenterIn the event this information is protected by the Federal Confidentiality of Alcohol and Drug Abuse Patient Records regulations: The Federal rules restrict any use of the information to criminally investigate or prosecute any alcohol or drug abuse patient.[facility] CenterIn the event this information is protected by the Federal Confidentiality of Alcohol and Drug Abuse Patient Records regulations: The Federal rules restrict any use of the information to criminally investigate or prosecute any alcohol or drug abuse patient.[facility] CenterIn the event this information is protected by the Federal Confidentiality of Alcohol and Drug Abuse Patient Records regulations: The Federal rules restrict any use of the information to criminally investigate or prosecute any alcohol or drug abuse patient.[facility] Reason for Visit (unrecogniz ed section and content) Reason Comments Established Patient 6 month follow up - eds Reason Comments Results Reason Onset Date Comments Refill Request 12/09/2021 Reason Comments Recheck sinus issues: sneezi ng,nasal drainage,ear pain Reason Comments left hand pain Started hurting yest erday after lifting boxes Reason Comments Same Day Appointment x 1 week Reason Onset Date Comments Refill Request 10/30/2022 Reason Comments Pain (Shoulder Pain) right shoulder blad e pain migrating into spine x 4 days Reason Onset Date Comments Refill Request 02/09/2023 Reason Comments Cough X 2 weeks Reason Comments New WC pain while liftin g heavy buckets.Referred by Vicente Cuevas MD. Xrays 11/28/22 Pain WC pain while liftin g heavy buckets.Referred by Vicente Cuevas MD. Xrays 11/28/22 Specialty Diagnoses / Procedures Referred By Contact Referred To Contact Orthopedics / ORTHOPAEDIC SURGERY Diagnoses WC/rt shoulder Procedures REFERRAL TO [facility] TAVO GUO/Vicente Parra MD [address] [place] [address] Gladys Chris PA-C [address] [place] [address] Referral ID Status Reason Start Date Expiration Date Visits Re quested Visits Authorized [id number] Closed 02/26/2023 02/26/2023 1 1 Reason Comments Constipation X 4 weeks Care Teams (unrecognized sec tion and content) [employer] Machine Relationship Specialty Start Date End Date Vicente Cuevas MD [address] [facility] [address] PCP - General Internal Medicine 12/26/16 Pie Icer Machine Relationship Specialty Start Date End Date Vicente Cuevas MD [address] [facility] [place] [address] PCP - General Internal Medicine 12/26/16 Pie Icer Machine Relationship Specialty Start Date End Date Vicente Cuevas MD [address] [facility] [address] PCP - General Internal Medicine 12/26/16 Pie Icer Machine Relationship Specialty Start Date End Date Vicente Cuevas MD [address] [facility] [address] PCP - General Internal Medicine 12/26/16 Pie Icer Machine Relationship Specialty Start Date End Date Vicente Cuevas MD [address] [place] [address] PCP - General Internal Medicine 12/26/16 Pie Icer Machine Relationship Specialty Start Date End Date Vicente Cuevas MD [address] [place] [address] PCP - General Internal Medicine 12/26/16 Pie Icer Machine Relationship Specialty Start Date End Date Vicente Cuevas MD [address] [facility] [address] PCP - General Internal Medicine 12/26/16 Pie Icer Machine Relationship Specialty Start Date End Date Vicente Cuevas MD [address] [place] [address] PCP - General Internal Medicine 12/26/16 Pie Icer Machine Relationship Specialty Start Date End Date Vicente Cuevas MD [address] [place] [address] PCP - General Internal Medicine 12/26/16 Pie Icer Machine Relationship Specialty Start Date End Date Vicente Cuevas MD [address] [place] [address] PCP - General Internal Medicine 12/26/16 Pie Icer Machine Relationship Specialty Start Date End Date Vicente Cuevas MD [address] [place] [address] PCP - General Internal Medicine 12/26/16 Pie Icer Machine Relationship Specialty Start Date End Date Vicente Cuevas MD [address] [facility] [place] [address] PCP - General Internal Medicine 12/26/16 Pie Icer Machine Relationship Specialty Start Date End Date Vicente Cuevas MD [address] [place] [address] PCP - General Internal Medicine 12/26/16 Pie Icer Machine Relationship Specialty Start Date End Date Vicente Cuevas MD [address] [place] [address] PCP - General Internal Medicine 12/26/16 Pie Icer Machine Relationship Specialty Start Date End Date Vicente Cuevas MD [address] [place] [address] PCP - General Internal Medicine 12/26/16 Pie Icer Machine Relationship Specialty Start Date End Date Vicente Cuevas MD [address] [place] [address] PCP - General Internal Medicine 12/26/16 Pie Icer Machine Relationship Specialty Start Date End Date Vicente Cuevas MD [address] [facility] [place] [address] PCP - General Internal Medicine 12/26/16 Pie Icer Machine Relationship Specialty Start Date End Date Vicente Cuevas MD [address] [facility] [place] [place] [address] PCP - General Internal Medicine 12/26/16 Pie Icer Machine Relationship Specialty Start Date End Date Vicente Cuevas MD [address] [facility] [place] [place] [address] PCP - General Internal Medicine 12/26/16 Pie Icer Machine Relationship Specialty Start Date End Date Vicente Cuevas MD [address] [facility] [place] [place] [address] PCP - General Internal Medicine 12/26/16 Pie Icer Machine Relationship Specialty Start Date End Date Vicente Cuevas MD [address] [facility] [place] [place] [address] PCP - General Internal Medicine 12/26/16 Pie Icer Machine Relationship Specialty Start Date End Date Vicente Cuevas MD [address] [facility] [place] [place] [address] PCP - General Internal Medicine 12/26/16 Pie Icer Machine Relationship Specialty Start Date End Date Vicente Cuevas MD [address] [place] [address] PCP - General Internal Medicine 12/26/16 INFORMATION SOURCE (unrecogn ized section and content) DATE CREATED AUTHOR 03/18/2024 [facility] FOR RECORDS PERTAINING TO PATIENTS WHO ARE OR HAVE BEEN ENROLLED IN A CHEMICAL DEPENDENCY/SUBSTANCEABUSE PROGRAM, SOME INFORMATION MAY BE OMITTED. This clinical summary was aggregated from multiple sources. Caution should be exercised in using it in the provision of clinical care. This summary normalizes information from multiple sources, and as a consequence, information in this document may materially change the coding, format and clinical context of patient data. In addition, data may be omitted in some cases. CLINICAL DECISIONS SHOULD BE BASED ON THE PRIMARY CLINICAL RECORDS. [employer] [facility]. provides no warranty or guarantee of the accuracy or completeness of information in this document.
[2024-05-06 12:55] LABS: hCG Titer Quant., Serum 8 mIU/mL (1-3)
[2024-05-06 12:55] LABS: Lactic Acid 2.3 mmol/L (0.4-1.9)
[2024-05-06 12:59] LABS: Lipase 21 U/L (13-75); Troponin-I HS 10 pg/mL (3.0-54.0)
[2024-05-06 13:43] LABS: Color, Urine Yellow (Yellow); Glucose, Dipstick Normal (Normal); Ketone-Dipstick 5 mg/dl (Negative); Leukocyte Esterase-Dipstick 25 /ul (Negative); Nitrite-Dipstick Negative (Negative); Occult Blood-Urine 150 /ul (Negative); Protein-Dipstick 30 mg/dl (Negative); Specific Gravity, Urine 1.015 (1.002-1.030); Urine Clarity Clear (Clear); Urine Urobilinogen 4 mg/dl (Normal)
[2024-05-06] MEDS: Ketorolac 15 MG/ML Vial IV (13:46)
[2024-05-06] MEDS: fentaNYL 100 MCG/2 ML Ampul 50 MCG IV (13:47)
[2024-05-06 13:54] LABS: Red Blood Cells-Urine 0-5 SEEN /hpf (0-5); Squamous Epithelial Cells - UA 0-5 SEEN /hpf (5-10); Urine Bilirubin Dipstick 1 mg/dL (Negative); White Blood Cells 0-5 SEEN /hpf (0-5)
[2024-05-06 13:55] LABS: Bacteria 1+ /hpf (None Seen); Mucous, Urine 1+ /hpf (<or=2+)
--- NOTE | 2024-05-06 13:57 | HP.PCM_ITS ---
HPI - General General Date of Admission: 05/06/24 Date of Service: 05/06/24 Chief Complaint: Acute onset abdominal pain HPI Narrative CHATO ALFARO, is a 48 F who presents to [facility] with complaints of acute onset abdominal pain beginning between 11 and 1130 yesterday evening. She notes that the pain began in her left hip region and radiated across to her right chest. She states that the pain persisted all night despite trying to get comfortable through positioning and taking [id number] medications. She notes that the pain worsens with any coughing or sneezing. She denies any recent nausea or vomiting. Mrs. Alfaro adds that she has recently been feeling unwell and states that she was sick last week with some watery diarrhea but this has been better the last couple of days. She is prescribed Naprosyn but rarely uses medication. She does note that she was taking around 6 to 800 mg of ibuprofen to help with her abdominal discomfort last week. Patient's ED workup is notable for some initial hypotension that was fluid responsive. CBC shows significant leukocytosis of greater than 25,000 with strong left shift and some thrombocytosis. Patient's also has a mildly elevated lactate and creatinine. Lastly, biochemically?speaking, patient had a positive and positive hCG test of unknown significance. CT imaging of the abdomen pelvis was read by radiology as concerning for partial small bowel obstruction as well as irregular thickening of the sigmoid colon. There is no history of tobacco use. There is no history of ulcer disease. Patient has a remote history of hysterectomy (and simultaneous left nephrectomy) in 2003 for a diagnosis of cervical cancer. Additionally she had a history of laparoscopic appendectomy and cholecystectomy. [facility] Home Medications ?Medication ?Instructions ?Recorded ?Last Taken ?Type diphenoxylate-atropine 2.5 1 tab PO 4X/DAY PRN Diarrhea 10/16/15 08/24/18 History mg-0.025 mg tablet ropinirole 0.25 mg tablet (Requip) 0.25 mg PO DAILY 10/16/15 08/24/18 History ascorbic acid (vitamin C) 1,000 mg 1 tab PO DAILY 10/16/17 08/24/18 History tablet (Vitamin C) ferrous gluconate 236 mg (27 mg 1 tab PO DAILY 10/16/17 08/24/18 History iron) tablet gabapentin 300 mg capsule 300 mg PO BID 10/16/17 08/24/18 History (Neurontin) naproxen 500 mg tablet 500 mg PO BID PRN #20 tabs 10/16/17 08/24/18 Rx cholecalciferol (vitamin D3) 1,250 50,000 unit PO QWEEK 08/24/18 08/24/18 History mcg (50,000 unit) capsule magnesium 250 mg tablet 250 mg PO DAILY 08/24/18 08/24/18 History naproxen 500 mg tablet (Naprosyn) 500 mg PO BID PRN pain #20 tabs 09/04/21 Unknown Rx Allergy/AdvReac Type Severity Reaction Status Date / Time morphine Allergy Intermediate Hives Verified 05/06/24 13:21 Penicillins Allergy Hives Verified 05/06/24 10:47 tomato Allergy Hives Verified 05/06/24 10:47 Surgical History (Updated 05/06/24 @ 14:08 by Bethany Michele) History of laparoscopic appendectomy H/O: hysterectomy Social History Smoking Status: Never smoker Vital Signs Vital Signs Vital Signs: 05/06/24 10:47 05/06/24 11:49 05/06/24 12:00 Temperature 96.5 F L Temperature Source Temporal Pulse Rate 104 H 92 92 Respiratory Rate 18 20 H 20 H Blood Pressure 81/70 L 112/91 H 112/91 H Blood Pressure Mean 73 98 98 Pulse Ox 100 99 99 Oxygen Delivery Method Room Air Room Air 05/06/24 13:00 Temperature Temperature Source Pulse Rate 85 Respiratory Rate 20 H Blood Pressure 106/48 L Blood Pressure Mean 67 Pulse Ox 99 Oxygen Delivery Method Room Air Weight Weight: 143 lb 9.6 oz Body Mass Index (BMI) 25.4 Physical Exam Const alert and oriented x3 Constitutional Narrative: Patient is significantly agitated and in mild distress with pain General Appearance: cooperative Resp normal respiratory effort GI GI Narrative: Well-healed lower midline incision with several well-healed port site incisions. Largely nondistended, soft, exquisitely tender to palpation of all 4 quadrants?patient declaring that the intensity is greatest in the lower abdominal quadrants Results Lab / Micro Data 05/06/24 11:15 05/06/24 11:15 Labs: Laboratory Results - last 24 hr 05/06/24 11:15: WBC 25.5 H, RBC 4.73, Hgb 11.6 L, Hct 36.9 L, MCV 78.0 L, MCH 24.5 L, MCHC 31.4 L, RDW Std Deviation 40.8, RDW Coeff of Nikole 14.4, Plt Count 653 H, MPV 9.6, Immature Gran % (Auto) [employer]ACTITIONER, Neut % (Auto) [employer] PRACTITIONER, Lymph % (Auto) [employer]KS[employer]NESS PRACTITIONER, [place] % (Auto) [employer]KS[employer] WE[employer]NESS PRACTITIONER, Eos % (Auto) [employer]KS[employer] WE[employer]NESS PRACTITIONER, Baso % (Auto) [employer]KS[employer] WE[employer]NESS PRACTITIONER, Absolute Neuts (auto) 25.0 H, Absolute Lymphs (auto) 0.26 L, Total Counted 100, Neutrophils % (Manual) 56, Band Neutrophils % 42 H, Lymphocytes % (Manual) 1 L, Monocytes % (Manual) 1, Nucleated RBC % 0, Platelet Estimate MKD DEC, RBC Morphology NORM C+C, Sodium 134 L, Potassium 3.7, Chloride 96 L, Carbon Dioxide 25.0, Anion Gap 13, BUN 24 H , Creatinine 1.29 H, Estim Creat Clear Calc 49.46, Est GFR (MDRD) Af Amer 57 L, Est GFR (MDRD) Non-Af 47 L, BUN/Creatinine Ratio 18.6, Glucose 105, Calcium 8.9, Total Bilirubin 2.30 H, AST 35, ALT 35, Alkaline Phosphatase 271 H, Troponin I High Sens 10, Total Protein 7.4, Albumin 2.2 L, Globulin 5.2 H, Albumin/Globulin Ratio 0.4 L, Lipase 21, HCG, Quant 8 H, Serum , Qual POSITIVE 05/06/24 11:40: Lactic Acid 2.3 H* 05/06/24 12:30: Blood Type A POSITIVE, Antibody Screen NEGATIVE 05/06/24 13:30: Urine Color Yellow, Urine Clarity Clear, Urine pH 5.0, Ur Specific [place] 1.015, Urine Protein 30 H, Urine Glucose (UA) Normal, Urine Ketones 5 H, Urine Occult Blood 150 H, Urine Nitrite Negative, Urine Bilirubin 1 H, Urine Urobilinogen 4 H, Ur Leukocyte Esterase 25 H, Urine RBC 0-5 SEEN, Urine WBC 0-5 SEEN, Ur Squamous Epith Cells 0-5 SEEN, Urine Bacteria 1+, Urine Mucus 1+ Imaging Radiology Impression Abdomen/Pelvis CT 05/06/24 11:31 IMPRESSION: 1. Fluid-filled patient with air-fluid levels in the small bowel loops worrisome for partial distal small bowel obstruction. 2. Suspicious irregular intramural thickening of the sigmoid colon. This is a new finding. Colonoscopy will be very helpful for further evaluation. 3. Small ascites around the right lower hepatic lobe surface, overlying the sigmoid colon and overlying the empty urinary bladder. Etiology is unknown. 4. No other additional findings or changes. Electronically Signed: Refugio Schroeder MD at 12:41 EDT , Brain CT 05/06/24 11:46 IMPRESSION: 1. Normal head/brain CT without intravenous contrast. 2. No CT evidence of suspicious pituitary mass. Electronically Signed: Refugio Schroeder MD at 12:31 EDT , Chest X-Ray 05/06/24 12:10 IMPRESSION: No radiographic evidence of acute cardiopulmonary disease and unchanged. Electronically Signed: Refugio Schroeder MD at 12:51 EDT , Assessment & Plan Assessment/Plan (1) Pneumoperitoneum: PLAN: Patient 48-year-old female who presents just 12 hours after developing acute onset diffuse abdominal pain that has been unremitting despite conservative measures. Workup shows significant elevation of infectious/inflammatory markers but CT imaging was read by radiology is concerning for possible partial small bowel obstruction. However, in my independent review of patient's imaging I believe that patient displays evidence of pneumoperitoneum with several flecks of free air over the right lobe of the liver, just to the right of the gallbladder, and more prevalent in the lesser sac. This is more consistent with a perforated gastric ulcer and better explains her significant white count as well as the evidence of ascites in the pelvis. With this observation I have recommended proceeding emergently to the operating room for diagnostic laparoscopy versus exploratory laparotomy with Cleveland patch repair and all other procedures as indicated. Additionally, I briefly highlighted the patient's positive test and hCG positivity and its uncertain significance. Emergency medicine has been asked to dose patient empirically with IV antibiotics and with a bolus of IV pantoprazole. We will have to be extra cautious against any hypotension/hypovolemia given patient's single kidney status. Ziggy Valle MD General Surgery Endocrine Surgery Pager: [facility] [address] [place] [address], [facility], [address] [place] [address] Office: [phone] Charges/Coding Visit Charges Inpatient E&M: 48396 Init Hosp L3
--- NOTE | 2024-05-06 14:30 | COL_PTH ---
PATHOLOGY RESULTS PATIENT: CHATO ALFARO LOC: MS3 U#:[id number] AGE/SX: 48/F ROOM: AR312 RE05/06/[address]: Dr. Ziggy Valle MD : 1975 BED: 1 DIS: 05/13/2024 SPEC #: [id number] RECD: 05/07/24 10:51 STATUS: RODOLFO WESTFALL #: [id number] SHANA: 05/06/24 14:[address]: Ziggy Valle DEPT: SURGICAL PATHOLOGY RECD BY: Felecia Pineda ENTERED: 05/07/24 12:30 SP TYPE: COLON OTHR DR: Dr. Marisa Chew MD Tissues: Ileum, NOS Rectosigmoid junction Procedures: Surgery Specimen Level V HEADER OPERATION: Diagnostic laparoscopy to exploratory laparotomy PRE-OP DIAGNOSIS: Pneumoperitoneum TISSUE SUBMITTED: A- Terminal ileum and cecum, B- Sigmoid rectal colon MICROSCOPIC DIAGNOSIS A. Terminal ileum and cecum, right hemicolectomy: Moderate to marked serosal acute inflammation with fibrinopurulent exudation. Mesenteric and pericolonic adipose tissue with acute and chronic inflammation and granulation tissue reaction. Four out of four lymph nodes, negative for metastatic carcinoma. B. Rectal sigmoid colon, colectomy: Moderately differentiated invasive adenocarcinoma. See cancer summary in the comment section. 05/09/2024 COMMENT B. COLON CANCER SUMMARY: Specimen - sigmoid colon and proximal rectum Procedure - Low anterior resection rectum with sigmoid colectomy Specimen length - 11.5 cm Tumor site - Sigmoid colon/ rectum Tumor location - Not specified Tumor size - 5.0 x 4.0 x 1.0cm Macroscopic tumor perforation - Present Histologic type - Adenocarcinoma Histologic grade - Grade 2, moderately differentiated Microscopic tumor extension - Tumor involves visceral peritoneum Margins: Axial resection margins are free of carcinoma. Tumor is 3.0cm away from the one resection margin. Treatment effect - No known presurgical therapy Lymphvascular invasion - Not identified Perineural invasion - Not identified Tumor deposits - Present Number of tumor deposits- 2 Type of polyp in which invasive carcinoma arose - Not identified Lymph nodes: Number of lymph nodes examined - 8 (specimen A & B) Number of lymph nodes involved - 1 Size of largest metastatic deposit- 0.5cm, extranodal extension is not seen Additional pathologic findings - - Extensive serosal acute inflammation and fibrinopurulent exudation. - Pericolonic adipose tissue with extensive acute and chronic inflammation and granulation tissue reaction. Ancillary studies: See microsatellite instability study by IHC ([id number]) will be reported sepereatly for complete details. Negative (no loss of mismatch protein; no microsatellite instability detected). PATHOLOGIC STAGE: pT4a pN1a pMx The above summary is in compliance with [employer] [place] [employer] (CAP) Cancer Protocols Checklist and [place] Joint Committee on Cancer (AJCC), Staging Manual, 8th Ed. Please make reference to previous specimen [id number] cervix, 12 and 1o'clock with diagnosis of severe keratinizing dysplasia (VICK III). Case has been reviewed in consultation with Dr. Lynch who concurs with the above diagnosis. IDC:AM MICROSCOPIC DESCRIPTION Slides are reviewed. GROSS DESCRIPTION A. Received in fixative is one container labeled with the patient's name and designated Terminal ileum and cecum. The specimen consists of a segment of small intestine, cecum and portion of ascending colon. The segment of small intestine measures 23.0cm in length and is focally markedly narrow and measures 1.5cm in diameter. The rest of the small intestine measures up to 2.5cm in diameter. Cecum with ascending colon measures 10.5cm in length. Both resection margins are stapled. Serosal surface of small intestine, cecum and ascending colon are covered with talbot purulent exudate. Lumen is filled with fecal material. Appendix is not identified in the specimen. Mucosa is congested and edematous. No mucosal lesion is identified. More dictation will follow after fixation. SJ.mr 05/07/2024 Pericolonic and mesenteric adipose tissue also show focal area of talbot purulent exudate. Section of pericolonic/perirectal adipose tissue reveal multiple lymph nodes. Largest lymph node measures 0.5cm in greatest dimension. Telegraph Repeater Technician sections are submitted in ten cassettes. 1- Proximal distal resection margins, 2- ileocecal valve, 3-&4- large bowel, 5- small bowel, 6-mesenteric tissue, 7- pericolonic adipose tissue and lymph nodes, 8-10- each cassette containing one lymph node. SJ.mr 05/08/2024 B. Received in fixative is one container labeled with the patient's name and designated Rectal sigmoid colon. The specimen consists of a segment of colon/proximal rectum measuring 11.5cm in length, both resection margins are stapled. 4cm away from one resection margin there is an area of defect measuring 4.0cm in greatest dimension. (As per surgeon, the defect happened during surgery, as surgeon was trying to biopsy, the site of adhesion to the pelvic side wall to colon/rectum). Serosal surface adjacent to the area of defect shows congestion and talbot purulent exudate. Lumen contains fecal material. 3cm away from one resection margin adjacent to the area of defect there is a circumferential cauliflower like tumor mass measuring 5.0 x 4.0 x 1.0cm. This mass appears to be involved full thickness of the bowel wall. Serosal surface corresponding to the mass is inked black. Minimal amount of pericolonic/ perirectal adipose tissue is noted in the specimen. Telegraph Repeater Technician sections are submitted in ten cassettes. 1- Proximal and distal resection margins, 2-7- tumor, 8-one bisected lymph node, 9- multiple lymph nodes, 10- pericolonic/perirectal adipose tissue LELIA.mr 05/08/2024 TC:0 CPT:60659, 30812
--- NOTE | 2024-05-06 14:33 | PCM.PRE.AN2 ---
ASA Classification* ASA Classification ASA Classification: 2 and E Assessment & Plan Anesthesia* Anesthesia Assessment Anesthesia Assessment: Discussed sedation and/or anesthesia options, risks, benefits, and alternatives with patient/parents/legal guardian/POA. Questions invited. The patient/parents/legal guardian/POA seems to understand and agrees to proceed with anesthesia plan. Reviewed the physical assessment, medical history, allergy history and patient home medications list prior to surgery/procedure/anesthetic and documented any changes. Performed airway and anesthesia risk assessments. Anesthesia Type Anesthesia Type: General History Source History Obtained from:: Patient and Chart Anesthesia Focused Assessment* Temperature: 96.5 F Pulse Rate: 86 Blood Pressure: 91/60 Respiratory Rate: 24 Pulse Ox: 99 Oxygen Delivery Method: Room Air Airway Assessment Mouth opens: >3 cm Mallampati Score: II Teeth Condition: Intact Neck Range of motion (ROM): Full ROM Pertinent Findings EKG Pertinent Findings:: May 06, 2024. Sinus rhythm with short [place]. Focused Labs Anesthesia Preop lab: CBC WBC 25.5 K/mm3 (4.4-11.0) H 05/06/24 11:15 RBC 4.73 M/mm3 (4.2-5.4) 05/06/24 11:15 Hgb 11.6 g/dL (12.0-15.0) L 05/06/24 11:15 Hct 36.9 % (37-47) L 05/06/24 11:15 Plt Count 653 K/mm3 (150-450) H 05/06/24 11:15 CHEMISTRY Potassium 3.7 mmol/L (3.5-5.1) 05/06/24 11:15 Sodium 134 mmol/L (136-145) L 05/06/24 11:15 BUN 24 mg/dL (7-18) H 05/06/24 11:15 Creatinine 1.29 mg/dL (0.55-1.02) H 05/06/24 11:15 Glucose 105 mg/dL (74-106) 05/06/24 11:15 COAG HCG, Quant 8 mIU/mL (1-3) H 05/06/24 11:15 Pre-Assessment Diagnosis/Proposed Procedure Planned Operative Procedure(s): Diagnostic laparoscopy versus exploratory laparotomy. Possible Cleveland patch Anesthesia History Anesthesia History - senior graduate advisor: Anesthesia History - senior graduate advisor Hx Hospitalization Yes: 08/24/18 17:46 Any Problems With Anesthesia Cholinesterase deficiency You/Your Family Experience fever (hyperthermia) with Relationship Recent Exposure to Contagious Disease Does patient have nerve stimulator Patient instructed to have device shut off --Does patient have Pacemaker or ICD? When Was Last Pacemaker Check QUESTION #4 FULL TEXT: You/Your Family Experience fever (hyperthermia) with Anesthesia Last Oral Intake Last Oral intake: Last Oral Intake NPO since Meds taken in AM with sips of water? Meds patient instructed to take am of surgery Any additional information?: Yes NPO since: 00:00 PONV PONV - senior graduate advisor: PONV - senior graduate advisor Female HX of Motion Sickness HX of N/V After Surgery Non-Smoker Duration of Surgery greater than 60 minutes Number of Risk Factors PONV Score Height & Weight Height & Weight: Anesthesia: Height & Weight Height 5 ft 3 in 05/06/24 10:47 Weight: 65.136 kg 05/06/24 10:47 Body Mass Index (BMI) 25.4 05/06/24 10:47 Respiratory Assessment Respiratory Assessment - senior graduate advisor: Respiratory Tract Infection Hx - senior graduate advisor Hx Respiratory Tract Infection Any additional information?: Yes Hx Respiratory Tract Infection: No STOP Sleep Apnea STOP Sleep Apnea - senior graduate advisor: STOP Sleep Apnea - senior graduate advisor Hx Hypertension No 08/11/20 21:56 Hx Sleep Apnea CPAP BIPAP Do you snore loudly (louder than talking or can be heard Do you often feel tired/ fatigued/ sleepy during daytime? Has anyone observed you stop breathing during sleep? STOP Results QUESTION #5 FULL TEXT : Do you snore loudly (louder than talking or can be heard through closed doors)? 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 Specify any problems Hx of Preganancy in last 3 Months Nurse Filling Out Transfusion & Questions: Date: Time: Patient unable to answer at this time (ie. confused, unrespo /Reproduction History /Reproductive History - senior graduate advisor: /Reproductive Hx- senior graduate advisor Hx Now Gestational Age (in weeks): EDC: Hx Hx Para Hx Section SAB No 05/06/24 10:47 PFSH Home Medications ?Medication ?Instructions ?Recorded ?Last Taken ?Type diphenoxylate-atropine 2.5 1 tab PO 4X/DAY PRN Diarrhea 10/16/15 08/24/18 History mg-0.025 mg tablet ropinirole 0.25 mg tablet (Requip) 0.25 mg PO DAILY 10/16/15 08/24/18 History ascorbic acid (vitamin C) 1,000 mg 1 tab PO DAILY 10/16/17 08/24/18 History tablet (Vitamin C) ferrous gluconate 236 mg (27 mg 1 tab PO DAILY 10/16/17 08/24/18 History iron) tablet gabapentin 300 mg capsule 300 mg PO BID 10/16/17 08/24/18 History (Neurontin) naproxen 500 mg tablet 500 mg PO BID PRN #20 tabs 10/16/17 08/24/18 Rx cholecalciferol (vitamin D3) 1,250 50,000 unit PO QWEEK 08/24/18 08/24/18 History mcg (50,000 unit) capsule magnesium 250 mg tablet 250 mg PO DAILY 08/24/18 08/24/18 History naproxen 500 mg tablet (Naprosyn) 500 mg PO BID PRN pain #20 tabs 09/04/21 Unknown Rx Allergy/AdvReac Type Severity Reaction Status Date / Time morphine Allergy Intermediate Hives Verified 05/06/24 13:21 Penicillins Allergy Hives Verified 05/06/24 10:47 tomato Allergy Hives Verified 05/06/24 10:47 Surgical History (Updated 05/06/24 @ 14:[address] Mendoza Montaño MD) History of left nephrectomy S/P cholecystectomy History of laparoscopic appendectomy H/O: hysterectomy Social History Smoking Status: Never smoker Review of Systems (Anesthesia) ROS Narrative System reviewed and no additional complaints, except as documented.
[2024-05-06] MEDS: Cefepime HCl 2 GM in 0.9% Normal Saline (100mL MB+) 100 ML IV ×2 (15:00→21:14)
[2024-05-06 15:45] LABS: Reflex Lactate? Y
--- NOTE | 2024-05-06 15:52 | FLU_PTH ---
PATHOLOGY RESULTS PATIENT: CHATO ALFARO LOC: MS3 U#:[id number] AGE/SX: 48/F [place] [facility] [place] RE05/06/[address]: Dr. Ziggy Valle MD : 1975 BED: 1 DIS: 05/13/2024 SPEC #: [id number] RECD: 05/07/24 08:02 STATUS: RODOLFO WESTFALL #: [id number] SHANA: 05/06/24 15:[address]: Ziggy Valle DEPT: CYTOLOGY RECD BY: Felecia Pineda ENTERED: 05/07/24 08:03 SP TYPE: Fluid OTHR DR: Dr. Marisa Chew MD Tissues: Peritoneal fluid Procedures: Special Stain Group II Surgery Specimen Level IV Cytospin Fluid HEADER OPERATION: Not noted PRE-OP DIAGNOSIS: Possible [place] patch TISSUE SUBMITTED: Peritoneal fluid for cytology DIAGNOSIS CYTOLOGY Peritoneal fluid for cytology (cytospin and cellblock): Marked acute inflammation. Negative for malignant cells. See comment. AM. 05/08/2024 COMMENT Immunohistochemistry ([id number]) supports the above diagnosis. Case has been reviewed in consultation with Dr. Arredondo who concurs with the above diagnosis. IDC:SJ CYTOLOGY STUDY Slides are reviewed. CYTOLOGY GROSS Received is 10 ml of carrizales-cloudy fluid labeled with the patient's name and and designated per the requisition as Peritoneal fluid. Submitted for cytology preparation including cell block. 05/07/2024 TC:2 CPT: 09820,75722 ADDENDUM ADDENDUM 06/02/2024 11:20 The specimen contains marked acute inflammation comprising primarily of neutrophils. Malignant cells are not identified. AM.mr 06/02/2024
[2024-05-06 16:37] LABS: Cytology, Body Fluid / CSF SEE PATHOLOGY REPORT
[2024-05-06] MEDS: BUPIVACAINE LIPOSOME/PF 20 ML VIAL OPERA.SITE (19:10)
[2024-05-06] MEDS: Bupivacaine 0.25% 30 ML Vial ×2 (19:10)
[2024-05-06] MEDS: 0.9% Normal Saline (Pres. free 10 ML Vial (19:10)
--- NOTE | 2024-05-06 19:54 | PCM.OPRPT ---
Report of Operation Date of Procedure: 05/06/24 Pre-Operative Diagnosis: Pneumoperitoneum with concern for perforated viscus Post-Operative Diagnosis: 1. Perforated viscus with severely inflamed ischemic terminal ileum 2. Concern for pelvic mass indurated field that involved rectum Surgery/Procedure Performed:: 1. Transversus abdominis plane block 2. Diagnostic laparoscopy converted to exploratory laparotomy 3. Ileocecectomy with primary anastomosis 4. Low anterior resection with creation of end sigmoid colostomy Description of Surgical Findings:: ? Succus throughout the abdomen ? Air within the lesser sac ? Ischemic/necrotic distal small bowel ? Pelvic mass that appears to arise from left sidewall ? Grossly normal?appearing sigmoid colon Surgeon: Ziggy Valle piping manager: None (bee zuniga) piping manager: Dharmesh Gonzalez piping manager: Darrius Borges Type of Anesthesia: General/Supplemental Anesthesiologist: Pavan Garcia Specimen's removed: 1. Terminal ileum and cecum 2. Rectosigmoid colon 3. Ascitic fluid for cytology and micro Drains: 15 [place] round [place] Estimated Blood Loss (mL): 100 Description of Procedure: After appropriate identification in the preoperative holding area the patient was brought to the operating room where she was positioned supine in the operating room table. There she underwent induction of general anesthesia. Received IV antibiotics from emergency medicine with Maxipime given allergy to penicillins. A Molina catheter was then placed for accurate ins and outs monitoring. A formal timeout was conducted to confirm patient and procedure and the procedure was begun with a Park entry in the supraumbilical position and placement of a 12 mm balloon trocar. Pneumoperitoneum was established at 15 mmHg and an inspection of the peritoneum was made. There was no evidence of inadvertent injury to the viscera below from our entry. With this initial investigation, I was able to visualize some turbid ascites that appeared to be succus around the stomach in the right lobe of the liver. There were also adhesions between the small bowel and the pelvis with abundant fibrinous exudate. Initially these adhesions appeared to reside directly beneath patient's midline laparotomy scar. Based on patient's CT imaging I elected to proceed with exploration of the lesser sac. The greater curve and the omental attachments were each grasped and the short gastric vessels were divided sequentially using laparoscopic LigaSure device. Upon entry to the lesser sac some pneumoperitoneum was released, but the posterior aspect of the stomach appeared healthy and well-perfused. There was also no evidence of contamination within the lesser sac. Thus this exploration was abandoned and I began gradually examining the small bowel. I began to run it from a proximal to distal orientation and encountered an abundance of additional succus. Uncertain as to the etiology of patient's perforation event and concern for a possible recurrent gynecologic malignancy I decided to obtain samples of this fluid for both cytology and micro using our laparoscopic suction prep person device with an attached Luken's trap. The small bowel was found densely adherent to the pelvic brim and the sacral promontory. Finger fracture was used to release this. The terminal ileum was finally able to be identified entering the cecum and appeared frankly ischemic versus necrotic with a hole in the small bowel mesentery leading to the terminal ileum. With this finding I elected to proceed with a ileocecectomy. To facilitate the cecal transection I entered the white line of Toldt on the right and began exploiting the avascular plane posterior to the cecum. In doing so I was careful to identify the course of the right ureter and protected it with this dissection. Proximal and distal transection points were identified and the bowel mesentery was opened at these points to accommodate our KANDY stapler which was serially used to make our proximal small bowel and distal colonic transections. The intervening mesentery was divided with the use of our laparoscopic LigaSure device. A [id number], functional end and ileocolic anastomosis was created with a firing of our 75 mm KANDY stapler. The common channel was closed with our TX 60 stapler. A crotch stitch was placed with 3-0 silk. The mesenteric defect was closed with a running 3-0 silk suture taking care to avoid compromise to the mesenteric vessels despite its significant thickening. A limited degree of local contamination was incurred in creation of the anastomosis due to back pressure from the colonic contents in particular. This was promptly suctioned free of the peritoneum. Upon completion of the anastomosis the abdomen was copiously irrigated and suctioned free. During the course of this part of the procedure we examined the left pelvis where it appeared that the sigmoid colon was disappearing with the rectum behind a structure that looked like a severely but chronically?inflamed mass. Given patient's history of a cervical cancer we elected to receive intraoperative consultation with particleboard factory worker Dr. Mckee. She graciously obliged and scrubbed to evaluate patient's pelvis. She agreed that this area appeared to represent a pelvic mass and suggested we obtain a biopsy of this area to guide further postoperative workup. After assuring clear distance to the patient's left iliac artery and the colon I energized a pair of laparoscopic starla and incised this area. Initially I found a severely thickened wall with apparent partial necrosis of the tissue. However, as I proceeded I was met with an odor of fecal matter and indeed identified that we had entered into the superior aspect of the rectum. It was unclear whether patient had a distinct mass from the superior aspect of the rectum or the rectum itself was just severely inflamed and thickened from prior radiation. With the severe pathologic derangement I quickly deduced that any attempt at primary closure would be fraught with risk of reopening and contamination. Therefore, after brief discussion with Dr. Gonzalez we concluded that we would look to divert the patient and resect distal to the area of injury if possible. I entered the left white line of Toldt and mobilized the sigmoid colon off the left pelvic sidewall. I then transected the mid to distal portion of the sigmoid colon with a firing of the 75 mm KANDY stapler. Some additional finger fracture and freeing up some adhesions between the sigmoid colon and the left pelvic sidewall. I then used a impact LigaSure device to divide the mesorectum serially posteriorly. More distally the rectum remained thickened but much less so than the more proximal rectum. Here, distally, I placed a bowel clamp across the rectum so as to compress some of the tissue before applying a contour stapler across the area using a black thick load. With this maneuver we were able to completely close the rectal stump in a hemostatic fashion. The rectal stump was tagged with a 2-0 Prolene suture. The posterior pelvis appeared somewhat oozy so Hemoblast agent was sprayed into the area and a wet lap was applied over the area to ensure hemostasis. We then created a skin defect lateral to the umbilicus and the rectus belly and I extended this down through the subcutaneous tissues. The anterior rectus sheath was divided longitudinally with electrocautery and the rectus fibers were spread along their direction of orientation. Then the posterior rectus sheath was opened with electrocautery and the opening was bluntly enlarged to accommodate 2 finger breaths. The sigmoid colon had been mobilized on its mesentery to pass through the abdominal wall and it was then passed up through the fascia to the skin level. 2 seromuscular bites of the colon were taken with 3-0 Vicryl suture intact to the fascia underneath to maintain this positioning. Then a 15 [place] round [place] drain was fed into the pelvis via patient's right lower quadrant 5 mm port site and secured at the skin using a 2-0 nylon suture. Lastly the fascia was closed in bidirectional fashion with 2X#1 looped PDS suture and tied in the middle. The subcutaneous tissues were irrigated and skin was stapled. The colostomy was matured in standard Dasia fashion with interrupted Vicryl suture. Ostomy appliance was cut to fit about the colostomy and the laparotomy wound was covered with a 8 inch silver Mepilex dressing. Patient was awakened from anesthesia without event taken to PACU for ongoing recovery with Molina catheter still in place for ongoing I&O monitoring. The HAUL TRUCK DRIVER assisted with retraction and wound closure. Grafts/Implants Used: None Admit VTE Documentation VTE Mechan Device Prophylaxis: SCD's
--- NOTE | 2024-05-06 20:09 | PCM.POST.ANE ---
Anesthesia: Postop Eval I Current Vital Signs Temperature: 97.5 F Pulse Rate: 77 Blood Pressure: 99/70 Respiratory Rate: 19 Pulse Ox: 100 Assessment Airway patent: Yes Spontaneous unlabored respirations: Yes nausea: No Vomiting: No Anesthesia Complication: No Fluid Hydration Crystalloid volume administer (ml): 2,800 Total IV fluid infused: 2,800 Progress Note Anesthesia document: Postop Eval 1 completed: Yes
--- NOTE | 2024-05-06 20:10 | POSTOPAN2_ITS ---
Anesthesia Postop Eval I Sum Postop Eval Completion status Anesthesia document: Postop Eval 1 completed: Yes Anesthesia Postop Eval I Summary Anesthesia Postop Eval I Summary: Anesthesia Postop Eval I: Assessment Summary Airway patent Yes 05/06/24 20:09 [email or web address] Spontaneous unlabored Yes 05/06/24 20:09 [email or web address] respirations Mental status nausea No 05/06/24 20:09 [email or web address] Vomiting No 05/06/24 20:09 [email or web address] Anesthesia Postop Eval I: Fluid Summary Crystalloid volume administer 2,800 05/06/24 20:09 [email or web address] (ml) Colloids volume administered ( ml) Blood Product volume administered (ml) Total IV fluid infused 2,800 05/06/24 20:09 [email or web address] Anesthesia Postop Eval I: Summary Notes Anesthesia Complication No 05/06/24 20:09 [email or web address] Anesthesia Complication Comment: Post-operative progress note Anesthesia: Postop Eval II Evaluation Mental status: Awake and Asleep Pain Level: 0 nausea: No Vomiting: No
--- NOTE | 2024-05-06 20:10 | PCM.POSTANE2 ---
Anesthesia Postop Eval I Sum Postop Eval Completion status Anesthesia document: Postop Eval 1 completed: Yes Anesthesia Postop Eval I Summary Anesthesia Postop Eval I Summary: Anesthesia Postop Eval I: Assessment Summary Airway patent Yes 05/06/24 20:09 [email or web address] Spontaneous unlabored Yes 05/06/24 20:09 [email or web address] respirations Mental status nausea No 05/06/24 20:09 [email or web address] Vomiting No 05/06/24 20:09 [email or web address] Anesthesia Postop Eval I: Fluid Summary Crystalloid volume administer 2,800 05/06/24 20:09 [email or web address] (ml) Colloids volume administered ( ml) Blood Product volume administered (ml) Total IV fluid infused 2,800 05/06/24 20:09 [email or web address] Anesthesia Postop Eval I: Summary Notes Anesthesia Complication No 05/06/24 20:09 [email or web address] Anesthesia Complication Comment: Post-operative progress note Anesthesia: Postop Eval II Evaluation Mental status: Awake and Asleep Pain Level: 0 nausea: No Vomiting: No
--- OUTSIDE RECORDS SUMMARY | 2024-05-06 21:09 | XMS RPT_ITS | CCD ---
Author Organization [facility] ion Partnership [facility] Care Team Providers Care Senior Climate Advisor Name Role Phone Naina KIRK, Vicente Primary Care Provider [phone] GANTA, VICENTE Primary Care Unavailable ADRIANNA HUSAIN [...] Morphine; Translations: [MORPHINE] Drug Allergy 7 Vomiting [facility] Work Phone: (5 sources) Penicillins; Translations: [PENICILLINS] Propensity to adverse reactions 7 [facility] Work Phone: (20 sources) ct contrast [Other] Propensity to adverse reactions 7 Vomiting [facility] Work Phone: (20 sources) Tomatoes; Translations: [TOMATOES] Propensity to adverse reactions 7 [facility] Work Phone: (20 sources) Penicillins Propensity to adverse reactions 7 [facility] Work Phone: (1 source) OTHER; Translations: [OTHER] Propensity to adverse reactions (disorder) 7 [facility] Repository Medications Current Medications Medication Drug Class(es) [...] on above: Take 1 capsule by mo [facility] one time a week. cyclobenzaprine hydrochloride 10 [...] Comment on above: Take 1 capsule by [facility] daily at bedtime. predniSONE 10 mg oral [...] Comment on above: Take 2 tablets by [facility] once daily for 5 days. 6 tabs [...] Drug Class(es) Dates Sig (Normalized) Sig (Original) [id number] 200 actuat albuterol 0.09 mg/actuat metered dose [...] on above: Take 1 capsule by mo [facility] once daily. Problems Active Problems Problem Classification [...] Test Name Value Interpretation Reference Range Facility [facility] 03-17-2024 CN Office Visit (UCWSTR ) HCEL SANCHEZ ([id number]) 1975 F Date Time Provider Department 03/17/24 8:30 AM MATT WEEKS [facility] During your visit today, we recorded the [...] left kidney; due to complications from the [facility] 2005: SALPINGO-OOPHORECTOMY COMPL/PRTL UNI/BI SPX Comment: Salpingo-oophorectomy- [...] early 40's Hypertension Father Heart Father silent AR - age 50's Stroke Father other (parkinson) [...] VISUALIZED Tra (more content not included)... Normal [facility] XR ABDOMEN 1V SUPINEon 03-17 XR ABDOMEN [...] abnormalities. IMPRESSION: NO ACUTE ABDOMINAL PATHOLOGY VISUALIZED Commissary Manager: [facility] Transcribe Date/Time: Mar 17 2024 9:06A Dictated by : HERBERT MEZA MD This examination was interpreted and the report reviewed and electronically signed by: HERBERT MEZA MD on Mar 17 2024 9:07AM EST [id number] Normal [facility] XR Abdomen Supine and Uprigh ton 03-17-2024 IMPRESSION: NO ACUTE ABDOMINAL PATHOLOGY VISUALIZED Commissary Manager: [facility] Transcribe Date/Time: Mar 17 2024 9:06A Dictated [...] abnormalities. DIVISION OF RADIOLOGY Provider, Shikha Jhony [facility] - 03/17/2024 * * *Final Report* [...] IMPRESSION IMPRESSION: NO ACUTE ABDOMINAL PATHOLOGY VISUALIZED Commissary Manager: NANCY Transcribe Date/Time: Mar 17 2024 9:06A Dictated by : HERBERT MEZA MD This examination was interpreted and the report reviewed and electronically signed by: HERBERT MEZA MD on Mar 17 2024 9:07AM EST [facility] Radiology Study observation (narrative) [facility] XR Abdomen Supine and Uprigh tOrdered By: Ccf Provider on 03-17-2024 [facility] CNOVon 07-13-2023 CNOV Office Visit (UCWSTR ) CHEL SANCHEZ ([id number]) 1975 F Date Time Provider Department 07/13/23 8:15 AM KENDRA CARABALLO [facility] During your visit today, we recorded the following information about you: Temperature Pulse Respiration Blood pressure 97.3 degrees 59/minute 16/minute 112/78 Weight 65.5 kg Kendra Caraballo APRN.[facility] 07/13/2023 9:54 AM Signed Subjective HPI [...] early 40's Hypertension Father Heart Father silent AR - age 50's Stroke Father other (parkinson) [...] is evident. IMPRESSION: No acute bony finding. Commissary Manager: NANCY Transcribe Date/Time: Jul 13 2023 9:35A Dictated by : GREGORIO NIXON MD -continue to ice, elevate, use crutches. -walking boot placed on right foot. Patient states th (more content not included)... Normal [facility] XR FOOT 3V AP/LAT/OBL RTon 1 09-13-2022 [...] is evident. IMPRESSION: No acute bony finding. Commissary Manager: PSCB Transcribe Date/Time: Jul 13 2023 9:35A Dictated by : GREGORIO NIXON MD This examination was interpreted and the report reviewed and electronically signed by: GREGORIO NIXON MD on Jul 13 2023 9:36AM EST [id number] Normal [facility] XR Foot - right AP and Later al and obliqueon 07-13-2023 IMPRESSION: No acute bony finding. Commissary Manager: Narrable Transcribe Date/Time: Jul 13 2023 9:35A Dictated [...] dislocation is evident. DIVISION OF RADIOLOGY Provider, [facility] - 07/13/2023 * * *Final Report* [...] evident. IMPRESSION IMPRESSION: No acute bony finding. Commissary Manager: NANCY Transcribe Date/Time: Jul 13 2023 9:35A Dictated by : GREGORIO NIXON MD This examination was interpreted and the report reviewed and electronically signed by: GREGORIO NIXON MD on Jul 13 2023 9:36AM EST [facility] Radiology Study observation (narrative) [facility] XR Foot - right AP and Later al and obliqueOrdered By: Ccf Provider on 07-13-2023 [facility] CNOVon 07-11-2023 CNOV Office Visit (UCWSTR ) EMYCHEL LAMAS ([id number]) 1975 F Date Time Provider Department 07/11/23 10:15 AM ADRIANNA HUSAIN [facility] During your visit today, we recorded the [...] early 40's Hypertension Father Heart Father silent [place] - age 50's Stroke Father other (parkinson) [...] Adrianna James (more content not included)... Normal [facility] XR ANKLE 3V AP/LAT/OBL RTon 07-11-2023 XR [...] seen. IMPRESSION: No acute process is seen. Commissary Manager: NANCY Transcribe Date/Time: Jul 11 2023 11:09A Dictated by : RIZWAN CASTELLANOS MD This examination was interpreted and the report reviewed and electronically signed by: RIZWAN CASTELLANOS MD on Jul 11 2023 11:09AM EST [id number] Normal [facility] XR Ankle - right AP and Late ral and obliqueon 07-11-2023 IMPRESSION: No acute process is seen. Commissary Manager: [facility] Transcribe Date/Time: Jul 11 2023 11:09A Dictated [...] abnormality is seen. DIVISION OF RADIOLOGY Provider, [facility] - 07/11/2023 * * *Final Report* [...] IMPRESSION IMPRESSION: No acute process is seen. Commissary Manager: [facility] Transcribe Date/Time: Jul 11 2023 11:09A Dictated by : RIZWAN CASTELLANOS MD This examination was interpreted and the report reviewed and electronically signed by: RIZWAN CASTELLANOS MD on Jul 11 2023 11:09AM EST [facility] Radiology Study observation (narrative) [facility] XR Ankle - right AP and Late ral and obliqueOrdered By: Ccf Provider on 07-11-2023 [facility] XR CHEST 2V FRONTAL/LATon [facility] XR Chest PA and Lateralon IMPRESSION: Mild hazy opacity at the right lateral base, atelectasis versus pneumonia in the appropriate clinical setting. Commissary Manager: P[facility] Transcribe Date/Time: Feb 21 2023 1:44P [...] abdomen. DIVISION OF RADIOLOGY Provider, Zena Booker [facility] - 02/21/2023 * * *Final Report* [...] versus pneumonia in the appropriate clinical setting. Commissary Manager: NANCY Transcribe Date/Time: Feb 21 2023 1:44P Dictated by : NOELLE SEGOVIA MD This examination was interpreted and the report reviewed and electronically signed by: NOELLE SEGOVIA MD on Feb 21 2023 1:45PM EST [facility] Radiology Study observation (narrative) [facility] XR Chest PA and LateralOrder ed By: Ccf Provider on 02-21-2023 [facility] XR Shoulder - right 3 Viewso n 11-30-2022 IMPRESSION: NO ACUTE BONY Commissary Manager: NANCY Transcribe Date/Time: Nov 30 2022 3:48P [...] or dislocation. DIVISION OF [facility]IOLOGY [facility] * * *Final Report* [...] or dislocation. IMPRESSION IMPRESSION: NO ACUTE BONY Commissary Manager: [facility] Transcribe Date/Time: Nov 30 2022 3:48P Dictated by : JOHANNY BARROW MD This examination was interpreted and the report reviewed and electronically signed by: JOHANNY BARROW MD on Nov 30 2022 3:51PM EST [facility] XR Shoulder - right 3 ViewsO rdered By: Ccf Provider on 11-30-2022 [facility] XR Shoulder - right 3 Viewso n 11-28-2022 Radiology Study observation (narrative) [facility] XR THORACIC GENERAL 3V AP/LA T/SWIMMERSon 11-20-2022 [facility] XR Thoracic spine AP and Lat eral and Swimmerson 11-20-2022 IMPRESSION: Negative thoracic spine X-ray. Commissary Manager[facility] Transcribe Date/Time: Nov 20 2022 2:20P Dictated by : EDMUNDO VELARDE MD This examination was interpreted and the report reviewed and electronically signed by: EDMUNDO VELARDE MD on Nov 20 2022 2:21PM [facility] * * *Final Report* [...] spine. IMPRESSION IMPRESSION: Negative thoracic spine X-ray. Commissary Manager: NANCY Transcribe Date/Time: Nov 20 2022 2:20P Dictated by : EDMUNDO VELARDE MD This examination was interpreted and the report reviewed and electronically signed by: EDMUNDO VELARDE MD on Nov 20 2022 2:21PM EST [facility] Radiology Study observation (narrative) [facility] XR Thoracic spine AP and Lat eral and SwimmersOrdered By: Ccf Provider on 11-20-[address] [facility] [address] BRAIN WO IVCONon 09-30-19 [facility] XR WRIST INJURY 4V PA/LAT/OB L/SCAPH LEFTon 05-19-2022 [facility] XR Wrist - left 4 Viewson IMPRESSION: No acute radiographic abnormalities seen in the left wrist. Commissary Manager: PSCB Transcribe Date/Time: May 19 2022 2:00P [...] soft tissue swelling. DIVISION OF RADIOLOGY Provider, [facility] - 05/19/2022 * * *Final Report* [...] radiographic abnormalities seen in the left wrist. Commissary Manager: PSC[facility] Transcribe Date/Time: May 19 2022 2:00P Dictated by : EDMUNDO VELARDE MD This examination was interpreted and the report reviewed and electronically signed by: EDMUNDO VELARDE MD on May 19 2022 2:06PM EST [facility] Radiology Study observation (narrative) [facility] XR Wrist - left 4 ViewsOrder ed By: Ccf Provider on 05-19-2022 [facility] Vital Signs Date Time Vital Sign Value Performing Clinician Hayley solis 03-17-2024 08:39-0400 Body mass index (BMI) [Ratio] 24.31 kg/m2 Matt Weeks APRN.VENDING MACHINE REPAIRER Work Phone: [facility] 08-26-2024 08:39-0400 Body temperature 97.39 [degF] Matt Hadley TRACK WELDER.VENDING MACHINE REPAIRER Work Phone: [facility] 03-17-2024 08:39-0400 Body weight 60.3 kg Mattjolanta Weeks APRN.VENDING MACHINE REPAIRER Work Phone: [facility] 03-17-2024 08:39-0400 Diastolic blood pressure 64 mm[Hg] Mattheidi Weeks TRACK WELDER.VENDING MACHINE REPAIRER Work Phone: [facility] 03-17-2024 08:39-0400 Heart rate 68 /min Matt Weeks APRN.VENDING MACHINE REPAIRER Work Phone: [facility] 03-17-2024 08:39-0400 Respiratory rate 18 /min Mattheidi Weeks TRACK WELDER.VENDING MACHINE REPAIRER Work Phone: [facility] 03-17-2024 08:39-0400 SaO2% (BldA) [Mass fraction] 98 % Matt Weeks APRN.VENDING MACHINE REPAIRER Work Phone: [facility] 03-17-2024 08:39-0400 Systolic blood pressure 102 mm[Hg] Matt Hadley TRACK WELDER.VENDING MACHINE REPAIRER Work Phone: [facility] 02-21-2023 13:18-0400 Body temperature 97.59 [degF] Dwayne Simmons TRACK WELDER.VENDING MACHINE REPAIRER Work Phone: [facility] 02-21-2023 13:18-0400 Body weight 64.59 kg Dwayne Simmons TRACK WELDER.VENDING MACHINE REPAIRER Work Phone: [facility] 02-21-2023 13:18-0400 Diastolic blood pressure 80 mm[Hg] Dwayne Simmons TRACK WELDER.VENDING MACHINE REPAIRER Work Phone: [facility] 02-21-2023 13:18-0400 Heart rate 71 /min Dwayne Simmons TRACK WELDER.VENDING MACHINE REPAIRER Work Phone: [facility] 02-21-2023 13:18-0400 Respiratory rate 20 /min Dwayne Simmons TRACK WELDER.VENDING MACHINE REPAIRER Work Phone: [facility] 02-21-2023 13:18-0400 SaO2% (BldA) [Mass fraction] 93 % Dwayne Simmons TRACK WELDER.VENDING MACHINE REPAIRER Work Phone: [facility] 02-21-2023 13:18-0400 Systolic blood pressure 118 mm[Hg] Dwayne Simmons TRACK WELDER.VENDING MACHINE REPAIRER Work Phone: [facility] 11-20-2022 13:29-0400 Body temperature 97.11 [degF] Jasmin Athy PA-C Work Phone: [facility] 11-20-2022 13:29-0400 Body weight 64.86 kg Jasmin Athy PA-C Work Phone: [facility] 11-20-2022 13:29-0400 Diastolic blood pressure 64 mm[Hg] Jasmin Athy PA-C Work Phone: [facility] 11-20-2022 13:29-0400 Heart rate 72 /min Jasmin Athy PA-C Work Phone: [facility] 11-20-2022 13:29-0400 Respiratory rate 16 /min Jasmin Athy PA-C Work Phone: [facility] 11-20-2022 13:29-0400 SaO2% (BldA) [Mass fraction] 99 % Jasmin Athy PA-C Work Phone: [facility] 11-20-2022 13:29-0400 Systolic blood pressure 102 mm[Hg] Jasmin Athy PA-C Work Phone: [facility] 09-29-2022 11:06-0500 Body height 157.5 cm Vicente Cuevas MD Work Phone: [facility] 09-29-2022 11:06-0500 Body temperature 98.8 [degF] Vicente Cuevas MD Work Phone: [facility] 09-29-2022 11:06-0500 Body weight 65.32 kg Vicente Cuevas MD Work Phone: [facility] 09-29-2022 11:06-0500 Diastolic blood pressure 58 mm[Hg] Vicente Cuevas MD Work Phone: [facility] 09-29-2022 11:06-0500 Heart rate 59 /min Vicente Cuevas MD Work Phone: [facility] 09-29-2022 11:06-0500 Respiratory rate 12 /min Vicente Cuevas MD Work Phone: [facility] 09-29-2022 11:06-0500 SaO2% (BldA) [Mass fraction] 100 % Vicente Cuevas MD Work Phone: [facility] 09-29-2022 11:06-0500 Systolic blood pressure 106 mm[Hg] Vicente Cuevas MD Work Phone: [facility] 05-19-2022 13:30-0400 Body temperature 97.9 [degF] Jasmin Athy PA-C Work Phone: [facility] 05-19-2022 13:30-0400 Body weight 64.59 kg Jasmin Athy PA-C Work Phone: [facility] 05-19-2022 13:30-0400 Diastolic blood pressure 82 mm[Hg] Jasmin Athy PA-C Work Phone: [facility] 05-19-2022 13:30-0400 Heart rate 67 /min Jasmin Athy PA-C Work Phone: [facility] 05-19-2022 13:30-0400 Respiratory rate 18 /min Jasmin Athy PA-C Work Phone: [facility] 05-19-2022 13:30-0400 SaO2% (BldA) [Mass fraction] 98 % Jasmin Athy PA-C Work Phone: [facility] 05-19-2022 13:30-0400 Systolic blood pressure 128 mm[Hg] Jasmin Athy PA-C Work Phone: [facility] 04-14-2022 14:59-0400 Body height 157.5 cm Vicente Cuevas MD Work Phone: [facility] 04-14-2022 14:59-0400 Body temperature 99 [degF] Vicente Cuevas MD Work Phone: [facility] 04-14-2022 14:59-0400 Body weight 62.6 kg Vicente Cuevas MD Work Phone: [facility] 04-14-2022 14:59-0400 Diastolic blood pressure 60 mm[Hg] Vicente Cuevas MD Work Phone: [facility] 04-14-2022 14:59-0400 Heart rate 68 /min Vicente Cuevas MD Work Phone: [facility] 04-14-2022 14:59-0400 Respiratory rate 12 /min Vicente Cuevas MD Work Phone: [facility] 04-14-2022 14:59-0400 SaO2% (BldA) [Mass fraction] 99 % Vicente Cuevas MD Work Phone: [facility] 04-14-2022 14:59-0400 Systolic blood pressure 114 mm[Hg] Vicente Cuevas MD Work Phone: [facility] 10-18-2021 14:08-0400 Body height 157.5 cm Vicente Cuevas MD Work Phone: [facility] 10-18-2021 14:08-0400 Body temperature 98.01 [degF] Vicente Cuevas MD Work Phone: [facility] 10-18-2021 14:08-0400 Body weight 61.24 kg Vicente Cuevas MD Work Phone: [facility] 10-18-2021 14:08-0400 Diastolic blood pressure 70 mm[Hg] Vicente Cuevas MD Work Phone: [facility] 10-18-2021 14:08-0400 Heart rate 63 /min Vicente Cuevas MD Work Phone: [facility] 10-18-2021 14:08-0400 Respiratory rate 14 /min Vicente Cuevas MD Work Phone: [facility] 10-18-2021 14:08-0400 SaO2% (BldA) [Mass fraction] 100 % Vicente Cuevas MD Work Phone: [facility] 10-18-2021 14:08040 Systolic blood pressure 128 mm[Hg] Vicente Cuevas MD Work Phone: [facility] Encounters Encounter Date Encounter Type Care Provider Facility Start: 03-17-2024 End: 03-17-2024 Subsequent hospital visit by physician Xr [facility] Work Phone: Radiology Comment on above: Acute constipation [ K59.00] Start: 03-17-2024 End: 03-17-2024 ambulatory [facility] Facility:[facility] Start: 03-17-2024 End: 03-17-2024 Patient encounter procedure Matt Weeks APRN.CNP Work Phone: [facility] Comment on above: Acute constipation ( Primary Dx) Start: 12-05-2023 ambulatory Vicente Gaviria Work Phone: Internal Medicine [facility] Start: 07-13-2023 End: 07-13-2023 Subsequent hospital visit by physician Xr [facility] Work Phone: Radiology Comment on above: Right foot injury, s ubsequent encounter [M43.929N] Start: 07-13-2023 End: 07-13-2023 [facility] Facility:[facility] Start: 07-11-2023 End: 07-11-2023 Subsequent hospital visit by physician Xr [facility] Work Phone: Radiology Comment on above: Acute right ankle pa in [M25.571] Start: 07-11-2023 End: 07-11-2023 [facility] Facility:[facility] Start: 03-23-2023 ambulatory Gladys Vetovit z PA-C [...] Subsequent hospital visit by physician Xr [facility] Work Phone: Radiology Comment on above: Acute cough [R05.1] Start: 02-21-2023 End: 02-21-2023 Patient encounter procedure Dwayne Simmons APRN.VENDING MACHINE REPAIRER Work Phone: [facility] Comment on above: 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); Acute cough; History of asthma Start: 02-09-2023 Refill Candace MoVENDING MACHINE REPAIRER Work Phone: Internal Medicine [facility] Comment on above: Refill Request Start: 11-29-2022 ambulatory Pcp ([facility]) [facility] Start: 11-28-2022 End: 11-28-2022 Subsequent hospital visit by physician Xr [facility] Work Phone: Radiology Comment on above: Acute pain of right shoulder [M25.511] Start: 11-20-2022 Telephone encounter Jasmin mccall PA-C Work Phone: [facility] Comment on above: Results Start: 11-20-2022 End: 11-20-2022 Subsequent hospital visit by physician Xr [facility] Work Phone: Radiology Comment on above: Strain of thoracic b ack region [S29.012A] Start: 11-20-2022 End: 11-20-2022 Patient encounter procedure Jasmin HUBBARDC Work Phone: [facility] Comment on above: Strain of thoracic b ack region (Primary Dx) Start: 10-30-2022 Refill Vicente Gaviria Work Phone: Internal Medicine [facility] Comment on above: Refill Request Start: 09-29-2022 End: 09-29-2022 Patient encounter procedure Vicente Cuevas MD Work Phone: Internal Medicine [facility] Comment on above: [place]cl[place] headache (Primary Dx); Light headed; Left ear pain Start: 09-27-2022 ambulatory Vicente Gaviria Work Phone: Internal Medicine [facility] Comment on above: Headache Start: 05-19-2022 End: 05-19-2022 Subsequent hospital visit by physician Kyra [facility] Work Phone: Radiology Comment on above: Left wrist tendoniti s [M77.8] Start: 05-19-2022 End: 05-19-2022 Patient encounter procedure Jasmin Blue PA-C Work Phone: [facility] Comment on above: Left wrist [...] Vicente Cuevas MD Work Phone: Internal Medicine [facility] Comment on above: Dry skin (Primary Dx ); Depression with anxiety; Conjugal maladjustment involving divorce; RLS (restless legs syndrome); Other fatigue; Iron deficiency; Vitamin B12 deficiency; Vitamin D deficiency Procedures Date Procedure Procedure Detail Performing Clinician Start: 03-17-2024 Radiologic exam abdo men 1 view Matt Weeks TRACK WELDER.VENDING MACHINE REPAIRER Work Phone: Start: 07-13-2023 Radex foot complete minimum 3 views Kendraangelika Caraballo TRACK WELDER.VENDING MACHINE REPAIRER Work Phone: Start: 07-11-2023 Radex ankle complete minimum 3 views Adrianna Husain TRACK WELDER.VENDING MACHINE REPAIRER Work Phone: Start: 02-21-2023 Radiologic exam ches t 2 views Dwayne Troy TRACK WELDER.VENDING MACHINE REPAIRER Work Phone: Start: 11-28-2022 Radex shoulder compl ete minimum 2 views Vicente Cuevas MD Work Phone: Start: 11-20-2022 Radex spine thoracic 3 views Jasmin Blue PA-C Work Phone: Start: 10-26-2022 Mammography Candace Older TRACK WELDER.VENDING MACHINE REPAIRER Work Phone: Start: 09-12-2022 Lipid 1996 panel - S jared or Plasma Gladys Chris PA-C Work Phone: Start: 05-19-2022 Radex wrist complete minimum 3 views Jasmin Blue PA-C Work Phone: Start: 08-23-2021 Mammography Vicente mcdonnell MD Work Phone: Plan of Treatment Date Care Activity Detail Author Start: 09-12-2027 Lipid 1996 panel - S jared or Plasma Lipid Screening [facility] Start: 09-12-2027 Lipid panel Lipid Screening [facility] Start: 09-12-2027 LIPID SCREEN LIPID SCREEN [facility] Start: 09-12-2025 [facility] Start: 09-12-2025 Diabetes Screening Diabetes Screenin g [facility] Start: 10-28-2024 Urine microalbumin profile [facility] Start: 03-23-2024 Covid-19 Vaccine () Covid-19 Vaccine () [facility] Start: 03-23-2024 Covid-19 Vaccine () Covid-19 Vaccine () [facility] Start: 03-23-2024 Influenza vaccination [facility] Start: 12-12-2023 End: 12-12-2023 Patient encounter procedure 12/12/2023 8:50 AM EDT Appointment Mammogram [address] [place] [address] Mammogram Start: 10-27-2023 Mammography [facility] Start: 10-27-2023 Screening for malign ant neoplasm of breast Mammogram Screening [facility] Start: 03-23-2023 Covid-19 Vaccine ( season) Covid-19 Vaccine () [facility] Start: 03-23-2023 Influenza vaccination [facility] Start: 08-23-2022 Mammography MAMMOGRAM [facility] Start: 2022 COLOGUARD (FIT-DNA) COLOGUARD (FIT-D NA) [facility] Start: 2022 Colonoscopy COLONOSCOPY [facility] Start: 2022 COLORECTAL CANCER SCREENING COLORECTAL CANCER SCREENING [facility] Start: [address] COLONOGRAPHY [facility] Start: 2022 FECAL OCCULT BLOOD FECAL OCCULT BLOO D [facility] Start: 2022 Screening for malign ant neoplasm of colon [facility] Start: 2022 SIGMOIDOSCOPY SIGMOIDOSCOPY [facility] Start: 03-23-2022 Influenza vaccination INFLUENZA (#1) [facility] Start: 10-18-2021 End: 12-18-2021 FERRITIN BLD [facility] Work Phone: Comment on above: Expected: 10/18/2021 , Expires: 12/18/2021 Start: 10-18-2021 End: 12-18-2021 IRON + TIBC [facility] Work Phone: Comment on above: Expected: 10/18/2021 , Expires: 12/18/2021 Start: 10-18-2021 End: 12-18-2021 Thyrotropin [Units/volume] in Serum or Plasma [facility] [facility] Work Phone: Comment on above: Expected: 10/18/2021 , Expires: 12/18/2021 Start: 10-18-2021 End: 12-18-2021 VITAMIN B12 BLOOD [facility] Work Phone: Comment on above: Expected: 10/18/2021 , Expires: 12/18/2021 Start: 10-18-2021 End: 12-18-2021 VITAMIN D 25 HYDROXY [facility] Work Phone: Comment on above: Expected: 10/18/2021 , Expires: 12/18/2021 Start: 10-17-2021 COVID-19 VACCINE (4 - Booster for Pfizer series) COVID-19 VACCINE (4 - Booster for Pfizer series) [facility] Start: 10-17-2021 COVID-19 VACCINE (4 - Pfizer series) COVID-19 VACCINE (4 - Pfizer series) [facility] Start: 1996 Hepatitis B Vaccine (1 of 3 - 19+ 3-dose series) Hepatitis B Vaccine (1 of 3 - 19+ 3-dose series) [facility] Start: 1977 HEPATITIS B (1 of 3 - 3-dose series) HEPATITIS B (1 of 3 - 3-dose series) [facility] Start: 1977 Hepatitis B Vaccine (1 of 3 - 3-dose series) Hepatitis B Vaccine (1 of 3 - 3-dose series) [facility] End: 01-03-2025 DBT Breast - bilateral screening DARIO SCREENING W ANGELA Radiology Routine 1 Occurrences starting 12/05/2023 until 01/03/2025 [facility] Work Phone: Comment on above: 1 Occurrences starti ng 12/05/2023 until 01/03/2025 Influenza virus A an d B RNA and SARS-CoV-2 (COVID-19) N gene panel - Respiratory specimen by AUDREY with probe detection COVID WITH FLUA+B, ROUTINE Microbiology Routine Viral syndrome Ordered: 04/14/2022 [facility] Work Phone: Comment on above: Ordered: 04/14/2022 End: 03-27-2024 US SHOULDER RIGHT US SHOULDER RIGHT Radiology Routine Acute pain of right shoulder Impingement syndrome of right shoulder 1 Occurrences starting 02/26/2023 until 03/27/2024 [facility] Work Phone: Comment on above: 1 Occurrences starti ng 02/26/2023 until 03/27/2024 [facility] Immunizations Immunization Date Immunization Notes Care Provider Trena keyonawenceslao 04-19-2021 influenza, injectabl e, quadrivalent, contains preservative Vicente Cuevas MD Work Phone: [facility] Work Phone: 04-19-2021 influenza virus vaccine, unspecified formulation Gladys Chris PA-C Work Phone: [facility] 01-02-2021 COVID-19 vaccine, ag e 12+ yr (PFIZER-BIONTECH - PURPLE TOP) Vicente Cuevas MD Work Phone: [facility] 12-11-2020 COVID-19 vaccine, ag e 12+ yr (PFIZER-BIONTECH - PURPLE TOP) Vicente Cuevas MD Work Phone: [facility] 08-12-2019 influenza, injectabl e, quadrivalent, contains preservative Vicente Cuevas MD Work Phone: [facility] 05-04-2016 influenza, injectabl e, quadrivalent, contains preservative Vicente Cuevas MD Work Phone: [facility] 05-28-2015 influenza, injectabl e, quadrivalent, contains preservative Vicente Cuevas MD Work Phone: [facility] 10-28-2014 tetanus toxoid, reduced diphtheria toxoid, and acellular pertussis vaccine, adsorbed Vicenet Cuevas MD Work Phone: [facility] NEGATED: Highlighted row has not occurred!09-01-2022 COVID-19 booster vaccine, age 12+ yr, bivalent (PFIZER-BIONTECH) Vicente Cuevas MD Work Phone: [facility] Work Phone: Comment on above: Deferred: OTHER Payers Date Payer Category Payer Medicaid [id number] 2022 Unknown [id number] 2022 Unknown [id number] 2016 Medicaid [facility] MEDICAID [facility] COMMUNITY PLAN MEDICAID [id number] 2016-Present [phone] [address] [place] [address] Medicaid [id number] 2016 Medicaid [id number] Social History Date Type Detail Facility Start: 03-15-2022 Tobacco smoking stat [facility] Never smoked tobacco [facility] Work Phone: Start: 10-18-2021 End: 05-19-2022 Alcohol intake Current non-drinker of alcohol (finding) [facility] Start: 10-18-2021 End: 08-25-2022 History SDOH Alcohol Frequency 1 [facility] Start: 10-18-2021 End: 08-25-2022 History SDOH Alcohol Std Drinks 98 [facility] Start: 10-18-2021 End: 08-25-2022 History SDOH Social Connections Phone 5 [facility] Start: 10-18-2021 End: 08-25-2022 History SDOH Social Connections Get Together 3 [facility] Start: 10-18-2021 End: 08-25-2022 History SDOH Social Connections Membership 2 [facility] Start: 02-10-2020 Education 16 [facility] Start: 1975 Sex Assigned At Not on file [facility] Start: 10-08-2021 End: 05-19-2022 Exposure to SARS-CoV-2 (event) Not sure [facility] Work Phone: Start: 03-15-2022 Tobacco use and exposure Smoke less tobacco non-user [facility] Start: 08-25-2022 History SDOH Social Connections Living 8 [facility] Start: 08-25-2022 History SDOH Physica l Activity MPS 15 [facility] Start: 1975 Sex Assigned At Female [facility] Start: 06-28-2020 End: 08-25-2022 History of Social function [facility] Start: 06-28-2020 End: 08-25-2022 Social connection and isolation panel [facility] How often do you att end sabianism or uatsdin services? Patient refused [facility] Do you belong to any clubs or organizations such as sabianism groups, unions, fraternal or athletic groups, or school groups? No [facility] Are you now , , , , never or living with a partner? Living with partner [facility] How often to you hav e a drink containing alcohol? Monthly or less [facility] How many standard dr inks containing alcohol do you have on a typical day? 1 or 2 [facility] How often do you hav e 6 or more drinks on 1 occasion? Never [facility] Do you feel stress - tense, restless, nervous, or anxious, or unable to sleep at night because your mind is troubled all the time - these days [OSQ] Not at all [facility] (I/We) worried wheth er (my/our) food would run out before (I/we) got money to buy more. Never true [facility] Start: 09-28-2022 Gender identity Identifies as female gender (finding) [facility] Are you now , , , , never or living with a partner? [facility] Do you feel stress - tense, restless, nervous, or anxious, or unable to sleep at night because your mind is troubled all the time - these days [OSQ] Only a little [facility] Clinical Notes 2006 to 03-17-2024 Mychal Fernandez, RT(R) - 03/17/2024 8:50 AM Matt Workman APRN.VENDING MACHINE REPAIRER - 03/17/2024 8:46 AM Leeanna Nixon, RT(R) [...] PATIENT PRESENTS WITH AN IMPLANTABLE OR ATTACHED FINANCIAL REPORTING SPECIALIST: No RADIOLOGY DEPARTMENT: General X-ray: Exam(s) Completed: Abdomen X-Ray: Abdomen PERIPHERAL IV DATA: Not applicable SIGNED BY: RT Luz(Sebastián) March 17, 2024 8:53 AM documented in this encounter [facility] 03-17-2024 Note HNO ID: [id number] Author: MYCHAL FERNANDEZ RT(R) Service: ? Author [...] PATIENT PRESENTS WITH AN IMPLANTABLE OR ATTACHED FINANCIAL REPORTING SPECIALIST: No RADIOLOGY DEPARTMENT: General X-ray: Exam(s) Completed: Abdomen X-Ray: Abdomen PERIPHERAL IV DATA: Not applicable SIGNED BY: RT Luz(Sebastián) March 17, 2024 8:53 AM [facility] 03-17-2024 Note HNO ID: [id number] Author: MATT WEEKS APRN.VENDING MACHINE REPAIRER Service: ? Author Type: Nurse Practitioner Type: [...] left kidney; due to complications from the [facility] 2005: SALPINGO-OOPHORECTOMY COMPL/PRTL UNI/BI SPX Comment: Salpingo-oophorectomy- [...] early 40's Hypertension Father Heart Father silent AR - age 50's Stroke Father other (parkinson) [...] IMPRESSION IMPRESSION: NO ACUTE ABDOMINAL PATHOLOGY VISUALIZED Commissary Manager: NANCY Transcribe Date/Time: Mar 17 2024 9:06A Dictated by : HERBERT MEZA MD Patient was given the constipation MiraLAX chart and instructed to take it twice a day until cleared out. Patient was instructed to increase her water intake. Patient was okay with this care (more content not included)... [facility] 03-17-2024 History of Presen t illness Narrative [...] left kidney; due to complications from the [facility] 2005: SALPINGO-OOPHORECTOMY COMPL/PRTL UNI/BI SPX Comment: Salpingo-oophorectomy- [...] early 40's Hypertension Father Heart Father silent AR - age 50's Stroke Father other (parkinson) [...] IMPRESSION IMPRESSION: NO ACUTE ABDOMINAL PATHOLOGY VISUALIZED Commissary Manager: NANCY Transcribe Date/Time: Mar 17 2024 9:06A [...] these occur she will follow-up. Matt Weeks APRN.VENDING MACHINE REPAIRER documented in this encounter [facility] 12-05-2023 Note Patient Outreach (IN TMMN) CHEL SANCHEZ ([id number]) 1975 F Date Time Provider Department 12/05/23 [...] LPN - Fully Assessed Order(s):DARIO Topete ANGELA [[id number]] Order #: [id number] FUTURE Prescriptions as of 12/10/2023 - ondansetron [...] 12/26/2016 Cervicalgia [M54.2] 04/20/2021 Encounter Status:Closed by [employer], PRODUSER on 12/10/23 [facility] 07-13-2023 Note HNO ID: [id number] Author: Mena Martinez RT(R) Service: ? Author Type: Functional Tester Typewriters Type: Progress Notes Filed: 07/13/2023 9:19 AM [...] IV DATA: Not applicable SIGNED BY: RT Liusa(R) July 13, 2023 9:09 AM [facility] 12-22-2023 Note HNO ID: [id number] Author: Kendra Caraballo APRN.VENDING MACHINE REPAIRER Service: ? Author Type: Nurse Practitioner Type: [...] early 40's Hypertension Father Heart Father silent AR - age 50's Stroke Father other (parkinson) [...] is evident. IMPRESSION: No acute bony finding. Commissary Manager: NANCY Transcribe Date/Time: Jul 13 2023 9:35A [...] rest and an (more content not included)... [facility] 07-11-2023 Note HNO ID: [id number] Author: Adrianna Husain APRN.VENDING MACHINE REPAIRER Service: ? Author Type: Nurse Practitioner Type: [...] early 40's Hypertension Father Heart Father silent AR - age 50's Stroke Father other (parkinson) [...] ANKLE GENERAL 3V AP/LAT/OBL RIGHT Adrianna Husain APRN.[facility] 07-11-2023 History of Presen t illness Narrative [...] 2023 10:51 AM documented in this encounter [facility] 07-11-2023 Note HNO ID: [id number] Author: Leeanna Irby RT(R) Service: Radiology Author [...] IV DATA: Not applicable SIGNED BY: OLEG Maxewll) July 11, 2023 10:51 AM [facility] 04-17-2023 Miscellaneous Notes Any updates for this patient? Any updates on an approval for PT and Ultrasound? Signed Paperwork was scanned into the patient chart on 03/09/2023. Please advise. Any updates on an approval for PT and Ultrasound? documented in this encounter [facility] 02-26-2023 Miscellaneous Notes Addended by: GLADYS CHRIS on: 02/26/2023 12:17 PM Modules accepted: Orders documented in this encounter [facility] 02-26-2023 History of Presen t illness Narrative Gladys Chris PA-C Department of Orthopaedics Orthopaedics [address] [place] [address] Dept: [phone] Dept February 26, 2023 Consultation requested by [...] this past October. 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 This is [facility]. ASSESSMENT: M75.41 Impingement syndrome of right [...] nerve distribution Imaging: IMPRESSION: NO ACUTE BONY Commissary Manager: PSCB Transcribe Date/Time: Nov 30 2022 3:48P [...] anxiety) This note was partially generated using [email or web address] voice recognition system, and there may be [...] Medication, Cold, Heat documented in this encounter [facility] 02-21-2023 Instructions Dwayne Simmons APRN.[facility] - 02/21/2023 1:58 PM EDT GENERAL [...] or feel confused. documented in this encounter [facility] 02-21-2023 History of Presen t illness Narrative [...] early 40's Hypertension Father Heart Father silent AR - age 50's Stroke Father other (parkinson) [...] HFA 90 MCG/ACTUATION AEROSOL INHALER Dwayne Simmons APRN.VENDING MACHINE REPAIRER documented in this encounter [facility] 02-12-2023 Miscellaneous Notes Patient has been identified [...] Steph Lala LPN documented in this encounter [facility] 11-29-2022 History of Presen t illness Narrative POPULATION HEALTH NAVIGATION OUTREACH Action/FYI Left vm Patient Identified by Name and : NO Outreach Outcome/Action Unable to reach patient: Left message MyChart message sent Did you use a PCP flex slot to schedule this appointment? No Reason for Outreach Care Gap or Scheduling/Wellness visits Payer: Payor: [facility] MEDICAID / Plan: [facility] COMMUNITY PLAN MEDICAID [place] / Product Type: Medicaid / Care Gap Reviewed:: Specialty Scheduling Reminder: Reminder note to check Health Maintenance for items below Health Maintenance items due: HEPATITIS B(1 of 3 - 3-dose series) Never done COVID-19 VACCINE(4 - Booster for Pfizer series) due on 10/17/2021 COLORECTAL CANCER SCREENING Never done Navigation Signature: Nataliia David November 29, 2022 1:25 PM documented in this encounter [facility] 11-28-2022 History of Presen t illness Narrative [...] 2022 3:04 PM documented in this encounter [facility] 11-20-2022 History of Presen t illness Narrative Images from the original note were not included. This note was created using [employer]ign Networks[employer]. Subjective Chel Sanchez is a 47 year [...] or chills. She has been trying ibuprofen [id number]. Review of Systems Constitutional: Negative. HENT: Negative. [...] early 40's Hypertension Father Heart Father silent AR - age 50's Stroke Father other (parkinson) [...] Jasmin Blue PA-C documented in this encounter [facility] 11-20-2022 Miscellaneous Notes Pt was notified of the results. Pt verbalized understanding. Bianca Baker MA Please let patient know her thoracic back x-rays were normal. Continue medications and plan of care as discussed at visit. documented in this encounter [facility] 11-20-2022 History of Presen t illness Narrative [...] 2022 1:47 PM documented in this encounter [facility] 10-30-2022 Miscellaneous Notes Patient has been identified [...] Steph Lala LPN documented in this encounter [facility] 10-30-2022 Miscellaneous Notes Patient has been identified [...] Steph Lala LPN documented in this encounter [facility] 09-29-2022 History of Presen t illness Narrative [...] early 40's Hypertension Father Heart Father silent AR - age 50's Stroke Father other (parkinson) [...] Vicente Cuevas MD documented in this encounter [facility] 05-19-2022 History of Presen t illness Narrative This note was created using Align Networksriter. Subjective Chel Sanchez is a 46 year old female. HPI Patient presents with left wrist pain. She states yesterday she was lifting boxes and afterwards her wrist started to hurt. She denies any trauma to the wrist. Denies any problems with it previously. She is right-handed. She did take ibuprofen [id number]. No numbness. Pain radiating into the left [...] left kidney; due to complications from the [facility] SALPINGO-OOPHORECTOMY COMPL/PRTL UNI/BI SPX 2004 Salpingo-oophorectomy- bilat TOTAL ABDOMINAL HYSTERECT W/WO RMVL TUBE OVARY 07/2003 rad hyst w/ lymph node disection FAMILY HISTORY Problem Relation Age of Onset Breast Cancer Mother dx approx early 40's Hypertension Father Heart Father silent AR - age 50's Stroke Father other (parkinson) [...] Jasmin Blue PA-C documented in this encounter [facility] 05-19-2022 History of Presen t illness Narrative [...] 2022 1:51 PM documented in this encounter [facility] 04-14-2022 History of Presen t illness Narrative [...] early 40's Hypertension Father Heart Father silent AR - age 50's Stroke Father other (parkinson) [...] Vicente Cuevas MD documented in this encounter [facility] 02-03-2022 Miscellaneous Notes sent to medical records to be picked up documented in this encounter [facility] 12-09-2021 Miscellaneous Notes Patient has been identified [...] Steph Lala LPN documented in this encounter [facility] 11-14-2021 Miscellaneous Notes Letter ready for mixing picker tender in Medical Record. documented in this encounter [facility] 10-26-2021 Miscellaneous Notes Patient notified of results [...] Patricia Addison LPN documented in this encounter [facility] 10-18-2021 History of Presen t illness Narrative [...] early 40's Hypertension Father Heart Father silent AR - age 50's Stroke Father other (parkinson) [...] Vicente Cuevas MD documented in this encounter [facility] 2006 History of Past i llness Narrative Problem Noted Date Resolved Date Increased total bili 2006 10/24/2007 Overview: total bili 1.94, direct normal (06/27) - repeat similar, past CBC same - dx = Gilbert's CERVICAL CANCER, s/p hysterectomy 07/23/2004 12/26/2016 Overview: [employer] recommends annual pap smears x 10 yrs after hysterectomy for cancer, and until the most recent 3 pap smears are all normal. (these guidelines as of December 2007) May 02, 2016 My office has made 2 attempts to get records from previous surgery at [place] in 2003, had radical hyst w/ plevic lymph node dissection in 07/2003. No op report or path report available. Got consult note and H&P done after the surgery that don't mention stage. Karen Mckee MD Unspecified asthma(493.90) 12/21 Overview: had PFT's in approx Aug 2006 documented as of this encounter (statuses as of 10/18/2021) [facility]12-[facility]-2006 History of Past illness Narrative* Problem Noted Date Resolved Date Increased total bili 2006 10/24/2007 Overview: total bili 1.94, direct normal (06/27) - repeat similar, past CBC same - dx = Gilbert's CERVICAL CANCER, s/p hysterectomy 07/23/2004 12/26/2016 Overview: [employer] recommends annual pap smears x 10 yrs after hysterectomy for cancer, and until the most recent 3 pap smears are all normal. (these guidelines as of December 2007) May 02, 2016 My office has made 2 attempts to get records from previous surgery at [place] in 2003, had radical hyst w/ plevic lymph node dissection in 07/2003. No op report or path report available. Got consult note and H&P done after the surgery that don't mention stage. Karen Mckee MD Unspecified asthma(493.90) 12/21 Overview: had PFT's in approx Aug 2006 documented as of this encounter (statuses as of 10/26/2021) [facility] History of Past illness Narrative* Problem Noted Date Resolved Date Increased total bili 2006 10/24/2007 Overview: total bili 1.94, direct normal (06/27) - repeat similar, past CBC same - dx = Gilbert's CERVICAL CANCER, s/p hysterectomy 07/23/2004 12/26/2016 Overview: [employer] recommends annual pap smears x 10 yrs after hysterectomy for cancer, and until the most recent 3 pap smears are all normal. (these guidelines as of December 2007) May 02, 2016 My office has made 2 attempts to get records from previous surgery at [place] in 2003, had radical hyst w/ plevic lymph node dissection in 07/2003. No op report or path report available. Got consult note and H&P done after the surgery that don't mention stage. Karen Mckee MD Unspecified asthma(493.90) 12/21 Overview: had PFT's in approx Aug 2006 documented as of this encounter (statuses as of 11/14/2021) [facility] History of Past illness Narrative* Problem Noted Date Resolved Date Increased total bili 2006 10/24/2007 Overview: total bili 1.94, direct normal (06/27) - repeat similar, past CBC same - dx = Gilbert's CERVICAL CANCER, s/p hysterectomy 07/23/2004 12/26/2016 Overview: [employer] recommends annual pap smears x 10 yrs after hysterectomy for cancer, and until the most recent 3 pap smears are all normal. (these guidelines as of December 2007) May 02, 2016 My office has made 2 attempts to get records from previous surgery at [place] in 2003, had radical hyst w/ plevic lymph node dissection in 07/2003. No op report or path report available. Got consult note and H&P done after the surgery that don't mention stage. Karen Mckee MD Unspecified asthma(493.90) 12/21 Overview: had PFT's in approx Aug 2006 documented as of this encounter (statuses as of 12/09/2021) [facility] History of Past illness Narrative* Problem Noted Date Resolved Date Increased total bili 2006 10/24/2007 Overview: total bili 1.94, direct normal (06/27) - repeat similar, past CBC same - dx = Gilbert's CERVICAL CANCER, s/p hysterectomy 07/23/2004 12/26/2016 Overview: [employer] recommends annual pap smears x 10 yrs after hysterectomy for cancer, and until the most recent 3 pap smears are all normal. (these guidelines as of December 2007) May 02, 2016 My office has made 2 attempts to get records from previous surgery at [place] in 2003, had radical hyst w/ plevic lymph node dissection in 07/2003. No op report or path report available. Got consult note and H&P done after the surgery that don't mention stage. Karen Mckee MD Unspecified asthma(493.90) 12/21 Overview: had PFT's in approx Aug 2006 documented as of this encounter (statuses as of 02/03/2022) [facility] History of Past illness Narrative* Problem Noted Date Resolved Date Increased total bili 2006 10/24/2007 Overview: total bili 1.94, direct normal (06/27) - repeat similar, past CBC same - dx = Gilbert's CERVICAL CANCER, s/p hysterectomy 07/23/2004 12/26/2016 Overview: [employer] recommends annual pap smears x 10 yrs after hysterectomy for cancer, and until the most recent 3 pap smears are all normal. (these guidelines as of December 2007) May 02, 2016 My office has made 2 attempts to get records from previous surgery at [place] in 2003, had radical hyst w/ plevic lymph node dissection in 07/2003. No op report or path report available. Got consult note and H&P done after the surgery that don't mention stage. Karen Mckee MD Unspecified asthma(493.90) 12/21 Overview: had PFT's in approx Aug 2006 documented as of this encounter (statuses as of 04/14/2022) [facility] History of Past illness Narrative* Problem Noted Date Resolved Date Increased total bili 2006 10/24/2007 Overview: total bili 1.94, direct normal (06/27) - repeat similar, past CBC same - dx = Gilbert's CERVICAL CANCER, s/p hysterectomy 07/23/2004 12/26/2016 Overview: [employer] recommends annual pap smears x 10 yrs after hysterectomy for cancer, and until the most recent 3 pap smears are all normal. (these guidelines as of December 2007) May 02, 2016 My office has made 2 attempts to get records from previous surgery at [place] in 2003, had radical hyst w/ plevic lymph node dissection in 07/2003. No op report or path report available. Got consult note and H&P done after the surgery that don't mention stage. Karen Mckee MD Unspecified asthma(493.90) 12/21 Overview: had PFT's in approx Aug 2006 documented as of this encounter (statuses as of 05/19/2022) [facility] History of Past illness Narrative* Problem Noted Date Resolved Date Increased total bili 2006 10/24/2007 Overview: total bili 1.94, direct normal (06/27) - repeat similar, past CBC same - dx = Gilbert's CERVICAL CANCER, s/p hysterectomy 07/23/2004 12/26/2016 Overview: [employer] recommends annual pap smears x 10 yrs after hysterectomy for cancer, and until the most recent 3 pap smears are all normal. (these guidelines as of December 2007) May 02, 2016 My office has made 2 attempts to get records from previous surgery at [place] in 2003, had radical hyst w/ plevic lymph node dissection in 07/2003. No op report or path report available. Got consult note and H&P done after the surgery that don't mention stage. Karen Mckee MD Unspecified asthma(493.90) 12/21 Overview: had PFT's in approx Aug 2006 documented as of this encounter (statuses as of 09/27/2022) [facility]12-[facility]-2006 History of Past illness Narrative* Problem Noted Date Resolved Date Increased total bili 2006 10/24/2007 Overview: total bili 1.94, direct normal (06/27) - repeat similar, past CBC same - dx = Gilbert's CERVICAL CANCER, s/p hysterectomy 07/23/2004 12/26/2016 Overview: [employer] recommends annual pap smears x 10 yrs after hysterectomy for cancer, and until the most recent 3 pap smears are all normal. (these guidelines as of December 2007) May 02, 2016 My office has made 2 attempts to get records from previous surgery at [place] in 2003, had radical hyst w/ plevic lymph node dissection in 07/2003. No op report or path report available. Got consult note and H&P done after the surgery that don't mention stage. Karen Mckee MD Unspecified asthma(493.90) 12/21 Overview: had PFT's in approx Aug 2006 documented as of this encounter (statuses as of 09/29/2022) [facility]12-[facility]-2006 History of Past illness Narrative* Problem Noted Date Resolved Date Increased total bili 2006 10/24/2007 Overview: total bili 1.94, direct normal (06/27) - repeat similar, past CBC same - dx = Gilbert's CERVICAL CANCER, s/p hysterectomy 07/23/2004 12/26/2016 Overview: [employer] recommends annual pap smears x 10 yrs after hysterectomy for cancer, and until the most recent 3 pap smears are all normal. (these guidelines as of December 2007) May 02, 2016 My office has made 2 attempts to get records from previous surgery at [place] in 2003, had radical hyst w/ plevic lymph node dissection in 07/2003. No op report or path report available. Got consult note and H&P done after the surgery that don't mention stage. Karen Mckee MD Unspecified asthma(493.90) 12/21 Overview: had PFT's in approx Aug 2006 documented as of this encounter (statuses as of 10/31/2022) [facility]12[facility] History of Past illness Narrative* Problem Noted Date Resolved Date Increased total bili 2006 10/24/2007 Overview: total bili 1.94, direct normal (06/27) - repeat similar, past CBC same - dx = Gilbert's CERVICAL CANCER, s/p hysterectomy 07/23/2004 12/26/2016 Overview: [employer] recommends annual pap smears x 10 yrs after hysterectomy for cancer, and until the most recent 3 pap smears are all normal. (these guidelines as of December 2007) May 02, 2016 My office has made 2 attempts to get records from previous surgery at [place] in 2003, had radical hyst w/ plevic lymph node dissection in 07/2003. No op report or path report available. Got consult note and H&P done after the surgery that don't mention stage. Karen Mckee MD Unspecified asthma(493.90) 12/21 Overview: had PFT's in approx Aug 2006 documented as of this encounter (statuses as of 10/31/2022) [facility] History of Past illness Narrative* Problem Noted Date Resolved Date Increased total bili 2006 10/24/2007 Overview: total bili 1.94, direct normal (06/27) - repeat similar, past CBC same - dx = Gilbert's CERVICAL CANCER, s/p hysterectomy 07/23/2004 12/26/2016 Overview: [employer] recommends annual pap smears x 10 yrs after hysterectomy for cancer, and until the most recent 3 pap smears are all normal. (these guidelines as of December 2007) May 02, 2016 My office has made 2 attempts to get records from previous surgery at [place] in 2003, had radical hyst w/ plevic lymph node dissection in 07/2003. No op report or path report available. Got consult note and H&P done after the surgery that don't mention stage. Karen Mckee MD Unspecified asthma(493.90) 12/21 Overview: had PFT's in approx Aug 2006 documented as of this encounter (statuses as of 11/21/2022) [facility] History of Past illness Narrative* Problem Noted Date Resolved Date Increased total bili 2006 10/24/2007 Overview: total bili 1.94, direct normal (06/27) - repeat similar, past CBC same - dx = Gilbert's CERVICAL CANCER, s/p hysterectomy 07/23/2004 12/26/2016 Overview: [employer] recommends annual pap smears x 10 yrs after hysterectomy for cancer, and until the most recent 3 pap smears are all normal. (these guidelines as of December 2007) May 02, 2016 My office has made 2 attempts to get records from previous surgery at [place] in 2003, had radical hyst w/ plevic lymph node dissection in 07/2003. No op report or path report available. Got consult note and H&P done after the surgery that don't mention stage. Karen Mckee MD Unspecified asthma(493.90) 12/21 Overview: had PFT's in approx Aug 2006 documented as of this encounter (statuses as of 11/21/2022) [facility] History of Past illness Narrative* Problem Noted Date Resolved Date Increased total bili 2006 10/24/2007 Overview: total bili 1.94, direct normal (06/27) - repeat similar, past CBC same - dx = Gilbert's CERVICAL CANCER, s/p hysterectomy 07/23/2004 12/26/2016 Overview: [employer] recommends annual pap smears x 10 yrs after hysterectomy for cancer, and until the most recent 3 pap smears are all normal. (these guidelines as of December 2007) May 02, 2016 My office has made 2 attempts to get records from previous surgery at [place] in 2003, had radical hyst w/ plevic lymph node dissection in 07/2003. No op report or path report available. Got consult note and H&P done after the surgery that don't mention stage. Karen Mckee MD Unspecified asthma(493.90) 12/21 Overview: had PFT's in approx Aug 2006 documented as of this encounter (statuses as of 11/29/2022) [facility] History of Past illness Narrative* Problem Noted Date Diagnosed Date Resolved Date Increased total bili 2006 008 Overview: total bili 1.94, direct normal (06/27) - repeat similar, past CBC same - dx = Gilbert's CERVICAL CANCER, s/p hysterectomy 07/23/2004 12/26/2016 Overview: [employer] recommends annual pap smears x 10 yrs after hysterectomy for cancer, and until the most recent 3 pap smears are all normal. (these guidelines as of December 2007) May 02, 2016 My office has made 2 attempts to get records from previous surgery at [place] in 2003, had radical hyst w/ plevic lymph node dissection in 07/2003. No op report or path report available. Got consult note and H&P done after the surgery that don't mention stage. Karen Mckee MD Unspecified asthma(493.90) 0 12/21/2014 Overview: had PFT's in approx Aug 2006 documented as of this encounter (statuses as of 02/12/2023) [facility]12-[facility] History of Past illness Narrative* Problem Noted Date Diagnosed Date Resolved Date Increased total bili 2006 008 Overview: total bili 1.94, direct normal (06/27) - repeat similar, past CBC same - dx = Gilbert's CERVICAL CANCER, s/p hysterectomy 07/23/2004 12/26/2016 Overview: [employer] recommends annual pap smears x 10 yrs after hysterectomy for cancer, and until the most recent 3 pap smears are all normal. (these guidelines as of December 2007) May 02, 2016 My office has made 2 attempts to get records from previous surgery at [place] in 2003, had radical hyst w/ plevic lymph node dissection in 07/2003. No op report or path report available. Got consult note and H&P done after the surgery that don't mention stage. Karen Mckee MD Unspecified asthma(493.90) 0 12/21/2014 Overview: had PFT's in approx Aug 2006 documented as of this encounter (statuses as of 02/21/2023) [facility] History of Past illness Narrative* Problem Noted Date Diagnosed Date Resolved Date Increased total bili 2006 008 Overview: total bili 1.94, direct normal (06/27) - repeat similar, past CBC same - dx = Gilbert's CERVICAL CANCER, s/p hysterectomy 07/23/2004 12/26/2016 Overview: [employer] recommends annual pap smears x 10 yrs after hysterectomy for cancer, and until the most recent 3 pap smears are all normal. (these guidelines as of December 2007) May 02, 2016 My office has made 2 attempts to get records from previous surgery at [place] in 2003, had radical hyst w/ plevic lymph node dissection in 07/2003. No op report or path report available. Got consult note and H&P done after the surgery that don't mention stage. Karen Mckee MD Unspecified asthma(493.90) 0 12/21/2014 Overview: had PFT's in approx Aug 2006 documented as of this encounter (statuses as of 02/26/2023) [facility] History of Past illness Narrative* Problem Noted Date Diagnosed Date Resolved Date Increased total bili 2006 008 Overview: total bili 1.94, direct normal (06/27) - repeat similar, past CBC same - dx = Gilbert's CERVICAL CANCER, s/p hysterectomy 07/23/2004 12/26/2016 Overview: [employer] recommends annual pap smears x 10 yrs after hysterectomy for cancer, and until the most recent 3 pap smears are all normal. (these guidelines as of December 2007) May 02, 2016 My office has made 2 attempts to get records from previous surgery at [place] in 2003, had radical hyst w/ plevic lymph node dissection in 07/2003. No op report or path report available. Got consult note and H&P done after the surgery that don't mention stage. Karen Mckee MD Unspecified asthma(493.90) 0 12/21/2014 Overview: had PFT's in approx Aug 2006 documented as of this encounter (statuses as of 03/01/2023) [facility] History of Past illness Narrative* Problem Noted Date Diagnosed Date Resolved Date Increased total bili 2006 008 Overview: total bili 1.94, direct normal (06/27) - repeat similar, past CBC same - dx = Gilbert's CERVICAL CANCER, s/p hysterectomy 07/23/2004 12/26/2016 Overview: [employer] recommends annual pap smears x 10 yrs after hysterectomy for cancer, and until the most recent 3 pap smears are all normal. (these guidelines as of December 2007) May 02, 2016 My office has made 2 attempts to get records from previous surgery at [place] in 2003, had radical hyst w/ plevic lymph node dissection in 07/2003. No op report or path report available. Got consult note and H&P done after the surgery that don't mention stage. Karen Mckee MD Unspecified asthma(493.90) 0 12/21/2014 Overview: had PFT's in approx Aug 2006 documented as of this encounter (statuses as of 03/14/2023) [facility]12[facility] History of Past illness Narrative* Problem Noted Date Diagnosed Date Resolved Date Increased total bili 2006 008 Overview: total bili 1.94, direct normal (06/27) - repeat similar, past CBC same - dx = Gilabbi's CERVICAL CANCER, s/p hysterectomy 07/23/2004 12/26/2016 Overview: [employer] recommends annual pap smears x 10 yrs after hysterectomy for cancer, and until the most recent 3 pap smears are all normal. (these guidelines as of December 2007) May 02, 2016 My office has made 2 attempts to get records from previous surgery at [place] in 2003, had radical hyst w/ plevic lymph node dissection in 07/2003. No op report or path report available. Got consult note and H&P done after the surgery that don't mention stage. Karen Mckee MD Unspecified asthma(493.90) 0 12/21/2014 Overview: had PFT's in approx Aug 2006 documented as of this encounter (statuses as of 05/14/2023) [facility] Dry skin- Primary Other specified disease of sebaceous glands Depression with anxiety Dysthymic disorder Conjugal maladjustment involving divorce Family disruption due to divorce or legal separation RLS (restless legs syndrome) Restless legs syndrome (RLS) Other fatigue Iron deficiency Iron deficiency anemia, unspecified Vitamin B12 deficiency Other B-complex deficiencies Vitamin D deficiency Unspecified vitamin D deficiency [facility] Depression with anxiety Dysthymic disorder Conjugal maladjustment involving divorce Family disruption due to divorce or legal separation [facility] Diagnosis Viral syndrome- Primary Unspecified viral infection, in conditions classified elsewhere and of unspecified site [facility] Diagnosis Left [facility] tendonitis- Primary [facility] Diagnosis [place] headache- Primary Headache Light headed Dizziness and giddiness Left ear pain Otalgia, unspecified [facility]* Diagnosis RLS (restless legs syndrome) Restless legs syndrome (RLS) [facility] Diagnosis Depression with anxiety Dysthymic disorder [facility] Diagnosis Strain of thoracic back region- Primary [facility] Diagnosis Community acquired pneumonia of right lower lobe of lung- Primary Acute cough History of asthma Personal history of other diseases of respiratory system [facility] Diagnosis Impingement syndrome of right shoulder- Primary Other affections of shoulder region, not elsewhere classified Acute pain of right shoulder [facility] Diagnosis Acute pain of right shoulder- Primary Impingement syndrome of right shoulder Other affections of shoulder region, not elsewhere classified [facility] Diagnosis Acute pain of right shoulder- Primary Impingement syndrome of right shoulder Other affections of shoulder region, not elsewhere classified [facility] Diagnosis Irritable bowel syndrome with diarrhea- [...] constipation Unspecified constipation [facility] Diagnosis Irritable bowel syndrome with diarrhea- Primary Irritable bowel syndrome RLS (restless legs syndrome) Restless legs syndrome (RLS) Fibromyalgia Mylagia and myositis, unspecified 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 Obesity (BMI 30.0-34.9) Obesity, unspecified Mixed incontinence Mixed incontinence urge and stress (male)(female) Depression with anxiety Dysthymic disorder Acute constipation Unspecified constipation [facility] Diagnosis Irritable bowel syndrome with diarrhea- Primary Irritable bowel syndrome RLS (restless legs syndrome) Restless legs syndrome (RLS) Fibromyalgia Mylagia and myositis, unspecified 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 Obesity (BMI 30.0-34.9) Obesity, unspecified Mixed incontinence Mixed incontinence urge and stress (male)(female) Depression with anxiety Dysthymic disorder Right foot injury, subsequent encounter [facility] Diagnosis Irritable bowel syndrome with diarrhea- Primary Irritable bowel syndrome RLS (restless legs syndrome) Restless legs syndrome (RLS) Fibromyalgia Mylagia and myositis, unspecified 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 Obesity (BMI 30.0-34.9) Obesity, unspecified Mixed incontinence Mixed incontinence urge and stress (male)(female) Depression with anxiety Dysthymic disorder Acute right ankle pain [facility] Diagnosis Irritable bowel syndrome with diarrhea- Primary Irritable bowel syndrome RLS (restless legs syndrome) Restless legs syndrome (RLS) Fibromyalgia Mylagia and myositis, unspecified 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 Obesity (BMI 30.0-34.9) Obesity, unspecified Mixed incontinence Mixed incontinence urge and stress (male)(female) Depression with anxiety Dysthymic disorder Strain of thoracic back region [facility] Diagnosis Irritable bowel syndrome with diarrhea- Primary Irritable bowel syndrome RLS (restless legs syndrome) Restless legs syndrome (RLS) Fibromyalgia Mylagia and myositis, unspecified 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 Obesity (BMI 30.0-34.9) Obesity, unspecified Mixed incontinence Mixed incontinence urge and stress (male)(female) Depression with anxiety Dysthymic disorder Acute pain of right shoulder [facility] Diagnosis Irritable bowel syndrome with diarrhea- Primary Irritable bowel syndrome RLS (restless legs syndrome) Restless legs syndrome (RLS) Fibromyalgia Mylagia and myositis, unspecified 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 for referral (narrative)* Diagnostic Procedure Only (Urgent) - Closed Specialty Diagnoses / Procedures Referred By Jordan mills Referred To Contact XR IMAGING Diagnoses Left wrist tendonitis Procedures XR WRIST INJURY 4V PA/LAT/OBL/SCAPH LEFT RADEX WRIST COMPLETE MINIMUM 3 VIEWS Jasmin Blue PA-C [address] [place] [address] Xr Imaging Referral ID Status Reason Start Date Expiration Date V isits Requested Visits Authorized [id number] Closed Auto-Generate d Referral 05/19/2022 06/18/[address] [facility] for referral (narrative)* Diagnostic Procedure Only (Urgent) - Closed Specialty Diagnoses / Procedures Referred By Contac t Referred To Contact XR IMAGING Diagnoses Strain of thoracic back region Procedures XR THORACIC GENERAL 3V AP/LAT/SWIMMERS RADEX SPINE THORACIC 3 VIEWS Jasmin Bleu PA-C [address] [place] [address] Xr Imaging Referral ID Status Reason Start Date Expiration Date V isits Requested Visits Authorized [id number] Closed Auto-Generate d Referral 11/20/2022 12/20/[address] [facility] for referral (narrative)* Diagnostic Procedure Only (Routine) - Pending Review Specialty Diagnoses / Procedures Referred By Contac t Referred To Contact US IMAGING Diagnoses Acute pain of right shoulder Impingement syndrome of right shoulder Procedures US SHOULDER RIGHT US COMPL JOINT R-T W/IMAGE DOCUMENTATION Gladys Chris PA-C [address] [place] [address] Us Imaging Referral ID Status Reason Start Date Expiration Date Visits Requested Visits Authorized [id number] Pending Review Auto-Generat ed Referral 02/26/2023 03/27/2024 1 1 * - Pending Review Specialty Diagnoses / Procedures Referred By Contac t Referred To Contact Physical Therapy Diagnoses Acute pain of right shoulder Impingement syndrome of right shoulder Procedures CONSULT TO PHYSICAL THERAPY Gladys Chris PA-C [address] [place] [address] Referral ID Status Reason Start Date Expiration Date V isits Requested Visits Authorized [id number] Pending Review 02/26/2023 05/27/[address] [facility] for referral (narrative)* Diagnostic Procedure Only (Routine) - Authorized Specialty Diagnoses / Procedures Referred By Contac t Referred To Contact BR IMAGING Procedures DARIO SCREENING W ANGELA SCREENING DIGITAL BREAST TOMOSYNTHESIS BI SCREENING MAMMOGRAPHY BI 2-VIEW BREAST INC Vicente Corley MD [address] [place] [address] Br Imaging [address] [place] [address] Referral ID Status Reason Start Date Expiration Date Visits Requested Visits Authorized [id number] Authorized Auto-Generat ed Referral 12/05/2023 01/03/[address] [facility] for referral (narrative)* Diagnostic Procedure Only (Urgent) - Closed Specialty Diagnoses / Procedures Referred By Contac t Referred To Contact XR IMAGING Diagnoses Acute constipation Procedures XR ABDOMEN 1V SUPINE RADIOLOGIC EXAM ABDOMEN 1 VIEW Matt Weeks APRN.VENDING MACHINE REPAIRER [address] [place] [address] [place] [address] Referral ID Status Reason Start Date Expiration Date V isits Requested Visits Authorized [id number] Closed Auto-Generate d Referral 03/17/2024 04/16/[address] [facility] for referral (narrative)* Diagnostic Procedure Only (Urgent) - Closed Specialty Diagnoses / Procedures Referred By Contac t Referred To Contact XR IMAGING Diagnoses Acute constipation Procedures XR ABDOMEN 1V SUPINE RADIOLOGIC EXAM ABDOMEN 1 VIEW Matt Weeks APRN.CNP [address] [place] [address] [place] [address] Referral ID Status Reason Start Date Expiration Date V isits Requested Visits Authorized [id number] Closed Auto-Generate d Referral 03/17/2024 04/16/[address] [facility] for referral (narrative)* Diagnostic Procedure Only (Urgent) - Closed Specialty Diagnoses / Procedures Referred By Contac t Referred To Contact XR IMAGING Diagnoses Right foot injury, subsequent encounter Procedures XR FOOT GENERAL 3V AP/LAT/OBL RIGHT RADEX FOOT COMPLETE MINIMUM 3 VIEWS Kendra Caraballo, TRACK WELDER.VENDING MACHINE REPAIRER [address] [place] [address] [place] [address] Referral ID Status Reason Start Date Expiration Date V isits Requested Visits Authorized [id number] Closed Auto-Generate d Referral 07/13/2023 08/11/[address] [facility] for referral (narrative)* Diagnostic Procedure Only (Urgent) - Closed Specialty Diagnoses / Procedures Referred By Contac t Referred To Contact XR IMAGING Diagnoses Acute right ankle pain Procedures XR ANKLE GENERAL 3V AP/LAT/OBL RIGHT RADEX ANKLE COMPLETE MINIMUM 3 VIEWS Adrianna Husain APRN.VENDING MACHINE REPAIRER [address] [place] [address] [place] [address] Referral ID Status Reason Start Date Expiration Date V isits Requested Visits Authorized [id number] Closed Auto-Generate d Referral 07/11/2023 08/09/[address] [facility] for referral (narrative)* Diagnostic Procedure Only (Urgent) - Closed Specialty Diagnoses / Procedures Referred By Contac t Referred To Contact XR IMAGING Diagnoses Strain of thoracic back region Procedures XR THORACIC GENERAL 3V AP/LAT/SWIMMERS RADEX SPINE THORACIC 3 VIEWS Jasmin Blue PA-C [address] [place] [address] [place] [address] Referral ID Status Reason Start Date Expiration Date V isits Requested Visits Authorized [id number] Closed Auto-Generate d Referral 11/20/2022 12/20/[address] [facility] for referral (narrative)* Diagnostic Procedure Only (Routine) - Closed Specialty Diagnoses / Procedures Referred By Contac t Referred To Contact XR IMAGING Diagnoses Acute pain of right shoulder Procedures XR SHOULDER GENERAL 3V OR MORE AP/TRUE AP/OTHER RIGHT RADEX SHOULDER COMPLETE MINIMUM 2 VIEWS Vicente Cuevas MD [address] [place] [address] [place] [address] Referral ID Status Reason Start Date Expiration Date V isits Requested Visits Authorized [id number] Closed Auto-Generate d Referral 11/28/2022 12/28/[address] [facility] for referral (narrative)* Diagnostic Procedure Only (Urgent) - Closed Specialty Diagnoses / Procedures Referred By Contac t Referred To Contact XR IMAGING Diagnoses Left wrist tendonitis Procedures XR WRIST INJURY 4V PA/LAT/OBL/SCAPH LEFT RADEX WRIST COMPLETE MINIMUM 3 VIEWS Jasmin Blue PA-C [address] [place] [address] [place] [address] Referral ID Status Reason Start Date Expiration Date V isits Requested Visits Authorized [id number] Closed Auto-Generate d Referral 05/19/2022 06/18/[address] [facility] for visit Narrative* Diagnostic Procedure Only (Urgent) - Closed Specialty Diagnoses / Procedures Referred By Contac t Referred To Contact XR IMAGING Diagnoses Acute constipation Procedures XR ABDOMEN 1V SUPINE RADIOLOGIC EXAM ABDOMEN 1 VIEW Matt Weeks APRN.VENDING MACHINE REPAIRER [address] [place] [address] [place] [address] Referral ID Status Reason Start Date Expiration Date V isits Requested Visits Authorized [id number] Closed Auto-Generate d Referral 03/17/2024 04/16/[address] [facility] for visit Narrative* Diagnostic Procedure Only (Urgent) - Closed Specialty Diagnoses / Procedures Referred By Contac t Referred To Contact XR IMAGING Diagnoses Right foot injury, subsequent encounter Procedures XR FOOT GENERAL 3V AP/LAT/OBL RIGHT RADEX FOOT COMPLETE MINIMUM 3 VIEWS Kendra Caraballo APRN.VENDING MACHINE REPAIRER [address] [place] [address] [place] [address] Referral ID Status Reason Start Date Expiration Date V isits Requested Visits Authorized [id number] Closed Auto-Generate d Referral 07/13/2023 08/11/[address] [facility] for visit Narrative* Diagnostic Procedure Only (Urgent) - Closed Specialty Diagnoses / Procedures Referred By Contac t Referred To Contact XR IMAGING Diagnoses Acute right ankle pain Procedures XR ANKLE GENERAL 3V AP/LAT/OBL RIGHT RADEX ANKLE COMPLETE MINIMUM 3 VIEWS Adrianna Husain APRN.VENDING MACHINE REPAIRER [address] [place] [address] [place] [address] Referral ID Status Reason Start Date Expiration Date V isits Requested Visits Authorized [id number] Closed Auto-Generate d Referral 07/11/2023 08/09/[address] [facility] for visit Narrative* Diagnostic Procedure Only (Urgent) - Closed Specialty Diagnoses / Procedures Referred By Contac t Referred To Contact XR IMAGING Diagnoses Strain of thoracic back region Procedures XR THORACIC GENERAL 3V AP/LAT/SWIMMERS RADEX SPINE THORACIC 3 VIEWS Jasmin Blue PA-C [address] [place] [address] [place] [address] Referral ID Status Reason Start Date Expiration Date V isits Requested Visits Authorized [id number] Closed Auto-Generate d Referral 11/20/2022 12/20/[address] [facility] for visit Narrative* Diagnostic Procedure Only (Routine) - Closed Specialty Diagnoses / Procedures Referred By Contac t Referred To Contact XR IMAGING Diagnoses Acute pain of right shoulder Procedures XR SHOULDER GENERAL 3V OR MORE AP/TRUE AP/OTHER RIGHT RADEX SHOULDER COMPLETE MINIMUM 2 VIEWS Vicente Cuevas MD [address] [place] [address] [place] [address] Referral ID Status Reason Start Date Expiration Date V isits Requested Visits Authorized [id number] Closed Auto-Generate d Referral 11/28/2022 12/28/[address] [facility] for visit Narrative* Diagnostic Procedure Only (Urgent) - Closed Specialty Diagnoses / Procedures Referred By Contac t Referred To Contact XR IMAGING Diagnoses Left wrist tendonitis Procedures XR WRIST INJURY 4V PA/LAT/OBL/SCAPH LEFT RADEX WRIST COMPLETE MINIMUM 3 VIEWS Jasmin Blue, PAShayC [address] [place] [address] [place] [address] Referral ID Status Reason Start Date Expiration Date V isits Requested Visits Authorized [id number] Closed Auto-Generate d Referral 05/19/2022 06/18/2023 1 1 [facility] Advance Directives Documents on File Type Date Recorded Patient Stereo Compiler Expl anation Advance Directive(s) 02/22/2016 9:08 AM Reason for Referral Specialty Diagnoses / Procedures Referred By Contac t Referred To Contact CT IMAGING Diagnoses Thunderclap headache Light headed Left ear pain Procedures CT BRAIN WO IVCON CT HEAD/BRAIN W/O CONTRAST MATERIAL Vicente Cuevas MD [address] [place] [address] Ct Imaging Referral ID Status Reason Start Date Expiration Date V isits Requested Visits Authorized [id number] Closed Auto-Generate d Referral 09/29/2022 10/29/2023 1 [...] or prosecute any alcohol or drug abuse patient.[facility] the event this information is protected by the Federal Confidentiality of Alcohol and Drug Abuse Patient Records regulations: The Federal rules restrict any use of the information to criminally investigate or prosecute any alcohol or drug abuse patient.[facility] the event this information is protected by the Federal Confidentiality of Alcohol and Drug Abuse Patient Records regulations: The Federal rules restrict any use of the information to criminally investigate or prosecute any alcohol or drug abuse patient.[facility] the event this information is protected by the Federal Confidentiality of Alcohol and Drug Abuse Patient Records regulations: The Federal rules restrict any use of the information to criminally investigate or prosecute any alcohol or drug abuse patient.[facility] the event this information is protected by the Federal Confidentiality of Alcohol and Drug Abuse Patient Records regulations: The Federal rules restrict any use of the information to criminally investigate or prosecute any alcohol or drug abuse patient.[facility] the event this information is protected by the Federal Confidentiality of Alcohol and Drug Abuse Patient Records regulations: The Federal rules restrict any use of the information to criminally investigate or prosecute any alcohol or drug abuse patient.[facility] the event this information is protected by the Federal Confidentiality of Alcohol and Drug Abuse Patient Records regulations: The Federal rules restrict any use of the information to criminally investigate or prosecute any alcohol or drug abuse patient.[facility] the event this information is protected by the Federal Confidentiality of Alcohol and Drug Abuse Patient Records regulations: The Federal rules restrict any use of the information to criminally investigate or prosecute any alcohol or drug abuse patient.[facility] the event this information is protected by the Federal Confidentiality of Alcohol and Drug Abuse Patient Records regulations: The Federal rules restrict any use of the information to criminally investigate or prosecute any alcohol or drug abuse patient.[facility] the event this information is protected by the Federal Confidentiality of Alcohol and Drug Abuse Patient Records regulations: The Federal rules restrict any use of the information to criminally investigate or prosecute any alcohol or drug abuse patient.[facility] the event this information is protected by the Federal Confidentiality of Alcohol and Drug Abuse Patient Records regulations: The Federal rules restrict any use of the information to criminally investigate or prosecute any alcohol or drug abuse patient.[facility] the event this information is protected by the Federal Confidentiality of Alcohol and Drug Abuse Patient Records regulations: The Federal rules restrict any use of the information to criminally investigate or prosecute any alcohol or drug abuse patient.[facility] the event this information is protected by the Federal Confidentiality of Alcohol and Drug Abuse Patient Records regulations: The Federal rules restrict any use of the information to criminally investigate or prosecute any alcohol or drug abuse patient.[facility] the event this information is protected by the Federal Confidentiality of Alcohol and Drug Abuse Patient Records regulations: The Federal rules restrict any use of the information to criminally investigate or prosecute any alcohol or drug abuse patient.[facility] the event this information is protected by the Federal Confidentiality of Alcohol and Drug Abuse Patient Records regulations: The Federal rules restrict any use of the information to criminally investigate or prosecute any alcohol or drug abuse patient.[facility] the event this information is protected by the Federal Confidentiality of Alcohol and Drug Abuse Patient Records regulations: The Federal rules restrict any use of the information to criminally investigate or prosecute any alcohol or drug abuse patient.[facility] the event this information is protected by the Federal Confidentiality of Alcohol and Drug Abuse Patient Records regulations: The Federal rules restrict any use of the information to criminally investigate or prosecute any alcohol or drug abuse patient.[facility] the event this information is protected by the Federal Confidentiality of Alcohol and Drug Abuse Patient Records regulations: The Federal rules restrict any use of the information to criminally investigate or prosecute any alcohol or drug abuse patient.[facility] the event this information is protected by the Federal Confidentiality of Alcohol and Drug Abuse Patient Records regulations: The Federal rules restrict any use of the information to criminally investigate or prosecute any alcohol or drug abuse patient.[facility]In the event this information is protected by the Federal Confidentiality of Alcohol and Drug Abuse Patient Records regulations: The Federal rules restrict any use of the information to criminally investigate or prosecute any alcohol or drug abuse patient.[facility] the event this information is protected by the Federal Confidentiality of Alcohol and Drug Abuse Patient Records regulations: The Federal rules restrict any use of the information to criminally investigate or prosecute any alcohol or drug abuse patient.[facility] the event this information is protected by the Federal Confidentiality of Alcohol and Drug Abuse Patient Records regulations: The Federal rules restrict any use of the information to criminally investigate or prosecute any alcohol or drug abuse patient.[facility] the event this information is protected by the Federal Confidentiality of Alcohol and Drug Abuse Patient Records regulations: The Federal rules restrict any use of the information to criminally investigate or prosecute any alcohol or drug abuse patient.[facility] the event this information is protected by the Federal Confidentiality of Alcohol and Drug Abuse Patient Records regulations: The Federal rules restrict any use of the information to criminally investigate or prosecute any alcohol or drug abuse patient.[facility]In the event this information is protected by the Federal Confidentiality of Alcohol and Drug Abuse Patient Records regulations: The Federal rules restrict any use of the information to criminally investigate or prosecute any alcohol or drug abuse patient.[facility]In the event this information is protected by the Federal Confidentiality of Alcohol and Drug Abuse Patient Records regulations: The Federal rules restrict any use of the information to criminally investigate or prosecute any alcohol or drug abuse patient.[facility]In the event this information is protected by the Federal Confidentiality of Alcohol and Drug Abuse Patient Records regulations: The Federal rules restrict any use of the information to criminally investigate or prosecute any alcohol or drug abuse patient.[facility]In the event this information is protected by the Federal Confidentiality of Alcohol and Drug Abuse Patient Records regulations: The Federal rules restrict any use of the information to criminally investigate or prosecute any alcohol or drug abuse patient.[facility]In the event this information is protected by the Federal Confidentiality of Alcohol and Drug Abuse Patient Records regulations: The Federal rules restrict any use of the information to criminally investigate or prosecute any alcohol or drug abuse patient.[facility] Reason for Visit (unrecogniz ed section and [...] [facility] FINANCIAL COUNSELOR TAVO GUO/Vicente Parra MD [address] [place] [address] Gladys Chris PA-C [address] [place] [address] Referral ID Status Reason Start Date Expiration Date Visits Re quested Visits Authorized [id number] Closed 02/26/2023 02/26/2023 1 1 Reason Comments Constipation X 4 weeks Care Teams (unrecognized sec tion and content) Senior Climate Advisor Relationship Specialty Start Date End Date Vicente Cuevas MD [address] [facility] [place] [place] [address] PCP - General Internal Medicine 12/26/16 Senior Climate Advisor Relationship Specialty Start Date End Date Vicente Cuevas MD [address] [facility] [place] [place] [address] PCP - General Internal Medicine 12/26/16 Senior Climate Advisor Relationship Specialty Start Date End Date Vicente Cuevas MD [address] [facility] [place] [place] [address] PCP - General Internal Medicine 12/26/16 Senior Climate Advisor Relationship Specialty Start Date End Date Vicente Cuevas MD [address] [facility] [place] [place] [address] PCP - General Internal Medicine 12/26/16 Senior Climate Advisor Relationship Specialty Start Date End Date Vicente Cuevas MD [address] [facility] [place] [place] [address] PCP - General Internal Medicine 12/26/16 Senior Climate Advisor Relationship Specialty Start Date End Date Vicente Cuevas MD [address] [facility] [place] [address] PCP - General Internal Medicine 12/26/16 Senior Climate Advisor Relationship Specialty Start Date End Date Vicente Cuevas MD [address] [facility] [place] [address] PCP - General Internal Medicine 12/26/16 Senior Climate Advisor Relationship Specialty Start Date End Date Vicente Cuevas MD [address] [facility] [place] [address] PCP - General Internal Medicine 12/26/16 Senior Climate Advisor Relationship Specialty Start Date End Date Vicente Cuevas MD [address] [facility] [place] [address] PCP - General Internal Medicine 12/26/16 Senior Climate Advisor Relationship Specialty Start Date End Date Vicente Cuevas MD [address] [facility] [place] [address] PCP - General Internal Medicine 12/26/16 Senior Climate Advisor Relationship Specialty Start Date End Date Vicente Cuevas MD [address] [facility] [place] [place] [address] PCP - General Internal Medicine 12/26/16 Senior Climate Advisor Relationship Specialty Start Date End Date Vicente Cuevas MD [address] [facility] [place] [address] PCP - General Internal Medicine 12/26/16 Senior Climate Advisor Relationship Specialty Start Date End Date Vicente Cuevas MD [address] [facility] [place] [address] PCP - General Internal Medicine 12/26/16 Senior Climate Advisor Relationship Specialty Start Date End Date Vicente Cuevas MD [address] [facility] [place] [address] PCP - General Internal Medicine 12/26/16 Senior Climate Advisor Relationship Specialty Start Date End Date Vicente Cuevas MD [address] [facility] [place] [address] PCP - General Internal Medicine 12/26/16 Senior Climate Advisor Relationship Specialty Start Date End Date Vicente Cuevas MD [address] [facility] [place] [address] PCP - General Internal Medicine 12/26/16 Senior Climate Advisor Relationship Specialty Start Date End Date Vicente Cuevas MD [address] [facility] [place] [address] PCP - General Internal Medicine 12/26/16 Senior Climate Advisor Relationship Specialty Start Date End Date Vicente Cuevas MD [address] [facility] [place] [address] PCP - General Internal Medicine 12/26/16 Senior Climate Advisor Relationship Specialty Start Date End Date Vicente Cuevas MD [address] [facility] [place] [address] PCP - General Internal Medicine 12/26/16 Senior Climate Advisor Relationship Specialty Start Date End Date Vicente Cuevas MD [address] [facility] [place] [address] PCP - General Internal Medicine 12/26/16 Senior Climate Advisor Relationship Specialty Start Date End Date Vicente Cuevas MD [address] [facility] [place] [address] PCP - General Internal Medicine 12/26/16 Senior Climate Advisor Relationship Specialty Start Date End Date Vicente Cuevas MD [address] [facility] [place] [address] PCP - General Internal Medicine 12/26/16 Senior Climate Advisor Relationship Specialty Start Date End Date Vicente Cuevas MD [address] [place] [address] PCP - General Internal Medicine 12/26/16 INFORMATION SOURCE (unrecogn ized section and content) DATE CREATED AUTHOR 03/18/2024 [facility] FOR RECORDS PERTAINING TO PATIENTS WHO ARE [...] BE BASED ON THE PRIMARY CLINICAL RECORDS. [facility]. provides no warranty or guarantee of the accuracy or completeness of information in this document.
[2024-05-06] MEDS: HYDROmorphone 0.5 MG/0.5 ML SYRINGE IV (21:13)
[2024-05-06] MEDS: metroNIDAZOLE 500 MG/100 ML BAG 100 MG IV (22:01)
[2024-05-06 22:21] LABS: Lactic Acid 2.7 mmol/L (0.4-1.9)
--- NOTE | 2024-05-06 22:31 | NURSING ---
DR RIOS CALLED TO CHECK ON STATUS OF PT AND WITH NEW ORDERS FOR THE LA OF 2.7 REPORTED BY CHARGE NURSE GILL
[2024-05-06] MEDS: 0.9% Normal Saline (500mL Bag) 500 ML 999 ML IV (23:06)
[2024-05-07 01:02] VITALS: BP 101/58; PULSE 105; RESP 14; TEMP 36.4; O2SAT 96
[2024-05-07] MEDS: 0.9% Saline Lock 10 ML Syringe IV ×2 (01:29→05:54)
[2024-05-07] MEDS: 0.9% Normal Saline (1000mL) 1,000 ML 125 ML IV ×2 (01:30→11:39)
[2024-05-07] MEDS: HYDROmorphone 0.5 MG/0.5 ML SYRINGE IV ×5 (01:30→22:34)
[2024-05-07 05:02] VITALS: BP 129/73; PULSE 99; RESP 14; TEMP 36.7; O2SAT 97
[2024-05-07] MEDS: metroNIDAZOLE 500 MG/100 ML BAG 100 MG IV ×3 (05:38→21:05)
[2024-05-07 06:47] LABS: Absolute Lymphocyte Count 0.61 X10^3/uL (0.83-4.51); Absolute Neutrophil Count 21.9 X10^3/uL (2.0-7.7); Basophil# 0.11 X10^3/uL; Basophil% 0.5 % (0-1); Hemoglobin 8.6 g/dL (12.0-15.0); Lymphocyte # 0.61 X10^3/ul (0.83-4.51); Lymphocyte % 2.6 % (19-41); Mean Corp Hgb Conc 30.7 g/dL (32-36); Mean Corpuscular Hgb 24.5 pg (27.0-32.0); Mean Corpuscular Volume 79.8 fL (81-99); Mean Platelet Vol. 9.7 fl (6.2-12.0); Monocyte# 0.66 X10^3/uL; Monocyte% 2.8 % (0-10); NRBC Flagged by Analyzer 0 % (0-5); Neutrophil # 21.85 X10^3/uL (2.7-7.7); Neutrophil % 93.4 % (47-70); POSITIVE DIFFERENTIAL YES; POSITIVE MORPHOLOGY YES; Platelet Count 542 K/mm3 (150-450); RBC Distribution Width CV 14.6 % (11.6-14.6); RBC Distribution Width SD 42.7 fl (35.1-43.9); Red Blood Count 3.51 M/mm3 (4.2-5.4); White Blood Count 23.4 K/mm3 (4.4-11.0)
[2024-05-07 06:51] LABS: Differential Indicated SCAN CRITERIA MET
[2024-05-07 07:23] LABS: Anion Gap 11 (5-15); BUN 27 mg/dL (7-18); BUN/Creat Ratio 34.7 RATIO (10-20); Calcium,Total 7.9 mg/dL (8.5-10.1); Chloride 110 mmol/L (98-107); Creatinine, Serum 0.78 mg/dL (0.55-1.02); EST Glomerular Filtration Rate 84 mL/min (>60); Est Glom Filt Rate - Afr Amer 102 mL/min (>60); Estimated Creatinine Clearance 74.55 ml/min; Glucose 104 mg/dL (74-106); Magnesium 1.6 mg/dL (1.6-2.6); Phosphorus 4.1 mg/dL (2.5-4.9); Potassium 3.8 mmol/L (3.5-5.1); Sodium Level 139 mmol/L (136-145)
[2024-05-07 08:09] LABS: Lactic Acid 0.8 mmol/L (0.4-1.9)
--- NOTE | 2024-05-07 08:17 | PN.SURG_ITS ---
Subjective Subjective Patient seen and examined during AM rounds. She was found resting in bed and stated that overall her pain was tolerable. Along with that she confirms she is feeling much better than during her presentation to the emergency department. She had not been out of bed since surgery. Objective Data Objective Data Vital Signs: Vital Signs Temp Pulse Resp BP Pulse Ox O2 Del Method O2 Flow Rate 98.0 F 99 14 129/73 H 97 CPAP 4 05/07/24 05:02 05/07/24 05:02 05/07/24 05:02 05/07/24 05:02 05/07/24 05:02 05/07/24 05:02 05/07/24 05:02 Oxygen Flow Rate (L/min) 4 Oxygen Delivery Method CPAP Weight: 138 lb 6 oz Body Mass Index (BMI) 24.5 Intake & Output: Intake and Output for Last 24 Hours 05/05/24 05/06/24 05/07/24 23:59 23:59 23:59 Intake Total 1820 / 1820 516.67 / 516.67 Output Total 160 / 160 315 / 315 Balance 1660 / 1660 201.67 / 201.67 Lab / Micro Data 05/07/24 06:29 05/07/24 06:29 Labs: Laboratory Results - last 24 hr 05/06/24 11:15: WBC 25.5 H, RBC 4.73, Hgb 11.6 L, Hct 36.9 L, MCV 78.0 L, MCH 24.5 L, MCHC 31.4 L, RDW Std Deviation 40.8, RDW Coeff of Nikole 14.4, Plt Count 653 H, MPV 9.6, Immature Gran % (Auto) ONLINE ADVERTISING ANALYST, Neut % (Auto) ONLINE ADVERTISING ANALYST, Lymph % (Auto) ONLINE ADVERTISING ANALYST, Stone % (Auto) ONLINE ADVERTISING ANALYST, Eos % (Auto) ONLINE ADVERTISING ANALYST, Baso % (Auto) ONLINE ADVERTISING ANALYST, Absolute Neuts (auto) 25.0 H, Absolute Lymphs (auto) 0.26 L, Total Counted 100, Neutrophils % (Manual) 56, Band Neutrophils % 42 H, Lymphocytes % (Manual) 1 L, Monocytes % (Manual) 1, Nucleated RBC % 0, Platelet Estimate MKD DEC, RBC Morphology NORM C+C, Sodium 134 L, Potassium 3.7, Chloride 96 L, Carbon Dioxide 25.0, Anion Gap 13, BUN 24 H , Creatinine 1.29 H, Estim Creat Clear Calc 49.46, Est GFR (MDRD) Af Amer 57 L, Est GFR (MDRD) Non-Af 47 L, BUN/Creatinine Ratio 18.6, Glucose 105, Calcium 8.9, Total Bilirubin 2.30 H, AST 35, ALT 35, Alkaline Phosphatase 271 H, Troponin I High Sens 10, Total Protein 7.4, Albumin 2.2 L, Globulin 5.2 H, Albumin/Globulin Ratio 0.4 L, Lipase 21, HCG, Quant 8 H, Serum , Qual POSITIVE 05/06/24 11:40: Lactic Acid 2.3 H* 05/06/24 12:30: Blood Type A POSITIVE, Antibody Screen NEGATIVE 05/06/24 13:30: Urine Color Yellow, Urine Clarity Clear, Urine pH 5.0, Ur Specific [place] 1.015, Urine Protein 30 H, Urine Glucose (UA) Normal, Urine Ketones 5 H, Urine Occult Blood 150 H, Urine Nitrite Negative, Urine Bilirubin 1 H, Urine Urobilinogen 4 H, Ur Leukocyte Esterase 25 H, Urine RBC 0-5 SEEN, Urine WBC 0-5 SEEN, Ur Squamous Epith Cells 0-5 SEEN, Urine Bacteria 1+, Urine Mucus 1+ 05/06/24 21:30: Lactic Acid 2.7 H* 05/07/24 06:29: WBC 23.4 H, RBC 3.51 L, Hgb 8.6 L, Hct 28.0 L, MCV 79.8 L, MCH 24.5 L, MCHC 30.7 L, RDW Std Deviation 42.7, RDW Coeff of Nikole 14.6, Plt Count 542 H, MPV 9.7, Immature Gran % (Auto) 0.700, Neut % (Auto) 93.4 H, Lymph % (Auto) 2.6 L, Stone % (Auto) 2.8, Eos % (Auto) 0.0, Baso % (Auto) 0.5, Absolute Neuts (auto) 21.9 H, Absolute Lymphs (auto) 0.61 L, Nucleated RBC % 0, Sodium 139, Potassium 3.8, Chloride 110 H, Carbon Dioxide 18.0 L, Anion Gap 11, BUN 27 H, Creatinine 0.78, Estim Creat Clear Calc 74.55, Est GFR (MDRD) Af Amer 102, Est GFR (MDRD) Non-Af 84, BUN/Creatinine Ratio 34.7 H, Glucose 104, Calcium 7.9 L, Phosphorus 4.1, Magnesium 1.6 05/07/24 07:30: Lactic Acid 0.8 Radiography Diagnostic Testing: Radiology Impression Abdomen/Pelvis CT 05/06/24 11:31 IMPRESSION: 1. Fluid-filled patient with air-fluid levels in the small bowel loops worrisome for partial distal small bowel obstruction. 2. Suspicious irregular intramural thickening of the sigmoid colon. This is a new finding. Colonoscopy will be very helpful for further evaluation. 3. Small ascites around the right lower hepatic lobe surface, overlying the sigmoid colon and overlying the empty urinary bladder. Etiology is unknown. 4. No other additional findings or changes. Electronically Signed: Refugio Schroeder MD at 12:41 EDT , Brain CT 05/06/24 11:46 IMPRESSION: 1. Normal head/brain CT without intravenous contrast. 2. No CT evidence of suspicious pituitary mass. Electronically Signed: Refugio Schroeder MD at 12:31 EDT , Chest X-Ray 05/06/24 12:10 IMPRESSION: No radiographic evidence of acute cardiopulmonary disease and unchanged. Electronically Signed: Refugio Schroeder MD at 12:51 EDT , Physical Exam Const oriented x3 and no apparent distress Resp normal respiratory effort GI GI Narrative: Nondistended, appropriately tender to palpation about incisions, operative dressing intact without strikethrough, right lower quadrant drain site with serosanguineous output, left lower quadrant ostomy pink and well-perfused with some edematous change Bladder / Kidney Exam: catheter in place urethral (Draining clear yellow urine) Assessment & Plan Assessment/Plan (1) Perforated viscus: (2) Acute kidney injury: (3) Single functional kidney: (4) S/P small bowel resection: PLAN: Plan Patient is 48-year-old female postoperative day 1 from laparoscopic converted to exploratory laparotomy for ileocecectomy and lower anterior resection with creation of end colostomy for finding of small bowel perforation, small bowel obstruction, and 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 Patient is clinically improved today with much less discomfort. Her vital signs have been stable and her white count is slowly decreasing. Postoperatively her lactic acid was still elevated but recheck this morning showed this to be within normal limits. She has had good urine output and her creatinine is now back to normal. 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 Patient's abdominal exam was significantly improved over yesterday and she initially had minimal output from her nasogastric tube but it was bilious in character. She completed a clamp trial today, but had immediate output of 200 mL of bilious fluid so the NG tube was maintained. I am hopeful that we will see more return of bowel function as her bowel recovers from the physical contamination from succus, the manipulation during the operation, and the resection/anastomosis. Patient has been compliant with request to mobilize. Wound and ostomy has been consulted for beginning ostomy care teaching. Neuro: As needed Dilaudid (patient has shown tolerance despite a allergy to morphine), IV Toradol, status post tap block, continue ice to incision Pulm/CV: Incentive spirometry FEN/GI: Continue close monitoring of patient's electrolytes with n.p.o. status, continue n.p.o. with NG tube while still with bilious output, patient requires ongoing IV fluid resuscitation given picture of sepsis at presentation and inability to take p.o. at this time, wound and ostomy consult : Continue Molina catheter with tentative plans for discontinuation 05/08/2024 Heme/ID: Continue daily CBC, continue empiric IV antibiotic therapy with cefepime Flagyl, follow-up operative cultures Endo: No present issues Proph: SCDs. Once hemoglobin is stable will begin chemoprophylaxis Dispo: Continue inpatient stay Charges/Coding Visit Charges Inpatient E&M: 63595 Subs Hosp L2
--- NOTE | 2024-05-07 08:44 | WOUNDNOTE ---
Had been in this am with Dr Valle and FABIAN Hutton to assess stoma and dressings. pt is POD#1 end colostomy d/t perforated viscous. pt states abdomen is much less painful today. stoma is pink, moist, and edematous. appliance intact. dressing is dry and intact to midline abdomen with EDUARD drains in place to the right lower abdomen. will begin ostomy teaching with patient today and most likely change the appliance tomorrow with Dr Valle.
[2024-05-07 09:00] VITALS: RESP 18
[2024-05-07 09:02] VITALS: BP 103/66; PULSE 87; RESP 18; TEMP 36.7; O2SAT 99
[2024-05-07 09:24] LABS: Differential Comment SCANNED; Hypochromasia 1+; Platelet Estimate MOD INC (ADEQ)
[2024-05-07 09:25] LABS: Crenated RBC 2+; Ovalocyte 2+
[2024-05-07] MEDS: Cefepime HCl 2 GM in 0.9% Normal Saline (100mL MB+) 100 ML IV ×2 (10:30→22:32)
--- NOTE | 2024-05-07 10:34 | CASEMGMT ---
CHAPIN ECHEVERRIA Assessment: Face to Face with pt for initial transition planning/care coordination assessment. RN JUWAN introduced self and role at [facility], pt voices understanding and consents to assessment. Pt is A&O x4 and answers all questions appropriately at this time. Pt sitting up in chair with NG in in no distress with dtr, mother and grandchild at bedside. Pt agreeable to assessment with family present. Care providers, pharmacy, and demographics verified/updated. Admitting Dx: possible nicki patch Strata Score: 1 PCP:Naina, pt states she has switched specialties and pt will remain at [facility] but is unsure of which PCP she will switch to. Specialists:Denies Preferred Pharmacy:[facility] Al[facility] Insurance: [place] Prescription Benefit: yes LNOK: Ira Vazquez, mother; Jaison Epperson, Living Arrangements: Pt lives with and adult son in a two story home with 2 steps to get on porch and 4 to enter house with a rail. Pt reports she was indep in ADL/IADLs and denies concerns at home. Transportation: Pt drives self and denies concerns with transportation. DME:Denies HHC/SNF: Denies hx of Pt states no concerns with going home at time of dc. Pt with new ostomy. Discussed with pt and dtr HHC and pt is agreeable to this. Pt currently meets homebound requirements at this time. Pt dtr is in nursing school and can be available to help at times but does not live close. Pt states no further concerns/needs. CM to follow. Advised pt to ask CM if any further question/concerns/needs arise, voices understanding. Pt Goal: Home with HHC Plan: Home with HHC Updated MS3 CHAPIN Andre RN, CM
--- NOTE | 2024-05-07 11:33 | CASEMGMT ---
Discharge Planning A list of?HH providers including quality and resource use data and consistent with the patient's preferred geographic region, medical needs, and insurance network was created in [employer] Guide.? This list was provided to the RN JUWAN. Oriana Johnson, Discharge Planning Asst.
[2024-05-07] MEDS: Pantoprazole Sodium 40 MG in 0.9% Normal Saline (100mL MB+) 100 ML 330 MG IV (11:36)
[2024-05-07] MEDS: Ondansetron 4 MG/2 ML Vial IV (11:38)
--- NOTE | 2024-05-07 11:53 | CASEMGMT ---
CHAPIN ECHEVERRIA NOTE: Pt and family provided w/HHC list that was prepared by da Gastel[employer] equal opportunity assistant. Their preferences are: 1) [facility] 2) [facility] 3) [facility]. Oriana made aware and will send referral. Pt and family inquiring about DME co for colostomy supplies. Per Jerrica, ostomy nurse, [facility] that will be working w/pt will set this up. Pt and family made aware and verbally made aware of a few companies that provide colostomy supplies. They deny having further discharge needs at this time. Tong BSN CHAPIN CM
[2024-05-07 13:02] VITALS: BP 133/71; PULSE 80; RESP 18; TEMP 36.7; O2SAT 96
--- NOTE | 2024-05-07 14:09 | CASEMGMT ---
Addendum entered by Oriana Johnson 05/07/24 14:26: Lissa HERNANDEZ declined. Oriana Johnson DC Planning Asst. Original Note: Discharge Planning Referral sent to Lissa HERNANDEZ. Oriana Johnson DC Planning Asst.
--- NOTE | 2024-05-07 14:26 | CASEMGMT ---
Addendum entered by Oriana Johnson 05/07/24 15:08: [facility] declined. Oriana Johnson DC Planning Asst. Original Note: Discharge Planning Referral sent to [facility] HERNANDE[facility]. Oriana Johnson DC Planning Asst.
--- NOTE | 2024-05-07 15:08 | CASEMGMT ---
Addendum entered by Oriana Johnson 05/08/24 08:42: [facility] declined. Oriana Johnson DC Planning Asst. Original Note: Discharge Planning Referral sent to [facility] . Oriana Johnson DC Planning Asst.
--- NOTE | 2024-05-07 15:21 | CASEMGMT ---
CHAPIN ECHEVERRIA NOTE: [facility] made aware [facility] and [facility] from [facility] is still pending. She was also made aware [facility] may be in-network, but this would need to be verified, as they did not show up on [place]'s website. She states to try [facility] next, if they are in-network, and if then to move down to the next on the [facility]'s highest-star rating list. Call placed to Bettie @ [facility] to inquire if they are in-network. Bettie states she is not sure, but as of now, they do not have any SN openings for SOC until Sunday at the earliest. da Gastelum care management assistant, made aware. Tong COUGHLIN RN CM
--- NOTE | 2024-05-07 15:22 | CASEMGMT ---
Addendum entered by Oriana Johnson 05/08/24 08:42: [facility], [facility] Melgar, [facility], [facility], and [facility] declined. Oriana Johnson DC Planning Asst. Original Note: Discharge Planning Referral sent to Ramón Rodrigueztenalex, E[facility], [facility], [facility], [facility], [facility], [facility], and . Oriana Johnson DC Planning Asst.
[2024-05-07 21:02] VITALS: BP 106/84; PULSE 75; RESP 18; TEMP 36.5; O2SAT 97
[2024-05-07] MEDS: BENZOCAINE/MENTHOL 1 LOZENGE 2 LOZENGE MUCOUS MEM (23:06)
[2024-05-08 02:06] VITALS: BP 109/63; PULSE 81; RESP 18; TEMP 36.4; O2SAT 100
[2024-05-08] MEDS: HYDROmorphone 0.5 MG/0.5 ML SYRINGE IV ×5 (02:19→21:22)
[2024-05-08] MEDS: metroNIDAZOLE 500 MG/100 ML BAG 100 MG IV ×3 (06:01→21:13)
[2024-05-08 06:50] LABS: Absolute Neutrophil Count 17.5 X10^3/uL (2.0-7.7); Basophil# 0.06 X10^3/uL; Basophil% 0.3 % (0-1); Hematocrit 23.9 % (37-47); Hemoglobin 7.4 g/dL (12.0-15.0); Lymphocyte % 4.7 % (19-41); Mean Corpuscular Hgb 25.2 pg (27.0-32.0); Mean Corpuscular Volume 81.3 fL (81-99); Mean Platelet Vol. 9.4 fl (6.2-12.0); Monocyte# 0.53 X10^3/uL; Monocyte% 2.7 % (0-10); NRBC Flagged by Analyzer 0 % (0-5); Neutrophil # 17.52 X10^3/uL (2.7-7.7); Neutrophil % 90.9 % (47-70); POSITIVE MORPHOLOGY YES; Platelet Count 502 K/mm3 (150-450); RBC Distribution Width CV 15.1 % (11.6-14.6); RBC Distribution Width SD 45.1 fl (35.1-43.9); Red Blood Count 2.94 M/mm3 (4.2-5.4); White Blood Count 19.3 K/mm3 (4.4-11.0)
[2024-05-08 06:51] LABS: Differential Indicated SCAN CRITERIA MET
[2024-05-08 07:23] LABS: ALB/GLOB Ratio 0.4 RATIO (0.9-2.4); AST(SGOT) 21 U/L (15-37); Alanine Aminotransfer ALT/SGPT 20 U/L (13-56); Albumin, Serum 1.6 g/dL (3.2-5.0); Alkaline Phosphatase 132 U/L (45-117); Anion Gap 11 (5-15); BUN 25 mg/dL (7-18); BUN/Creat Ratio 37.3 RATIO (10-20); Calcium,Total 8.8 mg/dL (8.5-10.1); Chloride 112 mmol/L (98-107); Creatinine, Serum 0.67 mg/dL (0.55-1.02); EST Glomerular Filtration Rate 100 mL/min (>60); Est Glom Filt Rate - Afr Amer 121 mL/min (>60); Estimated Creatinine Clearance 86.79 ml/min; Globulin 4.4 g/dL (2.2-4.2); Glucose 83 mg/dL (74-106); Potassium 3.5 mmol/L (3.5-5.1); Sodium Level 141 mmol/L (136-145)
[2024-05-08 07:59] VITALS: BP 107/69; PULSE 74; RESP 16; TEMP 36.7; O2SAT 100
--- NOTE | 2024-05-08 08:24 | WOUNDNOTE ---
Colostomy appliance removed. stoma is well budded and pink. still edematous. there was a small amount of serosanguineous drainage in the appliance. pt denies flatus. there is some bowel sweat noted. peristomal skin is intact. cleansed the skin with warm water. pat dry. applied a new ostomy appliance. pt tolerated well. see wound/stoma photo.
--- NOTE | 2024-05-08 09:31 | CASEMGMT ---
Social Work SW met with pt to discuss advance directives. Pt has a living will and a health care power of assistant city attorney in the echart from 2008. Pt confirms that this is outdated and she has made new directives since that time. Pt's new directive names her daughter Saba Vazquez as HCPOA. SW encouraged pt to bring those documents to the hospital to alleviate any confusion. Pt is understanding. BENJA Medrano
[2024-05-08] MEDS: Pantoprazole Sodium 40 MG in 0.9% Normal Saline (100mL MB+) 100 ML 330 MG IV (09:35)
--- NOTE | 2024-05-08 10:05 | RAD_ITS ---
HISTORY: check positioning of ng. TECHNIQUE: XR Abdomen 1 View. COMPARISON: CT 05/06/2024. FINDINGS: BOWEL GAS PATTERN: Nasogastric tube tip in the right upper quadrant at the level of the pylorus. Right lower quadrant suture with partially imaged drainage catheter. Left lower quadrant ostomy. Stool distention of the colon. Decreased small bowel dilatation. FREE AIR: No significant interval increase in pneumoperitoneum. BONES: Unremarkable. SOFT TISSUES: Mild atelectasis in the lung bases. Skin erik over the abdomen. RAD/Abdomen Single View (Portable) IMPRESSION: Nasogastric tube tip at the level of the distal stomach. Electronically Signed: Quin Parikh MD at 11:01 EDT ,
[2024-05-08] MEDS: Cefepime HCl 2 GM in 0.9% Normal Saline (100mL MB+) 100 ML IV ×2 (10:17→22:38)
--- NOTE | 2024-05-08 10:25 | WOUNDNOTE ---
wound photo: abdomen
--- NOTE | 2024-05-08 10:26 | WOUNDNOTE ---
stoma photo: left abdomen
--- NOTE | 2024-05-08 10:54 | PN.SURG_ITS ---
Subjective Subjective Patient evaluated resting comfortably in bed. She notes minimal abdominal discomfort more so by her stoma. She denies any nausea, vomiting. NG tube intact and putting out a moderate amount of green liquid. No air in the stoma or stool output yet. Objective Data Objective Data Vital Signs: Vital Signs Temp Pulse Resp BP Pulse Ox O2 Del Method O2 Flow Rate 98.1 F 74 16 107/69 100 Room Air 4 05/08/24 07:59 05/08/24 07:59 05/08/24 07:59 05/08/24 07:59 05/08/24 07:59 05/08/24 07:59 05/07/24 05:02 Oxygen Flow Rate (L/min) 4 Oxygen Delivery Method Room Air Weight: 138 lb 6 oz Body Mass Index (BMI) 24.5 Intake & Output: Intake and Output for Last 24 Hours 05/06/24 05/07/24 05/08/24 23:59 23:59 23:59 Intake Total 1820 / 1820 3826.67 / 3826.67 280 / 280 Output Total 160 / 160 1325 / 1325 1060 / 1060 Balance 1660 / 1660 2501.67 / 2501.67 -780 / -780 Lab / Micro Data 05/08/24 06:41 05/08/24 06:41 Labs: Laboratory Results - last 24 hr 05/08/24 06:41: WBC 19.3 H, RBC 2.94 L, Hgb 7.4 L, Hct 23.9 L, MCV 81.3, MCH 25.2 L, MCHC 31.0 L, RDW Std Deviation 45.1 H, RDW Coeff of Nikole 15.1 H, Plt Count 502 H, MPV 9.4, Immature Gran % (Auto) 1.400 H, Neut % (Auto) 90.9 H, L ymph % (Auto) 4.7 L, [place] % (Auto) 2.7, Eos % (Auto) 0.0, Baso % (Auto) 0.3, A bsolute Neuts (auto) 17.5 H, Absolute Lymphs (auto) 0.90, Nucleated RBC % 0, Sodium 141, Potassium 3.5, Chloride 112 H, Carbon Dioxide 18.0 L, Anion Gap 11, BUN 25 H, Creatinine 0.67, Estim Creat Clear Calc 86.79, Est GFR (MDRD) Af Amer 121, Est GFR (MDRD) Non-Af 100, BUN/Creatinine Ratio 37.3 H, Glucose 83, Calcium 8.8, Total Bilirubin 0.50, AST 21, ALT 20, Alkaline Phosphatase 132 H, Total Protein 6.0 L, Albumin 1.6 L, Globulin 4.4 H, Albumin/Globulin Ratio 0.4 L Micro: Microbiology 05/06/24 15:52 Incision/Surgical Site Gram Stain - Final Physical Exam GI GI Narrative: Abdomen- soft,slightly distended, slight tenderness near the stoma. Incisions c/d/i. No erythema or infection noted. Assessment & Plan Assessment/Plan (1) S/P small bowel resection: PLAN: I am seeing this patient in conjunction with Dr. Valle. He has independently evaluated this patient. Continue NG tube as output has been moderate amount Continue NPO Discontinue Molina Continue with ambulation and encourage I.S We will continue to monitor this patient Charges/Coding Visit Charges Inpatient E&M: 09913 Subs Hosp L1 (post-op; no charge)
--- NOTE | 2024-05-08 12:46 | CASEMGMT ---
Addendum entered by Donna Becerra 05/09/24 09:25: Per Bettie @ [facility], they are not in network w/pt's insurance. Original Note: CHAPIN ECHEVERRIA note: CHAPIN ECHEVERRIA spoke w/Bettie @ [facility] this AM, who states they are still checking if they are in-network w/pt's insurance. She is aware pt not medically ready to discharge today, and anticipate she may be medically ready for discharge Sunday. She will call this CHAPIN ECHEVERRIA back once they hear back re: insurance. Per Jerrica, automation machine operator, pt and daughter have been shown how to change colostomy bag. She states daughter is an aide and has done this before and is also going to [employer]IOLOGICAL DEFENSE OFFIC[employer] school. Pt to be sent home w/3 colostomy appliances @ discharge, which are in pt's room, per Jerrica. Tong COUGHLIN RN, CM
--- NOTE | 2024-05-08 13:50 | RAD_ITS ---
HISTORY: NG PLACEMENT S/P ADJUSTMENT. TECHNIQUE: XR Abdomen 1 View. COMPARISON: 10:05. FINDINGS: BOWEL GAS PATTERN: Nasogastric tube tip in the right upper quadrant at the level of the distal stomach. Moderate stool in the visualized colon. SOFT TISSUES: Postoperative changes with skin erik, surgical clips, and suture. RAD/Abdomen Single View (Portable) IMPRESSION: Nasogastric tube tip at the level distal stomach. Electronically Signed: Quin Parikh MD at 14:50 EDT ,
[2024-05-08 14:00] VITALS: BP 115/65; PULSE 85; RESP 16; TEMP 36.5; O2SAT 100
--- NOTE | 2024-05-08 15:05 | RAD_ITS ---
HISTORY: NG TUBE PLACEMENT S/P ANOTHER ADJUSTMENT. TECHNIQUE: XR Abdomen 1 View. COMPARISON: 13:48. FINDINGS: BOWEL GAS PATTERN: Nasogastric tube tip again in the right upper quadrant. Stool distention of colon in the left upper quadrant again seen. SOFT TISSUES: Postoperative changes with skin erik over the abdomen. RAD/Abdomen Single View (Portable) IMPRESSION: Nasogastric tube tip at the level of the distal stomach. Electronically Signed: Quin Parikh MD at 15:53 EDT ,
--- NOTE | 2024-05-08 16:00 | RAD_ITS ---
STUDY: X-RAY - ABDOMEN/PELVIS REASON FOR EXAM: Female, 48 years old. NG TUBE POSITION S/P ADJUSTMENT TECHNIQUE: Single AP view of the abdomen / pelvis. COMPARISON: 3:10 PM. FINDINGS: Normal visualized lung bases. There is an unremarkable bowel gas pattern. Enteric tube in the stomach but slightly withdrawn. Multiple skin erik noted in the abdomen. The visualized liver, spleen and kidneys are grossly normal in size and morphology. Normal soft tissue structures. Normal visualized osseous structures. RAD/Abdomen Single View (Portable) IMPRESSION: Enteric tube is been withdrawn slightly but remains within the stomach. Electronically Signed: Eduin Centeno MD at 17:05 EDT ,
[2024-05-08] MEDS: 0.9% Normal Saline (1000mL) 1,000 ML 125 ML IV (17:12)
[2024-05-08] MEDS: 0.9% Saline Lock 10 ML Syringe IV (21:22)
[2024-05-08 22:00] VITALS: BP 114/71; PULSE 98; RESP 15; TEMP 36.6; O2SAT 98
[2024-05-09] VITALS (9 sets, daily range): BP systolic 121–144; BP diastolic 67–89; PULSE 61–72; RESP 14–18; TEMP 36.4–37.1; O2SAT 100
[2024-05-09] MEDS: HYDROmorphone 0.5 MG/0.5 ML SYRINGE IV ×6 (01:42→23:01)
[2024-05-09] MEDS: 0.9% Saline Lock 10 ML Syringe IV ×4 (01:42→23:01)
[2024-05-09] MEDS: 0.9% Normal Saline (1000mL) 1,000 ML 125 ML IV (02:44)
[2024-05-09] MEDS: metroNIDAZOLE 500 MG/100 ML BAG 100 MG IV ×3 (05:57→21:00)
[2024-05-09 06:33] LABS: Absolute Lymphocyte Count 1.07 X10^3/uL (0.83-4.51); Absolute Neutrophil Count 10.9 X10^3/uL (2.0-7.7); Basophil# 0.04 X10^3/uL; Basophil% 0.3 % (0-1); Eosinophil# 0.02 X10^3/uL; Eosinophils% 0.2 % (0-5); Hematocrit 22.5 % (37-47); Hemoglobin 6.9 g/dL (12.0-15.0); Lymphocyte # 1.07 X10^3/ul (0.83-4.51); Lymphocyte % 8.3 % (19-41); Mean Corp Hgb Conc 30.7 g/dL (32-36); Mean Corpuscular Volume 81.5 fL (81-99); Mean Platelet Vol. 9.4 fl (6.2-12.0); Monocyte# 0.46 X10^3/uL; Monocyte% 3.6 % (0-10); NRBC Flagged by Analyzer 0 % (0-5); Neutrophil % 84.5 % (47-70); Platelet Count 420 K/mm3 (150-450); RBC Distribution Width CV 15.5 % (11.6-14.6); RBC Distribution Width SD 46.2 fl (35.1-43.9); Red Blood Count 2.76 M/mm3 (4.2-5.4); White Blood Count 12.9 K/mm3 (4.4-11.0)
--- NOTE | 2024-05-09 07:16 | PN.SURG_ITS ---
Subjective Subjective Patient seen and examined during AM rounds. She has found resting comfortably in bed. She states she has no pain. She denies any return of bowel function. She does report that she has been dreaming of food and is hungry. She also reports that she has been belching more frequently. Objective Data Objective Data Vital Signs: Vital Signs Temp Pulse Resp BP Pulse Ox O2 Del Method O2 Flow Rate 98.1 F 64 14 126/74 H 100 Room Air 4 05/09/24 01:57 05/09/24 01:57 05/09/24 01:57 05/09/24 01:57 05/09/24 01:57 05/09/24 01:57 05/07/24 05:02 Oxygen Flow Rate (L/min) 4 Oxygen Delivery Method Room Air Weight: 138 lb 6 oz Body Mass Index (BMI) 24.5 Intake & Output: Intake and Output for Last 24 Hours 05/07/24 05/08/24 05/09/24 23:59 23:59 23:59 Intake Total 3826.67 / 3826.67 1306.67 / 1306.67 947.91 / 947.91 Output Total 1325 / 1325 1810 / 2230 420 / 420 Balance 2501.67 / 2501.67 -503.33 / -923.33 527.91 / 527.91 Lab / Micro Data 05/09/24 06:27 05/09/24 06:27 Labs: Laboratory Results - last 24 hr 05/06/24 15:52: Miscellaneous Cytology SEE PATHOLOGY REPORT 05/08/24 06:41: Sodium 141, Potassium 3.5, Chloride 112 H, Carbon Dioxide 18.0 L , Anion Gap 11, BUN 25 H, Creatinine 0.67, Estim Creat Clear Calc 86.79, Est GFR (MDRD) Af Amer 121, Est GFR (MDRD) Non-Af 100, BUN/Creatinine Ratio 37.3 H, Glucose 83, Calcium 8.8, Total Bilirubin 0.50, AST 21, ALT 20, Alkaline Phosphatase 132 H, Total Protein 6.0 L, Albumin 1.6 L, Globulin 4.4 H, A lbumin/Globulin Ratio 0.4 L 05/09/24 06:27: WBC 12.9 H, RBC 2.76 L, Hgb 6.9 L, Hct 22.5 L, MCV 81.5, MCH 25.0 L, MCHC 30.7 L, RDW Std Deviation 46.2 H, RDW Coeff of Nikole 15.5 H, Plt Count 420, MPV 9.4, Immature Gran % (Auto) 3.100 H, Neut % (Auto) 84.5 H, Lymph % (Auto) 8.3 L, [place] % (Auto) 3.6, Eos % (Auto) 0.2, Baso % (Auto) 0.3, Absolute Neuts (auto) 10.9 H, Absolute Lymphs (auto) 1.07, Nucleated RBC % 0 Micro: Microbiology 05/06/24 15:52 Incision/Surgical Site Gram Stain - Final 05/06/24 15:52 Incision/Surgical Site Wound Culture - 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 Electronically Signed: Quin Parikh MD at 11:01 EDT , KUB X-Ray 05/08/24 13:50 IMPRESSION: Nasogastric tube tip at the level distal stomach. Electronically Signed: Quin Parikh MD at 14:50 EDT , KUB X-Ray 05/08/24 15:05 IMPRESSION: Nasogastric tube tip at the level of the distal stomach. Electronically Signed: Quin Parikh MD at 15:53 EDT , KUB X-Ray 05/08/24 16:00 IMPRESSION: Enteric tube is been withdrawn slightly but remains within the stomach. Electronically Signed: Eduin Centeno MD at 17:05 EDT , Physical Exam Const oriented x3 and no apparent distress Resp normal respiratory effort GI GI Narrative: Nasogastric tube in place with thinner bilious output, abdomen nondistended, incision line remains well-approximated with skin erik and there is no erythema or drainage, right lower quadrant drain site is primarily serous in its output, left lower quadrant colostomy is pink and well-perfused (there is no gas or feculent output to the ostomy appliance) Assessment & Plan Assessment/Plan (1) Perforated viscus: (2) Acute kidney injury: (3) Single functional kidney: (4) S/P small bowel resection: PLAN: Plan Patient is 48-year-old female postoperative day 3 from laparoscopic converted to exploratory laparotomy for ileocecectomy and lower anterior resection with creation of end colostomy for finding of small bowel perforation, small bowel obstruction, and 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 Patient is additionally clinically improved today with less discomfort. She has been active ambulating in the halls. NG clamp trial planned for today to see if we can initiate nutrition. Additionally, plan for transfusion 1 unit PRBCs given hemoglobin less than 7. Neuro: As needed Dilaudid (patient has shown tolerance despite a allergy to morphine), IV Toradol, status post tap block, continue ice to incision Pulm/CV: Incentive spirometry FEN/GI: Continue close monitoring of patient's electrolytes with n.p.o. status, replete Phos today, continue n.p.o. with NG tube while still with bilious output, clamp trial today, patient requires ongoing IV fluid resuscitation given picture of sepsis at presentation and inability to take p.o. at this time, wound and ostomy consult : Patient voiding status post Molina catheter removal yesterday 05/08/2024 Heme/ID: Continue daily CBC, both WBC and hemoglobin are down trended. No obvious source of blood loss so this could be a dilutional element or simply settling out from her procedure. Given anemia with hemoglobin less than 7 we will plan transfusion 1 unit PRBCs, continue empiric IV antibiotic therapy with cefepime Flagyl, follow-up operative cultures where Gram stain show GNR lactose retail loan officer and gram-positive organisms. Endo: No present issues Proph: SCDs. Once hemoglobin is stable will begin chemoprophylaxis Dispo: Continue inpatient stay Charges/Coding Visit Charges Inpatient E&M: 86679 Subs Hosp L2
[2024-05-09 07:25] LABS: Anion Gap 9 (5-15); BUN 16 mg/dL (7-18); BUN/Creat Ratio 29.8 RATIO (10-20); Calcium,Total 8.2 mg/dL (8.5-10.1); Chloride 116 mmol/L (98-107); Creatinine, Serum 0.54 mg/dL (0.55-1.02); EST Glomerular Filtration Rate 130 mL/min (>60); Est Glom Filt Rate - Afr Amer 157 mL/min (>60); Estimated Creatinine Clearance 107.68 ml/min; Glucose 85 mg/dL (74-106); Magnesium 2.1 mg/dL (1.6-2.6); Phosphorus 1.1 mg/dL (2.5-4.9); Potassium 3.6 mmol/L (3.5-5.1); Sodium Level 144 mmol/L (136-145)
--- NOTE | 2024-05-09 08:06 | WOUNDNOTE ---
In to assess patient with Dr Valle this am. still no flatus in colostomy appliance. abdomen is soft and non distended. pt denies much discomfort this am. incision remains well approximated with erik. no drainage noted. minimal drainage noted in EDUARD drain. Plan for NG tube clamp trial today with possible clear liquids later today. Pt aware to start slowly. ostomy appliance is intact and was changed my this nurse on 05/08/24. will monitor.
--- NOTE | 2024-05-09 09:52 | CASEMGMT ---
Addendum entered by Donna Becerra 05/09/24 10:59: List of supplies pt will need received from Jerrica ostomy . This was sent to [facility] via [employer]. Addendum entered by Donna Becerra 05/09/24 10:29: Pt confirms she and her daughter have been instructed on colostomy bag changes and they feel comfortable managing this until [facility] can see pt. Addendum entered by Donna Becerra 05/09/24 10:25: Per Karen @ [facility], [facility] # is [phone], option 5. Fax # is: [phone]. Green sheet placed on pt's chart for instructions if pt ready for discharge over the weekend. Addendum entered by Donna Becerra 05/09/24 10:11: Pt made aware [facility] accepted her. Original Note: CHAPIN ECHEVERRIA NOTE: Message received from [facility] via [employer] and they are able to accept pt. Tong COUGHLIN RN, CM
[2024-05-09] MEDS: Cefepime HCl 2 GM in 0.9% Normal Saline (100mL MB+) 100 ML IV ×2 (10:17→22:13)
[2024-05-09] MEDS: Pantoprazole Sodium 40 MG in 0.9% Normal Saline (100mL MB+) 100 ML 330 MG IV (10:50)
[2024-05-09] MEDS: Potassium Phosphate 21 MM in 0.9% Normal Saline (250mL Bag) 250 ML 84 MM IV (11:45)
--- NOTE | 2024-05-09 13:23 | NURSING ---
NG WAS RECONNECTED AT 1200 HRS @1300 HRS 0 OUTPUT AND WAS DC.
[2024-05-10 02:00] VITALS: BP 124/78; PULSE 59; RESP 14; TEMP 36.6; O2SAT 99
[2024-05-10] MEDS: HYDROmorphone 0.5 MG/0.5 ML SYRINGE IV ×5 (02:59→20:50)
[2024-05-10 04:49] LABS: Hematocrit 28.3 % (37-47); Hemoglobin 9.3 g/dL (12.0-15.0); Mean Corp Hgb Conc 32.9 g/dL (32-36); Mean Corpuscular Hgb 26.6 pg (27.0-32.0); Mean Corpuscular Volume 80.9 fL (81-99); Mean Platelet Vol. 9.4 fl (6.2-12.0); POSITIVE COUNT YES; POSITIVE MORPHOLOGY YES; Platelet Count 446 K/mm3 (150-450); RBC Distribution Width CV 14.9 % (11.6-14.6); RBC Distribution Width SD 43.4 fl (35.1-43.9); White Blood Count 10.4 K/mm3 (4.4-11.0)
[2024-05-10 04:54] LABS: Differential Indicated MANUAL DIFF
[2024-05-10] MEDS: metroNIDAZOLE 500 MG/100 ML BAG 100 MG IV ×3 (05:17→20:56)
[2024-05-10 05:26] LABS: Anion Gap 7 (5-15); BUN 13 mg/dL (7-18); BUN/Creat Ratio 21.7 RATIO (10-20); Calcium,Total 8.8 mg/dL (8.5-10.1); Chloride 115 mmol/L (98-107); EST Glomerular Filtration Rate 114 mL/min (>60); Est Glom Filt Rate - Afr Amer 138 mL/min (>60); Estimated Creatinine Clearance 96.92 ml/min; Glucose 119 mg/dL (74-106); Phosphorus 1.5 mg/dL (2.5-4.9); Potassium 3.8 mmol/L (3.5-5.1); Sodium Level 143 mmol/L (136-145)
[2024-05-10 06:32] LABS: Lymphocyte 8 % (19-41); Metamyelocyte 1 % (0-1); Monocyte 3 % (0-10); Neutrophil-Band 4 % (0-5); Neutrophil-Segmented 84 % (47-70); Total Cells Counted 100 (MANUAL DIFF)
[2024-05-10 06:35] LABS: Anisocytosis 2+; Hypochromasia 2+; Platelet Estimate ADEQUATE (ADEQ); Polychromasia RARE
[2024-05-10 06:36] LABS: Absolute Lymphocyte Count 0.83 X10^3/uL (0.83-4.51); Absolute Neutrophil Count 9.2 X10^3/uL (2.0-7.7)
[2024-05-10] MEDS: 0.9% Saline Lock 10 ML Syringe IV ×3 (07:12→20:49)
[2024-05-10 08:00] VITALS: BP 136/86; PULSE 73; RESP 16; TEMP 36.6; O2SAT 100
--- NOTE | 2024-05-10 08:12 | PCM.PN.SRG ---
Subjective Subjective Patient states she is tolerating sips well. Asking for more p.o., patient is not having any substantial flatus in her bag states she may hear some rumblings. Patient had 1 unit of packed red blood cells yesterday went from 6.9-9.3. Objective Data Objective Data Vital Signs: Vital Signs Temp Pulse Resp BP Pulse Ox O2 Del Method O2 Flow Rate 97.9 F 59 L 14 124/78 H 99 Room Air 4 05/10/24 02:00 05/10/24 02:00 05/10/24 02:00 05/10/24 02:00 05/10/24 02:00 05/10/24 02:00 05/07/24 05:02 Oxygen Flow Rate (L/min) 4 Oxygen Delivery Method Room Air Weight: 138 lb 6 oz Body Mass Index (BMI) 24.5 Intake & Output: Intake and Output for Last 24 Hours 05/08/24 05/09/24 05/10/24 23:59 23:59 23:59 Intake Total 1306.67 / 1306.67 3062.83 / 3142.83 340 / 340 Output Total 1810 / 2230 1070 / 1070 Balance -503.33 / -923.33 1992.83 / 2072.83 332 / 332 Lab / Micro Data 05/10/24 04:40 05/10/24 04:40 Labs: Laboratory Results - last 24 hr 05/09/24 11:15: Blood Type A POSITIVE, Antibody Screen NEGATIVE, Crossmatch See Detail 05/10/24 04:40: WBC 10.4, RBC 3.50 L, Hgb 9.3 L, Hct 28.3 L, MCV 80.9 L, MCH 26.6 L, MCHC 32.9 D, RDW Std Deviation 43.4, RDW Coeff of Nikole 14.9 H, Plt Count 446, MPV 9.4, Neut % (Auto) Not Reportable, Absolute Neuts (auto) 9.2 H, Absolute Lymphs (auto) 0.83, Total Counted 100, Neutrophils % (Manual) 84 H, Band Neutrophils % 4, Lymphocytes % (Manual) 8 L, Monocytes % (Manual) 3, Metamyelocytes % 1, Diff Path Review May foll, Platelet Estimate ADEQUATE, Polychromasia RARE, Hypochromasia 2+, Anisocytosis 2+, Sodium 143, Potassium 3.8, Chloride 115 H, Carbon Dioxide 21.0, Anion Gap 7, BUN 13, Creatinine 0.60, Estim Creat Clear Calc 96.92, Est GFR (MDRD) Af Amer 138, Est GFR (MDRD) Non-Af 114, BUN/Creatinine Ratio 21.7 H, Glucose 119 H, Calcium 8.8, Phosphorus 1.5 L, Magnesium 2.0 Micro: Microbiology 05/06/24 15:52 Incision/Surgical Site Gram Stain - Final 05/06/24 15:52 Incision/Surgical Site Wound Culture - 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 Physical Exam Const oriented x3 and no apparent distress Resp normal respiratory effort Cardio regular rate GI GI Narrative: Abdomen soft, incision dressed clean dry and intact with erik, colostomy mildly edematous, viable, no gas in bag. 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 Continue sips until patient has flatus and her colostomy Continue ambulation Continue IV antibiotics cefepime and metronidazole, continue EDUARD Patient to get 1 unit of packed red blood cells yesterday went from 6.9-9.3 will continue to monitor?possibly start Lovenox tomorrow if stable Hypophosphatemia, will give K-Phos IV patient's potassium is 3.8 Mary Albert M.D. Pager: [phone] [facility] [address] [place] [address], [facility], [address] [place] [address] Office: [phone]
[2024-05-10] MEDS: Pantoprazole Sodium 40 MG in 0.9% Normal Saline (100mL MB+) 100 ML 330 MG IV (08:16)
[2024-05-10] MEDS: Cefepime HCl 2 GM in 0.9% Normal Saline (100mL MB+) 100 ML IV ×2 (08:42→22:55)
[2024-05-10] MEDS: Potassium Phosphate 40 MM in 0.9% Normal Saline (500mL Bag) 500 ML 62.5 MM IV (09:26)
[2024-05-10 14:00] VITALS: BP 133/76; PULSE 57; RESP 15; TEMP 36.7; O2SAT 100
[2024-05-10 20:00] VITALS: BP 130/71; PULSE 55; RESP 18; TEMP 36.6; O2SAT 99
[2024-05-11] MEDS: 0.9% Saline Lock 10 ML Syringe IV ×2 (01:09→05:10)
[2024-05-11] MEDS: HYDROmorphone 0.5 MG/0.5 ML SYRINGE IV ×2 (01:09→05:10)
[2024-05-11] MEDS: metroNIDAZOLE 500 MG/100 ML BAG 100 MG IV ×3 (05:10→22:20)
[2024-05-11] MEDS: Ondansetron 4 MG/2 ML Vial IV (05:18)
[2024-05-11 05:27] VITALS: BP 150/74; PULSE 60; RESP 18; TEMP 36.3; O2SAT 98
[2024-05-11] MEDS: Pantoprazole Sodium 40 MG in 0.9% Normal Saline (100mL MB+) 100 ML 330 MG IV (08:28)
[2024-05-11] MEDS: Cefepime HCl 2 GM in 0.9% Normal Saline (100mL MB+) 100 ML IV ×2 (08:43→21:17)
--- NOTE | 2024-05-11 09:18 | PCM.PN.SRG ---
Subjective Subjective Patient did have a bowel movement. EDUARD serous Objective Data Objective Data Vital Signs: Vital Signs Temp Pulse Resp BP Pulse Ox O2 Del Method O2 Flow Rate 97.3 F L 60 18 150/74 H 98 Room Air 4 05/11/24 05:27 05/11/24 05:27 05/11/24 05:27 05/11/24 05:27 05/11/24 05:27 05/11/24 05:27 05/07/24 05:02 Oxygen Flow Rate (L/min) 4 Oxygen Delivery Method Room Air Weight: 138 lb 6 oz Body Mass Index (BMI) 24.5 Intake & Output: Intake and Output for Last 24 Hours 05/09/24 05/10/24 05/11/24 23:59 23:59 23:59 Intake Total 3062.83 / 3142.83 1383.3333 / 1383.3333 310 / 310 Output Total 1070 / 1070 33 / 33 Balance 1992.83 / 2072.83 1350.3333 / 1350.3333 310 / 310 Lab / Micro Data 05/10/24 04:40 05/10/24 04:40 Micro: Microbiology 05/06/24 15:52 Incision/Surgical Site Gram Stain - Final 05/06/24 15:52 Incision/Surgical Site Wound Culture - Final Escherichia coli Strep anginosus 05/06/24 15:52 Incision/Surgical Site Anaerobic Culture - Preliminary Checking for anaerobes, further studies to follow. Physical Exam Const oriented x3 and no apparent distress Resp normal respiratory effort Cardio regular rate GI GI Narrative: Abdomen soft, incision dressed clean dry and intact with erik, colostomy pink with formed stool in the bag. 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 Patient did have stool in in the colostomy bag, will advance to clears if tolerates okay to advance to full's Continue ambulation Continue IV antibiotics cefepime and metronidazole, continue EDUARD Labs pending?will plan to start Lovenox if hemoglobin stable Mary Robotham, M.D. Pager: [phone] [facility] [address] [place] [address], [facility], [address] [place] [address] Office: [phone]
[2024-05-11 09:39] LABS: Hematocrit 31.7 % (37-47); Hemoglobin 9.8 g/dL (12.0-15.0); Mean Corp Hgb Conc 30.9 g/dL (32-36); Mean Corpuscular Hgb 25.9 pg (27.0-32.0); Mean Corpuscular Volume 83.6 fL (81-99); Mean Platelet Vol. 9.7 fl (6.2-12.0); POSITIVE COUNT YES; POSITIVE MORPHOLOGY YES; Platelet Count 508 K/mm3 (150-450); RBC Distribution Width CV 15.6 % (11.6-14.6); RBC Distribution Width SD 46.7 fl (35.1-43.9); Red Blood Count 3.79 M/mm3 (4.2-5.4); White Blood Count 11.5 K/mm3 (4.4-11.0)
[2024-05-11 09:42] LABS: Differential Indicated MANUAL DIFF
[2024-05-11 09:57] LABS: Anion Gap 9 (5-15); BUN 14 mg/dL (7-18); BUN/Creat Ratio 29.6 RATIO (10-20); Calcium,Total 8.7 mg/dL (8.5-10.1); Chloride 112 mmol/L (98-107); Creatinine, Serum 0.47 mg/dL (0.55-1.02); EST Glomerular Filtration Rate 150 mL/min (>60); Est Glom Filt Rate - Afr Amer 181 mL/min (>60); Estimated Creatinine Clearance 123.72 ml/min; Glucose 103 mg/dL (74-106); Magnesium 1.8 mg/dL (1.6-2.6); Phosphorus 1.8 mg/dL (2.5-4.9); Sodium Level 142 mmol/L (136-145)
[2024-05-11 10:21] LABS: Lymphocyte 9 % (19-41); Metamyelocyte 2 % (0-1); Monocyte 5 % (0-10); Myelocyte 1 % (0-0); Neutrophil-Segmented 83 % (47-70); Platelet Estimate ADEQUATE (ADEQ); Red Cell Morphology NORM C+C NORMAL (NORM C&C); Total Cells Counted 100 (MANUAL DIFF)
[2024-05-11 10:22] LABS: Absolute Neutrophil Count 9.5 X10^3/uL (2.0-7.7)
[2024-05-11 10:23] LABS: Absolute Lymphocyte Count 1.04 X10^3/uL (0.83-4.51)
[2024-05-11] MEDS: oxyCODONE 5 MG Tablet PO ×3 (10:30→19:39)
[2024-05-11] MEDS: Acetaminophen 325 MG Tablet 650 MG PO ×3 (10:30→19:38)
[2024-05-11] MEDS: Enoxaparin 40 MG/0.4 ML Syringe SC (10:45)
[2024-05-11 11:20] VITALS: BP 139/77; PULSE 56; RESP 16; TEMP 36.6; O2SAT 100
[2024-05-11 15:47] VITALS: BP 120/72; PULSE 53; RESP 17; TEMP 36.7; O2SAT 100
[2024-05-11 21:19] VITALS: BP 142/93; PULSE 55; RESP 14; TEMP 36.7; O2SAT 100
[2024-05-12] MEDS: Acetaminophen 325 MG Tablet 650 MG PO ×5 (01:19→21:22)
[2024-05-12] MEDS: oxyCODONE 5 MG Tablet PO ×5 (01:19→21:22)
[2024-05-12] MEDS: Ondansetron 4 MG/2 ML Vial IV (04:39)
[2024-05-12 04:46] VITALS: BP 137/88; PULSE 57; RESP 16; TEMP 36.7; O2SAT 100
[2024-05-12] MEDS: metroNIDAZOLE 500 MG/100 ML BAG 100 MG IV ×3 (05:24→23:21)
[2024-05-12 07:22] LABS: Absolute Neutrophil Count 9.4 X10^3/uL (2.0-7.7); Basophil# 0.03 X10^3/uL; Basophil% 0.3 % (0-1); Eosinophils% 0.9 % (0-5); Hematocrit 29.1 % (37-47); Hemoglobin 9.2 g/dL (12.0-15.0); Lymphocyte % 6.9 % (19-41); Mean Corp Hgb Conc 31.6 g/dL (32-36); Mean Corpuscular Hgb 25.8 pg (27.0-32.0); Mean Corpuscular Volume 81.7 fL (81-99); Mean Platelet Vol. 9.7 fl (6.2-12.0); Monocyte# 0.75 X10^3/uL; Monocyte% 6.4 % (0-10); NRBC Flagged by Analyzer 0 % (0-5); Neutrophil # 9.42 X10^3/uL (2.7-7.7); Neutrophil % 80.8 % (47-70); Platelet Count 468 K/mm3 (150-450); RBC Distribution Width CV 15.3 % (11.6-14.6); RBC Distribution Width SD 45.4 fl (35.1-43.9); Red Blood Count 3.56 M/mm3 (4.2-5.4); White Blood Count 11.7 K/mm3 (4.4-11.0)
[2024-05-12 07:56] LABS: Anion Gap 8 (5-15); BUN 10 mg/dL (7-18); BUN/Creat Ratio 21.4 RATIO (10-20); Calcium,Total 7.9 mg/dL (8.5-10.1); Chloride 105 mmol/L (98-107); Creatinine, Serum 0.47 mg/dL (0.55-1.02); EST Glomerular Filtration Rate 152 mL/min (>60); Est Glom Filt Rate - Afr Amer 184 mL/min (>60); Estimated Creatinine Clearance 123.72 ml/min; Glucose 101 mg/dL (74-106); Magnesium 1.9 mg/dL (1.6-2.6); Phosphorus 1.5 mg/dL (2.5-4.9); Potassium 3.4 mmol/L (3.5-5.1); Sodium Level 137 mmol/L (136-145)
[2024-05-12 08:16] VITALS: BP 130/85; PULSE 55; RESP 16; TEMP 36.9; O2SAT 100
--- NOTE | 2024-05-12 08:17 | PN.SURG_ITS ---
Subjective Subjective Patient seen and examined during AM rounds. She is found resting in bed. She has just awakened but she states she feels well. She remarks that she has had hiccups each morning but has otherwise been doing reasonably well tolerating her liquid diet. She does remark of some mild nausea this morning. She continues to pass flatus into her ostomy appliance. She denies any significant pain this morning but reports that she had some pain prior to bedtime yesterday that was well addressed with p.o. pain medications. Objective Data Objective Data Vital Signs: Vital Signs Temp Pulse Resp BP Pulse Ox O2 Del Method O2 Flow Rate 98.1 F 57 L 16 137/88 H 100 Room Air 4 05/12/24 04:46 05/12/24 04:46 05/12/24 04:46 05/12/24 04:46 05/12/24 04:46 05/12/24 04:46 05/07/24 05:02 Oxygen Flow Rate (L/min) 4 Oxygen Delivery Method Room Air Weight: 138 lb 6 oz Body Mass Index (BMI) 24.5 Intake & Output: Intake and Output for Last 24 Hours 05/10/24 05/11/24 05/12/24 23:59 23:59 23:59 Intake Total 1383.3333 / 1383.3333 1850 / 1850 160 / 160 Output Total 33 / 33 230 / 230 400 / 400 Balance 1350.3333 / 1350.3333 1620 / 1620 -240 / -240 Lab / Micro Data 05/12/24 06:38 05/12/24 06:38 Labs: Laboratory Results - last 24 hr 05/11/24 09:05: WBC 11.5 H, RBC 3.79 L, Hgb 9.8 L, Hct 31.7 L, MCV 83.6, MCH 25.9 L, MCHC 30.9 L D, RDW Std Deviation 46.7 H, RDW Coeff of Nikole 15.6 H, Plt Count 508 H, MPV 9.7, Neut % (Auto) Not Reportable, Absolute Neuts (auto) 9.5 H, Absolute Lymphs (auto) 1.04, Total Counted 100, Neutrophils % (Manual) 83 H, L ymphocytes % (Manual) 9 L, Monocytes % (Manual) 5, Metamyelocytes % 2 H, M yelocytes % 1 H, Diff Path Review November, Platelet Estimate ADEQUATE, RBC Morphology NORM C+C, Sodium 142, Potassium 4.0, Chloride 112 H, Carbon Dioxide 21.0, Anion Gap 9, BUN 14, Creatinine 0.47 L, Estim Creat Clear Calc 123.72, Est GFR (MDRD) Af Amer 181, Est GFR (MDRD) Non-Af 150, BUN/Creatinine Ratio 29.6 H, Glucose 103, Calcium 8.7, Phosphorus 1.8 L, Magnesium 1.8 05/12/24 06:38: WBC 11.7 H, RBC 3.56 L, Hgb 9.2 L, Hct 29.1 L, MCV 81.7, MCH 25.8 L, MCHC 31.6 L, RDW Std Deviation 45.4 H, RDW Coeff of Nikole 15.3 H, Plt Count 468 H, MPV 9.7, Immature Gran % (Auto) 4.700 H, Neut % (Auto) 80.8 H, L ymph % (Auto) 6.9 L, Craven % (Auto) 6.4, Eos % (Auto) 0.9, Baso % (Auto) 0.3, A bsolute Neuts (auto) 9.4 H, Absolute Lymphs (auto) 0.80 L, Nucleated RBC % 0, Sodium 137, Potassium 3.4 L, Chloride 105, Carbon Dioxide 24.0, Anion Gap 8, BUN 10, Creatinine 0.47 L, Estim Creat Clear Calc 123.72, Est GFR (MDRD) Af Amer 184, Est GFR (MDRD) Non-Af 152, BUN/Creatinine Ratio 21.4 H, Glucose 101, C alcium 7.9 L, Phosphorus 1.5 L, Magnesium 1.9 Micro: Microbiology 05/06/24 15:52 Incision/Surgical Site Gram Stain - Final 05/06/24 15:52 Incision/Surgical Site Wound Culture - Final Escherichia coli Strep anginosus 05/06/24 15:52 Incision/Surgical Site Anaerobic Culture - Preliminary Checking for anaerobes, further studies to follow. Physical Exam Const oriented x3 and no apparent distress Resp normal respiratory effort GI GI Narrative: Nondistended, some crusted blood around patient's skin erik in the midline laparotomy and port sites, but there is no mansi erythema or drainage. Left lower quadrant colostomy with pink mucosa indicating good perfusion. Colostomy appliance containing some thin brown feculent matter. Right lower quadrant drain with serous output and some thin clots in the drain tubing. Abdomen is soft and nontender tender to palpation x 4 quadrants. 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 Patient overall doing well today with stable vital signs and afebrile. Abdominal exam is benign. She is tolerating liquid diet with ostomy output. Will thus plan to advance her to a transitional diet and monitor for tolerance. Her white blood cell count elevated yesterday and remains roughly the same today. Significance of this is unknown as her operative cultures are reviewed and demonstrated pansensitive E. coli as well as strep anginosus that should have been well treated with empiric coverage. Operative drain is pulled today after discussing with patient that this could simply mean she has a loculated fluid collection that is soft site from where the drain is located. I would like patient to shower and thereby try to remove is much of the adherent clot and crusted drainage around her wound and ostomy as possible. Will coordinate with wound and ostomy nursing. Neuro: As needed acetaminophen, as needed oxycodone Pulm/CV: Incentive spirometry FEN/GI: Advance to transitional diet, patient to receive ostomy care education today, wound and ostomy consult : Patient voiding normally status post Molina catheter removal 05/08/2024 Heme/ID: Continue daily CBC, anemia significantly improved status post 1 unit PRBCs Sunday. As above, patient with mildly elevated WBC. Will arrange for shower today and have pulled drain at bedside. Repeat CBC tomorrow; continue empiric IV antibiotic therapy with cefepime Flagyl, follow-up operative cultures showing E. coli and strep anginosus. Endo: No present issues Proph: SCDs. Lovenox Dispo: Continue inpatient stay with possible DC anticipated tomorrow Charges/Coding Visit Charges Inpatient E&M: 10966 Subs Hosp L2
[2024-05-12 09:33] LABS: Pathologist Review Reviewed
[2024-05-12] MEDS: Potassium Phosphate 15 MM in 0.9% Normal Saline (250mL Bag) 250 ML 125 MM IV (10:18)
[2024-05-12] MEDS: Enoxaparin 40 MG/0.4 ML Syringe SC (10:18)
[2024-05-12] MEDS: Magnesium Chloride 64 MG Delay Rel.Tablet 128 MG PO (10:19)
[2024-05-12] MEDS: Pantoprazole Sodium 40 MG in 0.9% Normal Saline (100mL MB+) 100 ML 330 MG IV (10:19)
[2024-05-12] MEDS: 0.9% Saline Lock 10 ML Syringe IV ×2 (10:24→14:13)
[2024-05-12 11:02] LABS: Pathologist Review Reviewed
[2024-05-12] MEDS: Cefepime HCl 2 GM in 0.9% Normal Saline (100mL MB+) 100 ML IV ×2 (11:21→21:22)
[2024-05-12 12:35] VITALS: BP 120/85; PULSE 58; RESP 18; TEMP 36.7; O2SAT 100
--- NOTE | 2024-05-12 13:29 | CASEMGMT ---
Per Dr. Valle, the pt will stay today and there is potential for possible DC tomorrow. [facility] updated via [employer] at this time.
[2024-05-12 17:11] VITALS: BP 132/80; PULSE 60; RESP 16; TEMP 36.9; O2SAT 100
[2024-05-12 21:19] VITALS: BP 120/74; PULSE 57; RESP 16; TEMP 36.3; O2SAT 100
[2024-05-13 01:33] VITALS: BP 126/75; PULSE 61; RESP 16; TEMP 36.8; O2SAT 100
[2024-05-13] MEDS: oxyCODONE 5 MG Tablet PO ×5 (01:37→18:46)
[2024-05-13] MEDS: Acetaminophen 325 MG Tablet 650 MG PO ×5 (01:37→18:46)
[2024-05-13] MEDS: metroNIDAZOLE 500 MG/100 ML BAG 100 MG IV (05:49)
[2024-05-13 05:55] VITALS: BP 119/72; PULSE 60; RESP 16; TEMP 36.7; O2SAT 98
[2024-05-13 06:56] LABS: Absolute Lymphocyte Count 0.88 X10^3/uL (0.83-4.51); Absolute Neutrophil Count 9.5 X10^3/uL (2.0-7.7); Basophil# 0.03 X10^3/uL; Basophil% 0.3 % (0-1); Eosinophil# 0.07 X10^3/uL; Eosinophils% 0.6 % (0-5); Hematocrit 30.2 % (37-47); Hemoglobin 9.6 g/dL (12.0-15.0); Lymphocyte # 0.88 X10^3/ul (0.83-4.51); Lymphocyte % 7.5 % (19-41); Mean Corp Hgb Conc 31.8 g/dL (32-36); Mean Corpuscular Hgb 26.1 pg (27.0-32.0); Mean Corpuscular Volume 82.1 fL (81-99); Mean Platelet Vol. 9.8 fl (6.2-12.0); Monocyte# 0.81 X10^3/uL; Monocyte% 6.9 % (0-10); NRBC Flagged by Analyzer 0 % (0-5); Neutrophil # 9.49 X10^3/uL (2.7-7.7); Neutrophil % 80.6 % (47-70); Platelet Count 481 K/mm3 (150-450); RBC Distribution Width CV 15.9 % (11.6-14.6); RBC Distribution Width SD 45.9 fl (35.1-43.9); Red Blood Count 3.68 M/mm3 (4.2-5.4); White Blood Count 11.8 K/mm3 (4.4-11.0)
[2024-05-13 07:16] LABS: Anion Gap 4 (5-15); BUN 8 mg/dL (7-18); BUN/Creat Ratio 14.9 RATIO (10-20); Calcium,Total 8.3 mg/dL (8.5-10.1); Chloride 106 mmol/L (98-107); Creatinine, Serum 0.54 mg/dL (0.55-1.02); EST Glomerular Filtration Rate 130 mL/min (>60); Est Glom Filt Rate - Afr Amer 157 mL/min (>60); Estimated Creatinine Clearance 107.68 ml/min; Glucose 98 mg/dL (74-106); Magnesium 1.8 mg/dL (1.6-2.6); Phosphorus 1.9 mg/dL (2.5-4.9); Potassium 4.1 mmol/L (3.5-5.1); Sodium Level 135 mmol/L (136-145)
--- NOTE | 2024-05-13 07:29 | PCM.PN.SRG ---
Subjective Subjective Patient seen and examined during AM rounds. She is awoken out of sleep. She states she rested very well after getting a shower yesterday. She also confirmed that she tolerated her diet advance for dinner without difficulty. She does note that she had some hiccuping approximately 4 AM this morning when she went to go to the bathroom to urinate, but also adds that she had to have her ostomy appliance emptied because output had accumulated. She denies any pain this morning. Objective Data Objective Data Vital Signs: Vital Signs Temp Pulse Resp BP Pulse Ox O2 Del Method O2 Flow Rate 98.1 F 60 16 119/72 98 Room Air 4 05/13/24 05:55 05/13/24 05:55 05/13/24 05:55 05/13/24 05:55 05/13/24 05:55 05/13/24 05:55 05/07/24 05:02 Oxygen Flow Rate (L/min) 4 Oxygen Delivery Method Room Air Weight: 138 lb 6 oz Body Mass Index (BMI) 24.5 Intake & Output: Intake and Output for Last 24 Hours 05/11/24 05/12/24 05/13/24 23:59 23:59 23:59 Intake Total 1850 / 1850 1545 / 1845 700 / 700 Output Total 230 / 230 400 / 400 Balance 1620 / 1620 1145 / 1445 700 / 700 Lab / Micro Data 05/13/24 06:31 05/13/24 06:31 Labs: Laboratory Results - last 24 hr 05/06/24 15:52: Miscellaneous Cytology SEE PATHOLOGY REPORT 05/10/24 04:40: Diff Path Review Reviewed 05/11/24 09:05: Diff Path Review Reviewed 05/12/24 06:38: Sodium 137, Potassium 3.4 L, Chloride 105, Carbon Dioxide 24.0, Anion Gap 8, BUN 10, Creatinine 0.47 L, Estim Creat Clear Calc 123.72, Est GFR (MDRD) Af Amer 184, Est GFR (MDRD) Non-Af 152, BUN/Creatinine Ratio 21.4 H, Glucose 101, Calcium 7.9 L, Phosphorus 1.5 L, Magnesium 1.9 05/13/24 06:31: WBC 11.8 H, RBC 3.68 L, Hgb 9.6 L, Hct 30.2 L, MCV 82.1, MCH 26.1 L, MCHC 31.8 L, RDW Std Deviation 45.9 H, RDW Coeff of Nikole 15.9 H, Plt Count 481 H, MPV 9.8, Immature Gran % (Auto) 4.100 H, Neut % (Auto) 80.6 H, Lymph % (Auto) 7.5 L, [place] % (Auto) 6.9, Eos % (Auto) 0.6, Baso % (Auto) 0.3, Absolute Neuts (auto) 9.5 H, Absolute Lymphs (auto) 0.88, Nucleated RBC % 0, Sodium 135 L, Potassium 4.1, Chloride 106, Carbon Dioxide 26.0, Anion Gap 4 L, BUN 8, Creatinine 0.54 L, Estim Creat Clear Calc 107.68, Est GFR (MDRD) Af Amer 157, Est GFR (MDRD) Non-Af 130, BUN/Creatinine Ratio 14.9, Glucose 98, Calcium 8.3 L, Phosphorus 1.9 L, Magnesium 1.8 Micro: Microbiology 05/06/24 15:52 Incision/Surgical Site Gram Stain - Final 05/06/24 15:52 Incision/Surgical Site Wound Culture - Final Escherichia coli Strep anginosus 05/06/24 15:52 Incision/Surgical Site Anaerobic Culture - Preliminary Gram negative wale Anaerobic cocci Physical Exam Const oriented x3 and no apparent distress Resp normal respiratory effort GI GI Narrative: Nondistended, dressing over drain site and right lower quadrant, laparotomy wound remains well-approximated without erythema or drainage, left lower quadrant colostomy is well-perfused and there is feculent matter and gas in the bag. Abdomen is soft and nontender to palpation x 4 quadrants. Assessment & Plan Assessment/Plan (1) Perforated viscus: (2) Acute kidney injury: PLAN: Resolved (3) Single functional kidney: PLAN: No issues (4) S/P small bowel resection: PLAN: Plan Patient is 48-year-old female postoperative day 7 from laparoscopic converted to exploratory laparotomy for ileocecectomy and lower anterior resection with creation of end colostomy for finding of small bowel perforation, small bowel obstruction, and 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 Patient continues doing well today after describing some increased abdominal pain midday yesterday with stable vital signs and afebrile. Abdominal exam is, again, benign. She is tolerating transitional diet with ostomy output. Her white blood cell count remains mildly elevated. Significance of this is unknown as her operative cultures are reviewed and demonstrated pansensitive E. coli as well as strep anginosus that should have been well treated with empiric coverage. Operative drain removed yesterday. Patient to receive additional ostomy care instruction today but provided this goes uneventfully we will plan for patient discharge to home this afternoon Neuro: As needed acetaminophen, as needed oxycodone Pulm/CV: Incentive spirometry FEN/GI: Continue transitional diet, patient to receive ostomy care education today, wound and ostomy consult, pathology resulted yesterday and shows evidence of new rectal cancer : Patient voiding normally status post Molina catheter removal 05/08/2024 Heme/ID: Hemoglobin stable per CBC. As above, patient with mildly elevated WBC. Drain site remains covered. Will discontinue cefepime and Flagyl today Endo: No present issues Proph: SCDs. Lovenox (plan to continue for 1 week following hospital discharge given increased risk of DVT postoperatively?and with new cancer diagnosis which we will plan to share with patient this afternoon) Dispo: DC to Home anticipated this afternoon (I have confirmed patient has home health arranged) Charges/Coding Visit Charges Inpatient E&M: 08731 Subs Hosp L2
[2024-05-13 09:00] VITALS: BP 124/78; PULSE 63; RESP 16; TEMP 36.7; O2SAT 100
[2024-05-13] MEDS: Ensure Plus High Protein 120 ML LIQUID PO (09:04)
[2024-05-13] MEDS: Magnesium Chloride 64 MG Delay Rel.Tablet 128 MG PO (09:05)
[2024-05-13] MEDS: Enoxaparin 40 MG/0.4 ML Syringe SC (09:05)
--- NOTE | 2024-05-13 10:39 | WOUNDNOTE ---
stoma photo: left abdomen
--- NOTE | 2024-05-13 10:42 | WOUNDNOTE ---
Changed colostomy appliance with patient and mother. demonstrated again how to empty and clean appliance. removed the ostomy appliance. measured stoma to be sure the stoma had not shrunk. stoma remains well budded and pink. peristomal skin is intact. cleansed skin with warm water. pat dry. applied a new 2 piece flat [place] appliance with a paste ring. discussed use of stoma paste and stoma powder as well. pt and mother both deny questions or concerns at this time. patient's daughter also has experience with ostomy care and plans to assist as needed. pt aware to call if questions arise. plan is for discharge home later today.
[2024-05-13] MEDS: Pantoprazole Sodium 40 MG in 0.9% Normal Saline (100mL MB+) 100 ML 330 MG IV (12:34)
--- NOTE | 2024-05-13 13:23 | CASEMGMT ---
Pt is projected to DC home today. [facility] updated and states that they will be able to start care within the next 48 hours. DC plan updated. Updated notes sent to [facility] via [employer] at this time.
--- NOTE | 2024-05-13 13:26 | PCM.DC.SUM ---
Providers Date of Admission: 05/06/24 Primary Care Physician: Dr. Marisa Chew MD Consultations 05/06/24 19:50 Consult: Onc/Wound/egg breaker Routine Comment: Reason for Consult:: new ostomy and ex lap Reason For Visit: POSSIBLE BRADY PATCH Diagnosis Discharge Diagnosis (1) Perforated viscus: Status: Acute Code(s): R19.8 - Other specified symptoms and signs involving the digestive system and abdomen (2) Acute kidney injury: Status: Acute Code(s): N17.9 - Acute kidney failure, unspecified (3) Single functional kidney: Status: Acute Code(s): Z90.5 - Acquired absence of kidney (4) S/P small bowel resection: Status: Acute Code(s): Z90.49 - Acquired absence of other specified parts of digestive tract Plan: I am seeing this patient in conjunction with Dr. Valle. He has independently evaluated this patient. Continue NG tube as output has been moderate amount Continue NPO Discontinue Molina Continue with ambulation and encourage I.S We will continue to monitor this patient Medications at Discharge Home Medications diphenoxylate-atropine 2.5 mg-0.025 mg tablet 1 tab PO 4X/DAY PRN Diarrhea 10/16/15 ropinirole 0.25 mg tablet (Requip) 0.25 mg PO DAILY 10/16/15 ascorbic acid (vitamin C) 1,000 mg tablet (Vitamin C) 1 tab PO DAILY 10/16/17 ferrous gluconate 236 mg (27 mg iron) tablet 1 tab PO DAILY 10/16/17 gabapentin 300 mg capsule (Neurontin) 300 mg PO BID 10/16/17 naproxen 500 mg tablet 500 mg PO BID PRN #20 tabs 10/16/17 cholecalciferol (vitamin D3) 1,250 mcg (50,000 unit) capsule 50,000 unit PO QWEEK 08/24/18 magnesium 250 mg tablet 250 mg PO DAILY 08/24/18 naproxen 500 mg tablet (Naprosyn) 500 mg PO BID PRN pain #20 tabs 09/04/21 acetaminophen 325 mg tablet 650 mg (2 x 325 mg) PO Q4H PRN PRN Pain Score 1-10 #0 tabs 05/13/24 enoxaparin 40 mg/0.4 mL subcutaneous syringe 40 mg (0.4 mL) subcut DAILY 1 week #2.8 mL 05/13/24 oxycodone 5 mg tablet 5 mg PO Q6H PRN pain 3 days #9 tabs 05/13/24 Hospital Course Operations colectomy (Diagnostic laparoscopy converted to exploratory laparotomy, Ileocecectomy with primary anastomosis, low anterior resection with creation of end sigmoid colostomy with TAP block) and - Summary of Care Provided Minutes Spent on Discharge: 30 Hospital Course: Patient presented with an acute onset of abdominal pain which started the evening before and progressively getting worse. CT scan of the ab/pel demonstrated distal small bowel obstruction, suspicious irregular thickening of the sigmoid colon, ascites around the right lower hepatic lobe surface, overlying the sigmoid colon and overlying the empty urinary bladder. Dr. Valle performed a diagnostic laparoscopy converted to exploratory laparotomy, Ileocecectomy with primary anastomosis, Low anterior resection with creation of end sigmoid colostomy and TAP block on 05/06/24 with the assistance of Dr. Gonzalez. Patient tolerated the procedure well. She had an uneventful hospitalization. Patient was continued on IV antibiotics throughout her hospitalization secondary to the significant amount of purulent material found throughout the abdomen as well as stool spillage. Cultures returned as E. Coli, strep anginosus, bacteroides xylanisolvens, anaerobic cocci, clostridium group. Upon discharge, patient is tolerating a transitional diet. She denies any nausea, vomiting associated with diet. She is having stool output and air within the stoma bag. She denies fever. She denies any abdominal pain. She is urinating well. Patient will plan to follow-up with our office in 1 week. She will obtain lab work the morning of her appointment. Weight / BMI Weight Weight: 138 lb 6 oz Body Mass Index (BMI) 24.5 ABG / Lab / Microbiology Data 05/13/24 06:31 05/13/24 06:31 Laboratory: Laboratory Results - last 24 hr 05/13/24 06:31: WBC 11.8 H, RBC 3.68 L, Hgb 9.6 L, Hct 30.2 L, MCV 82.1, MCH 26.1 L, MCHC 31.8 L, RDW Std Deviation 45.9 H, RDW Coeff of Nikole 15.9 H, Plt Count 481 H, MPV 9.8, Immature Gran % (Auto) 4.100 H, Neut % (Auto) 80.6 H, Lymph % (Auto) 7.5 L, [place] % (Auto) 6.9, Eos % (Auto) 0.6, Baso % (Auto) 0.3, Absolute Neuts (auto) 9.5 H, Absolute Lymphs (auto) 0.88, Nucleated RBC % 0, Sodium 135 L, Potassium 4.1, Chloride 106, Carbon Dioxide 26.0, Anion Gap 4 L, BUN 8, Creatinine 0.54 L, Estim Creat Clear Calc 107.68, Est GFR (MDRD) Af Amer 157, Est GFR (MDRD) Non-Af 130, BUN/Creatinine Ratio 14.9, Glucose 98, Calcium 8.3 L, Phosphorus 1.9 L, Magnesium 1.8 Microbiology: Microbiology 05/06/24 15:52 Incision/Surgical Site Gram Stain - Final 05/06/24 15:52 Incision/Surgical Site Wound Culture - Final Escherichia coli Strep anginosus 05/06/24 15:52 Incision/Surgical Site Anaerobic Culture - Final Bacteroides xylanisolvens Anaerobic cocci Clostridium group D/C Instructions Discharge Diet: - (Transitional diet) Lifting Restrictions: No lifting greater than 10 pounds for 5 weeks Call your doctor if your incision/area has: Continuous Slow Oozing, Sudden Increased Bleeding, Increased Pain/ Swelling, Increased Redness, Foul Smelling Discharge and Swelling at the incision site Call your doctor if you observe: Fever of 101 or Higher Suture Line Care: Avoid Pulling/Pushing and Avoid Pinching/Bending Cleanse incision/area with: Soap & Water Additional Dressing/Incision Instructions: Remove drain dressing tomorrow and as long as the suture is not rubbing, you will no longer need a bandage over top. Please Follow Up With: Ziggy Valle MD When: Please contact our office to schedule a follow-up in [address] Valle at [phone], option #2. Meaningful Use Info Meaningful Use Meaningful Use Diagnoses (Choose all that apply): None applicable Ischemic Stroke Statin Dosing Therapy Reference: STATIN DOSE THERAPY REFERENCE: * Patients > 75 years receive moderate or high dose statin therapy. * Patients 75 years or YOUNGER should receive HIGH intensity statin dose unless contraindicated. You will be required to document reason for non-treatment if statin daily dose does not meet guidelines. HIGH DOSE STATIN THERAPY DAILY Atorvastatin > than or = to 40 mg Rosuvastatin > than or = to 20 mg Amlodipine + Atorvastatin > than or = to 2.5/40 mg Ezetimibe + Simvastatin 10/80 mg Simvastatin 80mg Discharge Plan Admission Admit Date/Time: 05/06/24 19:47 Primary Reason for Your Visit: Ischemic small bowel, pelvic mass and perforated viscus Attending Provider: Ziggy Valle Primary Care Provider: Marisa Chew Instructions Additional Instructions / Restrictions: Colectomy Diet ? Start light with soups and soft bland foods. Refer to your transitional diet instruction sheet Activity ? You may drive in 5-7 days but not while taking narcotic pain medication. ? I encourage walking. You may go up steps, one at a time. ? Do not swim or use hot tubs for 2 weeks. Lifting ? You may lift up to 10 pounds for 5 weeks. Dressings/Incision ? You may shower OVER your plastic dressings ? Do NOT tub bathe for 1 week ? When plastic dressings are removed, you will find steri strips. It is okay to continue showering with them in place, pat them dry. ? You may remove steri-strips after 1 week. We recommend getting them soaking wet for easier removal. Medications ? Anesthesia used during surgery and pain medications may cause constipation. I recommend initiating on the day of surgery a fiber supplement like, Metamucil, Citrucel, FiberCon, Benefiber, or a generic form of these medications. 1 heaping tablespoon in water daily. You may continue to utilize any bowel regimen or oral laxatives that you routinely take. ? As long as you are not intolerant to Tylenol, acetaminophen, ibuprofen, Motrin, Advil, Aleve, or similar medications, I would recommend transitioning to these [id number] medicines as soon as possible instead of continued use of narcotic pain medication. Follow up ? You should call [facility] soon after surgery, at [phone] option 2 to make a follow up appointment for 7 days after your surgery. Transitional Diet Beverages: ? Soda (cola, diet cola, lemon-circle, diet lemon-circle, mi tash, diet mi tash) ? Tea (hot or iced) ? Milk (low-fat, 2%, lactose free) ? Coffee ? Juice (without pulp) ? Oral Nutrition supplement Breakfast: ? Hot cereal (oatmeal or cream of wheat) ? Scrambled eggs ? Blueberry muffin ? Cold cereal (no whole grain cereals) ? [place] (white) Lunch or Dinner: Deli Items: Hot Items: [place] sandwich Roast [place] Tuna salad (sandwich or alone) Macaroni & Cheese Egg salad (sandwich or alone) Mashed potatoes & gravy Chicken salad (sandwich or alone) Carrots Green beans Cold Sides: Soups: Cottage cheese Vegetable soup Yogurt Chicken noodle Hardboiled egg Dessert: ? Gelatin, pudding, juice slushie Please obtain bloodwork the day of your appointment prior to seeing Dr. Valle. Thank you. Discharge Orders/Prescriptions Prescriptions: New enoxaparin 40 mg/0.4 mL Syringe 40 mg subcut DAILY 7 Days Qty: 2.8 0RF acetaminophen 325 mg Tablet 650 mg PO Q4H PRN PRN (Reason: Pain Score 1-10) Qty: 0 0RF oxycodone 5 mg Tablet 5 mg PO Q6H PRN (Reason: pain) 3 Days Qty: 9 0RF Continued diphenoxylate-atropine 1 TABLET tablet 1 tab PO 4X/DAY PRN (Reason: Diarrhea) ropinirole [Requip] 0.25 MG tablet 0.25 mg PO DAILY ascorbic acid (vitamin C) [Vitamin C] 1,000 MG tablet 1 tab PO DAILY gabapentin [Neurontin] 300 MG capsule 300 mg PO BID ferrous gluconate 236 MG tablet 1 tab PO DAILY naproxen 500 MG tablet 500 mg PO BID PRN Qty: 20 0RF magnesium 250 MG tablet 250 mg PO DAILY cholecalciferol (vitamin D3) 50,000 UNIT capsule 50,000 unit PO QWEEK naproxen [Naprosyn] 500 mg tablet 500 mg PO BID PRN (Reason: pain) Qty: 20 0RF Other Ambulatory Orders: Basic Metabolic Profile (BMP) (Routine) Timeframe: 1 Week Facility: [facility] - Location: Laboratory Ordered By: Anni PERALTA CBC W/Diff, Automated (Routine) Timeframe: 1 Week Facility: [facility] - Location: Laboratory Ordered By: Anni PERALTA Referrals / Follow Up: Marisa Chew MD [Primary Care Provider] - Ziggy Valle MD [Med Staff - Active Staff] - 05/20/24 (Please follow-up in [address] Valle) Disposition Disposition (needs filled in before D/C Order can be placed): Home Health Service Charges/Coding Visit Charges Inpatient E&M: 84247 Disch Hosp (no charge; post-op)
[2024-05-13 14:25] VITALS: BP 106/69; PULSE 84; RESP 16; TEMP 36.7; O2SAT 99
--- NOTE | 2024-05-13 18:19 | PCM.DC ---
Discharge Instructions Diet Discharge Diet: - (Transitional diet) Dressing / Incision Call your doctor if your incision/area has: Continuous Slow Oozing, Sudden Increased Bleeding, Increased Pain/ Swelling, Increased Redness, Foul Smelling Discharge and Swelling at the incision site Call your doctor if you observe: Fever of 101 or Higher Suture Line Care: Avoid Pulling/Pushing and Avoid Pinching/Bending Cleanse incision/area with: Soap & Water Additional Dressing/Incision Instructions:: Remove drain dressing tomorrow and as long as the suture is not rubbing, you will no longer need a bandage over top. Follow Up Care Please Follow Up With: Ziggy Valle MD When: 1 week Test Results: Test results from this visit will be discussed in further detail at your follow-up appointment, if applicable. Discharge Plan Admission Admit Date/Time: 05/06/24 19:47 Primary Reason for Your Visit: Ischemic small bowel, pelvic mass and perforated viscus Attending Provider: Ziggy Valle Primary Care Provider: Marisa Chew Instructions Additional Instructions / Restrictions: Colectomy Diet ? Start light with soups and soft bland foods. Refer to your transitional diet instruction sheet Activity ? You may drive in 5-7 days but not while taking narcotic pain medication. ? I encourage walking. You may go up steps, one at a time. ? Do not swim or use hot tubs for 2 weeks. Lifting ? You may lift up to 10 pounds for 5 weeks. Dressings/Incision ? You may shower OVER your plastic dressings ? Do NOT tub bathe for 1 week ? When plastic dressings are removed, you will find steri strips. It is okay to continue showering with them in place, pat them dry. ? You may remove steri-strips after 1 week. We recommend getting them soaking wet for easier removal. Medications ? Anesthesia used during surgery and pain medications may cause constipation. I recommend initiating on the day of surgery a fiber supplement like, Metamucil, Citrucel, FiberCon, Benefiber, or a generic form of these medications. 1 heaping tablespoon in water daily. You may continue to utilize any bowel regimen or oral laxatives that you routinely take. ? As long as you are not intolerant to Tylenol, acetaminophen, ibuprofen, Motrin, Advil, Aleve, or similar medications, I would recommend transitioning to these [id number]-[id number] medicines as soon as possible instead of continued use of narcotic pain medication. Follow up ? You should call [facility] soon after surgery, at [phone] option 2 to make a follow up appointment for 7 days after your surgery. Transitional Diet Beverages: ? Soda (cola, diet cola, lemon-nez perce, diet lemon-nez perce, mi tash, diet mi tash) ? Tea (hot or iced) ? Milk (low-fat, 2%, lactose free) ? Coffee ? Juice (without pulp) ? Oral Nutrition supplement Breakfast: ? Hot cereal (oatmeal or cream of wheat) ? Scrambled eggs ? Blueberry muffin ? Cold cereal (no whole grain cereals) ? [place] (white) Lunch or Dinner: Deli Items: Hot Items: [place] sandwich Roast [place] Tuna salad (sandwich or alone) Macaroni & Cheese Egg salad (sandwich or alone) Mashed potatoes & gravy Chicken salad (sandwich or alone) Carrots Green beans Cold Sides: Soups: Cottage cheese Vegetable soup Yogurt Chicken noodle Hardboiled egg Dessert: ? Gelatin, pudding, juice slushie Please obtain bloodwork the day of your appointment prior to seeing Dr. Valle. Thank you. Discharge Orders/Prescriptions Prescriptions: New enoxaparin 40 mg/0.4 mL Syringe 40 mg subcut DAILY 7 Days Qty: 2.8 0RF acetaminophen 325 mg Tablet 650 mg PO Q4H PRN PRN (Reason: Pain Score 1-10) Qty: 0 0RF oxycodone 5 mg Tablet 5 mg PO Q6H PRN (Reason: pain) 3 Days Qty: 9 0RF Continued diphenoxylate-atropine 1 TABLET tablet 1 tab PO 4X/DAY PRN (Reason: Diarrhea) ropinirole [Requip] 0.25 MG tablet 0.25 mg PO DAILY ascorbic acid (vitamin C) [Vitamin C] 1,000 MG tablet 1 tab PO DAILY gabapentin [Neurontin] 300 MG capsule 300 mg PO BID ferrous gluconate 236 MG tablet 1 tab PO DAILY naproxen 500 MG tablet 500 mg PO BID PRN Qty: 20 0RF magnesium 250 MG tablet 250 mg PO DAILY cholecalciferol (vitamin D3) 50,000 UNIT capsule 50,000 unit PO QWEEK naproxen [Naprosyn] 500 mg tablet 500 mg PO BID PRN (Reason: pain) Qty: 20 0RF Other Ambulatory Orders: Basic Metabolic Profile (BMP) (Routine) Timeframe: 1 Week Facility: [facility] - Location: Laboratory Ordered By: Anni PERALTA CBC W/Diff, Automated (Routine) Timeframe: 1 Week Facility: [facility] - Location: Laboratory Ordered By: Anni PERALTA Referrals / Follow Up: Marisa Cehw MD [Primary Care Provider] - Ziggy Valle MD [Med Staff - Active Staff] - 05/20/24 (Please follow-up in [address] Valle) Disposition Disposition (needs filled in before D/C Order can be placed): Home Health Service
== END 2024-05-13 19:09 | disposition home health service (06) | DRG 330 ==
LOC: ED 13:48 → SDC 13:58 → ACINP 13:59 → MS3 21:06 → SDC 21:07 → MS3 21:07
PROVIDERS: Surgery; Admitting Provider Surgery; Emergency Provider Emergency Medicine; PCP Internal Medicine; Visit Provider Surgery
PROC: 0DT Gastrointestinal System, Resection (ICD-10-PCS; CPT 44202; principal; 2024-05-06 14:10)
DX: K56.609 Unspecified intestinal obstruction, unspecified as to partial versus complete obstruction (principal); N17.9 Acute kidney failure, unspecified; R18.8 Other ascites; K66.8 Other specified disorders of peritoneum; Z93.3 Colostomy status; E86.1 Hypovolemia; R19.8 Other specified symptoms and signs involving the digestive system and abdomen; Z90.710 Acquired absence of both cervix and uterus; Z90.5 Acquired absence of kidney; Z53.31 Laparoscopic surgical procedure converted to open procedure
CPT/HCPCS: 36415; 70450; 71045; 74018; 74177; 80048; 80053; 81001; 81002; 83605; 83690; 83735; 84100; 84484; 84702; 84703; 85025; 86850; 86900; 86901; 86920; 86922; 87070; 87075; 87077; 87186; 87205; 88108; 88305; 88307; 88313; 88341; 88342; 93005; 94668; 97110; 97116; 97162; 97530; 97802; 97803; 99284; J7030; J7040; J7050; P9040; Q9967; A4216; J2405; J3490

== ENCOUNTER → 2024-05-20 | Outpatient (CLI) | payer BC, SELFPAY ==
[2024-05-20 15:33] LABS: Absolute Neutrophil Count 3.4 X10^3/uL (2.0-7.7); Basophil# 0.03 X10^3/uL; Basophil% 0.6 % (0-1); Eosinophil# 0.05 X10^3/uL; Hematocrit 31.7 % (37-47); Hemoglobin 9.8 g/dL (12.0-15.0); Mean Corp Hgb Conc 30.9 g/dL (32-36); Mean Corpuscular Hgb 26.2 pg (27.0-32.0); Mean Corpuscular Volume 84.8 fL (81-99); Mean Platelet Vol. 10.8 fl (6.2-12.0); Monocyte# 0.47 X10^3/uL; Monocyte% 9.4 % (0-10); NRBC Flagged by Analyzer 0 % (0-5); Neutrophil # 3.42 X10^3/uL (2.7-7.7); Neutrophil % 68.6 % (47-70); Platelet Count 599 K/mm3 (150-450); RBC Distribution Width CV 18.6 % (11.6-14.6); RBC Distribution Width SD 55.8 fl (35.1-43.9); Red Blood Count 3.74 M/mm3 (4.2-5.4)
[2024-05-20 16:04] LABS: Anion Gap 7 (5-15); BUN 5 mg/dL (7-18); BUN/Creat Ratio 8.2 RATIO (10-20); Calcium,Total 8.6 mg/dL (8.5-10.1); Chloride 106 mmol/L (98-107); Creatinine, Serum 0.61 mg/dL (0.55-1.02); EST Glomerular Filtration Rate 112 mL/min (>60); Est Glom Filt Rate - Afr Amer 136 mL/min (>60); Glucose 112 mg/dL (74-106); Sodium Level 140 mmol/L (136-145)
== END | disposition home or self-care (01) ==
PROVIDERS: PCP Internal Medicine; Referring Provider Physician Assistant; Visit Provider Physician Assistant
DX: Z90.49 Acquired absence of other specified parts of digestive tract (principal)
CPT/HCPCS: 36415; 80048; 85025

== ENCOUNTER → 2024-05-23 | Outpatient (CLI) | payer BC, SELFPAY ==
[2024-05-24 04:07] LABS: Carcinoembryonic Antigen 4.7 ng/mL (0.0-4.7)
== END | disposition home or self-care (01) ==
PROVIDERS: PCP Internal Medicine; Referring Provider Physician Assistant; Visit Provider Physician Assistant
DX: E87.6 Hypokalemia (principal); C20 Malignant neoplasm of rectum
CPT/HCPCS: 36415; 82378; 84132

== ENCOUNTER 2024-06-17 05:26 | Day surgery (SDC) | payer BC, SELFPAY ==
[2024-06-17] VITALS (8 sets, daily range): BP systolic 102–107; BP diastolic 73–86; PULSE 89–99; RESP 14–18; TEMP 36.4–37.1; O2SAT 98–100; BMI 19.1
--- NOTE | 2024-06-17 06:50 | PCM.HP.BLA ---
History and Physical Date of Admission: 06/17/24 [facility] [address] [place], [place] [id number] OFFICE VISIT Date of Service: 06/13/24 MR#: [id number] Acct: [id number] Name: CHATO ALFARO Rep #: [id number] : 1975 Provider: Dr. Ziggy Valle MD Age/Sex: 48/F Location: [facility] Status: Signed Intake Vital Signs 06/09/2409:45 06/13/2415:05 Height 5 ft 3 in 5 ft 3 in Weight: 110 lb BMI 19.5 BP 111/80 Blood Pressure Location Rt brachial Position Sitting Respiration 18 Pulse 90 Pulse Source Monitor Temp 97.3 F L Temp Source Temporal Pulse Oximetry (%) 98 Oxygen Delivery Method room air Intake Visit Reasons: DISCUSS PORT Chief Complaint: discuss port Accompanied by: Mother Is patient in pain?: No Allergies morphine Allergy (Intermediate, Verified 06/13/24 15:06) HivesGadolinium-MRI Contrast Medium (contrast dye) Allergy (Verified 06/13/24 15:06) unknownPenicillins Allergy (Verified 06/13/24 15:06) Hivestomato Allergy (Verified 06/13/24 15:06) Hives Medications ?Medication ?Instructions ?Recorded ?Confirmed ?Type ropinirole 0.25 mg tablet (Requip) 0.25 mg PO QHS 10/16/15 06/13/24 History ascorbic acid (vitamin C) 1,000 mg 1 tab PO DAILY 10/16/17 06/13/24 History tablet (Vitamin C) gabapentin 300 mg capsule 300 mg PO BID 10/16/17 06/13/24 History (Neurontin) naproxen 500 mg tablet 500 mg PO BID PRN #20 tabs 10/16/17 06/13/24 Rx potassium chloride 20 mEq 20 meq PO BID 10 days #20 tabs 06/09/24 06/13/24 Rx tablet,extended release PFSH Medical History Wears glasses Cancer Low iron Anemia Restless legs Migraine headache Asthma Non-smoker Cervical cancer Surgical History S/P partial resection of colon History of left nephrectomy S/P cholecystectomy History of laparoscopic appendectomy H/O: hysterectomy Family History Mother Breast cancerAunt Breast cancerFather Heart disease CVA (cerebral vascular accident) Myocardial infarction Social History household members: spouse Smoking Status: Never smoker alcohol intake: never substance use type: does not use HPI HPI HPI: Patient is a 48-year-old female who presents for consideration of port placement. Patient was diagnosed with rectal cancer last month after an emergent exploratory laparotomy with ileocecectomy and low anterior resection by me for presentation of perforated viscus. They have met with oncology and plans are to begin chemotherapy 06/23/24. Patient shares that she has discussed her needs for chemotherapy with her but he is not understanding why she would require chemotherapy if everything was removed at the time of surgery. Patient shares that she has done well following surgery but find herself sleeping on her right side so she does not disrupt her colostomy. She notes that she has become more active but is still wanting for some strengthening and states she has trouble even lifting a gallon of milk. She reports some soreness of her abdomen in the mornings but when she gets moving she has no pain. She reports that her diet is going uneventfully. Her colostomy is also reported is working well but she does share about a new red pimple that is sore and located on the lateral aspect of her stoma. Patient has no prior history of central line placement. Patient has no pacemaker or intracardiac defibrillator. Patient has no renal dysfunction and are not on hemodialysis. There is no history of major cutaneous infection. This is George is not prescribed blood thinners. ROS General General: Yes weight change, fatigue and colon cancer; No appetite, breast cancer or weakness HEENT HEENT: No difficulty swallowing, eye injury, eye surgery, swollen glands or hoarseness Endo Endocrine: No thyroid disease, diabetes mellitus, thyroid cancer, Hair loss, heat intolerance or cold intolerance Skin Skin: No rash or changing moles Musc Musculoskeletal: No back problems, arthritis, rheumatoid arthritis, gout or joint pain Cardio Cardiovascular: No murmur, pacemaker, heart disease, atrial fibrillation, high blood pressure, heart attack, heart stent, palpitations, shortness of breat with exertion or chest pain Psych Psychiatric: No depression, anxiety or hearing voices Resp Respiratory: No shortness of breath, No sleep apnea, No cough, No COPD, No asthma, No emphysema and No wheezing Gastro Gastrointestinal: No abdominal pain, No nausea or vomiting, No diarrhea, No constipation, No blood in stool, No acid reflux, No hemorrhoids, No ulcers, No gallbladder problem and No black,tarry stools Pravin Hematologic: No blood thinners, No blood disorders, No bleeding, No anemia and No blood clots Neuro Neurologic: No numbness, No tingling and No weakness Exam Const General: cooperative, comfortable and no acute distress Orientation: alert, awake and oriented x3 Other: Good humored Chest Other: No lesions or signs of irritation Resp Effort & Inspection: normal respiratory effort GI Other: Well-healed laparotomy and port site scars. Nondistended, left lower quadrant ostomy is well-perfused and there is yellow?brown pasty stool within the ostomy appliance. Abdomen is soft and nontender to palpation x 4 quadrants. Assessment and Plan Assessment and Plan (1) Rectal cancer: Status: Acute Comment: S/P Low Anterior resection with Colostomy 05/06/2024. Pathology show recto-sigmoid adenocarcinoma with perforation, tumor invades the visceral peritoneum, lymph nodes 1 out of 8 positive, margins negative, pathologic staging pT4a pTN1a. Discussed the case with Dr. Valle, there was no residual mass. Discussed further staging with CT of the chest, adjuvant therapy with chemotherapy, Radiation may not be possible because of previous cervical cancer therapy. Pt wants to go on with adjuvant chemotherapy. She does not want to do Infusional 5FU with pump for 48hrs. Update 06/13/2024: As above, patient has met with oncology and plans are to move forward with adjuvant chemotherapy. Initiation date is set for June 23, 2024. Patient requires durable venous access for chemo administration. She has no history of prior central line placement. I discussed with her both the details of the procedure and the need to post procedurally remain vigilant to any risk for infection given the increased risk for endocarditis and bacteremia. Patient expresses understanding and her mother is present for today's visit to also has a history of chemoinfusion. Plan: Right possible left Port-A-Cath placement set for 08/17/2023. I have examined the patient the following changes are noted: Patient completed chemo education yesterday and confirms she feels more informed about the process going forward. She otherwise denies any new updates. Will plan to proceed this morning for right possible left Port-A-Cath placement with ultrasound and fluoroscopic guidance.
--- NOTE | 2024-06-17 06:52 | PCM.PRE.AN2 ---
ASA Classification* ASA Classification ASA Classification: 2 Assessment & Plan Anesthesia* Anesthesia Assessment Anesthesia Assessment: Discussed sedation and/or anesthesia options, risks, benefits, and alternatives with patient/parents/legal guardian/POA. Questions invited. The patient/parents/legal guardian/POA seems to understand and agrees to proceed with anesthesia plan. Reviewed the physical assessment, medical history, allergy history and patient home medications list prior to surgery/procedure/anesthetic and documented any changes. Performed airway and anesthesia risk assessments. Anesthesia Type Anesthesia Type: MAC Anesthesia Focused Assessment* Temperature: 98.8 F Pulse Rate: 94 Blood Pressure: 102/86 Respiratory Rate: 16 Pulse Ox: 99 Airway Assessment Mouth opens: >3 cm Mallampati Score: II Focused Labs Anesthesia Preop lab: CBC WBC 6.3 K/mm3 (4.4-11.0) 06/09/24 09:04 RBC 4.02 M/mm3 (4.2-5.4) L 06/09/24 09:04 Hgb 10.7 g/dL (12.0-15.0) L 06/09/24 09:04 Hct 33.8 % (37-47) L 06/09/24 09:04 Plt Count 408 K/mm3 (150-450) 06/09/24 09:04 CHEMISTRY Potassium 2.9 mmol/L (3.5-5.1) L 06/09/24 09:04 Sodium 140 mmol/L (136-145) 06/09/24 09:04 Magnesium 1.8 mg/dL (1.6-2.6) 05/13/24 06:31 Phosphorus 1.9 mg/dL (2.5-4.9) L 05/13/24 06:31 BUN 6 mg/dL (7-18) L 06/09/24 09:04 Creatinine 0.63 mg/dL (0.55-1.02) 06/09/24 09:04 Glucose 114 mg/dL (74-106) H 06/09/24 09:04 COAG HCG, Quant 8 mIU/mL (1-3) H 05/06/24 11:15 Pre-Assessment Diagnosis/Proposed Procedure Planned Operative Procedure(s): INSERTION RIGHT POSS LEFT VASCULAR PORT Anesthesia History 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 When Was Last Pacemaker Check QUESTION #4 FULL TEXT: You/Your Family Experience fever (hyperthermia) with Anesthesia Last Oral Intake Last Oral intake: Last Oral Intake NPO since 00:00 06/17/24 06:36 Meds taken in AM with sips of No 06/17/24 06:36 water? 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 pool heating installer Female Yes 06/12/24 08:07 HX of Motion Sickness No 06/12/24 08:07 HX of N/V After Surgery No 06/12/24 08:07 Non-Smoker Yes 06/12/24 08:07 Duration of Surgery greater No 06/12/24 08:07 than 60 minutes Number of Risk Factors 2 06/12/24 08:07 PONV Score Moderate Risk 06/12/24 08:07 Height & Weight Height & Weight: Anesthesia: Height & Weight Height 5 ft 3 in 06/17/24 06:36 Weight: 49 kg 06/17/24 06:36 Body Mass Index (BMI) 19.1 06/17/24 06:36 Respiratory Assessment Respiratory Assessment - solar pool heating installer: Respiratory Tract Infection Hx - solar pool heating installer Hx Respiratory Tract Infection No 06/12/24 08:07 STOP Sleep Apnea STOP Sleep Apnea - solar pool heating installer: STOP Sleep Apnea - solar pool heating installer Hx Hypertension No 06/12/24 08:07 Hx Sleep Apnea No 06/12/24 08:07 CPAP BIPAP Do you snore loudly (louder No 06/12/24 08:07 than talking or can be heard Do you often feel tired/ No 06/12/24 08:07 fatigued/ sleepy during daytime? Has anyone observed you stop No 06/12/24 08:07 breathing during sleep? STOP Results Negative 06/12/24 08:07 QUESTION #5 FULL TEXT : Do you snore loudly (louder than talking or can be heard through closed doors)? 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 Specify any problems Hx of Preganancy in last 3 No 06/12/24 08:07 Months Nurse Filling Out Transfusion DSCHRIBER 06/12/24 08:07 & Questions: Date: 06/12/24 06/12/24 08:07 Time: 08:08 06/12/24 08:07 Patient unable to answer at this time (ie. confused, unrespo /Reproduction History /Reproductive History - solar pool heating installer: /Reproductive Hx- solar pool heating installer Hx Now No 06/12/24 08:07 Gestational Age (in weeks): EDC: Hx Hx Para Hx Section SAB No 06/12/24 08:07 Active Medications Active Medications: Current Medications Generic Name Dose Route Start Last Admin Trade Name Freq PRN Reason Stop Dose Admin Clindamycin Phosphate 900 mg in 50 mls @ 75 mls/hr 06/17/24 07:30 Cleocin IV 06/17/24 08:09 PREOP ONE PFS Medical History Encounter for education Wears glasses Cancer Low iron Anemia Restless legs Migraine headache Asthma Non-smoker Cervical cancer Home Medications ?Medication ?Instructions ?Recorded ?Last Taken ?Type ropinirole 0.25 mg tablet (Requip) 0.25 mg PO QHS 10/16/15 06/15/24 History gabapentin 300 mg capsule 300 mg PO BID 10/16/17 06/15/24 History (Neurontin) potassium chloride 20 mEq 20 meq PO BID 10 days #20 tabs 06/09/24 06/16/24 Rx tablet,extended release lidocaine-prilocaine 2.5 %-2.5 % 1 applic topical ONCE PRN port 06/16/24 Unknown Rx topical cream access 30 days #30 grams ondansetron 8 mg disintegrating 8 mg PO Q8H PRN nausea and 06/16/24 Unknown Rx tablet vomiting #30 tabs Allergy/AdvReac Type Severity Reaction Status Date / Time morphine Allergy Intermediate Hives Verified 06/16/24 15:08 Gadolinium-MRI Contrast Allergy unknown Verified 06/16/24 15:08 Medium (contrast dye) Penicillins Allergy Hives Verified 06/16/24 15:08 tomato Allergy Hives Verified 06/16/24 15:08 Family History Mother Breast cancer Aunt Breast cancer Father Heart disease CVA (cerebral vascular accident) Myocardial infarction Surgical History S/P partial resection of colon History of left nephrectomy S/P cholecystectomy History of laparoscopic appendectomy H/O: hysterectomy Social History household members: spouse Smoking Status: Never smoker alcohol intake: never substance use type: does not use Review of Systems (Anesthesia) ROS Narrative System reviewed and no additional complaints, except as documented.
[2024-06-17] MEDS: Clindamycin 900 MG/50 ML BAG 75 MG IV (07:45)
[2024-06-17] MEDS: Bupiv/Epi 0.25% 30 ML Vial (08:20)
--- NOTE | 2024-06-17 08:32 | PCM.OPRPT ---
Operative Report (Standard) Operative Information Surgery/Procedure Performed: Insertion of ultrasound and fluoroscopic-guided right internal jugular Port-A-Cath Surgeon: Ziggy Valle Date of Procedure: 06/17/24 Procedure Start Time: 07:58 Procedure Stop Time: 08:31 Pre-Operative Diagnosis: Rectal cancer requiring adjuvant chemotherapy and durable venous access Post-Operative Diagnosis: Rectal cancer requiring adjuvant chemotherapy and durable venous access Select all DRAINS/GRAFTS/IMPLANTS that apply: Prosthetic device (PowerPort ISP MRI implantable port-8 Luxem[place]ish) Prosthetic device details: Reference [id number], lot [id number] Type of Anesthesia: IV Sedation and Local Estimated Blood Loss: 5 Specimen collected: No Description of surgery: After appropriate identification in the preoperative holding area the patient was brought to the operating room. There she was administered preoperative antibiotics and positioned supine on the operating room table. Once sedation was begun, the upper chest and lower cervical region were prepped and draped in usual sterile fashion. A formal timeout was then conducted to confirm both the patient and procedure. Ultrasound was used to localize the right internal jugular vein. Then a wheal of 0.25% bupivacaine with epinephrine was raised superficially in this location and the vein was accessed with 2 attempts under direct ultrasound guidance using a Seldinger technique (a micro access kit was initially used but the jugular vein was found to be very collapsible so I transition to the standard finder needle for the following attempt). The position of the guidewire was confirmed with fluoroscopy. Next the position of the port pocket was determined and again local anesthetic was used to anesthetize the area of both the pocket and the tunneling cephalad. A transverse incision approximately 3 cm in width was made down through the subcutaneous tissue. Selective electrocautery was used to obtain hemostasis. Then with blunt dissection the port pocket was developed. The catheter was connected to the tunneler and was tunneled up to the position of the guidewire. Here the dilator and peel-away sheath were placed over the guidewire and the guidewire was removed. Position was again confirmed with fluoroscopy. The catheter length was estimated based on the external placement of a hemostat to approximate the level of the fredi and the cavoatrial junction. The catheter was then fed into the sheath and slowly the sheath was peeled away as the catheter was inserted fully into the neck. Back in the chest the excess catheter was trimmed and the port was connected to the catheter. The port was tied into the pocket using 3-0 Vicryl. Function was then tested using sterile saline on a Watson needle. It was locked with 3 mL of heparinized saline (concentration 50U/5mL). The port pocket was closed with a deep dermal stitch using a running 3-0 Vicryl followed by 4-0 Monocryl subcuticular stitch. The 1 cm incision in the neck was closed with a single interrupted subcuticular stitch using 4-0 Monocryl. Dermabond was applied as a dressing. Patient was then aroused from the sedation and taken to PACU for ongoing recovery were a portable chest x-ray was obtained to confirm port positioning and exclude any pneumothorax. Surgical Findings: ? 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
--- NOTE | 2024-06-17 08:35 | DCINST_ITS ---
Discharge Instructions Diet Discharge Diet: No restrictions Activity Discharge Activity: May Shower May shower in (days): 1 Ice area for (Minutes): 20 Additional Activity Instructions:: Limit the activity by the nearest upper extremity for 48 hours postop Dressing / Incision Call your doctor if your incision/area has: Increased Pain/ Swelling, Increased Redness, Foul Smelling Discharge and Swelling at the incision site Call your doctor if you observe: Fever of 101 or Higher Remove Dressing in: do not remove dressing (Dermabond (surgical glue) expected to dissolve spontaneously within 7 to 10 days postop using regular showering) Cleanse incision/area with: Soap & Water Follow Up Care Test Results: Test results from this visit will be discussed in further detail at your follow- up appointment, if applicable. Discharge Plan Admission Primary Reason for Your Visit: Port placement Attending Provider: Ziggy Valle Primary Care Provider: Katie Sommer Instructions Print Language: Portuguese Discharge Orders/Prescriptions Prescriptions: Continued potassium chloride 20 mEq tablet extended release 20 meq PO BID 10 Days Qty: 20 0RF lidocaine-prilocaine 2.5-2.5 % cream 1 applic topical ONCE PRN (Reason: port access) 30 Days Qty: 30 2RF ondansetron 8 mg tablet,disintegrating 8 mg PO Q8H PRN (Reason: nausea and vomiting) Qty: 30 2RF ropinirole [Requip] 0.25 MG tablet 0.25 mg PO QHS gabapentin [Neurontin] 300 MG capsule 300 mg PO BID Referrals / Follow Up: Katie Sommer MD [Primary Care Provider] - Disposition Disposition (needs filled in before D/C Order can be placed): Home, Self Care
--- NOTE | 2024-06-17 08:41 | PCM.POST.ANE ---
Anesthesia: Postop Eval I Current Vital Signs Temperature: 97.5 F Pulse Rate: 92 Blood Pressure: 103/73 Respiratory Rate: 16 Pulse Ox: 100 Oxygen Delivery Method: Room Air Assessment Airway patent: Yes Spontaneous unlabored respirations: Yes Mental status: Awake nausea: No Vomiting: No Anesthesia Complication: No Fluid Hydration Crystalloid volume administer (ml): 30 Total IV fluid infused: 30 Progress Note Anesthesia document: Postop Eval 1 completed: Yes
--- NOTE | 2024-06-17 08:48 | RAD_ITS ---
STUDY: X-RAY CHEST REASON FOR EXAM: Female, 48 years old. Status post line placement TECHNIQUE: Single AP portable view of the chest. COMPARISON: 05/08/2024 FINDINGS: The right subclavian port has been placed since the previous study, tip in the distal SVC, no complications. Previously noted NG tube has been removed The lungs are clear and expanded. There is no demonstrated pleural abnormality. Normal size heart. Normal mediastinum and joey. Normal visualized pulmonary arteries. Normal visualized aortic arch and descending thoracic aorta. Normal visualized thoracic spine. Normal visualized ribs, clavicles, and shoulders. There is no demonstrated abnormality of the visualized soft tissue structures of the upper abdomen. RAD/CXR for Line Placement IMPRESSION: No acute pulmonary process, satisfactory appearance of a right subclavian port Electronically Signed: Srikanth Augustine MD at 9:07 EST ,
--- NOTE | 2024-06-17 09:13 | POSTOPAN2_ITS ---
Anesthesia Postop Eval I Sum Postop Eval Completion status Anesthesia document: Postop Eval 1 completed: Yes Anesthesia Postop Eval I Summary Anesthesia Postop Eval I Summary: Anesthesia Postop Eval I: Assessment Summary Airway patent Yes 06/17/24 08:42 [email or web address] Spontaneous unlabored Yes 06/17/24 08:42 [email or web address] respirations Mental status Awake 06/17/24 08:42 [email or web address] nausea No 06/17/24 08:42 [email or web address] [email or web address] Vomiting No 06/17/24 08:42 [email or web address] Anesthesia Postop Eval I: Fluid Summary Crystalloid volume administer 30 06/17/24 08:42 [email or web address] (ml) Colloids volume administered ( ml) Blood Product volume administered (ml) Total IV fluid infused 30 06/17/24 08:42 [email or web address] Anesthesia Postop Eval I: Summary Notes Anesthesia Complication No 06/17/24 08:42 [email or web address] Anesthesia Complication Comment: Post-operative progress note Anesthesia: Postop Eval II Evaluation Mental status: Awake Pain Level: 0 nausea: No Vomiting: No
--- NOTE | 2024-06-17 09:13 | PCM.POSTANE2 ---
Anesthesia Postop Eval I Sum Postop Eval Completion status Anesthesia document: Postop Eval 1 completed: Yes Anesthesia Postop Eval I Summary Anesthesia Postop Eval I Summary: Anesthesia Postop Eval I: Assessment Summary Airway patent Yes 06/17/24 08:42 SR [email or web address] Spontaneous unlabored Yes 06/17/24 08:42 SR VICE PRESIDENT.[email or web address] respirations Mental status Awake 06/17/24 08:42 SR VICE [email or web address] nausea No 06/17/24 08:42 SR VICE PRESIDENT.[email or web address] Vomiting No 06/17/24 08:42 SR VICE [email or web address].[email or web address] Anesthesia Postop Eval I: Fluid Summary Crystalloid volume administer 30 06/17/24 08:42 SR [email or web address].JDEF (ml) Colloids volume administered ( ml) Blood Product volume administered (ml) Total IV fluid infused 30 06/17/24 08:42 SR VICE PRESIDENT.[email or web address] Anesthesia Postop Eval I: Summary Notes Anesthesia Complication No 06/17/24 08:42 SR VICE PRESIDENT.JDEF Anesthesia Complication Comment: Post-operative progress note Anesthesia: Postop Eval II Evaluation Mental status: Awake Pain Level: 0 nausea: No Vomiting: No
[2024-06-17] MEDS: Acetaminophen 500 MG Tablet PO (09:23)
== END 2024-06-17 09:42 | disposition home or self-care (01) ==
LOC: SDC 05:26 → AC 05:28
PROVIDERS: PCP Internal Medicine; Referring Provider Surgery; Visit Provider Surgery
PROC: (CPT 36561; principal; 2024-06-17 07:15)
DX: Z45.2 Encounter for adjustment and management of vascular access device (principal); Z93.3 Colostomy status; C20 Malignant neoplasm of rectum; G25.81 Restless legs syndrome; Z79.899 Other long term (current) drug therapy
CPT/HCPCS: 36561; 00532; 71045; 77001; C1894; A4216; C1788

== ENCOUNTER 2024-06-27 07:41 | Emergency (ER) | payer BC, SELFPAY ==
[2024-06-27 07:42] VITALS: BP 118/84; PULSE 81; RESP 16; TEMP 36.7; O2SAT 100
[2024-06-27 07:53] VITALS: BP 118/81; PULSE 98; RESP 16; TEMP 36.3; O2SAT 99
[2024-06-27] MEDS: Ondansetron 4 MG/2 ML Vial IV (08:15)
[2024-06-27] MEDS: Metoclopramide 10 MG/2 ML Vial IV (08:16)
[2024-06-27 08:28] VITALS: BMI 20.2
[2024-06-27 08:34] LABS: Absolute Lymphocyte Count 1.05 X10^3/uL (0.83-4.51); Absolute Neutrophil Count 2.7 X10^3/uL (2.0-7.7); Basophil# 0.02 X10^3/uL; Basophil% 0.5 % (0-1); Eosinophil# 0.06 X10^3/uL; Eosinophils% 1.4 % (0-5); Hematocrit 32.2 % (37-47); Hemoglobin 10.8 g/dL (12.0-15.0); Lymphocyte # 1.05 X10^3/ul (0.83-4.51); Lymphocyte % 24.9 % (19-41); Mean Corp Hgb Conc 33.5 g/dL (32-36); Mean Corpuscular Hgb 27.6 pg (27.0-32.0); Mean Corpuscular Volume 82.1 fL (81-99); Mean Platelet Vol. 9.4 fl (6.2-12.0); Monocyte# 0.43 X10^3/uL; Monocyte% 10.2 % (0-10); NRBC Flagged by Analyzer 0 % (0-5); Neutrophil # 2.65 X10^3/uL (2.7-7.7); Platelet Count 267 K/mm3 (150-450); RBC Distribution Width CV 17.9 % (11.6-14.6); RBC Distribution Width SD 53.4 fl (35.1-43.9); Red Blood Count 3.92 M/mm3 (4.2-5.4); White Blood Count 4.2 K/mm3 (4.4-11.0)
[2024-06-27 08:51] LABS: ALB/GLOB Ratio 0.9 RATIO (0.9-2.4); AST(SGOT) 42 U/L (15-37); Alanine Aminotransfer ALT/SGPT 43 U/L (13-56); Albumin, Serum 3.3 g/dL (3.2-5.0); Alkaline Phosphatase 85 U/L (45-117); Anion Gap 7 (5-15); BUN 9 mg/dL (7-18); BUN/Creat Ratio 15.4 RATIO (10-20); Calcium,Total 9.1 mg/dL (8.5-10.1); Chloride 107 mmol/L (98-107); Creatinine, Serum 0.58 mg/dL (0.55-1.02); EST Glomerular Filtration Rate 117 mL/min (>60); Est Glom Filt Rate - Afr Amer 142 mL/min (>60); Estimated Creatinine Clearance 99.11 ml/min; Globulin 3.7 g/dL (2.2-4.2); Glucose 105 mg/dL (74-106); Lipase 93 U/L (13-75); Potassium 3.1 mmol/L (3.5-5.1); Sodium Level 137 mmol/L (136-145)
--- NOTE | 2024-06-27 08:58 | EX.ED.GENINJ ---
HPI History of Present Illness Chief Complaint: Nausea/Vomiting Narrative Narrative: Patient is a 48-year-old female who is presenting to the ER today with chief complaint of nausea and vomiting for the past 3 days. Patient had chemotherapy done on June 23. Patient has rectal sigmoid cancer. Patient has spoken to the oncology and infusion center, and was sent to the ER for evaluation. Patient is lightheaded, dizzy with positive vertigo. Patient has not been able to keep any fluids down in the past 2 to 3 days. Patient has a ostomy bag. Patient has no headache. No neck pain. No chest pain or shortness of breath. No abdominal pain. Mother is at bedside. Patient's also had sinus congestion, runny nose, sore throat from sinus congestion. Patient's emesis is clear sputum. Patient was sent to the ER for evaluation. [facility] Medical History Encounter for education Wears glasses Cancer Low iron Anemia Restless legs Migraine headache Asthma Non-smoker Cervical cancer Home Medications ?Medication ?Instructions ?Recorded ?Last Taken ?Type ropinirole 0.25 mg tablet (Requip) 0.25 mg PO QHS 10/16/15 06/15/24 History gabapentin 300 mg capsule 300 mg PO BID 10/16/17 06/15/24 History (Neurontin) lidocaine-prilocaine 2.5 %-2.5 % 1 applic topical ONCE PRN port 06/16/24 Unknown Rx topical cream access 30 days #30 grams ondansetron 8 mg disintegrating 8 mg PO Q8H PRN nausea and 06/16/24 Unknown Rx tablet vomiting #30 tabs potassium chloride 20 mEq 20 meq PO BID 1 month #60 tabs 06/23/24 Unknown Rx tablet,extended release promethazine 25 mg rectal 25 mg RECTAL Q6H PRN PRN Nausea ##6 06/27/24 Unknown Rx suppository (Promethegan) Allergy/AdvReac Type Severity Reaction Status Date / Time morphine Allergy Intermediate Hives Verified 06/27/24 07:41 Gadolinium-MRI Contrast Allergy unknown Verified 06/27/24 07:41 Medium (contrast dye) Penicillins Allergy Hives Verified 06/27/24 07:41 tomato Allergy Hives Verified 06/27/24 07:41 Family History Mother Breast cancer Aunt Breast cancer Father Heart disease CVA (cerebral vascular accident) Myocardial infarction Surgical History S/P partial resection of colon History of left nephrectomy S/P cholecystectomy History of laparoscopic appendectomy H/O: hysterectomy Social History household members: spouse Smoking Status: Never smoker alcohol intake: never substance use type: does not use ROS ROS ED ROS Narrative REVIEW OF SYSTEMS: Unless otherwise stated in this report the patient's positive and negative responses for review of systems for constitutional, eyes, ENT, cardiovascular, respiratory, gastrointestinal, neurological, , musculoskeletal, and integument systems and related systems to the presenting problem are either stated in the history of present illness or were not pertinent or were negative for the symptoms and/or complaints related to the presenting medical problem. EXAM Physical Exam Narrative Exam Narrative: Vital signs reviewed and patient is not hypoxic. General: The patient appears well and in no apparent distress. Patient is resting comfortably on cart. Not toxic, lethargic, or listless. Skin: Warm, dry, pallor noted. There is no rash noted. Head: Normocephalic, atraumatic Eye: Normal conjunctiva, no drainage, EOMI. PERRL. Ears, Nose, Mouth, and Throat: oral mucosa is moist. Nares patent. Mouth without vesicles. Patient's bilateral TMs shows no erythema, perforation or bulging. Patient has mild air-fluid levels noted behind bilateral TM, dullness of light reflex bilateral. Cardiovascular: Regular Rate and Rhythm, no murmurs, gallops, or rubs. Patient has a port to the right upper chest wall. The area around the port is clean, dry, intact. Respiratory: Patient is in no distress, no accessory muscle use, lungs are clear to auscultation, no wheezing, rales or rhonchi Back: non-tender, no CVA tenderness bilaterally to percussion. NO CTLS midline or paraspinal tenderness to palpation. GI: Soft, no tenderness to palpation, no masses appreciated. No rebound, guarding, or rigidity noted. Patient has a ostomy bag to the left lower quadrant. Patient's abdomen is soft, nontender, no flank pain, no peritoneal signs. Musculoskeletal: The patient has full range of motion of all extremities and joints with no difficulty. Patient has no motor, no sensory deficits. Neurological: A&O x4, normal speech, no focal neurological deficits. Psychiatric: Cooperative Const Vital Signs: 06/27/24 07:42 06/27/24 07:53 06/27/24 09:04 Temperature 98.1 F 97.3 F L 97.3 F L Temperature Source Oral Oral Oral Pulse Rate 81 98 64 Respiratory Rate 16 16 16 Blood Pressure 118/84 H 118/81 H 108/80 Blood Pressure Mean 95 93 89 Pulse Ox 100 99 100 Oxygen Delivery Method Room Air Room Air Room Air 06/27/24 10:05 06/27/24 10:46 Temperature 98.0 F 97.5 F L Temperature Source Oral Pulse Rate 75 83 Respiratory Rate 16 15 Blood Pressure 113/88 H 119/84 H Blood Pressure Mean 96 95 Pulse Ox 96 98 Oxygen Delivery Method Room Air MDM MDM MDM Narrative Medical decision making narrative: Patient differential diagnosis is sinusitis, URI, cough, nausea vomiting, gastroenteritis, pancreatitis, cholecystitis, bowel obstruction Patient was given Claritin and Antivert. Patient also was given Zofran and Reglan. Explanation of IV shortage of fluids was discussed with patient and mother. Patient is not tachycardic or hypotensive. Patient does not require IV fluids at this time. Patient will be treated with medication and try to increase oral fluids. Patient felt much better after medication that was given, along with IV fluids. Patient's nausea has completely dissipated. Patient was drinking water with no difficulty. Patient was sent home with prescription of Phenergan suppositories to use as a backup if needed. Patient was told that she can use Claritin or Zyrtec along with Flonase to help with nasal congestion. Patient will continue with her regimen of treatment. Patient does have a history of low potassium, she typically takes 2 potassium pills daily. Patient was given additional potassium supplement in the ER, and she will take her to potassium pills later today as well. Patient knows increase Gatorade Powerade and water. Patient feels much better, mother and patient and the question at discharge. Patient had potassium of 3.1 that was replaced. Lab Data Labs: Laboratory Results - last 24 hr 06/27/24 08:17 WBC 4.2 L RBC 3.92 L Hgb 10.8 L Hct 32.2 L MCV 82.1 MCH 27.6 MCHC 33.5 RDW Std Deviation 53.4 H RDW Coeff of Nikole 17.9 H Plt Count 267 MPV 9.4 Immature Gran % (Auto) 0.000 Neut % (Auto) 63.0 Lymph % (Auto) 24.9 [place] % (Auto) 10.2 H Eos % (Auto) 1.4 Baso % (Auto) 0.5 Absolute Neuts (auto) 2.7 Absolute Lymphs (auto) 1.05 Nucleated RBC % 0 Sodium 137 Potassium 3.1 L Chloride 107 Carbon Dioxide 24.0 Anion Gap 7 BUN 9 Creatinine 0.58 Estim Creat Clear Calc 99.11 Est GFR (MDRD) Af Amer 142 Est GFR (MDRD) Non-Af 117 BUN/Creatinine Ratio 15.4 Glucose 105 Calcium 9.1 Total Bilirubin 1.70 H AST 42 H ALT 43 Alkaline Phosphatase 85 Total Protein 7.0 Albumin 3.3 Globulin 3.7 Albumin/Globulin Ratio 0.9 Lipase 93 H Discharge Plan Triage Chief Complaint: Nausea/Vomiting ED Provider: Kike Norton Dx/Rx/DC Orders Clinical Impression: Nausea & vomiting, Hypokalemia Instructions: ED Hypokalemia, ED Vomiting (Adult) Prescriptions: New promethazine [Promethegan] 25 mg suppository 25 mg RECTAL Q6H PRN PRN (Reason: Nausea) Qty: 6 0RF No Action potassium chloride 20 mEq tablet extended release 20 meq PO BID 30 Days Qty: 60 0RF lidocaine-prilocaine 2.5-2.5 % cream 1 applic topical ONCE PRN (Reason: port access) 30 Days Qty: 30 2RF ondansetron 8 mg tablet,disintegrating 8 mg PO Q8H PRN (Reason: nausea and vomiting) Qty: 30 2RF ropinirole [Requip] 0.25 MG tablet 0.25 mg PO QHS gabapentin [Neurontin] 300 MG capsule 300 mg PO BID Primary Care Provider: Katie Sommer Referrals: Katie Sommer MD [Primary Care Provider] - Activity Restrictions/Additional Instructions: Continue using Zofran as needed for nausea and vomiting. You may also use Phenergan suppositories if needed for additional nausea vomiting help. Increase fluids at home, Gatorade, Powerade, or water. Follow-up with oncology for further direction. Take your potassium pills today. Print Language: Syriac Disposition Disposition: Home, Self Care Discharge Date/Time: 06/27/24 11:35
[2024-06-27 09:04] VITALS: BP 108/80; PULSE 64; RESP 16; TEMP 36.3; O2SAT 100
[2024-06-27] MEDS: Meclizine HCl 25 MG Tablet PO (09:08)
[2024-06-27 10:05] VITALS: BP 113/88; PULSE 75; RESP 16; TEMP 36.7; O2SAT 96
[2024-06-27] MEDS: Loratadine 10 MG Tablet PO (10:11)
[2024-06-27] MEDS: Potassium Chloride Oral Tablet 20 MEQ 60 MEQ PO (10:45)
[2024-06-27 10:46] VITALS: BP 119/84; PULSE 83; RESP 15; TEMP 36.4; O2SAT 98
== END 2024-06-27 11:35 | disposition home or self-care (01) ==
PROVIDERS: Emergency Provider Emergency Medicine; PCP Internal Medicine; Visit Provider Emergency Medicine
DX: R11.2 Nausea with vomiting, unspecified (principal); C18.7 Malignant neoplasm of sigmoid colon; Z90.710 Acquired absence of both cervix and uterus; E87.6 Hypokalemia; Z92.21 Personal history of antineoplastic chemotherapy; G25.81 Restless legs syndrome; Z79.899 Other long term (current) drug therapy; Z90.5 Acquired absence of kidney; Z90.49 Acquired absence of other specified parts of digestive tract
CPT/HCPCS: 80053; 83690; 85025; 96374; 96375; 99283; A4216; J2405

== ENCOUNTER → 2024-06-27 | Outpatient (CLI) | payer BC, SELFPAY ==
--- NOTE | 2024-06-27 07:00 | CT_ITS ---
STUDY: CT CHEST WITH CONTRAST REASON FOR EXAM: Female, 48 years old. nausea/vomiting x 3 days, chemotherapy currently, Power Port placed 06/17 RADIATION DOSAGE (If Supplied By Facility): CTDIvol = ( 7.26 ) mGy, DLP = ( 176.96 ) mGycm TECHNIQUE: Transaxial imaging was performed following intravenous administration of ml of 75mL Isovue-300 contrast material. Individualized dose optimization techniques were used for this CT. COMPARISON: None. FINDINGS: Right internal jugular chest port. The lungs are normal. There is no demonstrated pleural abnormality. Normal heart and pericardium. Normal mediastinum. Normal hilar regions. Normal enhanced pulmonary arteries. Normal aorta arch and descending thoracic aorta. Normal osseous structures. There is no demonstrated abnormality of the visualized upper abdomen. CT/Chest WITH Contrast IMPRESSION: Normal enhanced CT Chest examination. Electronically Signed: Christopher Dewey MD at 11:32 EST ,
[2024-06-27] MEDS: 0.9 % NaCl (Sterile) Posiflush 10 mL IV (07:20)
== END | disposition home or self-care (01) ==
LOC: CT 06:54
PROVIDERS: PCP Internal Medicine; Referring Provider Surgery; Visit Provider Surgery
DX: C20 Malignant neoplasm of rectum (principal)
CPT/HCPCS: 71260; Q9967; A4216

== ENCOUNTER → 2024-12-25 | Outpatient (CLI) | payer BC, SELFPAY ==
--- NOTE | 2024-12-25 14:43 | VDLE_ITS ---
Reason For Study Reason For Study: Swelling RIGHT LEFT CFV is compressible, spontaneous, phasic, competent GSV is normal. and demonstrates normal augmentation. CFV is compressible, spontaneous, phasic, competent, Procedure and demonstrates normal augmentation. This is a venous duplex using B-mode, color flow and FV is compressible, spontaneous, phasic, competent spectral Doppler. and demonstrates normal augmentation. Exam performed in department. POP V is compressible, spontaneous, phasic, competent A preliminary report was called and/or faxed to and demonstrates normal augmentation. Amanda Alexandra NP. T/P Trunk is compressible. PTV is compressible. LT PerV is compressible. VL/Venous Duplex US, Unilateral Interpretation Summary Deep veins of the left lower extremity are patent and compressible segmentally. There is no evidence of left lower extremity deep vein thrombosis. The left great saphenous vein appears patent an d compressible segmentally. Ordering Physician: Amanda Alexandra Referring Physician: Stephanie Sommer MD Performed By: Brenda Dalton, RVT
[2024-12-25 15:44] LABS: Absolute Lymphocyte Count 1.32 X10^3/uL (0.83-4.51); Basophil# 0.04 X10^3/uL; Basophil% 0.8 % (0-1); Eosinophil# 0.06 X10^3/uL; Eosinophils% 1.2 % (0-5); Hematocrit 36.8 % (37-47); Hemoglobin 12.4 g/dL (12.0-15.0); Lymphocyte # 1.32 X10^3/ul (0.83-4.51); Lymphocyte % 26.6 % (19-41); Mean Corp Hgb Conc 33.7 g/dL (32-36); Mean Corpuscular Hgb 31.6 pg (27.0-32.0); Mean Corpuscular Volume 93.6 fL (81-99); Monocyte# 0.54 X10^3/uL; Monocyte% 10.9 % (0-10); NRBC Flagged by Analyzer 0 % (0-5); Neutrophil # 2.99 X10^3/uL (2.7-7.7); Neutrophil % 60.3 % (47-70); Platelet Count 156 K/mm3 (150-450); RBC Distribution Width CV 12.8 % (11.6-14.6); RBC Distribution Width SD 44.2 fl (35.1-43.9); Red Blood Count 3.93 M/mm3 (4.2-5.4)
[2024-12-25 16:02] LABS: ALB/GLOB Ratio 1.4 RATIO (0.9-2.4); AST(SGOT) 73 U/L (<=31); Alanine Aminotransfer ALT/SGPT 71 U/L (<=34); Albumin, Serum 4.1 g/dL (3.5-5.0); Alkaline Phosphatase 451 U/L (35-104); Anion Gap 12 (5-15); BUN 9 mg/dL (4-19); BUN/Creat Ratio 9.2 RATIO (10-20); Calcium,Total 9.5 mg/dL (7.6-11.0); Chloride 106 mmol/L (98-108); Creatinine, Serum 0.94 mg/dL (0.70-1.20); EST Glomerular Filtration Rate 75 (>60); Glucose 97 mg/dL (70-99); Potassium 3.4 mmol/L (3.3-5.1); Protein, Total 7.1 g/dL (5.9-8.4); Sodium Level 142 mmol/L (133-145); Total Bilirubin 3.89 mg/dL (0.00-1.30)
== END | disposition home or self-care (01) ==
PROVIDERS: PCP Internal Medicine; Referring Provider Nurse Practitioner Family; Visit Provider Nurse Practitioner Family
DX: M79.605 Pain in left leg (principal); I70.92 Chronic total occlusion of artery of the extremities
CPT/HCPCS: 36415; 80053; 85025; 93971

== ENCOUNTER → 2024-12-30 | Outpatient (CLI) | payer BC, SELFPAY ==
--- NOTE | 2024-12-30 09:21 | RAD_ITS ---
PROCEDURE: ANKLE MIN 3 VIEWS 12/30/2024 REASON FOR EXAM: LEG PAIN AND SWELLING TECHNIQUE: 3 views of the left ankle COMPARISON: None. RAD/Ankle min 3 Views IMPRESSION: No radiopaque foreign body is seen. On the lateral view, normal contour of the Achilles tendon is seen. No ankle joint effusion is evident. No significant arthritic process or joint narrowing is seen. No fracture site is evident. Reading Location: [id number]
== END | disposition home or self-care (01) ==
LOC: RAD 09:16
PROVIDERS: PCP Internal Medicine; Referring Provider Nurse Practitioner Family; Visit Provider Nurse Practitioner Family
DX: M79.605 Pain in left leg (principal); M79.89 Other specified soft tissue disorders
CPT/HCPCS: 73610

== ENCOUNTER → 2025-02-04 | Outpatient (CLI) | payer BC, SELFPAY ==
--- NOTE | 2025-02-04 09:41 | US_ITS ---
PROCEDURE: ABD LIMITED W/ ELASTOGRAPHY REASON FOR EXAM: ABNORMAL LIVER FUNCTION TEST History of rectal carcinoma. Prior left nephrectomy. COMPARISON: None. TECHNIQUE: Right upper quadrant abdominal ultrasound. Hung ElastQ Imaging shear wave elastography for non-invasive assessment of liver tissue stiffness. Hung EPIQ Elite. FINDINGS: LIVER: Size: Unremarkable Length: 13.5 cm Echotexture: Diffusely echogenic suggesting fatty infiltration Contour: Normal Lesions: None identified Elastography: EQI Med: 9.1 kPa EQI Med Mateusz: 1.74 m/s IQR/Med: 22 %* GALLBLADDER: Surgically absent. COMMON BILE DUCT: Normal measuring 4.3 mm . PANCREAS: Normal Visualized portions of the right kidney are unremarkable. No right upper quadrant ascites. US/ABD Limited w/ Elastography IMPRESSION: Moderate hepatic fibrosis. Fatty infiltration of the liver. Reference Values: SRU <1.37 m/s (5.7kPa): No to mild fibrosis 1.37 m/s - 2.2 m/s: Moderate to severe fibrosis >2.2 m/s (15kPa): Significant fibrosis / cirrhosis METAVIR Score F2 or higher: 1.34 m/s (5.7kPa) F3 or higher: 1.55 m/s (7.3kPa) F4: 1.80 m/s (10kPa) * If the IQR/Med is >30%, the variance in the measurements is a large and the a ccuracy of the measurement may be in question. Reading Location: [place] [id number]
--- NOTE | 2025-02-04 09:41 | US_ITS ---
PROCEDURE: ABD LIMITED W/ ELASTOGRAPHY REASON FOR EXAM: ABNORMAL LIVER FUNCTION TEST History of rectal carcinoma. Prior left nephrectomy. COMPARISON: None. TECHNIQUE: Right upper quadrant abdominal ultrasound. Hung ElastQ Imaging shear wave elastography for non-invasive assessment of liver tissue stiffness. Hung EPIQ Elite. FINDINGS: LIVER: Size: Unremarkable Length: 13.5 cm Echotexture: Diffusely echogenic suggesting fatty infiltration Contour: Normal Lesions: None identified Elastography: EQI Med: 9.1 kPa EQI Med Mateusz: 1.74 m/s IQR/Med: 22 %* GALLBLADDER: Surgically absent. COMMON BILE DUCT: Normal measuring 4.3 mm . PANCREAS: Normal Visualized portions of the right kidney are unremarkable. No right upper quadrant ascites. US/ABD Limited w/ Elastography IMPRESSION: Moderate hepatic fibrosis. Fatty infiltration of the liver. Reference Values: SRU <1.37 m/s (5.7kPa): No to mild fibrosis 1.37 m/s - 2.2 m/s: Moderate to severe fibrosis >2.2 m/s (15kPa): Significant fibrosis / cirrhosis METAVIR Score F2 or higher: 1.34 m/s (5.7kPa) F3 or higher: 1.55 m/s (7.3kPa) F4: 1.80 m/s (10kPa) * If the IQR/Med is >30%, the variance in the measurements is a large and the a ccuracy of the measurement may be in question. Reading Location: [place] [id number]
== END | disposition home or self-care (01) ==
LOC: US 09:40
PROVIDERS: PCP Internal Medicine; Referring Provider Internal Medicine Medical Oncology; Visit Provider Internal Medicine Medical Oncology
DX: C20 Malignant neoplasm of rectum (principal); I89.0 Lymphedema, not elsewhere classified; R94.5 Abnormal results of liver function studies
CPT/HCPCS: 76705; 76981

== ENCOUNTER → 2025-02-23 | Outpatient (CLI) | payer BC, SELFPAY ==
--- NOTE | 2025-02-23 13:58 | CT_ITS ---
PROCEDURE: ABDOMEN/PELVIS W IV CONT ONLY 02/23/2025 REASON FOR EXAM: H/O RECTAL CANCER Left lower extremity swelling. Prior colostomy. TECHNIQUE: ABDOMEN/PELVIS W IV CONT ONLY Coronal and Sagittal reconstruction series were provided. CONTRAST: Isovue-300 VOLUME: 100 mL One or more dose reduction techniques were used (e.g., Automated exposure control, adjustment of the mA and/or kV according to patient size, use of iterative reconstruction technique. RADIATION DOSE SUMMARY: CTDlvol: 9.35 mGy DLP: 404.89 mGycm COMPARISON: Prior study dated May 06, 2024. FINDINGS: Lung bases: Unremarkable Liver: Diffuse fatty infiltration. Gallbladder: Status post cholecystectomy. Spleen: Normal size. Pancreas: Normal size without evidence of mass surrounding inflammation or ductal dilation. Adrenals: Unremarkable Kidneys: The patient is status post left nephrectomy. Bladder: Reproductive Organs: Status post hysterectomy. Bowel: The patient is status post right hemicolectomy with anastomosis. A colostomy is seen in the left anterior midabdomen. There are inflammatory changes seen in the left hemicolon at the site of the colostomy suggestive of colitis. Appendix: Status post appendectomy. Lymph nodes: Unremarkable. Vasculature: Mild diffuse atherosclerotic calcifications are noted. Bones: Unremarkable CT/Abdomen/Pelvis W IV Cont ONLY IMPRESSION: Colostomy seen in the left anterior abdomen with evidence of colitis involving the segment of the: As it goes into the left-sided colostomy. Status post hysterectomy, right hemicolectomy as well as left nephrectomy. Sta tus post cholecystectomy. Reading Location: [place]
[2025-02-23] MEDS: 0.9 % NaCl (Sterile) Posiflush 10 mL IV (14:35)
[2025-02-23] MEDS: 0.9% Saline Lock 10 ML Syringe IV (14:45)
== END | disposition home or self-care (01) ==
LOC: CT 13:57
PROVIDERS: PCP Internal Medicine; Referring Provider Internal Medicine Medical Oncology; Visit Provider Internal Medicine Medical Oncology
DX: C20 Malignant neoplasm of rectum (principal); I89.0 Lymphedema, not elsewhere classified; R94.5 Abnormal results of liver function studies
CPT/HCPCS: 74177; Q9967; A4216

== ENCOUNTER → 2025-03-17 | Outpatient (CLI) | payer BC, SELFPAY ==
[2025-03-17 13:16] LABS: Hepatitis B Surface Antigen Nonreactive (Nonreactive); Hepatitis C Antibody Nonreactive (Nonreactive)
[2025-03-18 15:09] LABS: Angiotensin Convert Enzyme 82 U/L (14-82); Anti-Chromatin <0.2 AI (0.0-0.9); Anti-Jo <0.2 AI (0.0-0.9); Anti-Smooth Muscle ABS 4 Units (0-19); Anti-dsDNA Ab 2 IU/mL (0-9); SJOGREN'S Anti-SS-A test < 0.2 AI (0.0-0.9); SJOGREN'S Anti-SS-B test < 0.2 AI (0.0-0.9)
== END | disposition home or self-care (01) ==
PROVIDERS: PCP Internal Medicine; Referring Provider Nurse Practitioner Acute Care; Visit Provider Nurse Practitioner Acute Care
DX: K74.00 Hepatic fibrosis, unspecified (principal); R74.8 Abnormal levels of other serum enzymes; R19.7 Diarrhea, unspecified
CPT/HCPCS: 36415; 82164; 83516; 86225; 86235; 86704; 86706; 86708; 86803; 87340

== ENCOUNTER → 2025-03-20 | Outpatient (CLI) | payer BC, SELFPAY ==
[2025-03-25 06:08] LABS: Calprotectin, Stool <5 ug/g (0-120)
== END | disposition home or self-care (01) ==
LOC: LABSPEC 15:36
PROVIDERS: PCP Internal Medicine; Referring Provider Nurse Practitioner Acute Care; Visit Provider Nurse Practitioner Acute Care
DX: K74.00 Hepatic fibrosis, unspecified (principal); R74.8 Abnormal levels of other serum enzymes; R19.7 Diarrhea, unspecified
CPT/HCPCS: 83993

== ENCOUNTER → 2025-04-02 | Outpatient (CLI) | payer BC, SELFPAY | END | disposition home or self-care (01) | LOC: LABSPEC 12:15 | PROVIDERS: PCP Internal Medicine; Referring Provider Internal Medicine; Visit Provider Internal Medicine | DX: R68.89 Other general symptoms and signs (principal) | CPT/HCPCS: 87631 ==

== ENCOUNTER → 2025-04-27 | Outpatient (CLI) | payer BC, SELFPAY ==
[2025-04-27 16:56] LABS: Hematocrit 37.8 % (37-47); Hemoglobin 13.0 g/dL (12.0-15.0); Immature Granulocytes Count 0.010 X10^3/uL (0.0-0.0); Mean Corp Hgb Conc 34.4 g/dL (32-36); Mean Corpuscular Volume 86.9 fL (81-99); Mean Platelet Vol. 9.6 fl (6.2-12.0); NRBC Flagged by Analyzer 0 % (0-5); Platelet Count 158 K/mm3 (150-450); RBC Distribution Width CV 12.6 % (11.6-14.6); RBC Distribution Width SD 40.2 fl (35.1-43.9); Red Blood Count 4.35 M/mm3 (4.2-5.4); White Blood Count 4.8 K/mm3 (4.4-11.0)
[2025-04-27 17:01] LABS: AST(SGOT) 48 U/L (<=31); Alanine Aminotransfer ALT/SGPT 55 U/L (<=34); Albumin, Serum 4.3 g/dL (3.5-5.0); Alkaline Phosphatase 293 U/L (35-104); Anion Gap 11 (5-15); BUN 11 mg/dL (4-19); BUN/Creat Ratio 11.9 RATIO (10-20); Bilirubin, Direct 0.89 mg/dL (0.00-0.30); Calcium,Total 9.4 mg/dL (7.6-11.0); Carbon Dioxide 24.2 mmol/L (21.0-32.0); Chloride 106 mmol/L (98-108); Ferritin 170 ng/mL (22-378); Globulin 2.7 g/dL (2.2-4.2); Glucose 97 mg/dL (70-99); Potassium 3.5 mmol/L (3.3-5.1)
[2025-04-27 17:05] LABS: CRP < 3.00 mg/L (0.0-3.0)
[2025-04-27 17:16] LABS: Prothrombin Time (Protime)PT. 14.2 SECONDS (11.7-14.9)
[2025-04-27 17:19] LABS: Iron 60 ug/dL (50-170); Iron Binding Capacity,Total 273 ug/dL (250-450); Iron Binding Capacity,Unsat 213 ug/dL (228-428)
[2025-04-29 04:07] LABS: Transferrin 238 mg/dL (192-364)
[2025-04-29 13:08] LABS: ANTINUCLEAR ANTIBODIES DIRECT Negative (Negative)
== END | disposition home or self-care (01) ==
LOC: LAB 15:42
PROVIDERS: PCP Internal Medicine; Referring Provider Internal Medicine; Visit Provider Internal Medicine
DX: R74.8 Abnormal levels of other serum enzymes (principal); C20 Malignant neoplasm of rectum; K74.00 Hepatic fibrosis, unspecified
CPT/HCPCS: 36415; 80053; 82248; 82728; 83540; 83550; 84466; 85025; 85610; 86038; 86140; 86225

== ENCOUNTER 2025-04-30 07:22 | Day surgery (SDC) | payer BC, SELFPAY ==
[2025-04-30] VITALS (8 sets, daily range): BP systolic 98–146; BP diastolic 52–92; PULSE 49–71; RESP 12–16; TEMP 35.6–36.8; O2SAT 95–100; BMI 21.9
--- NOTE | 2025-04-30 07:49 | PRE.ANES_ITS ---
ASA Classification* ASA Classification ASA Classification: 2 Assessment & Plan Anesthesia* Anesthesia Assessment Anesthesia Assessment: Discussed sedation and/or anesthesia options, risks, benefits, and alternatives with patient/parents/legal guardian/POA. Questions invited. The patient/parents/legal guardian/POA seems to understand and agrees to proceed with anesthesia plan. Reviewed the physical assessment, medical history, allergy history and patient home medications list prior to surgery/procedure/anesthetic and documented any changes. Performed airway and anesthesia risk assessments. Anesthesia Type Anesthesia Type: MAC Anesthesia Focused Assessment* Airway Assessment Mouth opens: >3 cm Mallampati Score: II Labs Anesthesia Preop lab: CBC WBC, (4.4-11.0) 4.8 K/mm3 04/27/25, 15:51 RBC, (4.2-5.4) 4.35 M/mm3 04/27/25, 15:51 Hgb, (12.0-15.0) 13.0 g/dL 04/27/25, : Hct, (37-47) 37.8 % 04/27/25, :51 Plt Count, (150-450) 158 K/mm3 04/27/25, 15:51 CHEMISTRY Potassium, (3.3-5.1) 3.5 mmol/L 04/27/25, 15:51 Sodium, (133-145) 141 mmol/L 04/27/25, 15:51 Magnesium, (1.5-2.2) 1.9 mg/dL 10/06/24, 08:33 Phosphorus, (2.7-4.5) 3.0 mg/dL 10/06/24, 08:33 BUN, (4-19) 11 mg/dL 04/27/25, 15:51 Creatinine, (0.70-1.20) 0.92 mg/dL 04/27/25, 15:51 Glucose, (70-99) 97 mg/dL 04/27/25, 15:51 TSH, (0.300-4.200) 1.060 uIU/mL 11/03/24, 14:20 COAG PT, (11.7-14.9) 14.2 SECONDS 04/27/25, 15:51 HCG, Quant, (1-3) 8 mIU/mL H 05/06/24, 11:15 Pre-Assessment Diagnosis/Proposed Procedure Planned Operative Procedure(s): Colonoscopy thru stoma and rectum Anesthesia History 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 When Was Last Pacemaker Check QUESTION #4 FULL TEXT: You/Your Family Experience fever (hyperthermia) with Anesthesia Last Oral Intake Last Oral intake: Last Oral Intake NPO since Meds taken in AM with sips of water? 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 Female Yes 04/28/25 13:59 HX of Motion Sickness No 04/28/25 13:59 HX of N/V After Surgery No 04/28/25 13:59 Non-Smoker Yes 04/28/25 13:59 Duration of Surgery greater No 04/28/25 13:59 than 60 minutes Number of Risk Factors 2 04/28/25 13:59 PONV Score Moderate Risk 04/28/25 13:59 Height & Weight Height & Weight: Anesthesia: Height & Weight Height 5 ft 3 in 04/27/25 15:05 Respiratory Assessment Respiratory Assessment - sheetmetal trades worker: Respiratory Tract Infection Hx - sheetmetal trades worker Hx Respiratory Tract Infection No 04/28/25 13:59 STOP Sleep Apnea STOP Sleep Apnea - sheetmetal trades worker: STOP Sleep Apnea - sheetmetal trades worker Hx Hypertension No 04/28/25 13:59 Hx Sleep Apnea No 04/28/25 13:59 CPAP BIPAP Do you snore loudly (louder No 04/28/25 13:59 than talking or can be heard Do you often feel tired/ No 04/28/25 13:59 fatigued/ sleepy during daytime? Has anyone observed you stop No 04/28/25 13:59 breathing during sleep? STOP Results Negative 04/28/25 13:59 QUESTION #5 FULL TEXT : Do you snore loudly (louder than talking or can be heard through closed doors)? 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 Specify any problems Hx of Preganancy in last 3 No 04/28/25 13:59 Months Nurse Filling Out Transfusion JZOLLINGE 04/28/25 13:59 & Questions: Date: 04/28/25 04/28/25 13:59 Time: 14:01 04/28/25 13:59 Patient unable to answer at this time (ie. confused, unrespo /Reproduction History /Reproductive History - sheetmetal trades worker: /Reproductive Hx- sheetmetal trades worker Hx Now No 04/28/25 13:59 Gestational Age (in weeks): EDC: Hx Hx Para Hx Section SAB No 04/28/25 13:59 Active Medications Active Medications: Current Medications Generic Name Dose Route Start Last Admin Trade Name Freq PRN Reason Stop Dose Admin Lactated Ringer's 1,000 mls @ 15 mls/hr 04/30/25 07:30 IV .Q48H ALDAIR PFSH Medical History Anxiety Easy bruising Neuropathy IBS (irritable bowel syndrome) Leg pain, left Encounter for education Wears glasses Cancer Low iron Anemia Restless legs Migraine headache Asthma Non-smoker Cervical cancer Home Medications ?Medication ?Instructions ?Recorded ?Last Taken ?Type lidocaine-prilocaine 2.5 %-2.5 % 1 applic topical ONCE PRN port 06/16/24 Unknown Rx topical cream access 30 days #30 grams ondansetron 8 mg disintegrating 8 mg PO Q8H PRN nausea and 08/18/24 Unknown Rx tablet vomiting #30 tabs polyethylene glycol 3350 17 4 g PO QDAY PRN PREP 09/15 Unknown History gram/dose oral powder (Miralax) ropinirole 0.25 mg tablet 0.25 mg PO QHS #90 tabs 12/22 12/14 Unknown Rx Allergy/AdvReac Type Severity Reaction Status Date / Time morphine Allergy Intermediate Hives Verified 04/28/25 13:53 Gadolinium-MRI Contrast Allergy unknown Verified 04/28/25 13:53 Medium (contrast dye) Penicillins Allergy Hives Verified 04/28/25 13:53 tomato Allergy Hives Verified 04/28/25 13:53 Family History Mother Breast cancer Aunt Breast cancer Cancer brain Father Heart disease CVA (cerebral vascular accident) Myocardial infarction Surgical History S/P partial resection of colon History of left nephrectomy S/P cholecystectomy History of laparoscopic appendectomy H/O: hysterectomy Social History adopted: No household members: spouse and children housing: house number of children: 3 current occupational status: employed current occupation: [employer] current occupational exposures/hazards: No pets and animals: Yes (4) pets and animals: cat(s) leisure activities: exercise and clubs history of recent travel: No Smoking Status: Never smoker alcohol intake: never substance use type: does not use what type of physical activity do you participate in: walking frequency: 5-6 times per week duration: 30-45 minutes/day fe/congregation: [employer] seatbelt use: always do you feel safe at home: Yes Review of Systems (Anesthesia) ROS Narrative System reviewed and no additional complaints, except as documented.
[2025-04-30] MEDS: Lactated Ringers 1,000 ML 15 ML IV (08:12)
--- NOTE | 2025-04-30 08:21 | PCM.HP.BLA ---
History and Physical Date of Admission: 04/30/25 Date of Service: 04/15/25 MR#: [id number] Acct: [id number] Name: CHATO ALFARO Rep #: [id number] : 1975 Provider: Dr. Ziggy Valle MD Age/Sex: 49/F Location: [facility] Status: Signed Intake Vital Signs 04/02/2511:37 04/15/2514:59 Height 5 ft 3 in 5 ft 3 in Weight: 128 lb 131 lb BMI 22.6 23.2 BP 122/76 H 125/87 H Blood Pressure Location Lt brachial Rt brachial Position Sitting Sitting Respiration 18 17 Pulse 68 73 Pulse Source Monitor Monitor Temp 97.8 F Temp Source Temporal Pulse Oximetry (%) 98 100 Oxygen Delivery Method room air room air Intake Visit Reasons: BLOOD IN STOOL Chief Complaint: blood in stool from rectum Is patient in pain?: No Allergies morphine Allergy (Intermediate, Verified 04/15/25 15:00) Hives Gadolinium-MRI Contrast Medium (contrast dye) Allergy (Verified 04/15/25 15:00) unknown Penicillins Allergy (Verified 04/15/25 15:00) Hives tomato Allergy (Verified 04/15/25 15:00) Hives Medications ?Medication ?Instructions ?Recorded ?Confirmed ?Type lidocaine-prilocaine 2.5 %-2.5 % 1 applic topical ONCE PRN port 06/16/24 04/15/25 Rx topical cream access 30 days #30 grams ondansetron 8 mg disintegrating 8 mg PO Q8H PRN nausea and 08/18/24 04/15/25 Rx tablet vomiting #30 tabs polyethylene glycol 3350 17 4 g PO QDAY PRN 09/15/24 04/15/25 History gram/dose oral powder (Miralax) ropinirole 0.25 mg tablet 0.25 mg PO QHS #90 tabs 01/14/25 04/15/25 Rx sodium,potassium,mag sulfates 17.5 See Rx Instructions PO .COMPLEX 04/13/25 04/15/25 Rx gram-3.13 gram-1.6 gram oral soln #354 mL (Suprep Bowel Prep Kit) PFSH Medical History Neuropathy IBS (irritable bowel syndrome) Leg pain, left Encounter for education Wears glasses Cancer Low iron Anemia Restless legs Migraine headache Asthma Non-smoker Cervical cancer Surgical History S/P partial resection of colon History of left nephrectomy S/P cholecystectomy History of laparoscopic appendectomy H/O: hysterectomy Family History Mother Breast cancer Aunt Breast cancer Cancer brain Father Heart disease CVA (cerebral vascular accident) Myocardial infarction Social History adopted: No household members: spouse and children housing: house number of children: 3 current occupational status: employed current occupation: [employer] current occupational exposures/hazards: No pets and animals: Yes (4) pets and animals: cat(s) leisure activities: exercise and clubs history of recent travel: No Smoking Status: Never smoker alcohol intake: never substance use type: does not use what type of physical activity do you participate in: walking frequency: 5-6 times per week duration: 30-45 minutes/day fe/presybeterian: [employer] seatbelt use: always do you feel safe at home: Yes HPI HPI HPI: Patient is a 49-year-old female who is known to me from exploratory laparotomy with ileocecectomy and low anterior resection creation of end colostomy on 05/08/2024. 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 She presents today with her . She notes that she has had ongoing GI following due to a diagnosis of liver fibrosis and fatty liver infiltration that has resulted in some elevation of her liver function testing. She notes that she is pending consultation with care management associate. Her visit today is largely conditioned on single experience of some stool and blood coming from her rectum after experiencing a sudden sensation of pressure. She shares, again that this was an isolated experience and she has felt no further pressure. She also denies noting any changes from her ostomy output. She states that she is emptying her ostomy appliance approximately 4 times daily. Patient goes on to discussed that in her recent consultation with gastroenterology she was informed she should undergo colonoscopy and was given a bowel prep but has not yet scheduled an exam. Overall, Mrs. Alfaro states she did well through her chemotherapy treatments but does relate a history of some left lower extremity swelling and a suspicion for a possible pelvic mass that led to completion of a CT of the abdomen pelvis which did not find any masses and so support of this clinical suspicion but did show some evidence of colitis of the descending colon. ROS General General: Yes weight change, fatigue and colon cancer; No appetite, breast cancer or weakness HEENT HEENT: No difficulty swallowing, eye injury, eye surgery, swollen glands or hoarseness Endo Endocrine: No thyroid disease, diabetes mellitus, thyroid cancer, Hair loss, heat intolerance or cold intolerance Skin Skin: No rash or changing moles Musc Musculoskeletal: No back problems, arthritis, rheumatoid arthritis, gout or joint pain Cardio Cardiovascular: No murmur, pacemaker, heart disease, atrial fibrillation, high blood pressure, heart attack, heart stent, palpitations, shortness of breath with exertion or chest pain Psych Psychiatric: No depression, anxiety or hearing voices Resp Respiratory: No shortness of breath, No sleep apnea, No cough, No COPD, No asthma, No emphysema and No wheezing Gastro Gastrointestinal: No abdominal pain, No nausea or vomiting, No diarrhea, No constipation, Yes blood in stool, No acid reflux, No hemorrhoids, No ulcers, No gallbladder problem and No black,tarry stools Pravin Hematologic: No blood thinners, No blood disorders, No bleeding, No anemia and No blood clots Neuro Neurologic: No numbness, No tingling and No weakness Exam Const General: cooperative, healthy appearing, comfortable and no acute distress Orientation: alert, awake and oriented x3 Resp Effort & Inspection: normal respiratory effort GI Other: Well-healed laparotomy incision. Healthy well?perfused stoma in the left lower quadrant. Adjacent to the stoma, medially, there is a superficial erythematous circular shaped lesion. Nondistended, soft. Assessment and Plan Assessment and Plan (1) Bright red blood per rectum: Status: Acute Comment: Patient 49-year-old female with history of LAR and end sigmoid colostomy who presents with complaint of stool and blood per rectum. This was an isolated event that has not been reproduced. Still, it warrants investigation. Have requested patient to complete enemas prior to a endoscopic exam both the rectum as well as the remaining colon via her stoma. Such an exam was due otherwise given her history of rectal cancer. Patient and are in agreement. Plan: Plan will be to complete colonoscopy on first mutually agreeable date under local MAC. Pre-procedure prep discussed and paper instructions provided. Patient is also made aware that she will need to have a coach tour driver with her the day of the procedure. (2) Rectal cancer: Status: Chronic Comment: S/P Low Anterior resection with Colostomy 05/06/2024. Pathology show recto-sigmoid adenocarcinoma with perforation, tumor invades the visceral peritoneum, lymph nodes 1 out of 8 positive, margins negative, pathologic staging pT4a pTN1a. Patient has not completed surveillance colonoscopy following her resection so I recommended a exam of the rectum as well as a thru stoma colonoscopy. Instructions provided. Will notify gastroenterology of this intent Plan: Plan will be to complete colonoscopy on first mutually agreeable date under local MAC. Pre-procedure prep discussed and paper instructions provided. Patient is also made aware that she will need to have a coach tour driver with her the day of the procedure. I have examined the patient and the H&P has been reviewed. There are no clinical changes since date of exam. Patient denies any further issues. She confirms she completed bowel prep for today's procedure and her output is now clear. She also completed enemas per rectum but did not have any output with this cleanout. Abdominal exam is benign. Proceed to endoscopy suite for colonoscopic exam as described in greater detail above.
--- NOTE | 2025-04-30 08:30 | COLBX_PTH ---
PATIENT: CHATO ALFARO LOC: EN U#:[id number] AGE/SX: 49/F ROOM: RE04/30/[address]: Dr. Ziggy Valle MD : 1975 BED: DIS: 04/30/2025 SPEC #: [id number] RECD: 04/30/25 11:54 STATUS: RODOLFO RELarry #: [id number] SHANA: 04/30/25 08:[address]: Ziggy Valle DEPT: SURGICAL PATHOLOGY RECD BY: Niall Noriega ENTERED: 04/30/25 13:58 SP TYPE: COLON BX OTHR DR: Dr. Katie Sommer MD Tissues: A - Transverse colon B - Descending colon C - Sigmoid colon biopsy D - Rectum, NOS E - COLON BIOPSY Procedures: Surgery Specimen Level IV HEADER OPERATION: Colonoscopy with polypectomy thru stroma and rectum and biopsy PRE-OP DIAGNOSIS: Bright red blood per rectum TISSUE SUBMITTED: A- Transverse colon polyp, B- Descending colon polyp, C- Sigmoid colon polyp, D- Rectal polyp, E- Mucosal biopsy MICROSCOPIC DIAGNOSIS A. Transverse colon, polyp, biopsy: * Tubular adenoma B. Descending colon, polyp, biopsy: * Tubular adenoma C. Sigmoid colon, polyp, biopsy: * Tubular adenoma D. Rectum, polyp, biopsy: * Colonic mucosa with dilated crypts and hyperplastic features E. Colon mucosa, biopsy: * Colonic mucosa with no pathologic change MICROSCOPIC DESCRIPTION Slides are reviewed. GROSS DESCRIPTION A. Received in fixative is one container labeled with the patient's name and designated Transverse colon polyp. The specimen consists of multiple irregular fragments of carrizales tissue that in aggregate measure 1 x 0.8 x 0.1 cm, admixed with flocculent material . The specimen is totally submitted in one cassette. B. Received in fixative is one container labeled with the patient's name and designated Descending colon polyp. The specimen consists of one irregular fragment of carrizales tissue that measures 0.4 cm. The specimen is totally submitted in one cassette. C. Received in fixative is one container labeled with the patient's name and designated Sigmoid colon polyp. The specimen consists of three irregular fragments of carrizales tissue that measure 0.2 to 0.4 cm. The specimen is totally submitted in one cassette. D. Received in fixative is one container labeled with the patient's name and designated Rectal polyp. The specimen consists of two irregular fragments of carrizales tissue that measure 0.4 and 0.6 cm. The specimen is totally submitted in one cassette. E. Received in fixative is one container labeled with the patient's name and designated Mucosal biopsy. The specimen consists of one irregular fragment of carrizales tissue that measures 0.7 cm. The specimen is totally submitted in one cassette. AL 04/30/2025 CPT:48665v0
--- NOTE | 2025-04-30 09:36 | PCM.POST.ANE ---
Anesthesia: Postop Eval I Current Vital Signs Temperature: 98.3 F Pulse Rate: 71 Blood Pressure: 146/92 Respiratory Rate: 16 Pulse Ox: 100 Assessment Airway patent: Yes Spontaneous unlabored respirations: Yes nausea: No Vomiting: No Anesthesia Complication: No Fluid Hydration Crystalloid volume administer (ml): 800 Total IV fluid infused: 800 Progress Note Anesthesia document: Postop Eval 1 completed: Yes
--- NOTE | 2025-04-30 09:41 | OP.PROVAT_ITS ---
04/30/2025 Katie Sommer Md Re : Colonoscopy procedure for Chel Vazquez Dear Ros This procedure was performed on April. My impressions and recommendations are as follows: Impressions : - One 4 mm polyp in the proximal transverse colon, removed with a hot snare. Complete resection. Partial retrieval. - One 3 mm polyp in the descending colon. Biopsied. - One 5 mm polyp in the sigmoid colon. - One 3 mm polyp in the rectum. Biopsied. - Friable (with contact bleeding) mucosa in the rectum. Biopsied. Recommendations : - Discharge patient to home (via wheelchair). - Resume previous diet today. - No aspirin, ibuprofen, naproxen, or other non-steroidal anti-inflammatory drugs for 2 days after biopsy. - Await pathology results. - Repeat colonoscopy date to be determined after pending pathology results are reviewed for surveillance based on pathology results. - Telephone my office for pathology results in 1 week. My findings are described in the full procedure note, which is enclosed. If I can be of further assistance, please feel free to contact me at Doctor phone number(s): , Work: . Sincerely, Ziggy Valle MD 04/30/2025 9:41:15 AM This report has been signed electronically.
--- NOTE | 2025-04-30 09:41 | OP.COLON_ITS ---
Patient Name: Chel Vazquez Procedure Date: 04/30/2025 7:04 AM Date of : 1975 Age: 49 Procedure: Colonoscopy Indications: Rectal bleeding Providers: Ziggy Valle MD Referring MD: Katie Sommer Md Medicines: See the Anesthesia note for documentation of the administered medications Patient Profile: Refer to note in patient chart for documentation of history and physical. Last Colonoscopy: date unknown. Unable to locate last colonoscopy report. Complications: No immediate complications. Estimated blood loss: Minimal. Procedure: Pre-Anesthesia Assessment: - The heart rate, respiratory rate, oxygen saturations, blood pressure, adequacy of pulmonary ventilation, and response to care were monitored throughout the procedure. After I obtained informed consent, the scope was passed under direct vision. Throughout the procedure, the patient's blood pressure, pulse, and oxygen saturations were monitored continuously. The colonoscope was introduced through the sigmoid colostomy and advanced to the ileocolonic anastomosis. The colonoscopy was performed without difficulty. The patient tolerated the procedure well. The quality of the bowel preparation was adequate to identify polyps. Scope In: 8:31:58 AM Scope Withdrawal Time 0 hours 40 minutes 51 seconds Scope Out: 9:25:40 AM Total Procedure Duration Time 0 hours 53 minutes 42 seconds Findings: The perianal and digital rectal examinations were normal. A 4 mm polyp was found in the proximal transverse colon. The polyp was semi-pedunculated. The polyp was removed with a hot snare. Resection was complete, but the polyp tissue was only partially retrieved. Estimated blood loss was minimal. A 3 mm polyp was found in the descending colon. The polyp was semi-sessile. Biopsies were taken with a cold forceps for histology. Estimated blood loss was minimal. A 5 mm polyp was found in the sigmoid colon. The polyp was semi-sessile. Estimated blood loss: 3 mL requiring treatment with coagulation. A 3 mm polyp was found in the rectum. The polyp was sessile. Biopsies were taken with a cold forceps for histology. Estimated blood loss was minimal. A diffuse area of mildly friable (with contact bleeding) mucosa was found in the rectum. Biopsies were taken with a cold forceps for histology. Estimated blood loss was minimal. Impression: - One 4 mm polyp in the proximal transverse colon, removed with a hot snare. Complete resection. Partial retrieval. - One 3 mm polyp in the descending colon. Biopsied. - One 5 mm polyp in the sigmoid colon. - One 3 mm polyp in the rectum. Biopsied. - Friable (with contact bleeding) mucosa in the rectum. Biopsied. Recommendation: - Discharge patient to home (via wheelchair). - Resume previous diet today. - No aspirin, ibuprofen, naproxen, or other non-steroidal anti-inflammatory drugs for 2 days after biopsy. - Await pathology results. - Repeat colonoscopy date to be determined after pending pathology results are reviewed for surveillance based on pathology results. - Telephone my office for pathology results in 1 week. Procedure Code(s): --- Professional --- 17814, Colonoscopy through stoma; with removal of tumor(s), polyp(s), or other lesion(s) by snare technique 52980, 59, Colonoscopy through stoma; with biopsy, single or multiple Diagnosis Code(s): --- Professional --- D12.3, Benign neoplasm of transverse colon (hepatic flexure or splenic flexure) D12.4, Benign neoplasm of descending colon D12.5, Benign neoplasm of sigmoid colon D12.8, Benign neoplasm of rectum K62.5, Hemorrhage of anus and rectum CPT copyright 2021 [employer]. All rights reserved. The codes documented in this report are preliminary and upon laboratory operations coordinator review may be revised to meet current compliance requirements. Ziggy Valle MD 04/30/2025 9:41:15 AM This report has been signed electronically. Number of Addenda: 0 Note Initiated On: 04/30/2025 7:04 AM
--- NOTE | 2025-04-30 10:17 | POSTOPAN2_ITS ---
Anesthesia Postop Eval I Sum Postop Eval Completion status Anesthesia document: Postop Eval 1 completed: Yes Anesthesia Postop Eval I Summary Anesthesia Postop Eval I Summary: Anesthesia Postop Eval I: Assessment Summary Airway patent Yes 04/30/25 09:36 [email or web address] Spontaneous unlabored Yes 04/30/25 09:36 [email or web address] respirations Mental status nausea No 04/30/25 09:36 [email or web address] Vomiting No 10 09:36 [email or web address] Anesthesia Postop Eval I: Fluid Summary Crystalloid volume administer 800 10 09:36 [email or web address] (ml) Colloids volume administered ( ml) Blood Product volume administered (ml) Total IV fluid infused 800 10 09:36 [email or web address] Anesthesia Postop Eval I: Summary Notes Anesthesia Complication No 04/30/25 09:36 [email or web address] Anesthesia Complication Comment: Post-operative progress note Anesthesia: Postop Eval II Evaluation Mental status: Awake Pain Level: 0 nausea: No Vomiting: No
--- NOTE | 2025-04-30 10:17 | PCM.POSTANE2 ---
Anesthesia Postop Eval I Sum Postop Eval Completion status Anesthesia document: Postop Eval 1 completed: Yes Anesthesia Postop Eval I Summary Anesthesia Postop Eval I Summary: Anesthesia Postop Eval I: Assessment Summary Airway patent Yes 04/30/25 09:36 [email or web address] Spontaneous unlabored Yes 04/30/25 09:36 [email or web address] respirations Mental status nausea No 04/30/25 09:36 [email or web address] Vomiting No 10 09:36 [email or web address] Anesthesia Postop Eval I: Fluid Summary Crystalloid volume administer 800 10 09:36 [email or web address] (ml) Colloids volume administered ( ml) Blood Product volume administered (ml) Total IV fluid infused 800 10 09:36 [email or web address] Anesthesia Postop Eval I: Summary Notes Anesthesia Complication No 04/30/25 09:36 [email or web address] Anesthesia Complication Comment: Post-operative progress note Anesthesia: Postop Eval II Evaluation Mental status: Awake Pain Level: 0 nausea: No Vomiting: No
== END 2025-04-30 11:11 | disposition home or self-care (01) ==
LOC: EN 07:23 → AC 07:24
PROVIDERS: PCP Internal Medicine; Referring Provider Internal Medicine; Visit Provider Surgery
PROC: 0DJD8ZZ Inspection of Lower Intestinal Tract, Via Natural or Artificial Opening Endoscopic (ICD-10-PCS; CPT 45378; principal; 2025-04-30 08:25)
DX: K62.5 Hemorrhage of anus and rectum (principal); Z93.3 Colostomy status; K58.9 Irritable bowel syndrome, unspecified; G25.81 Restless legs syndrome; Z85.41 Personal history of malignant neoplasm of cervix uteri; Z90.5 Acquired absence of kidney; Z90.49 Acquired absence of other specified parts of digestive tract; Z90.710 Acquired absence of both cervix and uterus; Z92.21 Personal history of antineoplastic chemotherapy; Z85.048 Personal history of other malignant neoplasm of rectum, rectosigmoid junction, and anus; K63.5 Polyp of colon; K62.1 Rectal polyp; K62.89 Other specified diseases of anus and rectum
CPT/HCPCS: 44394; 44389; 88305; C1889; A4216

== ENCOUNTER 2025-07-02 11:39 | Emergency (ER) | payer OTHER, SELFPAY ==
[2025-07-02 11:39] VITALS: BP 135/82; PULSE 65; RESP 16; TEMP 36.3; O2SAT 99; BMI 23.2
--- NOTE | 2025-07-02 14:08 | CT_ITS ---
PROCEDURE: ABDOMEN/PELVIS WITHOUT CONT 07/02/2025 REASON FOR EXAM: STOMA PAIN/INJURY TECHNIQUE: Procedure Code: CTABDPEL Modality: CT Procedure: ABDOMEN/PELVIS WITHOUT CONT Noncontrast technique limits evaluation of the abdominal and pelvic viscera. Coronal and Sagittal reconstruction series were provided. One or more dose reduction techniques were used (e.g., Automated exposure control, adjustment of the mA and/or kV according to patient size, use of iterative reconstruction technique). RADIATION DOSE SUMMARY: CTDlvol: 6.22 mGy DLP: 249.06 mGycm COMPARISON: CT abdomen and pelvis 10/2024. FINDINGS: Lung bases: Clear. Liver: Unremarkable. Gallbladder: Status post cholecystectomy. Spleen: Unremarkable. Pancreas: Unremarkable. Adrenals: Unremarkable. Kidneys: The left kidney is surgically absent. The right kidney is unremarkable. No hydronephrosis. No nephrolithiasis. Bladder: Unremarkable. Reproductive Organs: Unremarkable. Bowel: Status post left-sided colostomy placement. No bowel wall thickening. No bowel obstruction. Appendix: Status post appendectomy. Lymph nodes: No lymphadenopathy. Vasculature: No aneurysm. Peritoneum / Retroperitoneum: No free air or free fluid. Bones: No acute bony abnormalities. CT/Abdomen/Pelvis without Cont IMPRESSION: No acute abdominopelvic abnormalities. The stoma is unremarkable. Reading Location: [facility] [place]
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
[2025-07-02 16:10] VITALS: BP 132/80; PULSE 84; RESP 16; TEMP 36.6; O2SAT 100
== END 2025-07-02 16:11 | disposition home or self-care (01) ==
PROVIDERS: Emergency Provider Emergency Medicine; PCP Internal Medicine; Visit Provider Emergency Medicine
DX: S30.11XA Contusion of abdominal wall, initial encounter (principal); X58.XXXA Exposure to other specified factors, initial encounter
CPT/HCPCS: 74176; 99282